=== PATIENT | female | born 1940 | race Caucasian/White ===

== ENCOUNTER 2016-09-04 14:52 | Emergency (ER) | payer OTHER ==
[2016-09-04 14:58] VITALS: TEMP 98; BMI 19.5
--- NOTE | 2016-09-04 16:03 | PDOC ---
History of Present Illness - General History Source: Patient, Old Records Exam Limitations: No Limitations - History of Present Illness Initial Comments: 09/04/16 17:10 The patient is a 76 year old female, with a significant past medical history of HTN and left lower extremity DVT, who presents to the emergency department with left lower extremity swelling and pain. She describes the pain as ranging from mild to moderate, without radiation or modifying factors. She states that she has a history of left lower extremity DVT, for which she has been taking Coumadin. She notes that her last INR check was 2 days ago, which showed an INR level around 2. The patient denies chest pain, shortness of breath, headache and dizziness. Denies fever, chills, nausea, vomit, diarrhea and constipation. Denies dysuria, frequency, urgency and hematuria. Allergies: None Past surgical history: Back surgery Social history: Cigarette use (3 daily) <Darinel Wayne - Last Filed: 09/04/16 18:45> <Parminder Martins - Last Filed: 09/04/16 18:57> - General Chief Complaint: Pain Stated Complaint: LT LEG PAIN (B.CLOTS)/SOB Time Seen by Provider: 09/04/16 16:01 Past History <Darinel Wayne - Last Filed: 09/04/16 18:45> - Past Medical History Anemia: No Asthma: No Cancer: No Cardiac Disorders: No CVA: No COPD: No CHF: No Dementia: No Diabetes: No GI Disorders: Yes (hernia) Disorders: No HTN: Yes Hypercholesterolemia: No Liver Disease: No Seizures: No Thyroid Disease: No Other medical history: LLE DVT - Surgical History Abdominal Surgery: No Appendectomy: No Cardiac Surgery: No Cholecystectomy: No Lung Surgery: No Neurologic Surgery: No Orthopedic Surgery: No - Psycho/Social/Smoking Cessation Hx Anxiety: No Suicidal Ideation: No Smoking History: Current some day smoker Have you smoked in the past 12 months: Yes Number of Cigarettes Smoked Daily: 3 If you are a former smoker, when did you quit?: 2 months ago Information on smoking cessation initiated: Yes 'Breaking Loose' booklet given: 09/04/16 Hx Alcohol Use: No Drug/Substance Use Hx: No Substance Use Type: None Hx Substance Use Treatment: No <Parminder Martins - Last Filed: 09/04/16 18:57> - Past Medical History Allergies/Adverse Reactions: Allergies Allergy/AdvReac Type Severity Reaction Status Date / Time No Known Allergies Allergy Verified 09/04/16 14:55 Home Medications: Ambulatory Orders Warfarin Sodium [Coumadin] 7.5 mg PO DAILY 09/04/16 Review of Systems - Review of Systems Able to Perform ROS?: Yes Comments:: 09/04/16 17:10 GENERAL/CONSTITUTIONAL: No fever or chills. No weakness. HEAD, EYES, EARS, NOSE AND THROAT: No change in vision. No ear pain or discharge. No sore throat. CARDIOVASCULAR: No chest pain or shortness of breath RESPIRATORY: No cough, wheezing, or hemoptysis. GASTROINTESTINAL: No nausea, vomiting, diarrhea or constipation. GENITOURINARY: No dysuria, frequency, or change in urination. MUSCULOSKELETAL: No joint or muscle swelling or pain. No neck or back pain. EXTREMITES: (+) Left lower extremity swelling and pain. SKIN: No rash NEUROLOGIC: No headache, vertigo, loss of consciousness, or change in strength/ sensation. ENDOCRINE: No increased thirst. No abnormal weight change HEMATOLOGIC/LYMPHATIC: No anemia, easy bleeding, or history of blood clots. ALLERGIC/IMMUNOLOGIC: No hives or skin allergy. <Darinel Wayne - Last Filed: 09/04/16 18:45> *Physical Exam - Vital Signs Last Vital Signs Temp Pulse Resp BP Pulse Ox 98.0 F 93 H 18 155/79 96 09/04/16 14:55 09/04/16 14:55 09/04/16 14:55 09/04/16 14:55 09/04/16 16:04 - Physical Exam Comments: 09/04/16 17:10 GENERAL: Awake, alert, and fully oriented, in no acute distress HEAD: No signs of trauma, normocephalic, atraumatic EYES: PERRLA, EOMI, sclera anicteric, conjunctiva clear ENT: Auricles normal inspection, hearing grossly normal, nares patent, oropharynx clear without exudates. Moist mucosa NECK: Normal ROM, supple, no lymphadenopathy, JVD, or masses LUNGS: No distress, speaks full sentences, clear to auscultation bilaterally HEART: Regular rate and rhythm, normal S1 and S2, no murmurs, rubs or gallops, peripheral pulses normal and equal bilaterally. ABDOMEN: Soft, nontender, normoactive bowel sounds. No guarding, no rebound. No masses EXTREMITIES: (+) Swollen and bruised left lower extremity, twice as large as the right leg. Normal range of motion. No clubbing or cyanosis. NEUROLOGICAL: Cranial nerves II through XII grossly intact. Normal speech, normal gait, no focal sensorimotor deficits SKIN: Warm, Dry, normal turgor, no rashes or lesions noted. <Darinel Wayne - Last Filed: 09/04/16 18:45> - Vital Signs Last Vital Signs Temp Pulse Resp BP Pulse Ox 98.0 F 93 H 18 155/79 97 09/04/16 14:55 09/04/16 14:55 09/04/16 14:55 09/04/16 14:55 09/04/16 14:55 <Parminder Martins - Last Filed: 09/04/16 18:57> Medical Decision Making - Medical Decision Making 09/04/16 18:45 Dr. Quinn Massey was called regarding the patient at 6:35pm. Dr. Ceja covering Dr. Ceja was consulted regarding the patient at 6:44pm <Darinel Wayne - Last Filed: 09/04/16 18:45> *DC/Admit/Observation/Transfer - Attestations Scribe Attestion: 09/04/16 17:11 Documentation prepared by Darinel Wayne, acting as medical collections representative for Parminder Martins MD <Darinel Wayne - Last Filed: 09/04/16 18:45> - Attestations Physician Attestion: 09/04/16 16:02 I, Dr. Parminder Martins, attest that this document has been prepared under my direction and personally reviewed by me in its entirety. I further attest, that it accurately reflects all work, treatment, procedures and medical decision -making performed by me. <Parminder Martins - Last Filed: 09/04/16 18:57> - Referrals Referrals: Quinn Massey MD [Primary Care Provider] - - Patient Instructions Printed Discharge Instructions: DI for Deep Vein Thrombosis, Warfarin Additional Instructions: Continue meds keep appointments, keep leg elevated
[2016-09-04 19:11] VITALS: BP 148/60; PULSE 88
== END 2016-09-04 19:09 | disposition home or self-care (01) ==
LOC: JER 14:52
DX: Z86.718 Personal history of other venous thrombosis and embolism (principal); Z79.01 Long term (current) use of anticoagulants; I10 Essential (primary) hypertension; F17.210 Nicotine dependence, cigarettes, uncomplicated
CPT/HCPCS: 93971-TC; 99284-25

== ENCOUNTER 2016-09-07 15:52 | Inpatient (IN) | payer OTHER ==
[2016-09-07] MEDS ORDERED: OXYCODONE/APAP 5/325MG COMBO TABLET PO ONE (17:10)
[2016-09-07] MEDS ORDERED: OXYCODONE/APAP 5/325MG COMBO TABLET ONE (17:13)
--- NOTE | 2016-09-07 17:23 | PDOC ---
*Physical Exam - Vital Signs Last Vital Signs Temp Pulse Resp BP Pulse Ox 98.1 F 100 H 22 154/74 95 09/07/16 16:02 09/07/16 16:02 09/07/16 16:02 09/07/16 16:02 09/07/16 16:02 ED Treatment Course - LABORATORY CBC & Chemistry Diagram: 09/15/16 06:20 09/15/16 06:20 - Medications Given in the ED: ED Medications Discontinued Medications Generic Name Dose Route Start Last Admin Trade Name Freq PRN Reason Stop Dose Admin Oxycodone/Acetaminophen 1 combo 09/07/16 17:10 09/07/16 17:15 Percocet 5/325 - PO 09/07/16 17:11 1 combo ONCE ONE Administration Medical Decision Making - Medical Decision Making 09/07/16 17:23 Pt seen by the Advanced Practice Provider under my direct supervision Ancillary studies reviewed I agree with plan as outlined by the Advanced Practice Provider JEFFREY Leon *DC/Admit/Observation/Transfer Diagnosis at time of Disposition: DVT (deep venous thrombosis), Elevated INR, Aneurysm of left popliteal artery
[2016-09-07 17:54] LABS: EOSINOPHIL 0.7 % (0-4.5); MCH 25.4 pg (25.7-33.7); MCHC 31.6 g/dl (32.0-36.0); MEAN CELL VOLUME 80.3 fl (80-96); MEAN PLT VOLUME 9.7 fl (7.5-11.1); NEUTROPHILS 86.9 % (42.8-82.8); PLATELET COUNT 354 K/MM3 (134-434); RDW 16.2 % (11.6-15.6); WHITE BLOOD COUNT 12.3 K/mm3 (4.0-10.0)
--- NOTE | 2016-09-07 17:59 | PDOC ---
History of Present Illness - General Chief Complaint: Pain Stated Complaint: LEFT LEG PAIN Time Seen by Provider: 09/07/16 16:04 History Source: Patient Exam Limitations: No Limitations - History of Present Illness Initial Comments: 09/07/16 17:08 76-year-old female presented to ED with complaints of worsening left lower extremity pain and swelling. Patient states was seen here a few days ago had an ultrasound done and was told to follow-up with her PCP and continue with her Coumadin elevating her legs when not ambulatory. Patient states bruising has increased and Tylenol was not relieving her discomfort. Patient states was diagnosed with a DVT to left lower extremity a few months ago and is currently on Coumadin. Patient denies shortness of breath, chest pain, weakness, nausea, or difficulty ambulating. Timing/Duration: getting worse Severity: moderate Associated Symptoms: reports: denies symptoms Past History - Travel Traveled outside of the country in the last 30 days: No Close contact w/someone who was outside of country & ill: No - Past Medical History Allergies/Adverse Reactions: Allergies Allergy/AdvReac Type Severity Reaction Status Date / Time No Known Allergies Allergy Verified 09/04/16 14:55 Home Medications: Ambulatory Orders Warfarin Sodium [Coumadin] 7.5 mg PO DAILY 09/04/16 Anemia: No Asthma: No Cancer: No Cardiac Disorders: No CVA: No COPD: No CHF: No Dementia: No Diabetes: No GI Disorders: Yes (hernia) Disorders: No HTN: Yes Hypercholesterolemia: No Liver Disease: No Seizures: No Thyroid Disease: No - Surgical History Abdominal Surgery: No Appendectomy: No Cardiac Surgery: No Cholecystectomy: No Lung Surgery: No Neurologic Surgery: No Orthopedic Surgery: No - Psycho/Social/Smoking Cessation Hx Anxiety: No Suicidal Ideation: No Smoking History: Current every day smoker Have you smoked in the past 12 months: Yes Number of Cigarettes Smoked Daily: 1 If you are a former smoker, when did you quit?: 2 months ago Information on smoking cessation initiated: No 'Breaking Loose' booklet given: 09/04/16 Hx Alcohol Use: No Drug/Substance Use Hx: No Substance Use Type: None Hx Substance Use Treatment: No Patient Lives Alone: Yes Review of Systems - Review of Systems Able to Perform ROS?: Yes Constitutional: No: Symptoms Reported HEENTM: No: Symptoms Reported Respiratory: No: Symptoms reported Cardiac (ROS): No: Symptoms Reported ABD/GI: No: Symptoms Reported : No: Symptoms Reported Musculoskeletal: Yes: Muscle Pain (left calf) Integumentary: Yes: Bruising, Other (swelling) Neurological: No: Symptoms reported Endocrine: No: Symptoms Reported Hematologic/Lymphatic: Yes: Blood Clots, Easy Bleeding *Physical Exam - Vital Signs Last Vital Signs Temp Pulse Resp BP Pulse Ox 98.1 F 100 H 22 154/74 95 09/07/16 16:02 09/07/16 16:02 09/07/16 16:02 09/07/16 16:02 09/07/16 16:02 - Physical Exam General Appearance: Yes: Nourished, Appropriately Dressed. No: Apparent Distress HEENT: positive: EOMI, MATT. negative: Pale Conjunctivae Neck: positive: Supple Respiratory/Chest: positive: Lungs Clear, Normal Breath Sounds. negative: Respiratory Distress, Accessory Muscle Use Cardiovascular: positive: Regular Rhythm, Regular Rate. negative: Murmur Vascular Pulses: Dorsalis-Pedis (R): 2+, Doralis-Pedis (L): 2+ Extremity: positive: Normal Capillary Refill, Normal Range of Motion, Tender ( to posterior aspect of left calf left patella and left ankle). negative: Normal Inspection (noted generalized edema of the left lower extremity from the left patella and distally.) Integumentary: positive: Ecchymosis (to the posterior aspect of distal quadricep extending to the distal aspect of left malleolus) Neurologic: positive: Motor Strength 5/5 (full mobility of left lower extremity) ED Treatment Course - LABORATORY CBC & Chemistry Diagram: 09/07/16 17:09 09/07/16 17:09 - RADIOLOGY Radiology Studies Ordered: Category Date Time Status DUPLEX VASCUL US-1 LEG [US] Stat Ultrasound 09/07/16 17:09 Ordered - Medications Given in the ED: ED Medications Discontinued Medications Generic Name Dose Route Start Last Admin Trade Name Freq PRN Reason Stop Dose Admin Oxycodone/Acetaminophen 1 combo 09/07/16 17:10 09/07/16 17:15 Percocet 5/325 - PO 09/07/16 17:11 1 combo ONCE ONE Administration Medical Decision Making - Medical Decision Making 09/07/16 17:04 Patient with complaints of worsening pain and ecchymosis to the posterior aspect of left lower extremity. Patient was seen here 3 days ago and an ultrasound that showed questionable pseudo-cyst versus operative aneurysm. Patient had no labs done at that time. Patient remains" and. Patient ordered for labs including CBC, comp, INR and repeat ultrasound. 09/07/16 19:10 Left leg DVT is identified. A 5 cm popliteal fossa spherical structures seen to distal popliteal artery aneurysm/pseudoaneurysm. Patient will be ordered for a CTA of the lower extremity along with recommendations to hold Coumadin. Patient will be admitted to Dr. Ceja 09/07/16 19:10 Laboratory Tests 03/07/16 09/07/16 09/07/16 06:00 17:09 17:09 WBC 12.3 H D Hgb 9.9 L 9.5 L Hct 30.7 L 30.1 L INR 6.54 H* D Sodium Potassium Chloride Carbon Dioxide Anion Gap BUN Creatinine Random Glucose Calcium Total Bilirubin AST ALT Alkaline Phosphatase Total Protein Albumin 09/07/16 17:09 WBC Hgb Hct INR Sodium 139 Potassium 4.4 Chloride 103 Carbon Dioxide 27 Anion Gap 9 BUN 15 Creatinine 0.8 Random Glucose 105 D Calcium 8.3 L Total Bilirubin 0.4 D AST 14 L D ALT 13 D Alkaline Phosphatase 151 H Total Protein 6.7 D Albumin 3.0 L *DC/Admit/Observation/Transfer Diagnosis at time of Disposition: Elevated international normalized ratio (INR), Aneurysm of left popliteal artery DVT (deep venous thrombosis) Qualifiers: DVT location: lower extremity Laterality: left - Discharge Dispostion Admit: Yes
[2016-09-07 18:28] LABS: PROTHROMBIN TIME (PATIENT) 74.7 SEC (9.98-11.88)
[2016-09-07 18:33] LABS: ALK PHOS 151 U/L (45-117); ANION GAP 9 (8-16); BILIRUBIN,TOTAL 0.4 mg/dL (0.2-1.0); CALCIUM 8.3 mg/dL (8.5-10.1); CO2 27 mmol/L (21-32); COCKROFT - GAULT 40.6895; CREATININE 0.8 mg/dL (0.55-1.02); GLUCOSE,RANDOM 105 mg/dL (74-106); SGOT/AST 14 U/L (15-37); SGPT/ALT 13 U/L (12-78); TOT PROT 6.7 g/dl (6.4-8.2)
[2016-09-07 19:05] LABS: INR 6.54 (0.82-1.09)
[2016-09-07 23:12] VITALS: BMI 18.0
[2016-09-08] MEDS: oxyCODONE HCL 5 MG TABLET PO PRN ×2 (04:34→20:28)
--- NOTE | 2016-09-08 09:43 | EKG ---
Test Reason : Blood Pressure : / mmHG Vent. Rate : 096 BPM Atrial Rate : 096 BPM P-R Int : 186 ms QRS Dur : 072 ms QT Int : 386 ms P-R-T Axes : 072 -24 056 degrees QTc Int : 487 ms POOR DATA QUALITY, INTERPRETATION MAY BE ADVERSELY AFFECTED SINUS RHYTHM WITH PREMATURE ATRIAL COMPLEXES NONSPECIFIC T WAVE ABNORMALITY PROLONGED QT ABNORMAL ECG WHEN COMPARED WITH ECG OF 26-FEB-2016 15:01, PREMATURE ATRIAL COMPLEXES ARE NOW PRESENT Confirmed by LIZ AYALA MD ([id number]) on 09/08/2016 9:43:34 AM Referred By: Confirmed By:LIZ AYALA MD
[2016-09-08] MEDS ORDERED: ONDANSETRON 4 MG/2 ML VIAL IVPB PRN (11:09)
--- NOTE | 2016-09-08 11:15 | HP ---
Admitting History and Physical - Primary Care Physician PCP: Quinn Massey - Admission Chief Complaint: My leg hurts History of Present Illness: Ms Mcdonald is a very pleasant 76 year old female who comes in with 7 day history of LLE swelling and pain. She says she was doing well until last week where she developed a small amount of pain in her left leg. She says it was located in her calf. At first it was very minimal but it steadily increased over time. She also noted swelling and bruising associated with it. The pain was achy and became a 10/10. It did not radiate. Because of that she comes in. She denies fevers, chills, lightheadedness, dizziness, chest pain, shortness of breath, nausea, vomiting, diarrhea, constipation, pain or difficulty urinating, or RLE swelling. Currently her pain is controlled. History Source: Patient Limitations to Obtaining History: No Limitations - Past Medical History Cardiovascular: Yes: Deep Vein Thrombosis, HTN Gastrointestinal: Yes: GERD, Hiatal Hernia (large HH) ...: No Musculoskeletal: Yes: Chronic low back pain - Past Surgical History Past Surgical History: Yes: , Laminectomy - Advance Directives Advance Directives: Yes: Health Care Proxy - Smoking History Smoking history: Current every day smoker Have you smoked in the past 12 months: Yes Aproximately how many cigarettes per day: 1 If you are a former smoker, when did you quit?: 2 months ago - Alcohol/Substance Use Hx Alcohol Use: No History of Substance Use: reports: None - Social History ADL: Family Assistance History of Recent Travel: No Home Medications - Allergies Allergies/Adverse Reactions: Allergies Allergy/AdvReac Type Severity Reaction Status Date / Time No Known Allergies Allergy Verified 09/04/16 14:55 - Home Medications Home Medications: Ambulatory Orders Warfarin Sodium [Coumadin] 7.5 mg PO DAILY 09/04/16 Family Disease History - Family Disease History Family Disease History: Heart Disease: Mother, Other: Father (cirrhosis) Review of Systems Findings/Remarks: Full review of systems obtained, as per HPI and otherwise negative Physical Examination Vital Signs: Vital Signs Temperature 97.8 F 09/08/16 05:45 Pulse Rate 62 09/08/16 05:45 Respiratory Rate 18 09/08/16 05:45 Blood Pressure 128/67 09/08/16 05:45 O2 Sat by Pulse Oximetry (%) 94 L 09/07/16 21:00 Constitutional: Yes: No Distress, Calm, Thin Eyes: Yes: Conjunctiva Clear, EOM Intact HENT: Yes: Atraumatic, Normocephalic Cardiovascular: Yes: Regular Rate and Rhythm. No: Gallop, Murmur, Rub Respiratory: Yes: Regular, CTA Bilaterally. No: Rales, Rhonchi, Wheezes Gastrointestinal: Yes: Normal Bowel Sounds, Soft. No: Distention, Tenderness Extremities: Yes: Other (ecchymosis) Edema: Yes Edema: LLE: Trace Labs: Laboratory Results - last 24 hr 09/07/16 09/07/16 09/07/16 17:09 17:09 17:09 WBC 12.3 H D RBC 3.74 Hgb 9.5 L Hct 30.1 L MCV 80.3 MCHC 31.6 L RDW 16.2 H Plt Count 354 MPV 9.7 Neutrophils % 86.9 H D Lymphocytes % 5.0 L D Monocytes % 6.4 Eosinophils % 0.7 Basophils % 1.0 INR 6.54 H* D Sodium 139 Potassium 4.4 Chloride 103 Carbon Dioxide 27 Anion Gap 9 BUN 15 Creatinine 0.8 Creat Clearance w eGFR > 60 Random Glucose 105 D Calcium 8.3 L Total Bilirubin 0.4 D AST 14 L D ALT 13 D Alkaline Phosphatase 151 H Total Protein 6.7 D Albumin 3.0 L Imaging - Results Chest X-ray: Report Reviewed, Image Reviewed Ultrasound: Report Reviewed Problem List - Problems (1) Aneurysm of left popliteal artery Assessment/Plan: -patient with history of aneurysm, now presenting with ecchymosis and pain -with supratherapeutic INR, ? rupture of aneurysm -CTA with runoff performed, awaiting read -vascular surgery consulted Code(s): I72.4 - ANEURYSM OF ARTERY OF LOWER EXTREMITY (2) DVT (deep venous thrombosis) Assessment/Plan: -DVT found in leg -patient says she thinks it has been there but is getting bigger -ultrasound in 12/23 showing extensive DVT, but ultrasound from 09/03 showing no DVT -last ultrasound may be inaccurate and seen DVT is resolving DVT -however it is concerning as patient is supratherapeutic -will consult hematology to assess if this is failure of coumadin Code(s): I82.409 - ACUTE EMBOLISM AND THOMBOS UNSP DEEP VN UNSP LOWER EXTREMITY Qualifiers: DVT location: lower extremity Laterality: left (3) Elevated INR Assessment/Plan: -hold coumadin currently -will hold on Vitamin K currently -however if ruptured aneurysm may need to give -hematology consulted Code(s): R79.1 - ABNORMAL COAGULATION PROFILE (4) GERD (gastroesophageal reflux disease) Assessment/Plan: -secondary to hiatal hernia -also history of GI bleed -will place on protonix Code(s): K21.9 - GASTRO-ESOPHAGEAL REFLUX DISEASE WITHOUT ESOPHAGITIS (5) Hiatal hernia Assessment/Plan: -outpatient follow up -currently asymptomatic Code(s): K44.9 - DIAPHRAGMATIC HERNIA WITHOUT OBSTRUCTION OR GANGRENE
--- NOTE | 2016-09-08 16:29 | CONSULT ---
Consult - Past Medical History Cardio/Vascular: Yes: Deep Vein Thrombosis, HTN Gastrointestinal: Yes: GERD, Hiatal Hernia (large HH) ...: No Musculoskeletal: Yes: Chronic low back pain - Past Surgical History Past Surgical History: Yes: , Laminectomy - Alcohol/Substance Use Hx Alcohol Use: No History of Substance Use: reports: None - Smoking History Smoking history: Current every day smoker Have you smoked in the past 12 months: Yes Aproximately how many cigarettes per day: 1 If you are a former smoker, when did you quit?: 2 months ago - Social History ADL: Family Assistance History of Recent Travel: No Home Medications - Allergies Allergies/Adverse Reactions: Allergies Allergy/AdvReac Type Severity Reaction Status Date / Time No Known Allergies Allergy Verified 09/04/16 14:55 - Home Medications Home Medications: Ambulatory Orders Warfarin Sodium [Coumadin] 7.5 mg PO DAILY 09/04/16 Family Disease History - Family Disease History Family Disease History: Heart Disease: Mother, Other: Father (cirrhosis) Physical Exam Vital Signs: Vital Signs Temperature 98.4 F 09/08/16 15:46 Pulse Rate 94 H 09/08/16 15:46 Respiratory Rate 19 09/08/16 15:46 Blood Pressure 128/77 09/08/16 15:46 O2 Sat by Pulse Oximetry (%) 96 09/08/16 11:15 Assessment/Plan Vascular Surgery Ms Mcdonald is a very pleasant 76 year old female who comes in with 7 day history of LLE swelling and pain. She says she was doing well until last week where she developed a small amount of pain in her left leg. She says it was located in her calf. At first it was very minimal but it steadily increased over time. She also noted swelling and bruising associated with it. The pain was achy and became a 10/10. It did not radiate. Because of that she comes in. She denies fevers, chills, lightheadedness, dizziness, chest pain, shortness of breath, nausea, vomiting, diarrhea, constipation, pain or difficulty urinating, or RLE swelling. Currently her pain is controlled. History Source: Patient Limitations to Obtaining History: No Limitations - Past Medical History Cardiovascular: Yes: Deep Vein Thrombosis, HTN Gastrointestinal: Yes: GERD, Hiatal Hernia (large HH) ...: No Musculoskeletal: Yes: Chronic low back pain - Past Surgical History Past Surgical History: Yes: , Laminectomy - Advance Directives Advance Directives: Yes: Health Care Proxy - Smoking History Smoking history: Current every day smoker Have you smoked in the past 12 months: Yes Aproximately how many cigarettes per day: 1 If you are a former smoker, when did you quit?: 2 months ago PE Head - NC/AT Lung - CTA Heart - RRR abd - soft,nt,nd Ext - Left posterior knee - pulsatile mass in the form of a aneurysm. [place] DP and PT pulse in leg. Right posterior knee -- pulsaltile mass. A/P Bilateral popliteal artery aneuryms. Left greater than right CTA not read officially. Hold coumadin for inr of 6.5 Once below 2 please start IV heparin. Will need popliteal artery stent graft percutanously during angiogram once INR is stable. Please medically and cardiology whitaker clear. Ronald Sheikh DO
[2016-09-08] MEDS: ACETAMINOPHEN 325 MG TABLET (FP) PO PRN (20:26)
--- NOTE | 2016-09-08 21:16 | CONSULT ---
Consult - text type - Consultation Consultation Note: Patient seen and examined Ms Mcdonald is a very pleasant 76 year old female who comes in with 2 week history of LLE swelling and pain. She says she was doing well when she developed a small amount of pain in her left leg. She says it was located in her calf. At first it was very minimal but it steadily increased over time. She also noted swelling and bruising associated with it. The pain was achy and became a 10/10. It did not radiate. Because of that she comes in. She denies fevers, chills, lightheadedness, dizziness, chest pain, shortness of breath, nausea, vomiting, diarrhea, constipation, pain or difficulty urinating, or RLE swelling. Currently her pain is controlled. she was seen in the er on 09/04 ad sent home as u/s showed no dvt. she came back 09/07 with left leg swelling, high inr, u/s sowing ruptured popliteal aneurysm, ruptured and sealed - Past Medical History Cardiovascular: Yes: Deep Vein Thrombosis, HTN Gastrointestinal: Yes: GERD, Hiatal Hernia (large HH) Musculoskeletal: Yes: Chronic low back pain - Past Surgical History Past Surgical History: Yes: , Laminectomy - Advance Directives Advance Directives: Yes: Health Care Proxy - Smoking History Smoking history: Current every day smoker Home Medications - Allergies Allergies/Adverse Reactions: Allergies Allergy/AdvReac Type Severity Reaction Status Date / Time No Known Allergies Allergy Verified 09/04/16 14:55 - Home Medications Home Medications: Ambulatory Orders Warfarin Sodium [Coumadin] 7.5 mg PO DAILY 09/04/16 Family Disease History - Family Disease History Family Disease History: Heart Disease: Mother, Other: Father (cirrhosis) HPI and otherwise negative Physical Examination Vital Signs: Vital Signs Temperature 97.8 F 09/08/16 05:45 Pulse Rate 62 09/08/16 05:45 Respiratory Rate 18 09/08/16 05:45 Blood Pressure 128/67 09/08/16 05:45 O2 Sat by Pulse Oximetry (%) 94 L 09/07/16 21:00 Constitutional: Yes: No Distress, Calm, Thin Eyes: Yes: Conjunctiva Clear, EOM Intact HENT: Yes: Atraumatic, Normocephalic Cardiovascular: Yes: Regular Rate and Rhythm. No: Gallop, Murmur, Rub Respiratory: Yes: Regular, CTA Bilaterally. No: Rales, Rhonchi, Wheezes Gastrointestinal: Yes: Normal Bowel Sounds, Soft. No: Distention, Tenderness Extremities: Yes: Other (ecchymosis) post. left thigh above the knee joint Edema: Yes Edema: LLE: Trace Labs: Laboratory Results - last 24 hr 09/07/16 09/07/16 09/07/16 17:09 17:09 17:09 WBC 12.3 H D RBC 3.74 Hgb 9.5 L Hct 30.1 L MCV 80.3 MCHC 31.6 L RDW 16.2 H Plt Count 354 MPV 9.7 Neutrophils % 86.9 H D Lymphocytes % 5.0 L D Monocytes % 6.4 Eosinophils % 0.7 Basophils % 1.0 INR 6.54 H* D Sodium 139 Potassium 4.4 Chloride 103 Carbon Dioxide 27 Anion Gap 9 BUN 15 Creatinine 0.8 Creat Clearance w eGFR > 60 Random Glucose 105 D Calcium 8.3 L Total Bilirubin 0.4 D AST 14 L D ALT 13 D Alkaline Phosphatase 151 H Total Protein 6.7 D Albumin 3.0 L Imaging - Results Chest X-ray: Report Reviewed, Image Reviewed Ultrasound: Report Reviewed Problem List -76 y/o female, thin buil, COPD, smoker, h/o unprovoked, extensive LLE DVT in comes in with subacute , 2 weeks onset of LT. thigh swelling, pain. CTA shows--- Lt. popliteal aneurysm rupture/bleed supratherapeutic INR ?? DVT since 12/23 --?? chronic Subacute /chroic Lt. popliteal aneurysm rupture/sealing. ??chronic LLE DVT vit. k may need ffp if actively bleeds monitor cbc/pt/ptt heparin when INR <2
[2016-09-08] MEDS ORDERED: PHYTONADIONE 10 MG/1 ML AMP SQ ONE ×2 (21:29→23:54)
[2016-09-08] MEDS: DOCUSATE SODIUM 100 MG CAPSULE (FP) PO SCH (22:33)
[2016-09-08 23:22] LABS: ACTIVATED PTT 52.3 SECONDS (26.9-34.4)
[2016-09-08 23:42] LABS: PROTHROMBIN TIME (PATIENT) 107.6 SEC (9.98-11.88)
[2016-09-08 23:45] LABS: INR 9.35 (0.82-1.09)
[2016-09-09] MEDS: ACETAMINOPHEN 325 MG TABLET (FP) PO PRN ×3 (03:58→22:18)
[2016-09-09] MEDS: oxyCODONE HCL 5 MG TABLET PO PRN ×3 (03:59→22:17)
[2016-09-09 07:19] LABS: BASOPHIL 1.1 % (0-2.0); EOSINOPHIL 2.3 % (0-4.5); MCH 25.9 pg (25.7-33.7); MCHC 32.4 g/dl (32.0-36.0); MEAN PLT VOLUME 9.3 fl (7.5-11.1); NEUTROPHILS 74.9 % (42.8-82.8); PLATELET COUNT 282 K/MM3 (134-434); RDW 16.7 % (11.6-15.6); WHITE BLOOD COUNT 8.3 K/mm3 (4.0-10.0)
[2016-09-09 07:30] LABS: PROTHROMBIN TIME (PATIENT) 78.6 SEC (9.98-11.88)
[2016-09-09 07:40] LABS: INR 6.87 (0.82-1.09)
[2016-09-09 08:08] LABS: CALCIUM 7.9 mg/dL (8.5-10.1); COCKROFT - GAULT 45.135; CREATININE 0.7 mg/dL (0.55-1.02); MAGNESIUM 2.2 mg/dL (1.8-2.4); PHOSPHOROUS 3.4 mg/dL (2.5-4.9)
[2016-09-09 09:35] LABS: ACTIVATED PTT 52.2 SECONDS (26.9-34.4)
[2016-09-09] MEDS: DOCUSATE SODIUM 100 MG CAPSULE (FP) PO SCH ×2 (10:05→21:12)
[2016-09-09] MEDS: POLYETHYLENE GLYCOL 3350 119 GM BTL PO SCH (10:05)
[2016-09-09] MEDS: PANTOPRAZOLE 40 MG TABLET (FP) PO SCH (10:05)
--- NOTE | 2016-09-09 11:15 | PN ---
Progress Note, Physician Chief Complaint: Ms Mcdonald says she is doing well. Her leg pain is resolving. No cp, sob, n/v. - Current Medication List Current Medications: Active Medications Acetaminophen (Tylenol -) 325 mg PO Q4H PRN PRN Reason: PAIN Stop: 09/10/16 23:55 Last Admin: 09/09/16 03:58 Dose: 325 mg Docusate Sodium (Colace -) 100 mg PO BID [facility] Last Admin: 09/09/16 10:05 Dose: 100 mg Ondansetron HCl (Zofran Injection) 4 mg IVPB Q6H PRN PRN Reason: NAUSEA Oxycodone HCl (Roxicodone -) 5 mg PO Q4H PRN PRN Reason: PAIN Last Admin: 09/09/16 03:59 Dose: 5 mg Pantoprazole Sodium (Protonix -) 40 mg PO DAILY [facility] Last Admin: 09/09/16 10:05 Dose: 40 mg Polyethylene Glycol (Miralax (For Daily Use) -) 17 gm PO DAILY [facility] Last Admin: 09/09/16 10:05 Dose: 17 gm - Objective Vital Signs: Vital Signs Temperature 98.6 F 09/09/16 09:45 Pulse Rate 95 H 09/09/16 09:45 Respiratory Rate 20 09/09/16 09:45 Blood Pressure 114/73 09/09/16 09:45 O2 Sat by Pulse Oximetry (%) 96 09/08/16 21:00 Constitutional: Yes: Well Nourished, No Distress, Calm Cardiovascular: Yes: Regular Rate and Rhythm. No: Gallop, Murmur, Rub Respiratory: Yes: Regular, CTA Bilaterally. No: Rales, Rhonchi, Wheezes Gastrointestinal: Yes: Normal Bowel Sounds, Soft. No: Distention, Tenderness Extremities: Yes: Other (ecchymosis) Edema: No Labs: CBC, BMP 09/09/16 06:00 09/09/16 06:00 INR, PTT INR 6.87 (0.82-1.09) H* 09/09/16 06:00 Fibrinogen 575.0 mg/dL (238-498) H 09/09/16 06:00 Problem List - Problems (1) Aneurysm of left popliteal artery Code(s): I72.4 - ANEURYSM OF ARTERY OF LOWER EXTREMITY (2) DVT (deep venous thrombosis) Code(s): I82.409 - ACUTE EMBOLISM AND THOMBOS UNSP DEEP VN UNSP LOWER EXTREMITY Qualifiers: DVT location: lower extremity Laterality: left (3) Elevated INR Code(s): R79.1 - ABNORMAL COAGULATION PROFILE (4) GERD (gastroesophageal reflux disease) Code(s): K21.9 - GASTRO-ESOPHAGEAL REFLUX DISEASE WITHOUT ESOPHAGITIS (5) Hiatal hernia Code(s): K44.9 - DIAPHRAGMATIC HERNIA WITHOUT OBSTRUCTION OR GANGRENE Assessment/Plan (1) Aneurysm of left popliteal artery Assessment/Plan: -with rupture -appreciate vascular surgery assistance -medically stable for intervention Code(s): I72.4 - ANEURYSM OF ARTERY OF LOWER EXTREMITY (2) DVT (deep venous thrombosis) Assessment/Plan: -appreciate hematology assistance -DVT present but decreased from December -reversing INR secondary to bleeding Code(s): I82.409 - ACUTE EMBOLISM AND THOMBOS UNSP DEEP VN UNSP LOWER EXTREMITY Qualifiers: DVT location: lower extremity Laterality: left (3) Elevated INR Assessment/Plan: -currently getting vitamin k per hematology -holding coumadin -will need heparin when subtherapeutic Code(s): R79.1 - ABNORMAL COAGULATION PROFILE (4) GERD (gastroesophageal reflux disease) Assessment/Plan: -secondary to hiatal hernia -also history of GI bleed -continue protonix Code(s): K21.9 - GASTRO-ESOPHAGEAL REFLUX DISEASE WITHOUT ESOPHAGITIS (5) Hiatal hernia Assessment/Plan: -outpatient follow up -currently asymptomatic Code(s): K44.9 - DIAPHRAGMATIC HERNIA WITHOUT OBSTRUCTION OR GANGRENE
[2016-09-09 12:01] LABS: MCH 25.9 pg (25.7-33.7); MCHC 32.1 g/dl (32.0-36.0); MEAN CELL VOLUME 80.7 fl (80-96); MEAN PLT VOLUME 9.5 fl (7.5-11.1); PLATELET COUNT 328 K/MM3 (134-434); WHITE BLOOD COUNT 10.5 K/mm3 (4.0-10.0)
--- NOTE | 2016-09-09 12:30 | CONSULT ---
Consult Consult Specialty:: Cardiology (Dr. Herron) Referred by:: Dr. Rodriguez Reason for Consultation:: Pre-operative evaluation - History of Present Illness Chief Complaint: Left leg edema History of Present Illness: 76 yo female History of hypertension (not on Rx therapy) and DVT diagnosed 6 months ago in the setting of a fall, now on AC (warfarin) No regular medical care up to this point prior to her DVT Has INR followed by Dr. Polanco No prior CV evaluation No known h/o DM, HPL, prior IL or CVA Known tobacco smoker (1PPD for 40 years) Does have exertional dyspnea after 2 blocks (stable) without chest pain Now presents with 1 week of left lower leg edema and pain in the setting of supratherapeutic INR Found to have left popliteal aneurysm with bleed being considered for percutaneous repair. - History Source History Provided By: Patient, Medical Record - Past Medical History Cardio/Vascular: Yes: Deep Vein Thrombosis, HTN Gastrointestinal: Yes: GERD, Hiatal Hernia (large HH) ...: No Musculoskeletal: Yes: Chronic low back pain - Past Surgical History Past Surgical History: Yes: , Laminectomy - Alcohol/Substance Use Hx Alcohol Use: No History of Substance Use: reports: None - Smoking History Smoking history: Current every day smoker Have you smoked in the past 12 months: Yes Aproximately how many cigarettes per day: 1 If you are a former smoker, when did you quit?: 2 months ago - Social History ADL: Family Assistance History of Recent Travel: No Home Medications - Allergies Allergies/Adverse Reactions: Allergies Allergy/AdvReac Type Severity Reaction Status Date / Time No Known Allergies Allergy Verified 09/04/16 14:55 - Home Medications Home Medications: Ambulatory Orders Warfarin Sodium [Coumadin] 7.5 mg PO DAILY 09/04/16 Family Disease History - Family Disease History Family Disease History: Heart Disease: Mother, Other: Father (cirrhosis) Review of Systems - Review of Systems Cardiovascular: reports: No Symptoms (No chest pain, mild exertional dyspnea with 2-3 blocks) Physical Exam Vital Signs: Vital Signs Temperature 98.6 F 09/09/16 09:45 Pulse Rate 95 H 09/09/16 09:45 Respiratory Rate 20 09/09/16 09:45 Blood Pressure 114/73 09/09/16 09:45 O2 Sat by Pulse Oximetry (%) 96 09/08/16 21:00 Constitutional: Yes: No Distress Eyes: Yes: WNL HENT: Yes: WNL Neck: Yes: WNL Cardiovascular: Yes: Regular Rate and Rhythm, Murmur (Soft systolic murmur at RUSB) Respiratory: Yes: CTA Bilaterally Gastrointestinal: Yes: Normal Bowel Sounds Musculoskeletal: Yes: Other (Barrell chested) Extremities: Yes: Other (Left calf ecchymosis and fullness) Edema: LLE: 1+ Integumentary: Yes: Bruising Labs: CBC, BMP 09/09/16 11:35 09/09/16 06:00 Imaging - Results EKG: Image Reviewed (NSR with non-specific ST changes.) Assessment/Plan 76 yo female (+) tobacco hx and htn Abn ECG with non-specific ST changes Soft systolic murmur Left popliteal aneurysm with bleedinin the setting of elevated INR INR management as per primary team and heme Will obtain echo to assess murmur, lipids for further CV risk assessment
[2016-09-09 12:42] LABS: INR 4.24 (0.82-1.09)
--- NOTE | 2016-09-09 13:41 | PN ---
Progress Note (short form) - Note Progress Note: Progress Note: Patient seen and examined tired L. knee pain somewhat better Vital Signs Period Temp Pulse Resp BP Sys/Wu Pulse Ox Last 24 Hr 98.4 F-98.7 F 85-95 18-20 114-134/73-77 96 AFVSS HEENT: SCOTT, EOM Intact Cor: RSR, No murmurs, No gallops Lungs: Clear to P&A.scattered rhonchi Abd: Soft, Normal bowel sounds, No organomegaly Ext:L .popliteal hematoma Skin: No rashes, Integument intact CBC, BMP 09/09/16 11:35 09/09/16 06:00 INR, PTT INR 4.24 (0.82-1.09) H* D 09/09/16 11:35 Fibrinogen 575.0 mg/dL (238-498) H 09/09/16 06:00 A/P Lt. popliteal aneurysm rupture/bleed, supratherapeutic INR for chronic VTE since 12/23 LLE DVT s/p 1 dose of vitamin K INR steadily decreasing with stable Hb Hence no further intervention at this time may need ffp if actively bleeds AM CBC / PT/PTT/INR heparin when INR <2
[2016-09-10] MEDS: oxyCODONE HCL 5 MG TABLET PO PRN ×3 (06:03→23:42)
[2016-09-10] MEDS: ACETAMINOPHEN 325 MG TABLET (FP) PO PRN ×3 (06:04→23:38)
[2016-09-10 08:52] LABS: COCKROFT - GAULT 45.135; CREATININE 0.7 mg/dL (0.55-1.02); MAGNESIUM 2.2 mg/dL (1.8-2.4); PHOSPHOROUS 3.3 mg/dL (2.5-4.9)
[2016-09-10 08:54] LABS: BASOPHIL 0.9 % (0-2.0); EOSINOPHIL 2.6 % (0-4.5); MCH 26.4 pg (25.7-33.7); MCHC 33.1 g/dl (32.0-36.0); MEAN CELL VOLUME 79.7 fl (80-96); MEAN PLT VOLUME 9.4 fl (7.5-11.1); NEUTROPHILS 79.7 % (42.8-82.8); PLATELET COUNT 290 K/MM3 (134-434); RDW 16.4 % (11.6-15.6); WHITE BLOOD COUNT 8.7 K/mm3 (4.0-10.0)
[2016-09-10 08:55] LABS: CHOLESTEROL 186 mg/dL (50-200)
[2016-09-10 08:57] LABS: LDL CHOLESTEROL (ONLY SJRH) 112 mg/dL (5-100)
--- NOTE | 2016-09-10 09:04 | PN ---
Progress Note, Physician History of Present Illness: No CV events overnight Left Leg pain continues but improved today - Current Medication List Current Medications: Active Medications Acetaminophen (Tylenol -) 325 mg PO Q4H PRN PRN Reason: PAIN Stop: 09/10/16 23:55 Last Admin: 09/10/16 06:04 Dose: 325 mg Docusate Sodium (Colace -) 100 mg PO BID [facility] Last Admin: 09/09/16 21:12 Dose: 100 mg Ondansetron HCl (Zofran Injection) 4 mg IVPB Q6H PRN PRN Reason: NAUSEA Oxycodone HCl (Roxicodone -) 5 mg PO Q4H PRN PRN Reason: PAIN Last Admin: 09/10/16 06:03 Dose: 5 mg Pantoprazole Sodium (Protonix -) 40 mg PO DAILY [facility] Last Admin: 09/09/16 10:05 Dose: 40 mg Polyethylene Glycol (Miralax (For Daily Use) -) 17 gm PO DAILY [facility] Last Admin: 09/09/16 10:05 Dose: 17 gm - Objective Vital Signs: Vital Signs Temperature 98.3 F 09/10/16 05:00 Pulse Rate 85 09/10/16 05:00 Respiratory Rate 20 09/10/16 05:00 Blood Pressure 137/88 09/10/16 05:00 O2 Sat by Pulse Oximetry (%) 98 09/09/16 20:20 Constitutional: Yes: No Distress Eyes: Yes: WNL HENT: Yes: WNL Neck: Yes: WNL Cardiovascular: Yes: Murmur Respiratory: Yes: CTA Bilaterally Gastrointestinal: Yes: WNL Edema: LLE: Trace (ecchymosis) Labs: CBC, BMP 09/10/16 07:30 09/10/16 07:30 INR, PTT INR 4.24 (0.82-1.09) H* D 09/09/16 11:35 Fibrinogen 575.0 mg/dL (238-498) H 09/09/16 06:00 Assessment/Plan 76 yo female (+) tobacco hx and htn Abn ECG with non-specific ST changes Soft systolic murmur Left popliteal aneurysm with bleeding the setting of elevated INR INR trending down, continue management as per primary team and heme Awaiting echo to assess murmur
[2016-09-10] MEDS: DOCUSATE SODIUM 100 MG CAPSULE (FP) PO SCH ×2 (09:57→21:05)
[2016-09-10] MEDS: PANTOPRAZOLE 40 MG TABLET (FP) PO SCH (09:57)
[2016-09-10] MEDS: POLYETHYLENE GLYCOL 3350 119 GM BTL PO SCH (09:58)
--- NOTE | 2016-09-10 11:45 | PN ---
Progress Note, Physician Chief Complaint: Ms Mcdonald says she is doing well. She no longer has leg pain. No cp, sob, n/v. - Current Medication List Current Medications: Active Medications Acetaminophen (Tylenol -) 325 mg PO Q4H PRN PRN Reason: PAIN Stop: 09/10/16 23:55 Last Admin: 09/10/16 06:04 Dose: 325 mg Docusate Sodium (Colace -) 100 mg PO BID [facility] Last Admin: 09/10/16 09:57 Dose: 100 mg Ondansetron HCl (Zofran Injection) 4 mg IVPB Q6H PRN PRN Reason: NAUSEA Oxycodone HCl (Roxicodone -) 5 mg PO Q4H PRN PRN Reason: PAIN Last Admin: 09/10/16 06:03 Dose: 5 mg Pantoprazole Sodium (Protonix -) 40 mg PO DAILY [facility] Last Admin: 09/10/16 09:57 Dose: 40 mg Polyethylene Glycol (Miralax (For Daily Use) -) 17 gm PO DAILY [facility] Last Admin: 09/10/16 09:58 Dose: 17 gm - Objective Vital Signs: Vital Signs Temperature 98.2 F 09/10/16 09:41 Pulse Rate 88 09/10/16 09:41 Respiratory Rate 18 09/10/16 09:41 Blood Pressure 102/59 09/10/16 09:41 O2 Sat by Pulse Oximetry (%) 98 09/09/16 20:20 Constitutional: Yes: No Distress, Calm, Thin Cardiovascular: Yes: Regular Rate and Rhythm. No: Gallop, Murmur, Rub Respiratory: Yes: Regular, CTA Bilaterally. No: Rales, Rhonchi, Wheezes Gastrointestinal: Yes: Normal Bowel Sounds, Soft. No: Distention, Tenderness Extremities: Yes: WNL Edema: No Labs: CBC, BMP 09/10/16 07:30 09/10/16 07:30 INR, PTT INR 4.24 (0.82-1.09) H* D 09/09/16 11:35 Fibrinogen 575.0 mg/dL (238-498) H 09/09/16 06:00 Problem List - Problems (1) Aneurysm of left popliteal artery Code(s): I72.4 - ANEURYSM OF ARTERY OF LOWER EXTREMITY (2) DVT (deep venous thrombosis) Code(s): I82.409 - ACUTE EMBOLISM AND THOMBOS UNSP DEEP VN UNSP LOWER EXTREMITY Qualifiers: DVT location: lower extremity Laterality: left (3) Elevated INR Code(s): R79.1 - ABNORMAL COAGULATION PROFILE (4) GERD (gastroesophageal reflux disease) Code(s): K21.9 - GASTRO-ESOPHAGEAL REFLUX DISEASE WITHOUT ESOPHAGITIS (5) Hiatal hernia Code(s): K44.9 - DIAPHRAGMATIC HERNIA WITHOUT OBSTRUCTION OR GANGRENE Assessment/Plan (1) Aneurysm of left popliteal artery Assessment/Plan: -with rupture -appreciate vascular surgery assistance -medically stable for intervention -cardiology ordered ECHO to evaluate murmur heard on his exam Code(s): I72.4 - ANEURYSM OF ARTERY OF LOWER EXTREMITY (2) DVT (deep venous thrombosis) Assessment/Plan: -hematology reversing INR -start on heparin gtt when INR below 2 Code(s): I82.409 - ACUTE EMBOLISM AND THOMBOS UNSP DEEP VN UNSP LOWER EXTREMITY Qualifiers: DVT location: lower extremity Laterality: left (3) Elevated INR Assessment/Plan: -reversing as above -holding coumadin -heparin gtt when INR below 2 Code(s): R79.1 - ABNORMAL COAGULATION PROFILE (4) GERD (gastroesophageal reflux disease) Assessment/Plan: -secondary to hiatal hernia -also history of GI bleed -continue protonix Code(s): K21.9 - GASTRO-ESOPHAGEAL REFLUX DISEASE WITHOUT ESOPHAGITIS (5) Hiatal hernia Assessment/Plan: -outpatient follow up -currently asymptomatic Code(s): K44.9 - DIAPHRAGMATIC HERNIA WITHOUT OBSTRUCTION OR GANGRENE
--- NOTE | 2016-09-10 12:09 | PN ---
Progress Note (short form) - Note Progress Note: Progress Note: Patient seen and examined tired L. knee pain improving steadily Vital Signs Period Temp Pulse Resp BP Sys/Wu Pulse Ox Last 24 Hr 98.1 F-98.7 F 85-96 17-20 95-137/59-88 98 AFVSS Abd: Soft, Normal bowel sounds, No organomegaly Ext:L .popliteal hematoma, improved ROM able to lift knee off bed Skin: No rashes, Integument intact CBC, BMP 09/10/16 07:30 09/10/16 07:30 A/P Lt. popliteal aneurysm rupture/bleed, supratherapeutic INR for chronic VTE since 12/23 LLE DVT s/p 1 dose of vitamin K INR steadily decreasing with stable Hb Hence no further intervention at this time may need ffp if actively bleeds heparin when INR <2 for previous VTE A/w PT/INR
[2016-09-10 12:33] LABS: INR 1.3 (0.82-1.09); PROTHROMBIN TIME (PATIENT) 14.4 SEC (9.98-11.88)
[2016-09-10 12:36] LABS: ACTIVATED PTT 29.2 SECONDS (26.9-34.4)
[2016-09-10] MEDS ORDERED: HEPARIN INFUSION - 500 ML IVPB SCH (13:00)
[2016-09-10] MEDS ORDERED: HEPARIN NA (PORCINE) 5,000 UNITS/ML 1ML VIAL IVPUSH PRN ×2 (21:47)
[2016-09-11] MEDS: ACETAMINOPHEN 325 MG TABLET (FP) PO PRN ×3 (06:52→23:50)
[2016-09-11] MEDS: oxyCODONE HCL 5 MG TABLET PO PRN ×3 (06:52→23:51)
[2016-09-11 07:37] LABS: BASOPHIL 1.2 % (0-2.0); MCH 26.3 pg (25.7-33.7); MCHC 32.6 g/dl (32.0-36.0); MEAN CELL VOLUME 80.8 fl (80-96); MEAN PLT VOLUME 9.5 fl (7.5-11.1); NEUTROPHILS 74.3 % (42.8-82.8); PLATELET COUNT 327 K/MM3 (134-434)
[2016-09-11 07:58] LABS: INR 1.3 (0.82-1.09); PROTHROMBIN TIME (PATIENT) 14.4 SEC (9.98-11.88)
[2016-09-11 07:59] LABS: CALCIUM 8.4 mg/dL (8.5-10.1); COCKROFT - GAULT 39.491; CREATININE 0.8 mg/dL (0.55-1.02); MAGNESIUM 2.4 mg/dL (1.8-2.4)
--- NOTE | 2016-09-11 09:25 | PN ---
Progress Note, Physician - Current Medication List Current Medications: Active Medications Acetaminophen (Tylenol -) 325 mg PO Q4H PRN PRN Reason: PAIN Last Admin: 09/11/16 06:52 Dose: 325 mg Docusate Sodium (Colace -) 100 mg PO BID [facility] Last Admin: 09/10/16 21:05 Dose: 100 mg Heparin Sodium (Porcine) (Heparin -) 5,000 unit IVPUSH PRN PRN Last Admin: 09/10/16 21:52 Dose: 5,000 unit Heparin Sodium (Porcine) (Heparin -) 1,000 unit IVPUSH PRN PRN Heparin Sodium/Dextrose (Heparin Infusion -) 500 mls @ 16 mls/hr IVPB TITR [facility] ; 800 UNITS/HR PRN Reason: Protocol Last Titration: 09/10/16 21:52 Dose: 950 units/hr Ondansetron HCl (Zofran Injection) 4 mg IVPB Q6H PRN PRN Reason: NAUSEA Oxycodone HCl (Roxicodone -) 5 mg PO Q4H PRN PRN Reason: PAIN Last Admin: 09/11/16 06:52 Dose: 5 mg Pantoprazole Sodium (Protonix -) 40 mg PO DAILY [facility] Last Admin: 09/10/16 09:57 Dose: 40 mg Polyethylene Glycol (Miralax (For Daily Use) -) 17 gm PO DAILY [facility] Last Admin: 09/10/16 09:58 Dose: 17 gm - Objective Vital Signs: Vital Signs Temperature 97.8 F 09/11/16 07:30 Pulse Rate 79 09/11/16 07:30 Respiratory Rate 18 09/11/16 07:30 Blood Pressure 136/79 09/11/16 07:30 O2 Sat by Pulse Oximetry (%) 98 09/09/16 20:20 Labs: CBC, BMP 09/11/16 05:35 09/11/16 05:35 INR, PTT INR 1.30 (0.82-1.09) H 09/11/16 05:35 Fibrinogen 575.0 mg/dL (238-498) H 09/09/16 06:00 Assessment/Plan 76 yo female (+) tobacco hx and htn Abn ECG with non-specific ST changes Soft systolic murmur Left popliteal aneurysm with bleeding the setting of elevated INR Preop CV eval: -for (urgent?) repair of (subacute) bleeding pop aneurysm -H/H fairly stable -echo ordered to assess systolic murmur (in setting of reduced heart sounds from ? underlying copd/barrel-chested habitus)--to r/o signif -if vascular surgery feels surgery can wait until echo is completed and interpreted later today, will make final comment at that time on her periop CV risk -if she develops signs of clinical instability and vascular feels she requires emergent surgery, then will have no choice but to proceed INR 1.3, started on UFH by heme--PTT >400--Heme is managing this pt's AC in the setting of ? old/chronic DVT, now with bleeding pop aneurysm
[2016-09-11] MEDS: DOCUSATE SODIUM 100 MG CAPSULE (FP) PO SCH ×2 (10:09→21:37)
[2016-09-11] MEDS: PANTOPRAZOLE 40 MG TABLET (FP) PO SCH (10:09)
[2016-09-11] MEDS: POLYETHYLENE GLYCOL 3350 119 GM BTL PO SCH (10:10)
--- NOTE | 2016-09-11 11:41 | EKG ---
Test Reason : Blood Pressure : / mmHG Vent. Rate : 096 BPM Atrial Rate : 096 BPM P-R Int : 188 ms QRS Dur : 080 ms QT Int : 382 ms P-R-T Axes : 066 -18 058 degrees QTc Int : 482 ms SINUS RHYTHM WITH PREMATURE ATRIAL COMPLEXES OTHERWISE NORMAL ECG WHEN COMPARED WITH ECG OF 07-SEP-2016 19:25, T WAVE VARIATION Confirmed by MARQUITA RODRIGUEZ MD ([id number]) on 09/11/2016 11:41:22 AM Referred By: Renu PALMER Confirmed By:MARQUITA RODRIGUEZ MD
[2016-09-11] MEDS ORDERED: HEPARIN NA (PORCINE) 5,000 UNITS/ML 1ML VIAL IVPUSH PRN ×2 (12:04→12:06)
[2016-09-11] MEDS: HEPARIN INFUSION - 500 ML IVPB SCH ×3 (12:10→23:45)
--- NOTE | 2016-09-11 12:24 | PN ---
Progress Note, Physician Chief Complaint: Ms Mcdonald says she is doing well. Denies cp, sob, n/v, leg pain. - Current Medication List Current Medications: Active Medications Acetaminophen (Tylenol -) 325 mg PO Q4H PRN PRN Reason: PAIN Last Admin: 09/11/16 06:52 Dose: 325 mg Docusate Sodium (Colace -) 100 mg PO BID [facility] Last Admin: 09/11/16 10:09 Dose: 100 mg Heparin Sodium (Porcine) (Heparin -) 5,000 unit IVPUSH PRN PRN Heparin Sodium (Porcine) (Heparin -) 1,000 unit IVPUSH PRN PRN Heparin Sodium/Dextrose (Heparin Infusion -) 500 mls @ 12 mls/hr IVPB TITR [facility] ; 600 UNITS/HR PRN Reason: Protocol Last Admin: 09/11/16 12:10 Dose: 12 mls/hr Ondansetron HCl (Zofran Injection) 4 mg IVPB Q6H PRN PRN Reason: NAUSEA Oxycodone HCl (Roxicodone -) 5 mg PO Q4H PRN PRN Reason: PAIN Last Admin: 09/11/16 06:52 Dose: 5 mg Pantoprazole Sodium (Protonix -) 40 mg PO DAILY [facility] Last Admin: 09/11/16 10:09 Dose: 40 mg Polyethylene Glycol (Miralax (For Daily Use) -) 17 gm PO DAILY [facility] Last Admin: 09/11/16 10:10 Dose: Not Given - Objective Vital Signs: Vital Signs Temperature 97.8 F 09/11/16 07:30 Pulse Rate 79 09/11/16 07:30 Respiratory Rate 18 09/11/16 07:30 Blood Pressure 136/79 09/11/16 07:30 O2 Sat by Pulse Oximetry (%) 98 09/09/16 20:20 Constitutional: Yes: No Distress, Calm, Thin Cardiovascular: Yes: Regular Rate and Rhythm. No: Gallop, Murmur, Rub Respiratory: Yes: Regular, CTA Bilaterally. No: Rales, Rhonchi, Wheezes Gastrointestinal: Yes: Normal Bowel Sounds, Soft. No: Distention, Tenderness Extremities: Yes: Other (ecchymosis) Edema: No Labs: CBC, BMP 09/11/16 05:35 09/11/16 05:35 INR, PTT INR 1.30 (0.82-1.09) H 09/11/16 05:35 Fibrinogen 575.0 mg/dL (238-498) H 09/09/16 06:00 Problem List - Problems (1) Aneurysm of left popliteal artery Code(s): I72.4 - ANEURYSM OF ARTERY OF LOWER EXTREMITY (2) DVT (deep venous thrombosis) Code(s): I82.409 - ACUTE EMBOLISM AND THOMBOS UNSP DEEP VN UNSP LOWER EXTREMITY Qualifiers: DVT location: lower extremity Laterality: left (3) Elevated INR Code(s): R79.1 - ABNORMAL COAGULATION PROFILE (4) GERD (gastroesophageal reflux disease) Code(s): K21.9 - GASTRO-ESOPHAGEAL REFLUX DISEASE WITHOUT ESOPHAGITIS (5) Hiatal hernia Code(s): K44.9 - DIAPHRAGMATIC HERNIA WITHOUT OBSTRUCTION OR GANGRENE Assessment/Plan (1) Aneurysm of left popliteal artery Assessment/Plan: -with rupture -appreciate vascular surgery assistance -medically stable for intervention -ECHO performed, cardiology to evaluate for cardiology clearance Code(s): I72.4 - ANEURYSM OF ARTERY OF LOWER EXTREMITY (2) DVT (deep venous thrombosis) Assessment/Plan: -hematology reversed INR -on heparin gtt Code(s): I82.409 - ACUTE EMBOLISM AND THOMBOS UNSP DEEP VN UNSP LOWER EXTREMITY Qualifiers: DVT location: lower extremity Laterality: left (3) Elevated INR Assessment/Plan: -as above Code(s): R79.1 - ABNORMAL COAGULATION PROFILE (4) GERD (gastroesophageal reflux disease) Assessment/Plan: -secondary to hiatal hernia -also history of GI bleed -continue protonix Code(s): K21.9 - GASTRO-ESOPHAGEAL REFLUX DISEASE WITHOUT ESOPHAGITIS (5) Hiatal hernia Assessment/Plan: -outpatient follow up -currently asymptomatic Code(s): K44.9 - DIAPHRAGMATIC HERNIA WITHOUT OBSTRUCTION OR GANGRENE
--- NOTE | 2016-09-11 17:43 | PN ---
Progress Note (short form) - Note Progress Note: Vascular Surgery Pt's INR now 1.3. Echo done today Awaiting official read. ONce cleared lou, will do angiogram and covered stent graft on sun. Ronald martinez DO
--- NOTE | 2016-09-11 20:31 | PN ---
Progress Note (short form) - Note Progress Note: S: no cp, palps, dizziness. stable chronic dyspnea. + pain at LLE. Current Medications Acetaminophen (Tylenol -) 325 mg PO Q4H PRN PRN Reason: PAIN Last Admin: 09/11/16 15:48 Dose: 325 mg Docusate Sodium (Colace -) 100 mg PO BID [facility] Last Admin: 09/11/16 10:09 Dose: 100 mg Heparin Sodium (Porcine) (Heparin -) 5,000 unit IVPUSH PRN PRN Heparin Sodium (Porcine) (Heparin -) 1,000 unit IVPUSH PRN PRN Heparin Sodium/Dextrose (Heparin Infusion -) 500 mls @ 12 mls/hr IVPB TITR HEATHER ; 600 UNITS/HR PRN Reason: Protocol Last Admin: 09/11/16 19:57 Dose: 12 mls/hr Ondansetron HCl (Zofran Injection) 4 mg IVPB Q6H PRN PRN Reason: NAUSEA Oxycodone HCl (Roxicodone -) 5 mg PO Q4H PRN PRN Reason: PAIN Last Admin: 09/11/16 15:49 Dose: 5 mg Pantoprazole Sodium (Protonix -) 40 mg PO DAILY [facility] Last Admin: 09/11/16 10:09 Dose: 40 mg Polyethylene Glycol (Miralax (For Daily Use) -) 17 gm PO DAILY [facility] Last Admin: 09/11/16 10:10 Dose: Not Given Vital Signs - 24 hr 09/11/16 09/11/16 09/11/16 06:10 07:30 15:10 Temperature 98.1 F 97.8 F 98.1 F Pulse Rate 86 79 94 H Respiratory 20 18 Rate Blood Pressure 131/86 136/79 Intake & Output 09/09/16 09/10/16 09/11/16 09/12/16 07:59 07:59 07:59 07:59 Intake Total 600 528 218 9906 Output Total 2 Balance 600 189 009 [id number] Constitutional: Yes: No Distress, Calm, Thin jvd flat, neck supple Cardiovascular: Yes: Regular Rate and Rhythm. 2/6 sys murmur at apex Respiratory: Yes: Regular, diminished air movement No: Rales, Rhonchi, Wheezes Gastrointestinal: Yes: Normal Bowel Sounds, Soft. No: Distention, Tenderness Extremities: Yes: WNL Edema: No CBC, BMP 09/11/16 05:35 09/11/16 05:35 Echo here: nl lv/rv 1+ mac/mr/tr. rvsp 30-40. EKG: sr. non-specific t wave flattening. no acute ischemic changes CXR: suspicion for right hilar mass. CTA: hiatal hernia. distal thoracic aortic aneurysm with eccentric mural thrombus. infrarenal abdominal aneurysm. B SOUND TESTER and popliteal aneurysm. 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 Preop CV eval: - plan for angiogram and subsequently, possible covered stent. - patient endorses h/o possible tia, also documented in office chart. Unable to walk up flight of stairs. RCRI of 1 with poor functional status. Low to intermediate risk for senthil-operative CV events. Echo without significant abnormality, no further cardiac testing needed prior to surgery. popliteal pseudoaneurysm - angiogram per vascular surgery - discussed with heme and per discussions with vascular surgery, ok to con't heparin drip. - plavix, statin per vascular. - tobacco cessation. DVT - patient presented with elevated INR, but levels have recently been stable on review of office INR's. - Defer to heme/pmd regarding alternative AC if concern exists regarding ability to maintain inr within therapeutic target. + tobacco - smoking cessation counseling - further work up of possible right hilar mass per pmd. - monitor pulmonary status senthil-operatively closely. htn - controlled off anti-hypertensives. anemia, chronic - hgb remains stable. further work up per pmd.
--- NOTE | 2016-09-11 22:42 | PN ---
Progress Note (short form) - Note Progress Note: Patient seen and examined Some pain in RLE AFVSS Cor: RSR, No murmurs, No gallops Lungs: Clear to P&A Abd: Soft, Normal bowel sounds, No organomegaly Ext:No significant edema Skin: No rashes, Integument intact Abnormal Lab Results 09/11/16 09/11/16 09/11/16 05:35 05:35 05:35 RBC Hgb Hct RDW INR 1.30 H PTT (Actin FS) > 400.0 H Calcium 8.4 L 09/11/16 09/11/16 09/12/16 10:40 17:45 06:05 RBC 3.14 L Hgb 8.3 L Hct 25.2 L RDW 16.3 H INR PTT (Actin FS) 86.4 H D 53.3 H D Calcium 09/12/16 06:05 RBC Hgb Hct RDW INR PTT (Actin FS) 59.2 H Calcium Home Medication List Medication Instructions Recorded Confirmed Type Warfarin Sodium [Coumadin] 7.5 mg PO DAILY 09/04/16 09/07/16 History Active Medications Generic Name Dose Route Start Last Admin Trade Name Freq PRN Reason Stop Dose Admin Acetaminophen 325 mg 09/10/16 17:06 09/12/16 06:51 Tylenol - PO 325 mg Q4H PRN Administration PAIN Docusate Sodium 100 mg 09/08/16 22:00 09/11/16 21:37 Colace - PO 100 mg BID HEATHER Administration Heparin Sodium (Porcine) 5,000 unit 09/11/16 12:04 Heparin - IVPUSH PRN PRN Heparin Sodium (Porcine) 1,000 unit 09/11/16 12:06 Heparin - IVPUSH PRN PRN Heparin Sodium/Dextrose 500 mls @ 12 mls/hr 09/11/16 12:15 09/11/16 23:45 Heparin Infusion - IVPB 12 mls/hr TITR HEATHER Administration Protocol 600 UNITS/HR Ondansetron HCl 4 mg 09/08/16 11:09 Zofran Injection IVPB Q6H PRN NAUSEA Oxycodone HCl 5 mg 09/10/16 17:06 09/12/16 06:50 Roxicodone - PO 5 mg Q4H PRN Administration PAIN Pantoprazole Sodium 40 mg 09/09/16 10:00 09/11/16 10:09 Protonix - PO 40 mg DAILY HEATHER Administration Polyethylene Glycol 17 gm 09/09/16 10:00 09/11/16 10:10 Miralax (For Daily Use) - PO Not Given DAILY HEATHER A/p -76 y/o female, thin built, COPD, smoker, h/o unprovoked, extensive LLE DVT in comes in with subacute , 2 weeks onset of LT. thigh swelling, pain. CTA shows--- Lt. popliteal aneurysm rupture/bleed supratherapeutic INR ?? DVT since 12/23 --?? chronic Subacute /chroic Lt. popliteal aneurysm rupture/sealing. ??chronic LLE DVT s/p vit. K Discussed with vasscular team --to continue heaprin drip as concern for arterial emboli. For stenting of aneurysm per vascular May be on antiplatelets post stenting h/o Unprovoked DVT 12/23 and now ?? chronic may consider switching to eliquis for DVT prevention instead of coumadin. BUt patient also anemic. Will w/u anemia before deciding on intermediate a/c. antiplatelts anemia--microcytic --partly from LLE hematoma , but stale. check screening tests GI consukt
[2016-09-12] MEDS: oxyCODONE HCL 5 MG TABLET PO PRN ×3 (06:50→21:20)
[2016-09-12] MEDS: ACETAMINOPHEN 325 MG TABLET (FP) PO PRN ×3 (06:51→21:21)
[2016-09-12 07:12] LABS: MCH 26.3 pg (25.7-33.7); MCHC 32.8 g/dl (32.0-36.0); MEAN CELL VOLUME 80.3 fl (80-96); MEAN PLT VOLUME 9.3 fl (7.5-11.1); PLATELET COUNT 339 K/MM3 (134-434); RDW 16.3 % (11.6-15.6); WHITE BLOOD COUNT 8.3 K/mm3 (4.0-10.0)
[2016-09-12] MEDS ORDERED: PEG3350/SOD SULF,BICARB,CL/KCL 4,000 ML SOLN.RECON NGT STA (09:22)
[2016-09-12] MEDS: DOCUSATE SODIUM 100 MG CAPSULE (FP) PO SCH ×2 (10:17→21:19)
[2016-09-12] MEDS: POLYETHYLENE GLYCOL 3350 119 GM BTL PO SCH (10:18)
[2016-09-12] MEDS: PANTOPRAZOLE 40 MG TABLET (FP) PO SCH ×2 (10:18→13:18)
--- NOTE | 2016-09-12 11:11 | PN ---
Progress Note (short form) - Note Progress Note: Full consult dictated 76F with chronic normocytic anemia Recent GI work-up outlined in [facility] from 12/23 and 02/22 Has a cecal polyp that was not removed previously given her need for continued A /C. depending on how she does after aneurysmal stenting offered repeat colonoscopy prior to oral anticoagulation being restarted Continued heme w/u Avoidance of NSAIDs
--- NOTE | 2016-09-12 11:17 | SPA.PREOP ---
- PRE-OP NOTE Dx: Planned Procedure: Left angiogram/plasty with covered stent placement of left popliteal aneurysm Surgeon: Dr. Sheikh Last Vital Signs Temp Pulse Resp BP Pulse Ox 98.4 F 87 20 136/88 98 09/12/16 09:22 09/12/16 09:22 09/12/16 09:22 09/12/16 09:22 09/09/16 20:20 Lab Results WBC 8.3 K/mm3 (4.0-10.0) 09/12/16 06:05 RBC 3.14 M/mm3 (3.60-5.2) L 09/12/16 06:05 Hgb 8.3 GM/dL (10.7-15.3) L 09/12/16 06:05 Hct 25.2 % (32.4-45.2) L 09/12/16 06:05 MCV 80.3 fl (80-96) 09/12/16 06:05 MCHC 32.8 g/dl (32.0-36.0) 09/12/16 06:05 RDW 16.3 % (11.6-15.6) H 09/12/16 06:05 Plt Count 339 K/MM3 (134-434) 09/12/16 06:05 Sodium 139 mmol/L (136-145) 09/11/16 05:35 Potassium 4.1 mmol/L (3.5-5.1) 09/11/16 05:35 Chloride 101 mmol/L (98-107) 09/11/16 05:35 Carbon Dioxide 30 mmol/L (21-32) 09/11/16 05:35 Anion Gap 8 (8-16) 09/11/16 05:35 BUN 10 mg/dL (7-18) D 09/11/16 05:35 Creatinine 0.8 mg/dL (0.55-1.02) 09/11/16 05:35 Random Glucose 104 mg/dL (74-106) 09/11/16 05:35 Calcium 8.4 mg/dL (8.5-10.1) L 09/11/16 05:35 INR 1.30 (0.82-1.09) H 09/11/16 05:35 09/07: CTA with runnoff, left popliteal ansurysm 09/07: US left leg DVT with ?popliteal aneurysm - ASSESSMENT/PLAN 1. Make NPO after midnight except po meds 2. Hold IV heparin at 7am 3. Medical optimization and clearance in the chart Visit type - Case Type Case Type: ED Admission - Emergency Emergency Visit: Yes ED Registration Date: 09/07/16 Care time: The patient presented to the Emergency Department on the above date and was hospitalized for further evaluation of their emergent condition. - New patient This patient is new to me today: Yes Date on this admission: 09/12/16 - Critical Care Critical Care patient: No
[2016-09-12] MEDS: MAGNESIUM HYDROX 2400MG/30ML ORAL SUSPENSION 30 ML CUP PO ONE ×2 (12:05→13:19)
[2016-09-12] MEDS: HEPARIN INFUSION - 500 ML IVPB SCH (13:16)
--- NOTE | 2016-09-12 14:43 | PN ---
Progress Note, Physician Chief Complaint: Ms Mcdonald complains of being hungry and is impatient for the procedure. She denies cp, sob, n/v. - Current Medication List Current Medications: Active Medications Acetaminophen (Tylenol -) 325 mg PO Q4H PRN PRN Reason: PAIN Last Admin: 09/12/16 06:51 Dose: 325 mg Docusate Sodium (Colace -) 100 mg PO BID HEATHER Last Admin: 09/12/16 10:17 Dose: Not Given Heparin Sodium (Porcine) (Heparin -) 5,000 unit IVPUSH PRN PRN Heparin Sodium (Porcine) (Heparin -) 1,000 unit IVPUSH PRN PRN Heparin Sodium/Dextrose (Heparin Infusion -) 500 mls @ 12 mls/hr IVPB TITR HEATHER ; 600 UNITS/HR PRN Reason: Protocol Last Admin: 09/12/16 13:16 Dose: Not Given Ondansetron HCl (Zofran Injection) 4 mg IVPB Q6H PRN PRN Reason: NAUSEA Oxycodone HCl (Roxicodone -) 5 mg PO Q4H PRN PRN Reason: PAIN Last Admin: 09/12/16 06:50 Dose: 5 mg Pantoprazole Sodium (Protonix -) 40 mg PO DAILY [facility] Last Admin: 09/12/16 13:18 Dose: 40 mg Polyethylene Glycol (Miralax (For Daily Use) -) 17 gm PO DAILY [facility] Last Admin: 09/12/16 10:18 Dose: Not Given - Objective Vital Signs: Vital Signs Temperature 98.4 F 09/12/16 13:42 Pulse Rate 92 H 09/12/16 13:42 Respiratory Rate 20 09/12/16 09:22 Blood Pressure 142/72 09/12/16 13:42 O2 Sat by Pulse Oximetry (%) 98 09/09/16 20:20 Constitutional: Yes: Well Nourished, No Distress, Calm Cardiovascular: Yes: Regular Rate and Rhythm. No: Gallop, Murmur, Rub Respiratory: Yes: Regular, CTA Bilaterally. No: Rales, Rhonchi (d), Wheezes Gastrointestinal: Yes: Normal Bowel Sounds, Soft. No: Distention, Tenderness Extremities: Yes: Other (ecchymosis) Edema: No Labs: CBC, BMP 09/12/16 06:05 09/11/16 05:35 INR, PTT INR 1.30 (0.82-1.09) H 09/11/16 05:35 Fibrinogen 575.0 mg/dL (238-498) H 09/09/16 06:00 Problem List - Problems (1) Aneurysm of left popliteal artery Code(s): I72.4 - ANEURYSM OF ARTERY OF LOWER EXTREMITY (2) DVT (deep venous thrombosis) Code(s): I82.409 - ACUTE EMBOLISM AND THOMBOS UNSP DEEP VN UNSP LOWER EXTREMITY Qualifiers: DVT location: lower extremity Laterality: left (3) Elevated INR Code(s): R79.1 - ABNORMAL COAGULATION PROFILE (4) GERD (gastroesophageal reflux disease) Code(s): K21.9 - GASTRO-ESOPHAGEAL REFLUX DISEASE WITHOUT ESOPHAGITIS (5) Hiatal hernia Code(s): K44.9 - DIAPHRAGMATIC HERNIA WITHOUT OBSTRUCTION OR GANGRENE Assessment/Plan (1) Aneurysm of left popliteal artery Assessment/Plan: -with rupture -appreciate vascular surgery assistance -medically stable for intervention -planning for intervention today Code(s): I72.4 - ANEURYSM OF ARTERY OF LOWER EXTREMITY (2) DVT (deep venous thrombosis) Assessment/Plan: -hematology reversed INR -on heparin gtt Code(s): I82.409 - ACUTE EMBOLISM AND THOMBOS UNSP DEEP VN UNSP LOWER EXTREMITY Qualifiers: DVT location: lower extremity Laterality: left (3) Elevated INR Assessment/Plan: -as above Code(s): R79.1 - ABNORMAL COAGULATION PROFILE (4) GERD (gastroesophageal reflux disease) Assessment/Plan: -secondary to hiatal hernia -also history of GI bleed -continue protonix -appreciate GI assistance Code(s): K21.9 - GASTRO-ESOPHAGEAL REFLUX DISEASE WITHOUT ESOPHAGITIS (5) Hiatal hernia Assessment/Plan: -outpatient follow up -currently asymptomatic Code(s): K44.9 - DIAPHRAGMATIC HERNIA WITHOUT OBSTRUCTION OR GANGRENE
--- NOTE | 2016-09-12 16:42 | CONS ---
GASTROINTESTINAL CONSULTATION DATE OF CONSULTATION: DATE OF DICTATION: 09/12/2016 REQUESTING PHYSICIAN: Don Rodriguez MD The patient is a 76-year-old woman admitted through [facility] on the with a 7-day history of left lower extremity swelling and pain in her calf. The pain increased. She also noted swelling and bruising associated with the pain. She had a CTA performed, revealing a large left popliteal artery pseudoaneurysm measuring at least 6.6 x 4.4 cm above the knee joint with a large eccentric thrombus and opacified lumen with a nipple-like extension of contrast posteriorly into the posterior compartment muscles. Findings were suspicious for either pending rupture of the aneurysm or the aneurysm could have ruptured at some point and released some blood at the level of the knee joint. 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 The SMA was patent, and the NELDA was patent as well. I have been asked to evaluate her because she is anemic. She has had a GI workup in the recent past for anemia, and she had guaiac-positive stool as well. She had an EGD and colonoscopy performed in December 2015, revealing a large hiatal hernia. Stomach was otherwise normal in appearance. The duodenum appeared normal, and colonoscopy revealed severe diverticulosis in the sigmoid colon, mild diverticulosis throughout the remainder of the colon, a redundant colon, and she also had a sessile polyp between 7-8 mm in size found at the periappendiceal orifice of the cecum. Biopsies were obtained and complete polypectomy of the lesion was not performed given that reaching this site was complicated by the patient's redundant colon anatomy, and she required full anticoagulation at the time. I explained that the polyps could be evaluated at a later date once anticoagulation could be held for a longer period of time if necessary. She did not follow up in the office. However, was readmitted in February 2016 for melena. She had been taking large amounts of NSAIDs in the setting of anticoagulation, and repeat upper endoscopy on February 29, 2016, revealed a gastric anatomy distorted secondary to a large hiatal hernia; mild patchy erythema in the gastric antrum. A single, nonbleeding, deep, clean-based ulcer 1 cm in size was found in the duodenal bulb. The ulcer was not apparent on previous upper endoscopy. I advised avoidance of NSAIDs. Pathology from the stomach was negative for H. 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 No pathological changes. She currently denies any GI complaints. There has been no reported melena. She states having a normal appetite. PAST MEDICAL HISTORY: Includes hypertension, GERD, hiatal hernia, chronic low back pain, DVT, left pseudoaneurysm of the popliteal artery, peripheral vascular disease, and anemia. PAST SURGICAL HISTORY: Includes , laminectomy. ALLERGIES: No known drug allergies. SOCIAL HISTORY: She is a tobacco smoker. No history of EtOH abuse or intravenous drug abuse or illicit drugs. MEDICATIONS PRIOR TO ADMISSION: Include Coumadin. FAMILY HISTORY: No family history of colorectal cancer or other GI malignancies. REVIEW OF SYSTEMS: She complains of baseline shortness of breath. She denies any nausea or vomiting, dysphagia or odynophagia, rectal bleeding, melena, or abdominal pain. She denies any chest pain. She did complain of leg pain as noted in the history of present illness. PHYSICAL EXAMINATION: General: The patient is found lying comfortable in her bed. She appeared to be in no apparent distress. Vital Signs: Afebrile. Pulse 87, blood pressure 136/88. HEENT: Sclerae are anicteric. Neck: Supple. Heart: A regular rate and rhythm. No murmurs are appreciated. Lungs: Clear to auscultation bilaterally. Abdomen: She had a pelvic surgical scar. She had a reducible hernia right paramedian of the pelvic scar. It was nontender. She had normoactive bowel sounds. No tenderness was elicited. No hepatosplenomegaly was appreciated. Rectal: Digital rectal exam revealed light-brown stool which was guaiac negative. Extremities: Ecchymosis at the posterior popliteal area of the left popliteal area. Neurological: The patient was awake, alert, and oriented. LABORATORY EVALUATION: White blood count 8.3, hemoglobin 8.3, hematocrit 25.2, platelets of 339. PTT of 59.2. Sodium 139, potassium 4.1, chloride 101, bicarbonate 30, BUN of 10, creatinine 0.8, AST of 14, ALT of 13, alkaline phosphatase of 151, total bilirubin 0.4. RADIOLOGY REPORTS: CT angiogram of the abdomen and lower extremities as noted in the history of present illness. IMPRESSION: A 76-year-old female with chronic normocytic anemia with recent gastrointestinal workup. PLAN: Would be as follows: She is going for stenting of her left popliteal artery aneurysm tomorrow. Depending on how she is clinically afterwards, we did discuss the possibility of a colonoscopy for polypectomy prior to resuming chronic oral anticoagulation if necessary by Hematology. She will need continued hematology evaluation. Her alkaline phosphatase is also elevated. I would obtain a hepatobiliary ultrasound, check a GGT. If GGT is normal and depending on results of the hepatobiliary ultrasound, consider evaluation for bone source of her elevated alkaline phosphatase. Other recommendations pending the patient's clinical course. I thank you for this consultative opportunity. JESSICA BNESON DO [id number]
[2016-09-13] MEDS: oxyCODONE HCL 5 MG TABLET PO PRN (03:21)
[2016-09-13] MEDS: ACETAMINOPHEN 325 MG TABLET (FP) PO PRN (03:22)
[2016-09-13 07:28] LABS: MCH 26.3 pg (25.7-33.7); MCHC 32.7 g/dl (32.0-36.0); MEAN CELL VOLUME 80.5 fl (80-96); MEAN PLT VOLUME 9.1 fl (7.5-11.1); RDW 16.6 % (11.6-15.6); WHITE BLOOD COUNT 9.2 K/mm3 (4.0-10.0)
[2016-09-13 07:32] LABS: COCKROFT - GAULT 39.491; CREATININE 0.8 mg/dL (0.55-1.02); PHOSPHOROUS 3.3 mg/dL (2.5-4.9)
[2016-09-13 07:33] LABS: CALCIUM 8.3 mg/dL (8.5-10.1); MAGNESIUM 2.7 mg/dL (1.8-2.4)
[2016-09-13 07:42] LABS: FERRITIN 242.811 ng/ml (6.9-282.5); FREE T4 1.12 ng/dl (0.76-1.46); THYROID STIMULATING HORMONE 2.62 uIU/ml (0.358-3.74)
[2016-09-13] MEDS ORDERED: LIDOCAINE HCL 1%, 10 MG/ML (20ML VIAL) ONE (08:22)
[2016-09-13 09:20] LABS: PLATELET COUNT 340 K/MM3 (134-434); PLATELET ESTIMATE ADEQUATE (NORMAL)
[2016-09-13] MEDS: PANTOPRAZOLE 40 MG TABLET (FP) PO SCH (10:35)
[2016-09-13] MEDS: DOCUSATE SODIUM 100 MG CAPSULE (FP) PO SCH ×2 (10:35→21:28)
[2016-09-13] MEDS ORDERED: ONDANSETRON 4 MG/2 ML VIAL IVPUSH PRN ×2 (10:35→13:13)
[2016-09-13] MEDS ORDERED: PROMETHAZINE HCL 25 MG/1 ML VIAL IVPUSH PRN ×2 (10:35→13:13)
[2016-09-13] MEDS: POLYETHYLENE GLYCOL 3350 119 GM BTL PO SCH (10:35)
[2016-09-13] MEDS ORDERED: LACTATED RINGERS SOLUTION 1,000 ML IV SCH ×2 (10:45→13:13)
[2016-09-13] MEDS ORDERED: MIDAZOLAM HCL 2 MG/2 ML SINGLE DOSE VIAL ONE (11:12)
[2016-09-13] MEDS ORDERED: SODIUM CHLORIDE 0.9% P/F 10 ML VIAL IJ ONE (11:18)
[2016-09-13] MEDS ORDERED: ceFAZolin SODIUM 1 GM VIAL ONE (11:18)
[2016-09-13] MEDS ORDERED: HEPARIN NA (PORCINE) 5,000 UNITS/ML 1ML VIAL ONE (11:29)
[2016-09-13] MEDS ORDERED: LIDOCAINE HCL 1%, 10 MG/ML (20ML VIAL) IJ ONE ×2 (11:37)
[2016-09-13] MEDS ORDERED: PROPOFOL 20 ML ONE (11:38)
--- NOTE | 2016-09-13 13:01 | OP ---
Operative Note - Note: Operative Date: 09/13/16 Pre-Operative Diagnosis: Left popliteal artery aneurysms Operation: Aortogram, LLE angiogram, popliteal artery covered stent placement, with DCB angioplasty Post-Operative Diagnosis: Same as Pre-op Surgeon: Ronald Sheikh Anesthesia: Fractional Estimated Blood Loss (mls): 50 Operative Report Dictated: Yes
[2016-09-13] MEDS ORDERED: ONDANSETRON 4 MG/2 ML VIAL IVPB PRN (13:13)
[2016-09-13] MEDS ORDERED: HEPARIN NA (PORCINE) 5,000 UNITS/ML 1ML VIAL IVPUSH PRN ×3 (13:15→19:14)
--- NOTE | 2016-09-13 14:52 | PN ---
Progress Note, Physician Chief Complaint: Seeing s/p procedure, patient says she is still woozy from procedure but otherwise is doing well. No cp, sob, n/v. - Current Medication List Current Medications: Active Medications Acetaminophen (Tylenol -) 325 mg PO Q4H PRN PRN Reason: PAIN Docusate Sodium (Colace -) 100 mg PO BID HEATHER Fentanyl (Sublimaze Injection -) 50 mcg IVPUSH [id number] PRN PRN Reason: PAIN Stop: 09/16/16 10:36 Heparin Sodium (Porcine) (Heparin -) 5,000 unit IVPUSH PRN PRN PRN Reason: Heparin Heparin Sodium (Porcine) (Heparin -) 1,000 unit IVPUSH PRN PRN PRN Reason: Heparin Heparin Sodium (Porcine) (Heparin -) 5,000 unit IVPUSH PRN PRN PRN Reason: Heparin Lactated Ringer's (Lactated Ringers Solution) 1,000 mls @ 125 mls/hr IV ASDIR EHATHER Heparin Sodium/Dextrose (Heparin Infusion -) 500 mls @ 16 mls/hr IVPB TITR HEATHER ; 800 UNITS/HR PRN Reason: Protocol Ondansetron HCl (Zofran Injection) 4 mg IVPB Q6H PRN PRN Reason: NAUSEA Ondansetron HCl (Zofran Injection) 4 mg IVPUSH Q6H PRN PRN Reason: NAUSEA AND/OR VOMITING Stop: 09/13/16 16:36 Oxycodone HCl (Roxicodone -) 5 mg PO Q4H PRN PRN Reason: PAIN Pantoprazole Sodium (Protonix -) 40 mg PO DAILY [facility] Polyethylene Glycol (Miralax (For Daily Use) -) 17 gm PO DAILY [facility] Promethazine HCl (Phenergan Injection -) 12.5 mg IVPUSH Q6H PRN PRN Reason: NAUSEA Stop: 09/13/16 16:36 - Objective Vital Signs: Vital Signs Temperature 98.8 F 09/13/16 12:44 Pulse Rate 80 09/13/16 13:00 Respiratory Rate 16 09/13/16 13:00 Blood Pressure 134/80 09/13/16 13:00 O2 Sat by Pulse Oximetry (%) 95 09/13/16 13:00 Constitutional: Yes: No Distress, Calm, Thin Cardiovascular: Yes: Regular Rate and Rhythm. No: Gallop, Murmur, Rub Respiratory: Yes: Regular, CTA Bilaterally, Tachypnea. No: Rales, Rhonchi, Wheezes Gastrointestinal: Yes: Normal Bowel Sounds. No: Distention, Tenderness Extremities: Yes: WNL Edema: No Labs: CBC, BMP 09/13/16 05:35 09/13/16 05:35 INR, PTT INR 1.30 (0.82-1.09) H 09/11/16 05:35 Fibrinogen 575.0 mg/dL (238-498) H 09/09/16 06:00 Problem List - Problems (1) Aneurysm of left popliteal artery Code(s): I72.4 - ANEURYSM OF ARTERY OF LOWER EXTREMITY (2) DVT (deep venous thrombosis) Code(s): I82.409 - ACUTE EMBOLISM AND THOMBOS UNSP DEEP VN UNSP LOWER EXTREMITY Qualifiers: DVT location: lower extremity Laterality: left (3) Elevated INR Code(s): R79.1 - ABNORMAL COAGULATION PROFILE (4) GERD (gastroesophageal reflux disease) Code(s): K21.9 - GASTRO-ESOPHAGEAL REFLUX DISEASE WITHOUT ESOPHAGITIS (5) Hiatal hernia Code(s): K44.9 - DIAPHRAGMATIC HERNIA WITHOUT OBSTRUCTION OR GANGRENE Assessment/Plan (1) Aneurysm of left popliteal artery Assessment/Plan: -case d/w Dr Sheikh -tolerated procedure well -will need RLE done as well, planning for Sunday Code(s): I72.4 - ANEURYSM OF ARTERY OF LOWER EXTREMITY (2) DVT (deep venous thrombosis) Assessment/Plan: -hematology reversed INR -on heparin gtt Code(s): I82.409 - ACUTE EMBOLISM AND THOMBOS UNSP DEEP VN UNSP LOWER EXTREMITY Qualifiers: DVT location: lower extremity Laterality: left (3) Elevated INR Assessment/Plan: -as above Code(s): R79.1 - ABNORMAL COAGULATION PROFILE (4) GERD (gastroesophageal reflux disease) Assessment/Plan: -secondary to hiatal hernia -also history of GI bleed -continue protonix -appreciate GI assistance Code(s): K21.9 - GASTRO-ESOPHAGEAL REFLUX DISEASE WITHOUT ESOPHAGITIS (5) Hiatal hernia Assessment/Plan: -outpatient follow up -currently asymptomatic Code(s): K44.9 - DIAPHRAGMATIC HERNIA WITHOUT OBSTRUCTION OR GANGRENE
--- NOTE | 2016-09-13 17:28 | PN ---
Progress Note (short form) - Note Progress Note: CC: pre-op clearance S: s/p Aortogram, LLE angiogram, popliteal artery covered stent placement, with DCB angioplasty today. no cp, palps, dizziness. stable chronic dyspnea. Current Medications Acetaminophen (Tylenol -) 325 mg PO Q4H PRN PRN Reason: PAIN Docusate Sodium (Colace -) 100 mg PO BID ON LICENSE OF [facility] Fentanyl (Sublimaze Injection -) 50 mcg IVPUSH [id number] PRN PRN Reason: PAIN Stop: 09/16/16 10:36 Heparin Sodium (Porcine) (Heparin -) 5,000 unit IVPUSH PRN PRN PRN Reason: Heparin Heparin Sodium (Porcine) (Heparin -) 1,000 unit IVPUSH PRN PRN PRN Reason: Heparin Heparin Sodium (Porcine) (Heparin -) 5,000 unit IVPUSH PRN PRN PRN Reason: Heparin Lactated Ringer's (Lactated Ringers Solution) 1,000 mls @ 125 mls/hr IV ASDIR HEATHER Last Admin: 09/13/16 14:00 Dose: 125 mls/hr Heparin Sodium/Dextrose (Heparin Infusion -) 500 mls @ 16 mls/hr IVPB TITR HEATHER ; 800 UNITS/HR PRN Reason: Protocol Ondansetron HCl (Zofran Injection) 4 mg IVPB Q6H PRN PRN Reason: NAUSEA Oxycodone HCl (Roxicodone -) 5 mg PO Q4H PRN PRN Reason: PAIN Pantoprazole Sodium (Protonix -) 40 mg PO DAILY ON LICENSE OF [facility] Polyethylene Glycol (Miralax (For Daily Use) -) 17 gm PO DAILY ON LICENSE OF [facility] Vital Signs - 24 hr 09/12/16 09/13/16 09/13/16 22:57 06:20 08:00 Temperature 98.4 F 98.2 F 98.0 F Pulse Rate 70 77 72 Respiratory 20 20 20 Rate Blood Pressure 130/80 121/81 138/72 O2 Sat by Pulse Oximetry (%) 09/13/16 09/13/16 09/13/16 12:44 13:00 13:15 Temperature 98.8 F Pulse Rate 82 80 74 Respiratory 16 16 16 Rate Blood Pressure 134/77 134/80 150/90 O2 Sat by Pulse 98 95 95 Oximetry (%) 09/13/16 09/13/16 09/13/16 13:30 13:45 14:00 Temperature 98.2 F Pulse Rate 70 64 78 Respiratory 16 16 16 Rate Blood Pressure 138/84 143/77 144/80 O2 Sat by Pulse 95 95 Oximetry (%) 09/13/16 09/13/16 14:56 14:57 Temperature 98.0 F 98.3 F Pulse Rate 80 80 Respiratory 16 Rate Blood Pressure 127/80 128/98 O2 Sat by Pulse 97 Oximetry (%) Intake & Output 09/11/16 09/12/16 09/13/16 09/14/16 07:59 07:59 07:59 07:59 Intake Total 858 1456 1438 650 Output Total 2 150 Balance 856 1456 1438 500 Constitutional: Yes: No Distress, Calm, Thin jvd flat, neck supple Cardiovascular: Yes: Regular Rate and Rhythm. 2/6 sys murmur at lsb/apex Respiratory: Yes: Regular, diminished air movement No: Rales, Rhonchi, Wheezes Gastrointestinal: Yes: Normal Bowel Sounds, Soft. No: Distention, Tenderness Extremities: Yes: WNL Edema: No CBC, BMP 09/13/16 05:35 09/13/16 05:35 Echo here: nl lv/rv 1+ mac/mr/tr. rvsp 30-40. EKG: sr. non-specific t wave flattening. no acute ischemic changes CXR: suspicion for right hilar mass. abd CTA with runoff here: hiatal hernia. distal thoracic aortic aneurysm with eccentric mural thrombus. infrarenal abdominal aneurysm (3.6 cm). 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 chest cT 12/2015: extensive copd changes. subpleural nodule no left. desc thoracic saortic aneurysm 5.1 x 3.9 with mural thombus. compression deformities of spine. 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 Preop CV eval: - s/p Aortogram, LLE angiogram, popliteal artery covered stent placement, with DCB angioplasty 09/13 - patient endorses h/o possible tia, also documented in office chart. Unable to walk up flight of stairs. RCRI of 1 with poor functional status. Low to intermediate risk for senthil-operative CV events. Echo without significant abnormality. - post-op bp/br well controlled. popliteal pseudoaneurysm - discussed with heme and per discussions with vascular surgery, ok to con't heparin drip. - s/p Aortogram, LLE angiogram, popliteal artery covered stent placement, with DCB angioplasty 09/13. Candidate for lifelong plavix, but currently getting worked up for anemia/possible endoscopy?. Will defer to vascular surgery/heme regarding timing/safety of initiation. - will add statin. Extensive atherosclerosis noted on CT. - tobacco cessation. thoracic descending aorta aneurysm (5.1 cm)/AAA - thrombus overlying aneurysms, extensive atherosclerotic diseae - plavix if possible, statin, smoking cessation - recommend ongoing outpatient follow up with bi-annual CTA/MRA of thoracic aneurysm. No surgical indication at this time. Will start low dose beta mitali in the morning DVT - patient presented with elevated INR, but levels have recently been stable on review of office INR's. - Ongoing evaluation of anemia, need for long-term AC and consideration of coumadin vs. noac. Will continue to discuss with heme/pmd. - diagnosed 12/2015. At the time, CT abd/pelvis was negative for malignancy. However, now with concern for right hilar mass on CXR and by my review on prior chest CT there appears to be a small lesion in right lung near fissure ?mass. Will repeat chest CT in am. + tobacco - smoking cessation counseling - further work up of possible right hilar mass as mentioned - monitor pulmonary status senthil-operatively closely. Ongoing dyspnea. Patient states she was on symbicort at home. Will discuss with pmd regarding need for addition of copd treatment. htn - controlled off anti-hypertensives. starting bb as above. anemia, chronic - hgb remains stable. further work up per pmd/heme/GI.
--- NOTE | 2016-09-13 18:19 | PN ---
Progress Note (short form) - Note Progress Note: Vascular Surgery Pt seen and examined. Doing well. Spoke to daughter anay Will do covered stent placement of right pop aneurysm on sunday . Cont IV heparin. Ronald Sheikh DO
[2016-09-13] MEDS ORDERED: HEPARIN NA (PORCINE) 5,000 UNITS/ML 1ML VIAL IVPUSH ONE (18:30)
[2016-09-13] MEDS: HEPARIN INFUSION - 500 ML IVPB SCH (18:54)
--- NOTE | 2016-09-13 21:56 | PN ---
Progress Note (short form) - Note Progress Note: Patient seen and examined Some pain in RLE Last Vital Signs Temp Pulse Resp BP Pulse Ox 98.3 F 80 16 128/98 97 09/13/16 14:57 09/13/16 14:57 09/13/16 14:56 09/13/16 14:57 09/13/16 15:00 Cor: RSR, No murmurs, No gallops Lungs: Clear to P&A Abd: Soft, Normal bowel sounds, No organomegaly Ext:No significant edema Skin: No rashes, Integument intact Abnormal Lab Results 09/13/16 09/13/16 09/13/16 05:35 05:35 05:35 RBC 3.14 L Hgb 8.3 L Hct 25.3 L RDW 16.6 H PTT (Actin FS) 41.2 H D Anion Gap 6 L Calcium 8.3 L Magnesium 2.7 H Active Medications Generic Name Dose Route Start Last Admin Trade Name Freq PRN Reason Stop Dose Admin Acetaminophen 325 mg 09/13/16 13:13 Tylenol - PO Q4H PRN PAIN Atorvastatin Calcium 10 mg 09/13/16 22:00 Lipitor - PO HS HEATHER Docusate Sodium 100 mg 09/13/16 22:00 09/13/16 21:28 Colace - PO 100 mg BID HEATHER Administration Heparin Sodium (Porcine) 1,000 unit 09/13/16 13:15 Heparin - IVPUSH PRN PRN Heparin Heparin Sodium (Porcine) 5,000 unit 09/13/16 13:15 Heparin - IVPUSH PRN PRN Heparin Heparin Sodium/Dextrose 500 mls @ 16 mls/hr 09/13/16 19:15 09/13/16 18:54 Heparin Infusion - IVPB 16 mls/hr TITR [facility] Administration Protocol 800 UNITS/HR Metoprolol Succinate 12.5 mg 09/14/16 10:00 Toprol Xl - PO DAILY [facility] Ondansetron HCl 4 mg 09/13/16 13:13 Zofran Injection IVPB Q6H PRN NAUSEA Oxycodone HCl 5 mg 09/13/16 13:13 Roxicodone - PO Q4H PRN PAIN Pantoprazole Sodium 40 mg 09/14/16 10:00 Protonix - PO DAILY [facility] Polyethylene Glycol 17 gm 09/14/16 10:00 Miralax (For Daily Use) - PO DAILY HEATHER A/p -76 y/o female, thin built, COPD, smoker, h/o unprovoked, extensive LLE DVT in comes in with subacute , 2 weeks onset of LT. thigh swelling, pain. CTA shows--- Lt. popliteal aneurysm rupture/bleed supratherapeutic INR---s/p vit. K ?? DVT since 12/23 --?? chronic Subacute /chroic Lt. popliteal aneurysm rupture/sealing. ??chronic LLE DVT s/p stenting of aneurysm Discussed with vasscular team --to continue heaprin drip. For stenting of Rt.popliteal aneurysm on Sunday h/o Unprovoked DVT 12/23 and now ?? chronic may consider switching to eliquis for DVT prevention instead of coumadin. BUt patient also anemic. anemia--microcytic --partly from LLE hematoma , but stable. check screening tests PER GI to consider polypectomy prior to switching to oral a/c
[2016-09-13] MEDS: ATORVASTATIN CA 10 MG TABLET (FP) PO SCH (23:00)
[2016-09-14] MEDS: ACETAMINOPHEN 325 MG TABLET (FP) PO PRN ×4 (01:16→21:29)
[2016-09-14] MEDS: oxyCODONE HCL 5 MG TABLET PO PRN ×4 (01:16→21:28)
[2016-09-14] MEDS: HEPARIN INFUSION - 500 ML IVPB SCH ×3 (01:58→21:26)
[2016-09-14 06:06] LABS: HEMATOCRIT 25.3 % (34.0-46.6); SERUM IRON 33 ug/dL (27-139); TOTAL IRON BINDING CAPACITY 258 ug/dL (250-450); UIBC 225 ug/dL (118-369)
[2016-09-14 07:00] LABS: MCH 25.5 pg (25.7-33.7); MCHC 31.6 g/dl (32.0-36.0); MEAN CELL VOLUME 80.5 fl (80-96); MEAN PLT VOLUME 9.1 fl (7.5-11.1); PLATELET COUNT 311 K/MM3 (134-434); RDW 17.1 % (11.6-15.6); WHITE BLOOD COUNT 12.4 K/mm3 (4.0-10.0)
[2016-09-14 07:10] LABS: COCKROFT - GAULT 45.135; CREATININE 0.7 mg/dL (0.55-1.02); MAGNESIUM 2.4 mg/dL (1.8-2.4); PHOSPHOROUS 3.4 mg/dL (2.5-4.9)
--- NOTE | 2016-09-14 07:56 | PN ---
Progress Note (short form) - Note Progress Note: Post op day#1.S/P L extremity angiogram,aortogram,L poleteal artery balloon angioplasty and stent placement and R extremity angiogram under TIVA uneventful.Patient stable.No any anesthesia related problem.Patient DC from the anesthesia care.
[2016-09-14] MEDS: DOCUSATE SODIUM 100 MG CAPSULE (FP) PO SCH ×2 (09:06→21:26)
[2016-09-14] MEDS: PANTOPRAZOLE 40 MG TABLET (FP) PO SCH (09:07)
[2016-09-14] MEDS: POLYETHYLENE GLYCOL 3350 119 GM BTL PO SCH (09:19)
[2016-09-14] MEDS ORDERED: METOPROLOL SUCCINATE 25 MG TAB.SR.24H (FP) PO SCH (10:00)
--- NOTE | 2016-09-14 11:56 | PN ---
Progress Note, Physician Chief Complaint: Ms Mcdonald says she is unhappy with clear liquid diet. No cp, sob, n/v. - Current Medication List Current Medications: Active Medications Acetaminophen (Tylenol -) 325 mg PO Q4H PRN PRN Reason: PAIN Last Admin: 09/14/16 08:59 Dose: 325 mg Atorvastatin Calcium (Lipitor -) 10 mg PO HS [facility] Last Admin: 09/13/16 23:00 Dose: 10 mg Docusate Sodium (Colace -) 100 mg PO BID [facility] Last Admin: 09/14/16 09:06 Dose: 100 mg Heparin Sodium (Porcine) (Heparin -) 1,000 unit IVPUSH PRN PRN PRN Reason: Heparin Heparin Sodium (Porcine) (Heparin -) 5,000 unit IVPUSH PRN PRN PRN Reason: Heparin Heparin Sodium/Dextrose (Heparin Infusion -) 500 mls @ 16 mls/hr IVPB TITR HEATHER ; 800 UNITS/HR PRN Reason: Protocol Last Admin: 09/14/16 01:58 Dose: 15 mls/hr Metoprolol Succinate (Toprol Xl -) 12.5 mg PO DAILY [facility] Last Admin: 09/14/16 09:07 Dose: 12.5 mg Ondansetron HCl (Zofran Injection) 4 mg IVPB Q6H PRN PRN Reason: NAUSEA Oxycodone HCl (Roxicodone -) 5 mg PO Q4H PRN PRN Reason: PAIN Last Admin: 09/14/16 08:57 Dose: 5 mg Pantoprazole Sodium (Protonix -) 40 mg PO DAILY [facility] Last Admin: 09/14/16 09:07 Dose: 40 mg Polyethylene Glycol (Miralax (For Daily Use) -) 17 gm PO DAILY [facility] Last Admin: 09/14/16 09:19 Dose: 17 grams - Objective Vital Signs: Vital Signs Temperature 98.5 F 09/14/16 06:15 Pulse Rate 80 09/14/16 06:15 Respiratory Rate 19 09/14/16 06:15 Blood Pressure 100/66 09/14/16 06:15 O2 Sat by Pulse Oximetry (%) 96 09/13/16 21:00 Constitutional: Yes: No Distress, Calm, Thin Cardiovascular: Yes: Regular Rate and Rhythm. No: Gallop, Murmur, Rub Respiratory: Yes: Regular, CTA Bilaterally. No: Rales, Rhonchi, Wheezes Gastrointestinal: Yes: Normal Bowel Sounds, Soft. No: Distention, Tenderness Extremities: Yes: Other (bruising) Edema: No Labs: CBC, BMP 09/14/16 05:55 09/14/16 05:55 INR, PTT INR 1.30 (0.82-1.09) H 09/11/16 05:35 Fibrinogen 575.0 mg/dL (238-498) H 09/09/16 06:00 Problem List - Problems (1) Aneurysm of left popliteal artery Code(s): I72.4 - ANEURYSM OF ARTERY OF LOWER EXTREMITY (2) DVT (deep venous thrombosis) Code(s): I82.409 - ACUTE EMBOLISM AND THOMBOS UNSP DEEP VN UNSP LOWER EXTREMITY Qualifiers: DVT location: lower extremity Laterality: left (3) Elevated INR Code(s): R79.1 - ABNORMAL COAGULATION PROFILE (4) GERD (gastroesophageal reflux disease) Code(s): K21.9 - GASTRO-ESOPHAGEAL REFLUX DISEASE WITHOUT ESOPHAGITIS (5) Hiatal hernia Code(s): K44.9 - DIAPHRAGMATIC HERNIA WITHOUT OBSTRUCTION OR GANGRENE Assessment/Plan (1) Aneurysm of left popliteal artery Assessment/Plan: -case d/w Dr Sheikh -tolerated procedure well -will need RLE done as well, planning for Sunday Code(s): I72.4 - ANEURYSM OF ARTERY OF LOWER EXTREMITY (2) DVT (deep venous thrombosis) Assessment/Plan: -hematology reversed INR -on heparin gtt -considering eliquis over coumadin per hematology Code(s): I82.409 - ACUTE EMBOLISM AND THOMBOS UNSP DEEP VN UNSP LOWER EXTREMITY Qualifiers: DVT location: lower extremity Laterality: left (3) Elevated INR Assessment/Plan: -as above Code(s): R79.1 - ABNORMAL COAGULATION PROFILE (4) GERD (gastroesophageal reflux disease) Assessment/Plan: -planning for polypectomy prior to resuming ac Code(s): K21.9 - GASTRO-ESOPHAGEAL REFLUX DISEASE WITHOUT ESOPHAGITIS (5) Hiatal hernia Assessment/Plan: -outpatient follow up -currently asymptomatic Code(s): K44.9 - DIAPHRAGMATIC HERNIA WITHOUT OBSTRUCTION OR GANGRENE
--- NOTE | 2016-09-14 14:58 | OP ---
DATE OF OPERATION: 09/13/2016 PREOPERATIVE DIAGNOSIS: Left lower extremity popliteal artery aneurysm. POSTOPERATIVE DIAGNOSIS: Left lower extremity popliteal artery aneurysm. PROCEDURES: Aortogram, left lower extremity angiogram, popliteal artery covered stent placement, drug-coated balloon angioplasty. SURGEON: Ronald Harris DO ANESTHESIA: Fractional. ESTIMATED BLOOD LOSS: Fifty milliliters. The patient is a 76-year-old female who comes in with a CAT scan that was performed showing that she has bilateral lower extremity popliteal artery aneurysms. The aneurysm in her left lower extremity is about 5 cm and it needs intervention. that we would do a covered stent graft to exclude the aneurysm. The patient was consented for the procedure, understanding all risks, benefits and alternatives, and was then taken to the operating room. Once in the operative suite on the operative table in the supine position, the area of the right and left groin was prepped and draped in a sterile surgical manner. We then injected 10 mL of lidocaine over the right common femoral artery. We then took a Micropuncture needle and punctured the right common femoral artery. Micropuncture wire was inserted and a traditional 5-Guamanian sheath was inserted. We then placed a 0.035 floppy guide wire up into the aorta followed by a RIM catheter. We then shot an aortogram showing that the aorta and the iliac arteries were without any disease, but were very tortuous. Then, using our RIM catheter, we were able to place our wire in the left common femoral artery and our RIM catheter followed. We then exchanged for a 0.035 stiff guide wire up. We then placed a 7-Guamanian 7 x 45 crossover sheath. IV heparin of 5000 units was administered to the patient. We then shot our left lower extremity angiogram showing that the common femoral artery, the profunda and the SFA were patent, but the popliteal artery had 2 tandem aneurysms. The first aneurysm was about 5 cm and the next one was about 2.5 to 3 cm. The patient had 2-vessel run-off into the foot. At this point, we placed a 0.035 stiff guide wire down through the aneurysm and into the posterior tibial artery. We then exchanged for a 0.018 wire. We then went ahead and excluded our 2 aneurysms by placing a 7 x 15 and an 8 x 5 Mona Viabahn stent graft. Once those 2 stent grafts were placed across our two aneurysms, making sure that we had 3 cm on each side of the proximal and distal portion, we went ahead and ballooned it with two 7 x 6 drug-coated Lutonix balloons. Once the balloons had been placed, we shot an angiogram showing that the aneurysms were now excluded and the patient still had 2 vessel run-off into the foot. At this point, we brought our sheath up and over and StarClose device was successfully deployed in the right common femoral artery. Pressure was held for 5 minutes; there was no bleeding. The areas were then dried and Dermabond was placed. The patient tolerated the procedure with no complications. The patient was transferred to PACU in stable condition. RONALD HARRIS DO [id number]
--- NOTE | 2016-09-14 15:49 | PN ---
Progress Note (short form) - Note Progress Note: VAscular Surgery pt doing well. Will do RLE angiogram, with covered stent lou around 3pm NPO past midnight Hold heparin drip at 12pm Ronald Sheikh DO
--- NOTE | 2016-09-14 18:28 | PN ---
Progress Note (short form) - Note Progress Note: CC: pre-op clearance S: no cp, palps, dizziness. stable chronic dyspnea (slightly improved today) . minimal po intake, currently on clears and patient does not like food options on current diet. Current Medications Acetaminophen (Tylenol -) 325 mg PO Q4H PRN PRN Reason: PAIN Last Admin: 09/14/16 16:29 Dose: 325 mg Atorvastatin Calcium (Lipitor -) 10 mg PO HS [facility] Last Admin: 09/13/16 23:00 Dose: 10 mg Docusate Sodium (Colace -) 100 mg PO BID [facility] Last Admin: 09/14/16 09:06 Dose: 100 mg Heparin Sodium (Porcine) (Heparin -) 1,000 unit IVPUSH PRN PRN PRN Reason: Heparin Heparin Sodium (Porcine) (Heparin -) 5,000 unit IVPUSH PRN PRN PRN Reason: Heparin Heparin Sodium/Dextrose (Heparin Infusion -) 500 mls @ 16 mls/hr IVPB TITR HEATHER ; 800 UNITS/HR PRN Reason: Protocol Last Admin: 09/14/16 01:58 Dose: 15 mls/hr Metoprolol Succinate (Toprol Xl -) 12.5 mg PO DAILY [facility] Last Admin: 09/14/16 09:07 Dose: 12.5 mg Ondansetron HCl (Zofran Injection) 4 mg IVPB Q6H PRN PRN Reason: NAUSEA Oxycodone HCl (Roxicodone -) 5 mg PO Q4H PRN PRN Reason: PAIN Last Admin: 09/14/16 16:27 Dose: 5 mg Pantoprazole Sodium (Protonix -) 40 mg PO DAILY [facility] Last Admin: 09/14/16 09:07 Dose: 40 mg Polyethylene Glycol (Miralax (For Daily Use) -) 17 gm PO DAILY [facility] Last Admin: 09/14/16 09:19 Dose: 17 grams Vital Signs - 24 hr 09/13/16 09/13/16 09/13/16 21:00 22:00 23:25 Temperature 98 F 98.8 F Pulse Rate 95 H 102 H Respiratory 16 20 20 Rate Blood Pressure 140/70 107/66 O2 Sat by Pulse 96 Oximetry (%) 09/14/16 09/14/16 09/14/16 01:52 06:15 09:00 Temperature 98.2 F 98.5 F 98.2 F Pulse Rate 117 H 80 98 H Respiratory 20 19 18 Rate Blood Pressure 150/93 100/66 124/76 O2 Sat by Pulse 94 L Oximetry (%) 09/14/16 14:06 Temperature 98.5 F Pulse Rate 76 Respiratory Rate Blood Pressure 94/67 O2 Sat by Pulse Oximetry (%) Intake & Output 09/12/16 09/13/16 09/14/16 09/15/16 07:59 07:59 07:59 07:59 Intake Total 1456 1438 1889 750 Output Total 400 Balance 1456 1438 1489 750 Constitutional: Yes: No Distress, Calm, Thin jvd flat, neck supple Cardiovascular: Yes: Regular Rate and Rhythm. 2/6 sys murmur at lsb/apex Respiratory: Yes: Regular, diminished air movement No: Rales, Rhonchi, Wheezes Gastrointestinal: Yes: Normal Bowel Sounds, Soft. No: Distention, Tenderness Extremities: Yes: WNL Edema: No CBC, BMP 09/14/16 05:55 09/14/16 05:55 Laboratory Tests 09/10/16 09/13/16 09/13/16 07:30 05:35 05:35 Magnesium Iron 33 TIBC 258 Iron Saturation 13 L Ferritin 242.811 Total LDL Cholesterol 112 H Vitamin B12 398 TSH 2.62 09/14/16 05:55 Magnesium 2.4 Iron TIBC Iron Saturation Ferritin Total LDL Cholesterol Vitamin B12 TSH Echo here: nl lv/rv 1+ mac/mr/tr. rvsp 30-40. EKG: sr. non-specific t wave flattening. no acute ischemic changes CXR: suspicion for right hilar mass. chest CT here: RLL irregular mass suspicious for malignancy. mod copd changes. small B effusions. large hiatal hernia. organoaxial volvulus. ectatic thoracic aorta. abd CTA with runoff here: hiatal hernia. distal thoracic aortic aneurysm with eccentric mural thrombus. infrarenal abdominal aneurysm (3.6 cm). 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 chest cT 12/2015: extensive copd changes. subpleural nodule no left. desc thoracic saortic aneurysm 5.1 x 3.9 with mural thombus. compression deformities of spine. 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 Preop CV eval: - s/p Aortogram, LLE angiogram, popliteal artery covered stent placement, with DCB angioplasty 09/13 - patient endorses h/o possible tia, also documented in office chart. Unable to walk up flight of stairs. RCRI of 1 with poor functional status. Low to intermediate risk for senthil-operative CV events. Echo without significant abnormality. - post-op bp/hr well controlled. - recent poor po intake, ok for IVF if needed. popliteal pseudoaneurysm - discussed with heme and per discussions with vascular surgery, ok to con't heparin drip. - s/p Aortogram, LLE angiogram, popliteal artery covered stent placement, with DCB angioplasty 09/13. Candidate for lifelong plavix, but currently getting worked up for anemia/possible endoscopy?. Will defer to vascular surgery/heme regarding timing/safety of initiation. - added statin. Extensive atherosclerosis noted on CT. - tobacco cessation. thoracic descending aorta aneurysm (5.1 cm)/AAA - thrombus overlying aneurysms, extensive atherosclerotic diseae - plavix if possible, statin, smoking cessation - recommend ongoing outpatient follow up with bi-annual CTA/MRA of thoracic aneurysm. No surgical indication at this time. Started low dose beta mitali . will hold for tomorrow as mentioned below. DVT - patient presented with elevated INR, but levels have recently been stable on review of office INR's. - Ongoing evaluation of anemia, need for long-term AC and consideration of coumadin vs. noac. Will continue to discuss with heme/pmd/GI. - diagnosed 12/2015 --> At the time, CT abd/pelvis was negative for malignancy. However, now RLL mass on chest CT ? malignancy. Disussed with heme and pmd. If malignancy, merits long-term AC. Work up ongoing. + tobacco - smoking cessation counseling - further work up of possible right hilar mass as mentioned - monitor pulmonary status senthil-operatively closely. improved today. htn - controlled off anti-hypertensives. started bb this morning 09/13. BP running low today, also on only clears. will hold for tomorrow. anemia, chronic - ongoing work up per pmd/heme/GI.
[2016-09-14] MEDS: ATORVASTATIN CA 10 MG TABLET (FP) PO SCH (21:26)
--- NOTE | 2016-09-14 22:16 | PN ---
Progress Note (short form) - Note Progress Note: Patient seen and examined Some pain in RLE AFVSS Cor: RSR, No murmurs, No gallops Lungs: Clear to P&A Abd: Soft, Normal bowel sounds, No organomegaly Ext:No significant edema Abnormal Lab Results 09/13/16 09/14/16 09/14/16 05:35 05:55 05:55 WBC 12.4 H D RBC 2.99 L Hgb 7.6 L Hct 24.1 L MCHC 31.6 L RDW 17.1 H PTT (Actin FS) 53.9 H D Sodium Random Glucose Calcium Serum Total Protein 5.9 L Albumin 2.6 L 09/14/16 05:55 WBC RBC Hgb Hct MCHC RDW PTT (Actin FS) Sodium 135 L Random Glucose 117 H D Calcium 8.0 L Serum Total Protein Albumin Active Medications Generic Name Dose Route Start Last Admin Trade Name Freq PRN Reason Stop Dose Admin Acetaminophen 325 mg 09/13/16 13:13 09/14/16 21:29 Tylenol - PO 325 mg Q4H PRN Administration PAIN Atorvastatin Calcium 10 mg 09/13/16 22:00 09/14/16 21:26 Lipitor - PO 10 mg HS HEATHER Administration Docusate Sodium 100 mg 09/13/16 22:00 09/14/16 21:26 Colace - PO 100 mg BID HEATHER Administration Heparin Sodium (Porcine) 1,000 unit 09/13/16 13:15 Heparin - IVPUSH PRN PRN Heparin Heparin Sodium (Porcine) 5,000 unit 09/13/16 13:15 Heparin - IVPUSH PRN PRN Heparin Heparin Sodium/Dextrose 500 mls @ 16 mls/hr 09/13/16 19:15 09/14/16 21:26 Heparin Infusion - IVPB 15 mls/hr TITR HEATHER Administration Protocol 800 UNITS/HR Ondansetron HCl 4 mg 09/13/16 13:13 Zofran Injection IVPB Q6H PRN NAUSEA Oxycodone HCl 5 mg 09/13/16 13:13 09/14/16 21:28 Roxicodone - PO 5 mg Q4H PRN Administration PAIN Pantoprazole Sodium 40 mg 09/14/16 10:00 09/14/16 09:07 Protonix - PO 40 mg DAILY HEATHER Administration Polyethylene Glycol 17 gm 09/14/16 10:00 09/14/16 09:19 Miralax (For Daily Use) - PO 17 grams DAILY HEATHER Administration A/p -76 y/o female, thin built, COPD, smoker, h/o unprovoked, extensive LLE DVT in comes in with subacute , 2 weeks onset of LT. thigh swelling, pain. CTA shows--- Lt. popliteal aneurysm rupture/bleed supratherapeutic INR---s/p vit. K ?? DVT since 12/23 --?? chronic Subacute /chroic Lt. popliteal aneurysm rupture/sealing. ??chronic LLE DVT s/p stenting of aneurysm Discussed with vasscular team --to continue heaprin drip. For stenting of Rt.popliteal aneurysm on Sunday h/o Unprovoked DVT 12/23 and now ?? chronic anemia--microcytic --partly from LLE hematoma , but stable. check screening tests PER GI to consider polypectomy prior to switching to oral a/c RLL lung mass on CT, suspicious for malignancy. To get pulminary consult/tissue diagnosis. discussed with patient To continue heparin drip for now To consider lovenox at d/c, if feasible , as lovenox would be ideal for hypercoagulable state of malignancy
[2016-09-15 00:07] LABS: A/G RATIO 0.8 (0.7-1.7); ALBUMIN 2.6 g/dL (2.9-4.4); GLOBULIN, TOTAL 3.3 g/dL (2.2-3.9); M-SPIKE Not Observed g/dL (Not Observed); TOTAL PROTEIN 5.9 g/dL (6.0-8.5)
[2016-09-15 06:46] LABS: MCH 25.9 pg (25.7-33.7); MCHC 32.2 g/dl (32.0-36.0); MEAN CELL VOLUME 80.4 fl (80-96); MEAN PLT VOLUME 9.2 fl (7.5-11.1); PLATELET COUNT 294 K/MM3 (134-434); RDW 16.9 % (11.6-15.6); WHITE BLOOD COUNT 10.6 K/mm3 (4.0-10.0)
[2016-09-15 07:18] LABS: CALCIUM 8.1 mg/dL (8.5-10.1); COCKROFT - GAULT 39.491; CREATININE 0.8 mg/dL (0.55-1.02); MAGNESIUM 2.4 mg/dL (1.8-2.4); PHOSPHOROUS 3.5 mg/dL (2.5-4.9)
[2016-09-15] MEDS: ACETAMINOPHEN 325 MG TABLET (FP) PO PRN ×2 (07:53→21:16)
[2016-09-15] MEDS: oxyCODONE HCL 5 MG TABLET PO PRN ×2 (07:54→21:15)
[2016-09-15] MEDS: POLYETHYLENE GLYCOL 3350 119 GM BTL PO SCH (09:27)
[2016-09-15] MEDS: PANTOPRAZOLE 40 MG TABLET (FP) PO SCH (09:27)
[2016-09-15] MEDS: DOCUSATE SODIUM 100 MG CAPSULE (FP) PO SCH ×2 (09:27→21:15)
[2016-09-15] MEDS: HEPARIN INFUSION - 500 ML IVPB SCH ×2 (09:59→23:20)
--- NOTE | 2016-09-15 11:21 | CON.PULM ---
Consult Consult Specialty:: PULMONARY Referred by:: MAEVE Reason for Consultation:: ABN CT CHEST - History of Present Illness Chief Complaint: WEIGHT LOSS/COUGH/LEG PAIN History of Present Illness: Ms Mcdonald is a very pleasant 76 year old female who comes in with 2 week history of LLE swelling and pain. She says she was doing well when she developed a small amount of pain in her left leg. She says it was located in her calf. At first it was very minimal but it steadily increased over time. She also noted swelling and bruising associated with it. The pain was achy and became a 10/10. It did not radiate. Because of that she comes in. She denies fevers, chills, lightheadedness, dizziness, chest pain, shortness of breath, nausea, vomiting, diarrhea, constipation, pain or difficulty urinating, or RLE swelling. Currently her pain is controlled. She was seen in the er on 09/04 ad sent home as u/s showed no dvt. She came back 09/07 with left leg swelling, high inr, u/s sowing ruptured popliteal aneurysm, ruptured and sealed. Also h/o COPD, active smoker,DVT,gerd, large H/H, chronic low back pain. 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 No: O2 Dependent Gastrointestinal: Yes: GERD, Hiatal Hernia (large HH) ...: No Heme/Onc: Yes: Anemia Musculoskeletal: Yes: Chronic low back pain - Past Surgical History Past Surgical History: Yes: , Laminectomy - Alcohol/Substance Use Hx Alcohol Use: No History of Substance Use: reports: None - Smoking History Smoking history: Current every day smoker Have you smoked in the past 12 months: Yes Aproximately how many cigarettes per day: 1 If you are a former smoker, when did you quit?: 2 months ago - Social History ADL: Family Assistance Place of : [facility] History of Recent Travel: No Home Medications - Allergies Allergies/Adverse Reactions: Allergies Allergy/AdvReac Type Severity Reaction Status Date / Time No Known Allergies Allergy Verified 09/04/16 14:55 - Home Medications Home Medications: Ambulatory Orders Warfarin Sodium [Coumadin] 7.5 mg PO DAILY 09/04/16 Family Disease History - Family Disease History Family Disease History: Heart Disease: Mother, Other: Father (cirrhosis) Review of Systems - Review of Systems Constitutional: denies: Fever Eyes: denies: Blurred Vision HENT: denies: Difficult Swallowing Neck: denies: Decreased ROM Cardiovascular: reports: Shortness of Breath. denies: Chest Pain Respiratory: reports: Cough, SOB on Exertion. denies: Hemoptysis Gastrointestinal: denies: Abdominal Pain Genitourinary: denies: Burning Breasts: reports: No Symptoms Reported Musculoskeletal: reports: Back Pain, Extremity Pain Integumentary: reports: No Symptoms Neurological: reports: No Symptoms Endocrine: reports: No Symptoms Hematology/Lymphatic: reports: No Symptoms Psychiatric: reports: No Symptoms Physical Exam Vital Sings: Vital Signs Temperature 99 F 09/15/16 05:52 Pulse Rate 80 09/15/16 05:52 Respiratory Rate 20 09/15/16 05:52 Blood Pressure 130/76 09/15/16 05:52 O2 Sat by Pulse Oximetry (%) 95 09/14/16 20:30 Constitutional: Yes: Calm Eyes: Yes: EOM Intact HENT: Yes: Normocephalic Neck: Yes: Trachea Midline Cardiovascular: Yes: S1, S2 Respiratory: Yes: Diminished Gastrointestinal: Yes: Soft Renal/: Yes: WNL Musculoskeletal: Yes: Back Pain Extremities: Yes: Calf Tenderness Edema: Yes Neurological: Yes: Alert Labs: CBC, BMP 09/15/16 06:20 09/15/16 06:20 REST REVIEWED Imaging - Results Chest X-ray: Image Reviewed Cat Scan: Image Reviewed EKG: Report Reviewed Problem List - Problems (1) Aneurysm of left popliteal artery Code(s): I72.4 - ANEURYSM OF ARTERY OF LOWER EXTREMITY (2) DVT (deep venous thrombosis) Code(s): I82.409 - ACUTE EMBOLISM AND THOMBOS UNSP DEEP VN UNSP LOWER EXTREMITY Qualifiers: DVT location: lower extremity Laterality: left (3) Elevated INR Code(s): R79.1 - ABNORMAL COAGULATION PROFILE (4) Mass of right lung Code(s): R91.8 - OTHER NONSPECIFIC ABNORMAL FINDING OF LUNG FIELD (5) Anemia Code(s): D64.9 - ANEMIA, UNSPECIFIED (6) Back pain Code(s): M54.9 - DORSALGIA, UNSPECIFIED Assessment/Plan LARGE RIGHT LUNG MASS HIGHLY SUSPICIOUS FOR MALIGNANCY THIS WOULD EXPLAIN "UNPROVOKED" DVT LAST YEAR BACK PAIN DUE TO COMPRESSION FRACTURES LARGE H/H DVT/POPLITEAL ANEURYSM BEST APPROACH WOULD LIKELY BE FOB/BX MASS APPEARS TO CENTRAL AND THERE WOULD BE AN INCREASE RISK FOR PTX WITH A TTNBX. HAVE DISCUSSED WITH PATIENT WILL DISCUSS WITH REST OF PULMONARY TEAM TO ARRANGE FOB/LIKELY NEXT WEEK WOULD NEED TO BE OFF A/C FOR AT LEAST 6 HOURS(IV HEPARIN) Cecilia ESTRADA MD
--- NOTE | 2016-09-15 12:35 | PN ---
Progress Note, Physician Chief Complaint: Ms Mcdonald complains of being hungry but otherwise is without complaint. No cp, sob, n/v - Current Medication List Current Medications: Active Medications Acetaminophen (Tylenol -) 325 mg PO Q4H PRN PRN Reason: PAIN Last Admin: 09/15/16 07:53 Dose: 325 mg Atorvastatin Calcium (Lipitor -) 10 mg PO HS [facility] Last Admin: 09/14/16 21:26 Dose: 10 mg Docusate Sodium (Colace -) 100 mg PO BID [facility] Last Admin: 09/15/16 09:27 Dose: Not Given Heparin Sodium (Porcine) (Heparin -) 1,000 unit IVPUSH PRN PRN PRN Reason: Heparin Last Admin: 09/15/16 10:00 Dose: 1,000 unit Heparin Sodium (Porcine) (Heparin -) 5,000 unit IVPUSH PRN PRN PRN Reason: Heparin Heparin Sodium/Dextrose (Heparin Infusion -) 500 mls @ 16 mls/hr IVPB TITR HEATHER ; 800 UNITS/HR PRN Reason: Protocol Last Admin: 09/15/16 09:59 Dose: 17 mls/hr Ondansetron HCl (Zofran Injection) 4 mg IVPB Q6H PRN PRN Reason: NAUSEA Oxycodone HCl (Roxicodone -) 5 mg PO Q4H PRN PRN Reason: PAIN Last Admin: 09/15/16 07:54 Dose: 5 mg Pantoprazole Sodium (Protonix -) 40 mg PO DAILY [facility] Last Admin: 09/15/16 09:27 Dose: Not Given Polyethylene Glycol (Miralax (For Daily Use) -) 17 gm PO DAILY [facility] Last Admin: 09/15/16 09:27 Dose: Not Given - Objective Vital Signs: Vital Signs Temperature 99 F 09/15/16 05:52 Pulse Rate 80 09/15/16 05:52 Respiratory Rate 20 09/15/16 05:52 Blood Pressure 130/76 09/15/16 05:52 O2 Sat by Pulse Oximetry (%) 95 09/14/16 20:30 Constitutional: Yes: No Distress, Calm, Thin Cardiovascular: Yes: Regular Rate and Rhythm. No: Gallop, Murmur, Rub Respiratory: Yes: Regular, CTA Bilaterally. No: Rales, Rhonchi, Wheezes Gastrointestinal: Yes: Normal Bowel Sounds. No: Distention, Tenderness Extremities: Yes: WNL Edema: No Labs: CBC, BMP 09/15/16 06:20 09/15/16 06:20 INR, PTT INR 1.30 (0.82-1.09) H 09/11/16 05:35 Fibrinogen 575.0 mg/dL (238-498) H 09/09/16 06:00 Problem List - Problems (1) Mass of right lung Code(s): R91.8 - OTHER NONSPECIFIC ABNORMAL FINDING OF LUNG FIELD (2) Aneurysm of left popliteal artery Code(s): I72.4 - ANEURYSM OF ARTERY OF LOWER EXTREMITY (3) DVT (deep venous thrombosis) Code(s): I82.409 - ACUTE EMBOLISM AND THOMBOS UNSP DEEP VN UNSP LOWER EXTREMITY Qualifiers: DVT location: lower extremity Laterality: left (4) Elevated INR Code(s): R79.1 - ABNORMAL COAGULATION PROFILE (5) GERD (gastroesophageal reflux disease) Code(s): K21.9 - GASTRO-ESOPHAGEAL REFLUX DISEASE WITHOUT ESOPHAGITIS (6) Hiatal hernia Code(s): K44.9 - DIAPHRAGMATIC HERNIA WITHOUT OBSTRUCTION OR GANGRENE Assessment/Plan (1) Aneurysm of left popliteal artery Assessment/Plan: -LLE corrected -planning on intervention on the RLE today Code(s): I72.4 - ANEURYSM OF ARTERY OF LOWER EXTREMITY (2) DVT (deep venous thrombosis) Assessment/Plan: -hematology reversed INR -on heparin gtt -will need anticoagulation, possible lovenox if secondary to malignancy Code(s): I82.409 - ACUTE EMBOLISM AND THOMBOS UNSP DEEP VN UNSP LOWER EXTREMITY Qualifiers: DVT location: lower extremity Laterality: left (3) Elevated INR Assessment/Plan: -as above Code(s): R79.1 - ABNORMAL COAGULATION PROFILE (4) GERD (gastroesophageal reflux disease) Assessment/Plan: -planning for polypectomy prior to resuming ac Code(s): K21.9 - GASTRO-ESOPHAGEAL REFLUX DISEASE WITHOUT ESOPHAGITIS (5) Hiatal hernia Assessment/Plan: -outpatient follow up -currently asymptomatic Code(s): K44.9 - DIAPHRAGMATIC HERNIA WITHOUT OBSTRUCTION OR GANGRENE (6) Lung mass -found on CT scan of chest -previous read back in december says no mass -concerning for malignancy secondary to smoking history and unprovoked DVT -oncology and pulmonary consulted -will need biopsy
[2016-09-15] MEDS ORDERED: PROPOFOL 20 ML ONE ×3 (15:16)
[2016-09-15] MEDS ORDERED: MIDAZOLAM HCL 2 MG/2 ML SINGLE DOSE VIAL ONE ×2 (15:21→17:28)
[2016-09-15] MEDS ORDERED: HEPARIN NA (PORCINE) 5,000 UNITS/ML 1ML VIAL ONE ×2 (16:14→17:39)
[2016-09-15] MEDS ORDERED: ceFAZolin SODIUM 1 GM VIAL IVPB ONE (16:49)
[2016-09-15] MEDS ORDERED: LIDOCAINE HCL 1%, 10 MG/ML (50 mL VIAL) IJ ONE ×2 (16:58)
--- NOTE | 2016-09-15 18:07 | OP ---
Operative Note - Note: Operative Date: 09/15/16 Pre-Operative Diagnosis: Right popliteal artery aneurysm Operation: Aortogram, RLE angiogram, Popliteal artery covered stent placement with DCB angioplasty Post-Operative Diagnosis: Same as Pre-op Surgeon: Ronald Sheikh Anesthesia: Fractional Estimated Blood Loss (mls): 50 Operative Report Dictated: Yes
[2016-09-15] MEDS ORDERED: HEPARIN NA (PORCINE) 5,000 UNITS/ML 1ML VIAL IVPUSH PRN ×2 (18:10)
[2016-09-15] MEDS ORDERED: ONDANSETRON 4 MG/2 ML VIAL IVPB PRN (18:21)
[2016-09-15] MEDS: ATORVASTATIN CA 10 MG TABLET (FP) PO SCH (21:15)
[2016-09-16] MEDS: oxyCODONE HCL 5 MG TABLET PO PRN ×2 (05:57→16:19)
[2016-09-16] MEDS: ACETAMINOPHEN 325 MG TABLET (FP) PO PRN ×2 (05:58→16:17)
[2016-09-16 07:33] LABS: MCH 25.8 pg (25.7-33.7); MCHC 31.7 g/dl (32.0-36.0); MEAN CELL VOLUME 81.3 fl (80-96); MEAN PLT VOLUME 9.7 fl (7.5-11.1); PLATELET COUNT 277 K/MM3 (134-434)
[2016-09-16 07:36] LABS: EOSINOPHIL 1.9 % (0-4.5); MCH 25.6 pg (25.7-33.7); MCHC 31.3 g/dl (32.0-36.0); MEAN CELL VOLUME 81.5 fl (80-96); MEAN PLT VOLUME 10.1 fl (7.5-11.1); NEUTROPHILS 82.8 % (42.8-82.8); PLATELET COUNT 250 K/MM3 (134-434); WHITE BLOOD COUNT 11.3 K/mm3 (4.0-10.0)
[2016-09-16 08:03] LABS: CALCIUM 7.9 mg/dL (8.5-10.1); MAGNESIUM 2.5 mg/dL (1.8-2.4)
[2016-09-16 08:05] LABS: COCKROFT - GAULT 45.135; CREATININE 0.7 mg/dL (0.55-1.02); PHOSPHOROUS 3.1 mg/dL (2.5-4.9)
[2016-09-16] MEDS: HEPARIN NA (PORCINE) 5,000 UNITS/ML 1ML VIAL IVPUSH PRN (08:32)
--- NOTE | 2016-09-16 08:40 | PN ---
Progress Note (short form) - Note Progress Note: PATIENT S/P B/L POP ARTERY ANEURYSM REPAIR. FOUND TO HAVE LUNG MASS. FEELS WELL . NO DISTRESS. Selected Entries 09/16/16 07:01 Temperature 99.1 F Pulse Rate 72 Respiratory 21 Rate Blood Pressure 132/76 Blood Pressure 94 Mean Laboratory Tests 09/15/16 09/16/16 06:20 06:00 WBC 11.3 H RBC 2.80 L Hgb 7.2 L Hct 22.9 L Plt Count 250 Sodium 139 Potassium 3.8 Chloride 100 Carbon Dioxide 29 Anion Gap 10 BUN 14 Creatinine 0.8 Random Glucose 101 Calcium 8.1 L Phosphorus 3.5 Magnesium 2.4 P/E <> AWAKE / COMFORTABLE HEENT <> NECK SUPPLE COR < S 1 S 2 > CHEST <> CLEAR P & A ABD <> SOFT / NONTENDER. EXT <> NO EDEMA IMP: B/L POP ANEURYSM S/P REPAIR AAA DVT THORACIC ANEURYSM LUNG MASS ANEMIA PLAN : CONTINUE HEPARIN DRIP VASCULAR FOLLOWUP PULMONARY FOLLOWUP LUNG MASS. HEMATOLOGY EVAL ANEMIA.
[2016-09-16] MEDS: DOCUSATE SODIUM 100 MG CAPSULE (FP) PO SCH ×2 (09:21→21:52)
[2016-09-16] MEDS: POLYETHYLENE GLYCOL 3350 119 GM BTL PO SCH (09:21)
[2016-09-16] MEDS: PANTOPRAZOLE 40 MG TABLET (FP) PO SCH (09:21)
--- NOTE | 2016-09-16 11:20 | OP ---
DATE OF OPERATION: 09/15/2016 PREOPERATIVE DIAGNOSIS: Right popliteal artery aneurysm. POSTOPERATIVE DIAGNOSIS: Right popliteal artery aneurysm. PROCEDURES: Aortogram, right lower extremity angiogram, popliteal artery covered stent placement with drug-coated balloon angioplasty. SURGEON: Ronald Harris DO ANESTHESIA: Fractional. BLOOD LOSS: Fifty milliliters. The patient is a 76-year-old female who has been a long-time smoker for 60 years and developed bilateral popliteal artery aneurysms with an abdominal aortic aneurysm which is still small. She had her left popliteal artery aneurysm covered 2 days ago and now she needs her right popliteal artery to be covered by a covered stent. The patient was consented for the procedure, understanding all risks, benefits and alternatives, and was then taken to the operating room. Once in the operating room, she was laid on the operating table in a supine manner and the area of the right and left groin was prepped and draped in a sterile surgical manner. We initially started off on the left common femoral artery and 10 mL of lidocaine 1% was then injected. We then took our Micropuncture needle and punctured the left common femoral artery. Micropuncture wire was inserted and a traditional 5-Moldovan sheath was inserted. We then placed a 0.035 floppy guide wire up into the aorta followed by an Omni Flush catheter. We then shot an aortogram showing that the aorta had a small aneurysm and was very tortuous. We then tried to negotiate our wire into the right common femoral artery, but because of the acute angle and the narrow bifurcation, it was very difficult to try to get the Omni Flush catheter up and over. We tried using a Harshil catheter. We tried using a RIM catheter, but were unsuccessful. At this point, we decided that we would go to the opposite side and stick the right common femoral artery and do the case from an ipsilateral fashion. We injected 10 mL of lidocaine 1% over the right common femoral artery. We then took our Micropuncture needle and punctured the right common femoral artery. A Micropuncture wire was placed under fluoroscopy. We then went ahead and placed a 7-Moldovan sheath into the common femoral artery and into the SFA. Five-thousand units of IV heparin were administered to the patient. We then placed a 0.035 floppy guide wire down to the above-knee popliteal and a Quick-Cross catheter was brought down there. We shot an angiogram of the knee where we visualized the popliteal artery aneurysm and we checked the run-off which was 1-vessel run-off which was PT. At this point, we placed a wire down into the posterior tibial artery. We used an 8 x 10 Viabahn stent and that was placed across our popliteal artery aneurysm and that was ballooned in place using a drug-coated Lutonix balloon of 7 x 6. Completion angiogram showed that the aneurysm was excluded, there was no leak, and there was good run-off into the foot. At this point, we took out all the wires. We placed a StarClose device wire into our sheath. The sheath was removed and the StarClose device was successfully deployed in the right common femoral artery. Pressure was held for 5 minutes; there was no bleeding. The areas were then dried and Dermabond was placed. The patient tolerated the procedure with no complications. The patient was transferred to PACU in stable condition. RONALD HARRIS DO [id number]
--- NOTE | 2016-09-16 12:00 | PN ---
Progress Note (short form) - Note Progress Note: PULMONARY Denies shortness of breath or chest pain. Family at bedside, discussed CT findings and need for bronchoscopy. Last Vital Signs Temp Pulse Resp BP Pulse Ox 98.2 F 99 H 20 102/64 97 09/16/16 10:00 09/16/16 10:00 09/16/16 10:00 09/16/16 10:00 09/16/16 09:00 Gen: NAD at rest Heart: RRR Lung: distant breath sounds, no wheezes Abd: soft, nontender Ext: no edema CBC, BMP 09/16/16 06:00 09/16/16 06:00 Active Medications Acetaminophen (Tylenol -) 325 mg PO Q4H PRN PRN Reason: PAIN Last Admin: 09/16/16 05:58 Dose: 325 mg Atorvastatin Calcium (Lipitor -) 10 mg PO HS [facility] Last Admin: 09/15/16 21:15 Dose: 10 mg Docusate Sodium (Colace -) 100 mg PO BID [facility] Last Admin: 09/16/16 09:21 Dose: Not Given Heparin Sodium (Porcine) (Heparin -) 5,000 unit IVPUSH PRN PRN PRN Reason: Heparin Last Admin: 09/16/16 08:32 Dose: 5,000 unit Heparin Sodium (Porcine) (Heparin -) 1,000 unit IVPUSH PRN PRN PRN Reason: Heparin Heparin Sodium (Porcine) (Heparin -) 5,000 unit IVPUSH PRN PRN PRN Reason: Heparin Heparin Sodium/Dextrose (Heparin Infusion -) 500 mls @ 16 mls/hr IVPB TITR HEATHER ; 800 UNITS/HR PRN Reason: Protocol Last Titration: 09/16/16 08:32 Dose: 950 units/hr Ondansetron HCl (Zofran Injection) 4 mg IVPB Q6H PRN PRN Reason: NAUSEA Oxycodone HCl (Roxicodone -) 5 mg PO Q4H PRN PRN Reason: PAIN Last Admin: 09/16/16 05:57 Dose: 5 mg Pantoprazole Sodium (Protonix -) 40 mg PO DAILY [facility] Last Admin: 09/16/16 09:21 Dose: 40 mg Polyethylene Glycol (Miralax (For Daily Use) -) 17 gm PO DAILY [facility] Last Admin: 09/16/16 09:21 Dose: Not Given A/P s/p RLE stent for aneurysm DVT Lung Mass - will try to add on to 6/12 AM OR schedule for bronchoscopy with transbronchial biopsies - discussed risks and benefits with pt and family, all questions answered - continue heparin gtt for now, will need to hold prior to bronch
--- NOTE | 2016-09-16 12:51 | PN ---
Progress Note (short form) - Note Progress Note: Colonoscopy will be postponed until pulm eval complete
--- NOTE | 2016-09-16 15:44 | PN ---
Progress Note (short form) - Note Progress Note: Patient seen and examined Complains of some SOB LLE discomfort Last Vital Signs Temp Pulse Resp BP Pulse Ox 99.6 F 96 H 20 120/72 97 09/16/16 14:22 09/16/16 14:22 09/16/16 10:00 09/16/16 14:22 09/16/16 09:00 HEENT: SCOTT, right eye laterally deviated Oropharynx: No thrush, No mucositis,dentures Cor: RSR, No murmurs, No gallops Lungs:decrease breath sounds Abd: Soft, Normal bowel sounds, No organomegaly, umbilical hernia ExtLLE swelling and tenderness Skin: No rashes, Integument intact CBC, BMP 09/16/16 06:00 09/16/16 06:00 Current Medications Generic Name Dose Route Start Last Admin Trade Name Freq PRN Reason Stop Dose Admin Acetaminophen 325 mg 09/15/16 18:21 09/16/16 05:58 Tylenol - PO 325 mg Q4H PRN Administration PAIN Atorvastatin Calcium 10 mg 09/15/16 22:00 09/15/16 21:15 Lipitor - PO 10 mg HS HEATHER Administration Docusate Sodium 100 mg 09/15/16 22:00 09/16/16 09:21 Colace - PO Not Given BID HEATHER Heparin Sodium (Porcine) 5,000 unit 09/15/16 23:09 09/16/16 08:32 Heparin - IVPUSH 5,000 unit PRN PRN Administration Heparin Heparin Sodium (Porcine) 1,000 unit 09/15/16 18:10 Heparin - IVPUSH PRN PRN Heparin Heparin Sodium (Porcine) 5,000 unit 09/15/16 18:10 Heparin - IVPUSH PRN PRN Heparin Heparin Sodium/Dextrose 500 mls @ 16 mls/hr 09/15/16 23:15 09/16/16 15:34 Heparin Infusion - IVPB 950 units/hr TITR HEATHER Titration Protocol 800 UNITS/HR Ondansetron HCl 4 mg 09/15/16 18:21 Zofran Injection IVPB Q6H PRN NAUSEA Oxycodone HCl 5 mg 09/15/16 18:21 09/16/16 05:57 Roxicodone - PO 5 mg Q4H PRN Administration PAIN Pantoprazole Sodium 40 mg 09/16/16 10:00 09/16/16 09:21 Protonix - PO 40 mg DAILY [facility]ATHER Administration Polyethylene Glycol 17 gm 09/16/16 10:00 09/16/16 09:21 Miralax (For Daily Use) - PO Not Given DAILY HEATHER Impression: Anemia - likely multifactorial- Fe++ deficiency and chronic disease ( normal B- 12, folate, TSh, and no "M" protein) H/O unprovoked DVT s/p stenting for aneurysmal rupture poplital area on left Lung mass Plan: transfuse one unit of packed cells in anticipation of bronchoscopy. GI work up when feasible. IV venofer.
[2016-09-16] MEDS: HEPARIN INFUSION - 500 ML IVPB SCH (18:01)
[2016-09-16] MEDS: ATORVASTATIN CA 10 MG TABLET (FP) PO SCH (21:52)
[2016-09-17] MEDS: ACETAMINOPHEN 325 MG TABLET (FP) PO PRN ×2 (07:40→21:09)
[2016-09-17] MEDS: oxyCODONE HCL 5 MG TABLET PO PRN ×2 (07:41→21:09)
--- NOTE | 2016-09-17 07:53 | PN ---
Progress Note (short form) - Note Progress Note: PATIENT IN NO DISTRESS / NO ABDOMINAL PAIN / NO LE PAIN / SHE IS S/P B/L POPLITEAL ARTERY ANEURYSM REPAIR. LUNG MASS TO BE EVALUATED BY BRONCHOSCOPY. SEEN BY HEME > RECEIVED 1 UNIT PRBC. Selected Entries 09/17/16 06:58 Temperature 99.4 F Respiratory 20 Rate Blood Pressure 137/77 Laboratory Tests 09/16/16 09/16/16 09/16/16 06:00 06:00 14:20 WBC 11.3 H RBC 2.80 L Hgb 7.2 L Hct 22.9 L Plt Count 250 PTT (Actin FS) 74.4 H D Sodium 137 Potassium 3.9 Chloride 100 Carbon Dioxide 28 Anion Gap 9 BUN 16 Creatinine 0.7 Random Glucose 95 Calcium 7.9 L Phosphorus 3.1 Magnesium 2.5 H Selected Entries Laboratory Tests P/E <> NO DISTRESS / ALERT / ORIENTED HEENT <> NECK SUPPLE COR < S 1 S 2 > CHEST <> CLEAR P & A ABD <> SOFT / NONTENDER. EXT <> NO EDEMA IMP: B/L POP ANEURYSM S/P REPAIR AAA DVT THORACIC ANEURYSM LUNG MASS ANEMIA S/P PRBC TRANFUSION PLAN : STOP HEPARIN DRIP PER PROTOCOL FOR BRONCHOSCOPY TOMORROW. FOLLOW CBC / HEMATOLOGY FOLLOWUP. VASCULAR FOLLOWUP.
[2016-09-17 08:15] LABS: BASOPHIL 0.8 % (0-2.0); EOSINOPHIL 1.8 % (0-4.5); MCH 26.5 pg (25.7-33.7); MCHC 33.1 g/dl (32.0-36.0); MEAN PLT VOLUME 9.2 fl (7.5-11.1); NEUTROPHILS 81.5 % (42.8-82.8); PLATELET COUNT 293 K/MM3 (134-434); RDW 15.4 % (11.6-15.6); WHITE BLOOD COUNT 10.8 K/mm3 (4.0-10.0)
[2016-09-17 09:06] LABS: ALBUMIN 2.2 g/dl (3.4-5.0); ALK PHOS 508 U/L (45-117); ANION GAP 11 (8-16); BILIRUBIN,TOTAL 0.9 mg/dL (0.2-1.0); CALCIUM 7.9 mg/dL (8.5-10.1); CO2 27 mmol/L (21-32); COCKROFT - GAULT 52.6575; CREATININE 0.6 mg/dL (0.55-1.02); GLUCOSE,RANDOM 101 mg/dL (74-106); MAGNESIUM 2.3 mg/dL (1.8-2.4); SGOT/AST 46 U/L (15-37); SGPT/ALT 36 U/L (12-78); TOT PROT 5.5 g/dl (6.4-8.2)
[2016-09-17] MEDS ORDERED: PT OWN MED DRAWER 7, Y5N ONE (09:23)
[2016-09-17] MEDS: PANTOPRAZOLE 40 MG TABLET (FP) PO SCH (09:26)
[2016-09-17] MEDS: POLYETHYLENE GLYCOL 3350 119 GM BTL PO SCH (09:26)
[2016-09-17] MEDS: DOCUSATE SODIUM 100 MG CAPSULE (FP) PO SCH ×2 (09:26→21:07)
[2016-09-17] MEDS ORDERED: IRON SUCROSE INJECTION 100 MG in SODIUM CHLORIDE 95 ML IVPB ONE (10:00)
--- NOTE | 2016-09-17 11:02 | PN ---
Progress Note (short form) - Note Progress Note: Patient seen and examined Complains of some shortness of breath and dyspnea On oxygen S/P transfusion of packed cells. Tolerated one unit . LE tenderness, s/p stenting Last Vital Signs Temp Pulse Resp BP Pulse Ox 97.8 F 100 H 20 97/65 97 09/17/16 09:00 09/17/16 09:00 09/17/16 09:00 09/17/16 09:00 09/16/16 21:00 HEENT: SCOTT,right eye deviated Oropharynx: No thrush, No mucositis, upper dentures Cor: RSR, No murmurs, No gallops Lungs:rhonchi Abd: Soft, Normal bowel sounds, No organomegaly Ext: edema, calf tenderness, s/p stenting Skin: No rashes, Integument intact CBC, BMP 09/17/16 07:20 09/17/16 07:20 Current Medications Generic Name Dose Route Start Last Admin Trade Name Freq PRN Reason Stop Dose Admin Acetaminophen 325 mg 09/15/16 18:21 09/17/16 07:40 Tylenol - PO 325 mg Q4H PRN Administration PAIN Atorvastatin Calcium 10 mg 09/15/16 22:00 09/16/16 21:52 Lipitor - PO 10 mg HS [facility]ATHER Administration Docusate Sodium 100 mg 09/15/16 22:00 09/17/16 09:26 Colace - PO 100 mg BID HEATHER Administration Heparin Sodium (Porcine) 5,000 unit 09/15/16 23:09 09/16/16 08:32 Heparin - IVPUSH 5,000 unit PRN PRN Administration Heparin Heparin Sodium (Porcine) 1,000 unit 09/15/16 18:10 Heparin - IVPUSH PRN PRN Heparin Heparin Sodium (Porcine) 5,000 unit 09/15/16 18:10 Heparin - IVPUSH PRN PRN Heparin Heparin Sodium/Dextrose 500 mls @ 16 mls/hr 09/15/16 23:15 09/16/16 18:01 Heparin Infusion - IVPB 19 mls/hr TITR HEATHER Administration Protocol 800 UNITS/HR Ondansetron HCl 4 mg 09/15/16 18:21 Zofran Injection IVPB Q6H PRN NAUSEA Oxycodone HCl 5 mg 09/15/16 18:21 09/17/16 07:41 Roxicodone - PO 5 mg Q4H PRN Administration PAIN Pantoprazole Sodium 40 mg 09/16/16 10:00 09/17/16 09:26 Protonix - PO 40 mg DAILY [facility]ER Administration Polyethylene Glycol 17 gm 09/16/16 10:00 09/17/16 09:26 Miralax (For Daily Use) - PO Not Given DAILY [facility]ER Impression: S/P unprovoked DVT in past S/P popliteal aneurysms with rupture/Stenting Lung mass Anemia Plan: For bronchoscopy GI work up in future. S/P
--- NOTE | 2016-09-17 11:53 | PN ---
Progress Note (short form) - Note Progress Note: PULMONARY Denies shortness of breath or chest pain. Last Vital Signs Temp Pulse Resp BP Pulse Ox 97.8 F 100 H 20 97/65 97 09/17/16 09:00 09/17/16 09:00 09/17/16 09:00 09/17/16 09:00 09/16/16 21:00 Gen: NAD at rest Heart: RRR Lung: distant breath sounds, no wheezes Abd: soft, nontender Ext: no edema CBC, BMP 09/17/16 07:20 09/17/16 07:20 Active Medications Acetaminophen (Tylenol -) 325 mg PO Q4H PRN PRN Reason: PAIN Last Admin: 09/17/16 07:40 Dose: 325 mg Atorvastatin Calcium (Lipitor -) 10 mg PO HS [facility] Last Admin: 09/16/16 21:52 Dose: 10 mg Docusate Sodium (Colace -) 100 mg PO BID [facility] Last Admin: 09/17/16 09:26 Dose: 100 mg Heparin Sodium (Porcine) (Heparin -) 5,000 unit IVPUSH PRN PRN PRN Reason: Heparin Last Admin: 09/16/16 08:32 Dose: 5,000 unit Heparin Sodium (Porcine) (Heparin -) 1,000 unit IVPUSH PRN PRN PRN Reason: Heparin Heparin Sodium (Porcine) (Heparin -) 5,000 unit IVPUSH PRN PRN PRN Reason: Heparin Heparin Sodium/Dextrose (Heparin Infusion -) 500 mls @ 16 mls/hr IVPB TITR [facility] ; 800 UNITS/HR PRN Reason: Protocol Last Admin: 09/16/16 18:01 Dose: 19 mls/hr Ondansetron HCl (Zofran Injection) 4 mg IVPB Q6H PRN PRN Reason: NAUSEA Oxycodone HCl (Roxicodone -) 5 mg PO Q4H PRN PRN Reason: PAIN Last Admin: 09/17/16 07:41 Dose: 5 mg Pantoprazole Sodium (Protonix -) 40 mg PO DAILY [facility] Last Admin: 09/17/16 09:26 Dose: 40 mg Polyethylene Glycol (Miralax (For Daily Use) -) 17 gm PO DAILY [facility] Last Admin: 09/17/16 09:26 Dose: Not Given A/P s/p RLE stent for aneurysm DVT Lung Mass - will try to add on to 6/12 AM OR schedule for bronchoscopy with transbronchial biopsies - discussed risks and benefits with pt and family, all questions answered - continue heparin gtt for now, hold at 6AM tomorrow - NPO after midnight
[2016-09-17] MEDS: HEPARIN INFUSION - 500 ML IVPB SCH (16:36)
[2016-09-17] MEDS: ATORVASTATIN CA 10 MG TABLET (FP) PO SCH (21:07)
[2016-09-18 07:55] LABS: BASOPHIL 0.8 % (0-2.0); EOSINOPHIL 2.9 % (0-4.5); MCH 27.3 pg (25.7-33.7); MCHC 33.5 g/dl (32.0-36.0); MEAN CELL VOLUME 81.4 fl (80-96); MEAN PLT VOLUME 9.6 fl (7.5-11.1); NEUTROPHILS 75.2 % (42.8-82.8); PLATELET COUNT 306 K/MM3 (134-434); RDW 15.8 % (11.6-15.6); WHITE BLOOD COUNT 8.5 K/mm3 (4.0-10.0)
[2016-09-18 08:27] LABS: ALBUMIN 2.3 g/dl (3.4-5.0); ALK PHOS 549 U/L (45-117); ANION GAP 11 (8-16); BILIRUBIN,TOTAL 0.7 mg/dL (0.2-1.0); CALCIUM 8.4 mg/dL (8.5-10.1); CO2 29 mmol/L (21-32); COCKROFT - GAULT 52.6575; CREATININE 0.6 mg/dL (0.55-1.02); GLUCOSE,RANDOM 85 mg/dL (74-106); SGOT/AST 29 U/L (15-37); SGPT/ALT 31 U/L (12-78); TOT PROT 5.7 g/dl (6.4-8.2)
[2016-09-18] MEDS: PANTOPRAZOLE 40 MG TABLET (FP) PO SCH (09:38)
[2016-09-18] MEDS: POLYETHYLENE GLYCOL 3350 119 GM BTL PO SCH (09:38)
[2016-09-18] MEDS: DOCUSATE SODIUM 100 MG CAPSULE (FP) PO SCH ×2 (09:38→22:12)
--- NOTE | 2016-09-18 12:35 | PN ---
Progress Note (short form) - Note Progress Note: PULMONARY APPEARS STABLE OFFERS NO COMPLAINTS VSS/AFEBRILE NO OVERALL CHANGE IN EXAM AWAITING FOB/BX Cecilia ESTRADA MD Problem List - Problems (1) Aneurysm of left popliteal artery Code(s): I72.4 - ANEURYSM OF ARTERY OF LOWER EXTREMITY (2) DVT (deep venous thrombosis) Code(s): I82.409 - ACUTE EMBOLISM AND THOMBOS UNSP DEEP VN UNSP LOWER EXTREMITY Qualifiers: DVT location: lower extremity Laterality: left (3) Elevated INR Code(s): R79.1 - ABNORMAL COAGULATION PROFILE (4) Mass of right lung Code(s): R91.8 - OTHER NONSPECIFIC ABNORMAL FINDING OF LUNG FIELD (5) Anemia Code(s): D64.9 - ANEMIA, UNSPECIFIED (6) Back pain Code(s): M54.9 - DORSALGIA, UNSPECIFIED
[2016-09-18] MEDS ORDERED: ROCURONIUM BROMIDE 50 MG/5 ML VIAL ONE (13:28)
[2016-09-18] MEDS ORDERED: PROPOFOL 20 ML ONE ×3 (13:29)
[2016-09-18] MEDS ORDERED: NEOSTIGMINE METHYLSULFATE 0.5 MG/ML - 10 ML MDV ONE (13:57)
--- NOTE | 2016-09-18 14:21 | PROC ---
Procedure Note Procedure: BRONCHSCOPY NOTE After discussing the risks and benefits of the procedure including bleeding and pneumothorax, informed consent was obtained. Pt was placed under general anesthesia and intubated with size 8.0 ETT by anesthesia. [employer] video bronchoscope was passed via the ETT and the airways were examined down to the subsegmental level. The suzy was sharp, there were no endobronchial lesions noted in either lung. Of note there was an anatomical variation with the right upper lobe with only 2 segments. There was an additional endobronchial lumen just proximal to the superior segment of the right lower lobe. This segment was brushed, transbronchial biopsies taken and then lavaged. Some heme noted but ceased with saline lavages. Bronchoscope then withdrawn and procedure terminated. No immediate complications. Pre-op Dx: lung mass Post-op Dx: same Plan: - f/u BAL cultures, cytology from brushings and washings - f/u transbronchial biopsies - CXR post bronchoscopy - can resume regular diet - resume heparin gtt in AM Claudy Rivera MD
[2016-09-18] MEDS ORDERED: LACTATED RINGERS SOLUTION 1,000 ML IV SCH (14:45)
--- NOTE | 2016-09-18 16:49 | PN ---
Progress Note, Physician Chief Complaint: Ms Mcdonald is without complaint. No cp, sob, n/v. - Current Medication List Current Medications: Active Medications Acetaminophen (Tylenol -) 325 mg PO Q4H PRN PRN Reason: PAIN Last Admin: 09/17/16 21:09 Dose: 325 mg Atorvastatin Calcium (Lipitor -) 10 mg PO HS [facility] Last Admin: 09/17/16 21:07 Dose: 10 mg Docusate Sodium (Colace -) 100 mg PO BID [facility] Last Admin: 09/18/16 09:38 Dose: Not Given Fentanyl (Sublimaze Injection -) 25 mcg IVPUSH [id number] PRN PRN Reason: PAIN Stop: 09/21/16 14:42 Heparin Sodium (Porcine) (Heparin -) 5,000 unit IVPUSH PRN PRN PRN Reason: Heparin Last Admin: 09/16/16 08:32 Dose: 5,000 unit Heparin Sodium (Porcine) (Heparin -) 1,000 unit IVPUSH PRN PRN PRN Reason: Heparin Heparin Sodium (Porcine) (Heparin -) 5,000 unit IVPUSH PRN PRN PRN Reason: Heparin Heparin Sodium/Dextrose (Heparin Infusion -) 500 mls @ 16 mls/hr IVPB TITR [facility]ATHER ; 800 UNITS/HR PRN Reason: Protocol Last Admin: 09/17/16 16:36 Dose: 19 mls/hr Ondansetron HCl (Zofran Injection) 4 mg IVPB Q6H PRN PRN Reason: NAUSEA Oxycodone HCl (Roxicodone -) 5 mg PO Q4H PRN PRN Reason: PAIN Last Admin: 09/17/16 21:09 Dose: 5 mg Pantoprazole Sodium (Protonix -) 40 mg PO DAILY [facility] Last Admin: 09/18/16 09:38 Dose: Not Given Polyethylene Glycol (Miralax (For Daily Use) -) 17 gm PO DAILY [facility] Last Admin: 09/18/16 09:38 Dose: Not Given - Objective Vital Signs: Vital Signs Temperature 98.2 F 09/18/16 16:44 Pulse Rate 96 H 09/18/16 16:44 Respiratory Rate 20 09/18/16 16:44 Blood Pressure 120/88 09/18/16 16:44 O2 Sat by Pulse Oximetry (%) 96 09/18/16 16:44 Constitutional: Yes: No Distress, Calm, Thin Cardiovascular: Yes: Regular Rate and Rhythm. No: Gallop, Murmur Respiratory: Yes: Regular, CTA Bilaterally. No: Rales, Rhonchi, Wheezes Gastrointestinal: Yes: Normal Bowel Sounds, Soft. No: Distention, Tenderness Extremities: Yes: WNL Edema: No Labs: CBC, BMP 09/18/16 05:38 09/18/16 05:38 INR, PTT INR 1.30 (0.82-1.09) H 09/11/16 05:35 Fibrinogen 575.0 mg/dL (238-498) H 09/09/16 06:00 Problem List - Problems (1) Mass of right lung Code(s): R91.8 - OTHER NONSPECIFIC ABNORMAL FINDING OF LUNG FIELD (2) Aneurysm of left popliteal artery Code(s): I72.4 - ANEURYSM OF ARTERY OF LOWER EXTREMITY (3) DVT (deep venous thrombosis) Code(s): I82.409 - ACUTE EMBOLISM AND THOMBOS UNSP DEEP VN UNSP LOWER EXTREMITY Qualifiers: DVT location: lower extremity Laterality: left (4) Elevated INR Code(s): R79.1 - ABNORMAL COAGULATION PROFILE (5) GERD (gastroesophageal reflux disease) Code(s): K21.9 - GASTRO-ESOPHAGEAL REFLUX DISEASE WITHOUT ESOPHAGITIS (6) Hiatal hernia Code(s): K44.9 - DIAPHRAGMATIC HERNIA WITHOUT OBSTRUCTION OR GANGRENE Assessment/Plan (1) Aneurysm of left popliteal artery Assessment/Plan: -s/p intervention Code(s): I72.4 - ANEURYSM OF ARTERY OF LOWER EXTREMITY (2) DVT (deep venous thrombosis) Assessment/Plan: -hematology reversed INR -on heparin gtt -will need anticoagulation, possible lovenox if secondary to malignancy Code(s): I82.409 - ACUTE EMBOLISM AND THOMBOS UNSP DEEP VN UNSP LOWER EXTREMITY Qualifiers: DVT location: lower extremity Laterality: left (3) Elevated INR Assessment/Plan: -as above Code(s): R79.1 - ABNORMAL COAGULATION PROFILE (4) GERD (gastroesophageal reflux disease) Assessment/Plan: -planning for polypectomy prior to resuming ac Code(s): K21.9 - GASTRO-ESOPHAGEAL REFLUX DISEASE WITHOUT ESOPHAGITIS (5) Hiatal hernia Assessment/Plan: -outpatient follow up -currently asymptomatic Code(s): K44.9 - DIAPHRAGMATIC HERNIA WITHOUT OBSTRUCTION OR GANGRENE (6) Lung mass -pulmonary and hematology following -planning for bronchoscopy today
[2016-09-18] MEDS: oxyCODONE HCL 5 MG TABLET PO PRN (18:05)
[2016-09-18] MEDS: ACETAMINOPHEN 325 MG TABLET (FP) PO PRN (18:06)
[2016-09-18] MEDS: ATORVASTATIN CA 10 MG TABLET (FP) PO SCH (22:12)
--- NOTE | 2016-09-18 22:41 | PN ---
Progress Note (short form) - Note Progress Note: Patient seen and examined Some pain in RLE AFVSS Cor: RSR, No murmurs, No gallops Lungs: decreased at bases Abd: Soft, Normal bowel sounds, No organomegaly Ext:No significant edema Labs/meds reviewed A/p -76 y/o female, thin built, COPD, smoker, h/o unprovoked, extensive LLE DVT in comes in with subacute , 2 weeks onset of LT. thigh swelling, pain. CTA shows--- Lt. popliteal aneurysm rupture/bleed supratherapeutic INR---s/p vit. K ?? DVT since 12/23 --?? chronic Subacute /chroic Lt. popliteal aneurysm rupture/sealing. ??chronic LLE DVT s/p stenting of aneurysm Discussed with vasscular team --to continue heaprin drip. For stenting of Rt.popliteal aneurysm on Sunday h/o Unprovoked DVT 12/23 and now ?? chronic anemia--microcytic --partly from LLE hematoma , but stable. check screening tests getting iv iron RLL lung mass on CT, suspicious for malignancy. s/p bronchoscopy await pathology
--- NOTE | 2016-09-18 23:32 | PN ---
Progress Note (short form) - Note Progress Note: CC: pre-op clearance S: no cp, palps, dizziness. stable chronic dyspnea. still poor po intake, had bronchoscopy today. no complications Current Medications Acetaminophen (Tylenol -) 325 mg PO Q4H PRN PRN Reason: PAIN Last Admin: 09/18/16 18:06 Dose: 325 mg Atorvastatin Calcium (Lipitor -) 10 mg PO HS [facility] Last Admin: 09/18/16 22:12 Dose: 10 mg Docusate Sodium (Colace -) 100 mg PO BID [facility] Last Admin: 09/18/16 22:12 Dose: 100 mg Fentanyl (Sublimaze Injection -) 25 mcg IVPUSH [id number] PRN PRN Reason: PAIN Stop: 09/21/16 14:42 Heparin Sodium (Porcine) (Heparin -) 5,000 unit IVPUSH PRN PRN PRN Reason: Heparin Last Admin: 09/16/16 08:32 Dose: 5,000 unit Heparin Sodium (Porcine) (Heparin -) 1,000 unit IVPUSH PRN PRN PRN Reason: Heparin Heparin Sodium (Porcine) (Heparin -) 5,000 unit IVPUSH PRN PRN PRN Reason: Heparin Heparin Sodium/Dextrose (Heparin Infusion -) 500 mls @ 19 mls/hr IVPB TITR [facility]ATHER ; 950 UNITS/HR PRN Reason: Protocol Last Admin: 09/17/16 16:36 Dose: 19 mls/hr Ondansetron HCl (Zofran Injection) 4 mg IVPB Q6H PRN PRN Reason: NAUSEA Pantoprazole Sodium (Protonix -) 40 mg PO DAILY [facility] Last Admin: 09/18/16 09:38 Dose: Not Given Polyethylene Glycol (Miralax (For Daily Use) -) 17 gm PO DAILY [facility] Last Admin: 09/18/16 09:38 Dose: Not Given Vital Signs - 24 hr 09/18/16 09/18/16 09/18/16 06:00 10:00 14:28 Temperature 98.0 F 98.3 F 98.4 F Pulse Rate 79 82 100 H Respiratory 20 20 24 Rate Blood Pressure 136/67 154/90 144/74 O2 Sat by Pulse 94 L Oximetry (%) 09/18/16 09/18/16 09/18/16 14:45 15:00 15:15 Temperature Pulse Rate 111 H 110 H 114 H Respiratory 24 22 22 Rate Blood Pressure 128/87 149/72 156/81 O2 Sat by Pulse 94 L 94 L 96 Oximetry (%) 09/18/16 09/18/16 09/18/16 15:30 15:45 16:00 Temperature 22 F L Pulse Rate 109 H 110 H 107 H Respiratory 24 22 Rate Blood Pressure 151/67 134/56 117/78 O2 Sat by Pulse 97 95 95 Oximetry (%) 09/18/16 09/18/16 16:15 16:44 Temperature 98 F 98.2 F Pulse Rate 101 H 96 H Respiratory 22 20 Rate Blood Pressure 145/76 120/88 O2 Sat by Pulse 95 96 Oximetry (%) Intake & Output 09/16/16 09/17/16 09/18/16 09/19/16 07:59 07:59 07:59 07:59 Intake Total 1181 2057 2055 500 Output Total 50 Balance 1131 2057 2055 500 Constitutional: Yes: No Distress, Calm, Thin jvd flat, neck supple Cardiovascular: Yes: Regular Rate and Rhythm. 2/6 sys murmur at lsb/apex Respiratory: Yes: Regular, diminished air movement No: Rales, Rhonchi, Wheezes Gastrointestinal: Yes: Normal Bowel Sounds, Soft. No: Distention, Tenderness Extremities: Yes: WNL Edema: No CBC, BMP 09/18/16 05:38 09/18/16 05:38 Echo here: nl lv/rv 1+ mac/mr/tr. rvsp 30-40. EKG: sr. non-specific t wave flattening. no acute ischemic changes CXR: suspicion for right hilar mass. chest CT here: RLL irregular mass suspicious for malignancy. mod copd changes. small B effusions. large hiatal hernia. organoaxial volvulus. ectatic thoracic aorta. abd CTA with runoff here: hiatal hernia. distal thoracic aortic aneurysm with eccentric mural thrombus. infrarenal abdominal aneurysm (3.6 cm). B [employer] and popliteal aneurysm. 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 chest cT 12/2015: extensive copd changes. subpleural nodule no left. desc thoracic saortic aneurysm 5.1 x 3.9 with mural thombus. compression deformities of spine. 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 Preop CV eval: - s/p Aortogram, LLE angiogram, popliteal artery covered stent placement, with DCB angioplasty 09/13 - patient endorses h/o possible tia, also documented in office chart. Unable to walk up flight of stairs. RCRI of 1 with poor functional status. Low to intermediate risk for senthil-operative CV events. Echo without significant abnormality. - post-op bp/hr well controlled. - recent poor po intake, ok for IVF if needed. popliteal pseudoaneurysm - discussed with heme and per discussions with vascular surgery, ok to con't heparin drip. - s/p Aortogram, LLE angiogram, popliteal artery covered stent placement, with DCB angioplasty 09/13. Candidate for lifelong plavix, but currently getting worked up for anemia/possible endoscopy?. Will defer to vascular surgery/heme regarding timing/safety of initiation and necessity if AC is continued - added statin. Extensive atherosclerosis noted on CT. - tobacco cessation. thoracic descending aorta aneurysm (5.1 cm)/AAA - thrombus overlying aneurysms, extensive atherosclerotic diseae - plavix if possible, statin, smoking cessation - recommend ongoing outpatient follow up with bi-annual CTA/MRA of thoracic aneurysm. No surgical indication at this time. Started low dose beta mitali . but held for low bp's. DVT - patient presented with elevated INR, but levels have recently been stable on review of office INR's. - Ongoing evaluation of anemia, need for long-term AC and consideration of coumadin vs. noac. Will continue to discuss with heme/pmd/GI. - diagnosed 12/2015 --> At the time, CT abd/pelvis was negative for malignancy. However, now RLL mass on chest CT ? malignancy. Discussed with heme and pmd. If malignancy, merits long-term AC. Work up ongoing. + tobacco - smoking cessation counseling - further work up of possible right hilar mass as mentioned - monitor pulmonary status senthil-operatively closely. improved today. htn - controlled off anti-hypertensives. started bb 09/13 but stopped for low bp's anemia, chronic - ongoing work up per pmd/heme/GI. Lung mass - s/p bronchoscopy today.
[2016-09-19] MEDS: HEPARIN INFUSION - 500 ML IVPB SCH ×3 (06:36→18:33)
[2016-09-19 07:54] LABS: MCH 26.6 pg (25.7-33.7); MCHC 32.7 g/dl (32.0-36.0); MEAN CELL VOLUME 81.3 fl (80-96); PLATELET COUNT 300 K/MM3 (134-434); RDW 16.2 % (11.6-15.6); WHITE BLOOD COUNT 9.7 K/mm3 (4.0-10.0)
[2016-09-19 08:11] LABS: CALCIUM 8.5 mg/dL (8.5-10.1); COCKROFT - GAULT 52.6575; CREATININE 0.6 mg/dL (0.55-1.02); MAGNESIUM 2.3 mg/dL (1.8-2.4); PHOSPHOROUS 3.3 mg/dL (2.5-4.9)
--- NOTE | 2016-09-19 08:42 | PN ---
Progress Note, Physician Chief Complaint: Pt. pain controlled, no GA complications. - Current Medication List Current Medications: Active Medications Acetaminophen (Tylenol -) 325 mg PO Q4H PRN PRN Reason: PAIN Last Admin: 09/18/16 18:06 Dose: 325 mg Atorvastatin Calcium (Lipitor -) 10 mg PO HS [facility] Last Admin: 09/18/16 22:12 Dose: 10 mg Docusate Sodium (Colace -) 100 mg PO BID [facility] Last Admin: 09/18/16 22:12 Dose: 100 mg Fentanyl (Sublimaze Injection -) 25 mcg IVPUSH [id number] PRN PRN Reason: PAIN Stop: 09/21/16 14:42 Heparin Sodium (Porcine) (Heparin -) 5,000 unit IVPUSH PRN PRN PRN Reason: Heparin Last Admin: 09/16/16 08:32 Dose: 5,000 unit Heparin Sodium (Porcine) (Heparin -) 1,000 unit IVPUSH PRN PRN PRN Reason: Heparin Heparin Sodium (Porcine) (Heparin -) 5,000 unit IVPUSH PRN PRN PRN Reason: Heparin Heparin Sodium/Dextrose (Heparin Infusion -) 500 mls @ 19 mls/hr IVPB TITR [facility] ; 950 UNITS/HR PRN Reason: Protocol Last Admin: 09/19/16 06:36 Dose: 19 mls/hr Ondansetron HCl (Zofran Injection) 4 mg IVPB Q6H PRN PRN Reason: NAUSEA Pantoprazole Sodium (Protonix -) 40 mg PO DAILY [facility] Last Admin: 09/18/16 09:38 Dose: Not Given Polyethylene Glycol (Miralax (For Daily Use) -) 17 gm PO DAILY [facility] Last Admin: 09/18/16 09:38 Dose: Not Given - Objective Vital Signs: Vital Signs Temperature 98.5 F 09/19/16 06:00 Pulse Rate 81 09/19/16 06:00 Respiratory Rate 20 09/19/16 06:00 Blood Pressure 144/76 09/19/16 06:00 O2 Sat by Pulse Oximetry (%) 96 09/18/16 21:00 Constitutional: Yes: Well Nourished, No Distress, Calm Neurological: Yes: WNL, Alert, Oriented Labs: CBC, BMP 09/19/16 06:55 09/19/16 06:55 INR, PTT INR 1.30 (0.82-1.09) H 09/11/16 05:35 Fibrinogen 575.0 mg/dL (238-498) H 09/09/16 06:00 Assessment/Plan POD#1 s/p Bronchoscopy under GA. Doing well. D/C from anesthesia care.
[2016-09-19] MEDS: DOCUSATE SODIUM 100 MG CAPSULE (FP) PO SCH ×2 (10:39→21:12)
[2016-09-19] MEDS: PANTOPRAZOLE 40 MG TABLET (FP) PO SCH (10:39)
[2016-09-19] MEDS: POLYETHYLENE GLYCOL 3350 119 GM BTL PO SCH (10:40)
[2016-09-19] MEDS: HEPARIN NA (PORCINE) 5,000 UNITS/ML 1ML VIAL IVPUSH PRN (10:50)
--- NOTE | 2016-09-19 12:09 | PN ---
Progress Note (short form) - Note Progress Note: Resting in NAD. (+) mild sore throat and deep congested cough. No hemoptysis. Denies shortness of breath or chest pain. Intake & Output 09/16/16 09/17/16 09/18/16 09/19/16 23:59 23:59 23:59 23:59 Intake Total 1730 2156 1128 Balance 1730 2156 1128 Last Vital Signs Temp Pulse Resp BP Pulse Ox 98.5 F 81 20 144/76 96 09/19/16 06:00 09/19/16 06:00 09/19/16 06:00 09/19/16 06:00 09/18/16 21:00 Active Medications Acetaminophen (Tylenol -) 325 mg PO Q4H PRN PRN Reason: PAIN Last Admin: 09/18/16 18:06 Dose: 325 mg Atorvastatin Calcium (Lipitor -) 10 mg PO HS [facility] Last Admin: 09/18/16 22:12 Dose: 10 mg Docusate Sodium (Colace -) 100 mg PO BID [facility] Last Admin: 09/19/16 10:39 Dose: 100 mg Fentanyl (Sublimaze Injection -) 25 mcg IVPUSH [id number] PRN PRN Reason: PAIN Stop: 09/21/16 14:42 Heparin Sodium (Porcine) (Heparin -) 5,000 unit IVPUSH PRN PRN PRN Reason: Heparin Last Admin: 09/19/16 10:50 Dose: 5,000 unit Heparin Sodium (Porcine) (Heparin -) 1,000 unit IVPUSH PRN PRN PRN Reason: Heparin Heparin Sodium (Porcine) (Heparin -) 5,000 unit IVPUSH PRN PRN PRN Reason: Heparin Heparin Sodium/Dextrose (Heparin Infusion -) 500 mls @ 19 mls/hr IVPB TITR [facility] ; 950 UNITS/HR PRN Reason: Protocol Last Admin: 09/19/16 10:57 Dose: 22 mls/hr Ondansetron HCl (Zofran Injection) 4 mg IVPB Q6H PRN PRN Reason: NAUSEA Pantoprazole Sodium (Protonix -) 40 mg PO DAILY [facility] Last Admin: 09/19/16 10:39 Dose: 40 mg Polyethylene Glycol (Miralax (For Daily Use) -) 17 gm PO DAILY [facility] Last Admin: 06/13/17 10:40 Dose: 17 grams Gen: NAD at rest Heart: RRR Lung: Scattered rhonchi, no wheezes Abd: soft, nontender Ext: no edema A/P S/P FOB with Transbronchial Bx for a RLL mass s/p RLE stent for aneurysm DVT Follow Bronch results O2 as needed Incentive Spirometry Collect expectorated sputum for cytology IV Heparin Dr Moody
--- NOTE | 2016-09-19 14:43 | PN ---
Progress Note, Physician Chief Complaint: Ms Mcdonald is without complaint. No cp, sob, n/v. - Current Medication List Current Medications: Active Medications Acetaminophen (Tylenol -) 325 mg PO Q4H PRN PRN Reason: PAIN Last Admin: 09/18/16 18:06 Dose: 325 mg Albuterol Sulfate (Ventolin 0.083% Nebulizer Soln -) 1 amp NEB TID [facility] Atorvastatin Calcium (Lipitor -) 10 mg PO HS [facility] Last Admin: 09/18/16 22:12 Dose: 10 mg Docusate Sodium (Colace -) 100 mg PO BID [facility] Last Admin: 09/19/16 10:39 Dose: 100 mg Fentanyl (Sublimaze Injection -) 25 mcg IVPUSH [id number] PRN PRN Reason: PAIN Stop: 09/21/16 14:42 Heparin Sodium (Porcine) (Heparin -) 5,000 unit IVPUSH PRN PRN PRN Reason: Heparin Last Admin: 09/19/16 10:50 Dose: 5,000 unit Heparin Sodium (Porcine) (Heparin -) 1,000 unit IVPUSH PRN PRN PRN Reason: Heparin Heparin Sodium (Porcine) (Heparin -) 5,000 unit IVPUSH PRN PRN PRN Reason: Heparin Heparin Sodium/Dextrose (Heparin Infusion -) 500 mls @ 19 mls/hr IVPB TITR [facility] ; 950 UNITS/HR PRN Reason: Protocol Last Admin: 09/19/16 10:57 Dose: 22 mls/hr Ondansetron HCl (Zofran Injection) 4 mg IVPB Q6H PRN PRN Reason: NAUSEA Pantoprazole Sodium (Protonix -) 40 mg PO DAILY [facility] Last Admin: 09/19/16 10:39 Dose: 40 mg Polyethylene Glycol (Miralax (For Daily Use) -) 17 gm PO DAILY [facility] Last Admin: 09/19/16 10:40 Dose: 17 grams - Objective Vital Signs: Vital Signs Temperature 98.5 F 09/19/16 06:00 Pulse Rate 81 09/19/16 06:00 Respiratory Rate 20 09/19/16 06:00 Blood Pressure 144/76 09/19/16 06:00 O2 Sat by Pulse Oximetry (%) 96 09/18/16 21:00 Constitutional: Yes: No Distress, Calm, Thin Cardiovascular: Yes: Regular Rate and Rhythm. No: Gallop, Murmur, Rub Respiratory: Yes: Regular, CTA Bilaterally. No: Rales, Rhonchi, Wheezes Gastrointestinal: Yes: Normal Bowel Sounds, Soft. No: Distention, Tenderness Extremities: Yes: WNL Edema: No Labs: CBC, BMP 09/19/16 06:55 09/19/16 06:55 INR, PTT INR 1.30 (0.82-1.09) H 09/11/16 05:35 Fibrinogen 575.0 mg/dL (238-498) H 09/09/16 06:00 Problem List - Problems (1) Mass of right lung Code(s): R91.8 - OTHER NONSPECIFIC ABNORMAL FINDING OF LUNG FIELD (2) Aneurysm of left popliteal artery Code(s): I72.4 - ANEURYSM OF ARTERY OF LOWER EXTREMITY (3) DVT (deep venous thrombosis) Code(s): I82.409 - ACUTE EMBOLISM AND THOMBOS UNSP DEEP VN UNSP LOWER EXTREMITY Qualifiers: DVT location: lower extremity Laterality: left (4) Elevated INR Code(s): R79.1 - ABNORMAL COAGULATION PROFILE (5) GERD (gastroesophageal reflux disease) Code(s): K21.9 - GASTRO-ESOPHAGEAL REFLUX DISEASE WITHOUT ESOPHAGITIS (6) Hiatal hernia Code(s): K44.9 - DIAPHRAGMATIC HERNIA WITHOUT OBSTRUCTION OR GANGRENE Assessment/Plan (1) Aneurysm of left popliteal artery Assessment/Plan: -s/p intervention -doing well Code(s): I72.4 - ANEURYSM OF ARTERY OF LOWER EXTREMITY (2) DVT (deep venous thrombosis) Assessment/Plan: -hematology reversed INR -on heparin gtt -will need anticoagulation, possible lovenox if secondary to malignancy Code(s): I82.409 - ACUTE EMBOLISM AND THOMBOS UNSP DEEP VN UNSP LOWER EXTREMITY Qualifiers: DVT location: lower extremity Laterality: left (3) Coumadin induced coagulopathy Assessment/Plan: -resolved Code(s): R79.1 - ABNORMAL COAGULATION PROFILE (4) GERD (gastroesophageal reflux disease) Assessment/Plan: -planning for polypectomy prior to resuming ac Code(s): K21.9 - GASTRO-ESOPHAGEAL REFLUX DISEASE WITHOUT ESOPHAGITIS (5) Hiatal hernia Assessment/Plan: -outpatient follow up -currently asymptomatic Code(s): K44.9 - DIAPHRAGMATIC HERNIA WITHOUT OBSTRUCTION OR GANGRENE (6) Lung mass -pulmonary and hematology following -s/p bronchoscopy -follow up biopsy results
[2016-09-19] MEDS: ALBUTEROL SO4 0.083% IH SOL 2.5 MG/3 ML VIAL.NEB. NEB SCH ×2 (14:50→21:54)
--- NOTE | 2016-09-19 18:52 | PN ---
Progress Note (short form) - Note Progress Note: Patient seen and examined S/P bronchoscopy Last Vital Signs Temp Pulse Resp BP Pulse Ox 98.0 F 98 H 21 144/79 96 09/19/16 14:00 09/19/16 14:00 09/19/16 14:00 09/19/16 14:00 09/19/16 09:00 Lungs with decrease breath sounds, rhonchi Cor _RSR Soft abd mild tenderness LE's CBC, BMP 09/19/16 06:55 09/19/16 06:55 Current Medications Generic Name Dose Route Start Last Admin Trade Name Freq PRN Reason Stop Dose Admin Acetaminophen 325 mg 09/15/16 18:21 09/18/16 18:06 Tylenol - PO 325 mg Q4H PRN Administration PAIN Albuterol Sulfate 1 amp 09/19/16 14:00 09/19/16 14:50 Ventolin 0.083% Nebulizer Soln - NEB 1 amp TID [facility] Administration Atorvastatin Calcium 10 mg 09/15/16 22:00 09/18/16 22:12 Lipitor - PO 10 mg HS [facility] Administration Docusate Sodium 100 mg 09/15/16 22:00 09/19/16 10:39 Colace - PO 100 mg BID [facility] Administration Fentanyl 25 mcg 09/18/16 14:41 Sublimaze Injection - IVPUSH 09/21/16 14:42 [id number] PRN PAIN Heparin Sodium (Porcine) 5,000 unit 09/15/16 23:09 09/19/16 10:50 Heparin - IVPUSH 5,000 unit PRN PRN Administration Heparin Heparin Sodium (Porcine) 1,000 unit 09/15/16 18:10 Heparin - IVPUSH PRN PRN Heparin Heparin Sodium (Porcine) 5,000 unit 09/15/16 18:10 Heparin - IVPUSH PRN PRN Heparin Heparin Sodium/Dextrose 500 mls @ 19 mls/hr 09/15/16 23:15 09/19/16 18:33 Heparin Infusion - IVPB 19 mls/hr TITR [facility] Administration Protocol 950 UNITS/HR Ondansetron HCl 4 mg 09/15/16 18:21 Zofran Injection IVPB Q6H PRN NAUSEA Pantoprazole Sodium 40 mg 09/16/16 10:00 09/19/16 10:39 Protonix - PO 40 mg DAILY [facility] Administration Polyethylene Glycol 17 gm 09/16/16 10:00 09/19/16 10:40 Miralax (For Daily Use) - PO 17 grams DAILY [facility] Administration Impression: S/P bronchoscopy H/O unprovoked DVT S/P stenting for aneurysmal rupture Plan: Await biopsy.
--- NOTE | 2016-09-19 20:34 | PN ---
Progress Note (short form) - Note Progress Note: Discussed colonoscopy with Ms. Mcdonald to perform polypectomy of the kowcarolyn ceal polyp. She said that she has been through so much right now that she does not feel that she would be up to having it performed at this time. Please recall when Ms. Mcdonald amenable to the procedure or refer to office when acute issues resolved.
[2016-09-19] MEDS: ATORVASTATIN CA 10 MG TABLET (FP) PO SCH (21:12)
[2016-09-20] MEDS: ALBUTEROL SO4 0.083% IH SOL 2.5 MG/3 ML VIAL.NEB. NEB SCH ×3 (06:40→22:27)
[2016-09-20 08:33] LABS: MCH 26.7 pg (25.7-33.7); MCHC 32.9 g/dl (32.0-36.0); MEAN CELL VOLUME 81.3 fl (80-96); MEAN PLT VOLUME 9.1 fl (7.5-11.1); PLATELET COUNT 330 K/MM3 (134-434); RDW 16.2 % (11.6-15.6); WHITE BLOOD COUNT 9.5 K/mm3 (4.0-10.0)
[2016-09-20] MEDS ORDERED: PT OWN MED DRAWER 7, Y5N ONE (10:55)
[2016-09-20] MEDS: PANTOPRAZOLE 40 MG TABLET (FP) PO SCH (10:56)
[2016-09-20] MEDS: DOCUSATE SODIUM 100 MG CAPSULE (FP) PO SCH ×2 (10:57→22:01)
[2016-09-20] MEDS: POLYETHYLENE GLYCOL 3350 119 GM BTL PO SCH (10:57)
[2016-09-20] MEDS: ACETAMINOPHEN 325 MG TABLET (FP) PO PRN (11:00)
[2016-09-20] MEDS: HEPARIN INFUSION - 500 ML IVPB SCH ×2 (12:44→20:00)
--- NOTE | 2016-09-20 14:24 | PN ---
Progress Note, Physician History of Present Illness: PULMONARY ALERT,NAD,-RESP DISTRESS.BX + MALIGNANCY FINAL PATH PENDING - Current Medication List Current Medications: Active Medications Acetaminophen (Tylenol -) 325 mg PO Q4H PRN PRN Reason: PAIN Last Admin: 09/20/16 11:00 Dose: 325 mg Albuterol Sulfate (Ventolin 0.083% Nebulizer Soln -) 1 amp NEB TID [facility] Last Admin: 09/20/16 13:50 Dose: 1 amp Atorvastatin Calcium (Lipitor -) 10 mg PO HS [facility] Last Admin: 09/19/16 21:12 Dose: 10 mg Docusate Sodium (Colace -) 100 mg PO BID [facility] Last Admin: 09/20/16 10:57 Dose: 100 mg Fentanyl (Sublimaze Injection -) 25 mcg IVPUSH [id number] PRN PRN Reason: PAIN Stop: 09/21/16 14:42 Heparin Sodium (Porcine) (Heparin -) 5,000 unit IVPUSH PRN PRN PRN Reason: Heparin Last Admin: 09/19/16 10:50 Dose: 5,000 unit Heparin Sodium (Porcine) (Heparin -) 1,000 unit IVPUSH PRN PRN PRN Reason: Heparin Heparin Sodium (Porcine) (Heparin -) 5,000 unit IVPUSH PRN PRN PRN Reason: Heparin Heparin Sodium/Dextrose (Heparin Infusion -) 500 mls @ 19 mls/hr IVPB TITR HEATHER ; 950 UNITS/HR PRN Reason: Protocol Last Admin: 09/20/16 12:44 Dose: 17 mls/hr Ondansetron HCl (Zofran Injection) 4 mg IVPB Q6H PRN PRN Reason: NAUSEA Pantoprazole Sodium (Protonix -) 40 mg PO DAILY [facility] Last Admin: 09/20/16 10:56 Dose: 40 mg Polyethylene Glycol (Miralax (For Daily Use) -) 17 gm PO DAILY [facility] Last Admin: 09/20/16 10:57 Dose: 17 grams - Objective Vital Signs: Vital Signs Temperature 97.8 F 09/20/16 09:00 Pulse Rate 84 09/20/16 09:00 Respiratory Rate 18 09/20/16 09:00 Blood Pressure 114/71 09/20/16 09:00 O2 Sat by Pulse Oximetry (%) 100 09/20/16 09:00 Constitutional: Yes: No Distress, Calm, Thin Eyes: Yes: WNL HENT: Yes: WNL Neck: Yes: WNL Cardiovascular: Yes: Regular Rate and Rhythm, S1, S2 Respiratory: Yes: Diminished Gastrointestinal: Yes: Normal Bowel Sounds, Soft Extremities: Yes: WNL Edema: No Labs: CBC, BMP 09/20/16 06:52 INR, PTT INR 1.30 (0.82-1.09) H 09/11/16 05:35 Fibrinogen 575.0 mg/dL (238-498) H 09/09/16 06:00 Problem List - Problems (1) DVT (deep venous thrombosis) Code(s): I82.409 - ACUTE EMBOLISM AND THOMBOS UNSP DEEP VN UNSP LOWER EXTREMITY Qualifiers: DVT location: lower extremity Laterality: left (2) Mass of right lung Code(s): R91.8 - OTHER NONSPECIFIC ABNORMAL FINDING OF LUNG FIELD (3) HTN (hypertension) Code(s): I10 - ESSENTIAL (PRIMARY) HYPERTENSION (4) Lung cancer Code(s): C34.90 - MALIGNANT NEOPLASM OF UNSP PART OF UNSP BRONCHUS OR LUNG Assessment/Plan A/P RLL mass malignant final path pending s/p RLE stent for aneurysm DVT O2 as needed Incentive Spirometry check final path IV Heparin metastatic w/u DR NOBLE
--- NOTE | 2016-09-20 15:31 | PN ---
Progress Note, Physician Chief Complaint: Ms Mcdonald is without complaint. No cp, sob, n/v. - Current Medication List Current Medications: Active Medications Acetaminophen (Tylenol -) 325 mg PO Q4H PRN PRN Reason: PAIN Last Admin: 09/20/16 11:00 Dose: 325 mg Albuterol Sulfate (Ventolin 0.083% Nebulizer Soln -) 1 amp NEB TID [facility] Last Admin: 09/20/16 13:50 Dose: 1 amp Atorvastatin Calcium (Lipitor -) 10 mg PO HS [facility] Last Admin: 09/19/16 21:12 Dose: 10 mg Docusate Sodium (Colace -) 100 mg PO BID [facility] Last Admin: 09/20/16 10:57 Dose: 100 mg Fentanyl (Sublimaze Injection -) 25 mcg IVPUSH [id number] PRN PRN Reason: PAIN Stop: 09/21/16 14:42 Heparin Sodium (Porcine) (Heparin -) 5,000 unit IVPUSH PRN PRN PRN Reason: Heparin Last Admin: 09/19/16 10:50 Dose: 5,000 unit Heparin Sodium (Porcine) (Heparin -) 1,000 unit IVPUSH PRN PRN PRN Reason: Heparin Heparin Sodium (Porcine) (Heparin -) 5,000 unit IVPUSH PRN PRN PRN Reason: Heparin Heparin Sodium/Dextrose (Heparin Infusion -) 500 mls @ 19 mls/hr IVPB TITR HEATHER ; 950 UNITS/HR PRN Reason: Protocol Last Admin: 09/20/16 12:44 Dose: 17 mls/hr Ondansetron HCl (Zofran Injection) 4 mg IVPB Q6H PRN PRN Reason: NAUSEA Pantoprazole Sodium (Protonix -) 40 mg PO DAILY [facility] Last Admin: 09/20/16 10:56 Dose: 40 mg Polyethylene Glycol (Miralax (For Daily Use) -) 17 gm PO DAILY [facility] Last Admin: 09/20/16 10:57 Dose: 17 grams - Objective Vital Signs: Vital Signs Temperature 98.2 F 09/20/16 14:00 Pulse Rate 86 09/20/16 14:00 Respiratory Rate 17 09/20/16 14:00 Blood Pressure 114/71 09/20/16 09:00 O2 Sat by Pulse Oximetry (%) 100 09/20/16 09:00 Constitutional: Yes: No Distress, Calm, Thin Cardiovascular: Yes: Regular Rate and Rhythm. No: Gallop, Murmur, Rub Respiratory: Yes: Regular, CTA Bilaterally. No: Rales, Rhonchi, Wheezes Gastrointestinal: Yes: Normal Bowel Sounds, Soft. No: Distention, Tenderness Extremities: Yes: WNL Edema: No Labs: CBC, BMP 09/20/16 06:52 09/19/16 06:55 INR, PTT INR 1.30 (0.82-1.09) H 09/11/16 05:35 Fibrinogen 575.0 mg/dL (238-498) H 09/09/16 06:00 Problem List - Problems (1) Mass of right lung Code(s): R91.8 - OTHER NONSPECIFIC ABNORMAL FINDING OF LUNG FIELD (2) Aneurysm of left popliteal artery Code(s): I72.4 - ANEURYSM OF ARTERY OF LOWER EXTREMITY (3) DVT (deep venous thrombosis) Code(s): I82.409 - ACUTE EMBOLISM AND THOMBOS UNSP DEEP VN UNSP LOWER EXTREMITY Qualifiers: DVT location: lower extremity Laterality: left (4) Elevated INR Code(s): R79.1 - ABNORMAL COAGULATION PROFILE (5) GERD (gastroesophageal reflux disease) Code(s): K21.9 - GASTRO-ESOPHAGEAL REFLUX DISEASE WITHOUT ESOPHAGITIS (6) Hiatal hernia Code(s): K44.9 - DIAPHRAGMATIC HERNIA WITHOUT OBSTRUCTION OR GANGRENE Assessment/Plan (1) Aneurysm of left popliteal artery Assessment/Plan: -s/p intervention -doing well Code(s): I72.4 - ANEURYSM OF ARTERY OF LOWER EXTREMITY (2) DVT (deep venous thrombosis) Assessment/Plan: -hematology reversed INR -on heparin gtt -hematology following, wash is positive for malignancy -? if benefit from lovenox, defer to hematology Code(s): I82.409 - ACUTE EMBOLISM AND THOMBOS UNSP DEEP VN UNSP LOWER EXTREMITY Qualifiers: DVT location: lower extremity Laterality: left (3) Coumadin induced coagulopathy Assessment/Plan: -resolved Code(s): R79.1 - ABNORMAL COAGULATION PROFILE (4) GERD (gastroesophageal reflux disease) Assessment/Plan: -GI consulted -defer colonoscopy to their recommendations Code(s): K21.9 - GASTRO-ESOPHAGEAL REFLUX DISEASE WITHOUT ESOPHAGITIS (5) Hiatal hernia Assessment/Plan: -outpatient follow up -currently asymptomatic Code(s): K44.9 - DIAPHRAGMATIC HERNIA WITHOUT OBSTRUCTION OR GANGRENE (6) Lung mass -case d/w Dr Chamorro -positive for malignancy -will obtain CT scan of A/P to evaluate for malignancy -PET scan as an outpatient -oncology following
--- NOTE | 2016-09-20 21:33 | PN ---
Progress Note (short form) - Note Progress Note: Patient seen and examined Denies any complaints On heparin drip Awaiting final path will need MRI brain/bone scan/port-a-cath placement will discuss with family once path is back
[2016-09-20] MEDS: ATORVASTATIN CA 10 MG TABLET (FP) PO SCH (22:01)
[2016-09-21] MEDS: ALBUTEROL SO4 0.083% IH SOL 2.5 MG/3 ML VIAL.NEB. NEB SCH ×3 (07:00→22:21)
[2016-09-21 07:14] LABS: MCH 26.9 pg (25.7-33.7); MEAN CELL VOLUME 81.4 fl (80-96); MEAN PLT VOLUME 8.9 fl (7.5-11.1); PLATELET COUNT 313 K/MM3 (134-434); RDW 16.8 % (11.6-15.6); WHITE BLOOD COUNT 8.4 K/mm3 (4.0-10.0)
[2016-09-21] MEDS: DOCUSATE SODIUM 100 MG CAPSULE (FP) PO SCH ×2 (10:07→22:13)
[2016-09-21] MEDS: HEPARIN INFUSION - 500 ML IVPB SCH ×3 (10:07→18:33)
[2016-09-21] MEDS: POLYETHYLENE GLYCOL 3350 119 GM BTL PO SCH (10:07)
[2016-09-21] MEDS: PANTOPRAZOLE 40 MG TABLET (FP) PO SCH (10:09)
--- NOTE | 2016-09-21 14:04 | PATH ---
Surgical Pathology Report Patient Name: ALESSANDRO BECERRA [facility]. Rec. #: [id number] /Age/Gender: 1940 (Age: 76) / F Account: [id number] Location: [address] [place] [address] Taken: 09/18/2016 Received: 09/19/2016 Reported: 09/21/2016 Physicians: Claudy Rivera M.D. Donnell Ruelas M.D. Specimen(s) Received RIGHT LUNG BIOPSY Clinical History Right lung mass Final Diagnosis LUNG, RIGHT LOWER LOBE, BRONCHOSCOPIC BIOPSY: HIGH GRADE CARCINOMA WITH EXTENSIVE NECROSIS, CONSISTENT WITH LARGE CELL NEUROENDOCRINE CARCINOMA (SEE COMMENT). Comment: Immunohistochemical stains performed and interpreted at [facility] show the following: the tumor cells are positive for Synaptophysin immunostain and negative for CK7, CK20, TTF1 and p63 immunostains; few cells are weakly reactive with chromogranin. Additional immunohistochemical stains performed at [facility] [place], [place] ([id number]) and interpreted at [facility] show the tumor cells being positive for CAM5.2 immunostain, focally positive for CK-HMWK, weakly focally reactive with CD56 and being negative for p40 immunostain. Ki67 proliferation index is high (>60%). 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 PD-L1 IHC, EGFR and ALK mutations are pending; results will be reported in an addendum. The case was discussed with Dr. Martinez on 09/21/16 and was preliminary discussed with Dr. Chamorro on 09/20/16. Electronically Signed Lex Orozco M.D. Addendum Reported: 09/25/2016 Addendum Diagnosis ALK and ROS1 STUDIES BY FISH PERFORMED AND INTERPRETED AT [facility] [place], [place] ([id number]) ARE FOLLOWS: INTERPRETATION: No evidence of a rearrangement of ALK (2p23). No evidence of a rearrangement of ROS1(6q22). Lex Orozco M.D. Addendum Reported: 09/26/2016 Addendum Diagnosis PD-L1 (Keytruda) IHC, Clone 22C3 Pharm Dx performed and interpreted at [facility] [place], [place] ([id number]) shows the following: Result: PD-L1 (22C3, Keytruda) TPS: 0% (No expression) Reference Range: TPS=Tumor Proportion Score (% of at least 100 viable tumor cells showing complete or partial membrane staining at =1+) TPS< 1% =No Expression TPS 1-49% =Low Expression. Eligible for second line treatment with Keytruda. TPS =50% =High Expression. Eligible for first or second line treatment with Keytruda. The PD-L1, 22C3 pharmDx is FDA approved for use in the detection of PD-L1 in formalin-fixed paraffin-embedded non-small cell lung carcinoma using the [employer] platform. The assay is indicated as an aid in identifying NSCLC patients for treatment with Keytruda (pembrolizumab). Lex Orozco M.D. Addendum Reported: 09/28/2016 Addendum Diagnosis EGFR MUTATION ANALYSIS PERFORMED AND INTERPRETED AT [facility] [place], [place] ([id number]) SHOWED THE FOLLOWING: Results: No mutation detected INTERPRETATION: No mutations were identified in the sample provided for analysis. Fewer than 5% of non-small cell lung carcinoma patients without identifiable mutations are reported to be responsive to EGFR tyrosine kinase inhibitor therapies. Lex Orozco M.D. Gross Description Received in formalin labeled "bronchial biopsy right lower lobe," are 8 cuellar-brown soft tissue fragments ranging from 0.1-0.3 cm in greatest dimension. The specimens are submitted in toto in one cassette. 09/19/201609/19/2016
--- NOTE | 2016-09-21 14:06 | PATH ---
Cytology Non-Gynecological Report Patient Name: ALESSANDRO BECERRA [facility]. Rec. #: [id number] /Age/Gender: 1940 (Age: 76) / F Account: [id number] Location: [address] [place] [address]/[place] Taken: 09/18/2016 Received: 09/19/2016 Reported: 09/21/2016 Physicians: Donnell Curry M.D. Smitha Mellacheruvu, M.D. Joseph Brill, M.D. Specimen(s) Received A: RLL BRONCHIAL WASHINGS B: RLL BRONCHIAL BRUSHINGS Clinical History Right lung mass Final Diagnosis A. LUNG, RIGHT, BRONCHIAL WASHINGS: SATISFACTORY FOR EVALUATION. POSITIVE FOR MALIGNANT CELLS. HIGH GRADE CARCINOMA WITH NECROSIS (SEE COMMENT). B. LUNG, RIGHT, BRONCHIAL BRUSHINGS: SATISFACTORY FOR EVALUATION. POSITIVE FOR MALIGNANT CELLS. HIGH GRADE CARCINOMA WITH NECROSIS (SEE COMMENT). Comment: Refer to [id number] for the biopsy and immunohistochemical stains results. Electronically Signed Lex Orozco M.D. Gross Description A. Received is 50 cc of yellow fluid and 50% alcohol. One cytofunnel slide and one cell block are made. B. Received is a brash in 50 cc of 50% alcohol. One cytofunnel slide and three Pap stained smears slides are made.
--- NOTE | 2016-09-21 15:35 | PN ---
Progress Note (short form) - Note Progress Note: Patient seen and examined Denies any complaints Last Vital Signs Temp Pulse Resp BP Pulse Ox 98.1 F 94 H 20 98/71 98 09/21/16 14:00 09/21/16 14:00 09/21/16 14:00 09/21/16 14:00 09/21/16 09:00 Cor: RSR, No murmurs, No gallops Lungs: Clear to P&A Abd: Soft, Normal bowel sounds, No organomegaly Ext:No significant edema Abnormal Lab Results 09/20/16 09/21/16 09/21/16 19:45 06:20 06:20 RBC 3.17 L Hgb 8.5 L Hct 25.8 L RDW 16.8 H PTT (Actin FS) 52.9 H D 87.8 H D Active Medications Generic Name Dose Route Start Last Admin Trade Name Freq PRN Reason Stop Dose Admin Acetaminophen 325 mg 09/15/16 18:21 09/20/16 11:00 Tylenol - PO 325 mg Q4H PRN Administration PAIN Albuterol Sulfate 1 amp 09/19/16 14:00 09/21/16 14:30 Ventolin 0.083% Nebulizer Soln - NEB 1 amp TID HEATHER Administration Atorvastatin Calcium 10 mg 09/15/16 22:00 09/20/16 22:01 Lipitor - PO 10 mg HS [facility] Administration Docusate Sodium 100 mg 09/15/16 22:00 09/21/16 10:07 Colace - PO Not Given BID [facility] Heparin Sodium (Porcine) 5,000 unit 09/15/16 23:09 09/19/16 10:50 Heparin - IVPUSH 5,000 unit PRN PRN Administration Heparin Heparin Sodium (Porcine) 1,000 unit 09/15/16 18:10 Heparin - IVPUSH PRN PRN Heparin Heparin Sodium (Porcine) 5,000 unit 09/15/16 18:10 Heparin - IVPUSH PRN PRN Heparin Heparin Sodium/Dextrose 500 mls @ 19 mls/hr 09/15/16 23:15 09/21/16 10:07 Heparin Infusion - IVPB 15 mls/hr TITR HEATHER Administration Protocol 950 UNITS/HR Ondansetron HCl 4 mg 09/15/16 18:21 Zofran Injection IVPB Q6H PRN NAUSEA Pantoprazole Sodium 40 mg 09/16/16 10:00 09/21/16 10:09 Protonix - PO 40 mg DAILY [facility] Administration Polyethylene Glycol 17 gm 09/16/16 10:00 09/21/16 10:07 Miralax (For Daily Use) - PO Not Given DAILY [facility] A/P 76 y/o patient with LLE unprovoked DVT, b/l popliteal artery aneurysm, s/p stenting On heparin drip Patient Unable to do lovenox at home final path c/w high grade large cell neuroendocrine cancer CT c/a/p shows o e/o metastatic disease will need MRI brain/bone scan/port-a-cath placement will discuss with family palliative care/rad-onc consults
--- NOTE | 2016-09-21 16:34 | PN ---
Progress Note (short form) - Note Progress Note: VAscular Surgery Pt seen and examined. Will be on standby for port placement. Please medically clear. Once cleared will place port Ronald Sheikh DO
--- NOTE | 2016-09-21 17:28 | PN ---
Progress Note, Physician Chief Complaint: Ms Mcdonald is without complaint. No cp, sob, n/v. - Current Medication List Current Medications: Active Medications Acetaminophen (Tylenol -) 325 mg PO Q4H PRN PRN Reason: PAIN Last Admin: 09/20/16 11:00 Dose: 325 mg Albuterol Sulfate (Ventolin 0.083% Nebulizer Soln -) 1 amp NEB TID [facility] Last Admin: 09/21/16 14:30 Dose: 1 amp Atorvastatin Calcium (Lipitor -) 10 mg PO HS [facility] Last Admin: 09/20/16 22:01 Dose: 10 mg Docusate Sodium (Colace -) 100 mg PO BID [facility] Last Admin: 09/21/16 10:07 Dose: Not Given Heparin Sodium (Porcine) (Heparin -) 5,000 unit IVPUSH PRN PRN PRN Reason: Heparin Last Admin: 09/19/16 10:50 Dose: 5,000 unit Heparin Sodium (Porcine) (Heparin -) 1,000 unit IVPUSH PRN PRN PRN Reason: Heparin Heparin Sodium (Porcine) (Heparin -) 5,000 unit IVPUSH PRN PRN PRN Reason: Heparin Heparin Sodium/Dextrose (Heparin Infusion -) 500 mls @ 19 mls/hr IVPB TITR HEATHER ; 950 UNITS/HR PRN Reason: Protocol Last Admin: 09/21/16 17:15 Dose: 15 mls/hr Ondansetron HCl (Zofran Injection) 4 mg IVPB Q6H PRN PRN Reason: NAUSEA Pantoprazole Sodium (Protonix -) 40 mg PO DAILY [facility] Last Admin: 09/21/16 10:09 Dose: 40 mg Polyethylene Glycol (Miralax (For Daily Use) -) 17 gm PO DAILY [facility] Last Admin: 09/21/16 10:07 Dose: Not Given - Objective Vital Signs: Vital Signs Temperature 98.1 F 09/21/16 14:00 Pulse Rate 94 H 09/21/16 14:00 Respiratory Rate 20 09/21/16 14:00 Blood Pressure 98/71 09/21/16 14:00 O2 Sat by Pulse Oximetry (%) 98 09/21/16 09:00 Constitutional: Yes: No Distress, Calm, Thin Cardiovascular: Yes: Regular Rate and Rhythm. No: Gallop, Murmur, Rub Respiratory: Yes: Regular, CTA Bilaterally. No: Rales, Rhonchi, Wheezes Gastrointestinal: Yes: Normal Bowel Sounds, Soft. No: Distention, Tenderness Extremities: Yes: WNL Edema: No Labs: CBC, BMP 09/21/16 06:20 09/19/16 06:55 INR, PTT INR 1.30 (0.82-1.09) H 09/11/16 05:35 Fibrinogen 575.0 mg/dL (238-498) H 09/09/16 06:00 Problem List - Problems (1) Mass of right lung Code(s): R91.8 - OTHER NONSPECIFIC ABNORMAL FINDING OF LUNG FIELD (2) Aneurysm of left popliteal artery Code(s): I72.4 - ANEURYSM OF ARTERY OF LOWER EXTREMITY (3) DVT (deep venous thrombosis) Code(s): I82.409 - ACUTE EMBOLISM AND THOMBOS UNSP DEEP VN UNSP LOWER EXTREMITY Qualifiers: DVT location: lower extremity Laterality: left (4) Elevated INR Code(s): R79.1 - ABNORMAL COAGULATION PROFILE (5) GERD (gastroesophageal reflux disease) Code(s): K21.9 - GASTRO-ESOPHAGEAL REFLUX DISEASE WITHOUT ESOPHAGITIS (6) Hiatal hernia Code(s): K44.9 - DIAPHRAGMATIC HERNIA WITHOUT OBSTRUCTION OR GANGRENE Assessment/Plan (1) Aneurysm of left popliteal artery Assessment/Plan: -s/p intervention -doing well Code(s): I72.4 - ANEURYSM OF ARTERY OF LOWER EXTREMITY (2) DVT (deep venous thrombosis) Assessment/Plan: -hematology reversed INR -on heparin gtt -hematology following, wash is positive for malignancy -patient refusing lovenox for long-term treatment, will bridge back to coumadin Code(s): I82.409 - ACUTE EMBOLISM AND THOMBOS UNSP DEEP VN UNSP LOWER EXTREMITY Qualifiers: DVT location: lower extremity Laterality: left (3) Coumadin induced coagulopathy Assessment/Plan: -resolved Code(s): R79.1 - ABNORMAL COAGULATION PROFILE (4) GERD (gastroesophageal reflux disease) Assessment/Plan: -GI consulted -defer colonoscopy to their recommendations Code(s): K21.9 - GASTRO-ESOPHAGEAL REFLUX DISEASE WITHOUT ESOPHAGITIS (5) Hiatal hernia Assessment/Plan: -outpatient follow up -currently asymptomatic Code(s): K44.9 - DIAPHRAGMATIC HERNIA WITHOUT OBSTRUCTION OR GANGRENE (6) Lung mass -case d/w Dr Maldonado -pathology showing neuroendocrine tumor -will need MRI of brain -oncology to coordinate port placement -bone scan ordered per oncology
[2016-09-21] MEDS: ATORVASTATIN CA 10 MG TABLET (FP) PO SCH (22:13)
[2016-09-22] MEDS: ALBUTEROL SO4 0.083% IH SOL 2.5 MG/3 ML VIAL.NEB. NEB SCH ×3 (06:28→22:53)
[2016-09-22 07:55] LABS: EOSINOPHIL 2.5 % (0-4.5); MCH 26.5 pg (25.7-33.7); MCHC 32.8 g/dl (32.0-36.0); NEUTROPHILS 75.5 % (42.8-82.8); PLATELET COUNT 327 K/MM3 (134-434); RDW 16.8 % (11.6-15.6); WHITE BLOOD COUNT 8.5 K/mm3 (4.0-10.0)
[2016-09-22 08:25] LABS: ANION GAP 7 (8-16); CALCIUM 7.9 mg/dL (8.5-10.1); CO2 32 mmol/L (21-32); GLUCOSE,RANDOM 94 mg/dL (74-106); MAGNESIUM 2.1 mg/dL (1.8-2.4)
[2016-09-22 08:26] LABS: CREATININE 0.6 mg/dL (0.55-1.02); PHOSPHOROUS 3.5 mg/dL (2.5-4.9)
--- NOTE | 2016-09-22 09:03 | PN ---
Progress Note, Physician Chief Complaint: Patient calm and comfortable, inthe process of stagig imaging, daughter at bed side, plan of care discussed with daughter and patient. History of Present Illness: Admitted on 09/07/2016 with Left LE mass diagnosed Left Popliteal A Aneurysm underwent stent placement w/u reveal large celll Neuro Endocrine CA of Rt Lung, evaluted by Oncology and Radiation on cology team, plan for Permacath next wk currently on Heparin for AC s/p Popliteal A stenting. - Current Medication List Current Medications: Active Medications Acetaminophen (Tylenol -) 325 mg PO Q4H PRN PRN Reason: PAIN Last Admin: 09/20/16 11:00 Dose: 325 mg Albuterol Sulfate (Ventolin 0.083% Nebulizer Soln -) 1 amp NEB TID [facility] Last Admin: 09/22/16 06:28 Dose: 1 amp Atorvastatin Calcium (Lipitor -) 10 mg PO HS [facility] Last Admin: 09/21/16 22:13 Dose: 10 mg Docusate Sodium (Colace -) 100 mg PO BID [facility] Last Admin: 09/21/16 22:13 Dose: 100 mg Heparin Sodium (Porcine) (Heparin -) 5,000 unit IVPUSH PRN PRN PRN Reason: Heparin Last Admin: 09/19/16 10:50 Dose: 5,000 unit Heparin Sodium (Porcine) (Heparin -) 1,000 unit IVPUSH PRN PRN PRN Reason: Heparin Heparin Sodium (Porcine) (Heparin -) 5,000 unit IVPUSH PRN PRN PRN Reason: Heparin Heparin Sodium/Dextrose (Heparin Infusion -) 500 mls @ 19 mls/hr IVPB TITR HEATHER ; 950 UNITS/HR PRN Reason: Protocol Last Admin: 09/21/16 18:33 Dose: 15 mls/hr Ondansetron HCl (Zofran Injection) 4 mg IVPB Q6H PRN PRN Reason: NAUSEA Pantoprazole Sodium (Protonix -) 40 mg PO DAILY [facility] Last Admin: 09/21/16 10:09 Dose: 40 mg Polyethylene Glycol (Miralax (For Daily Use) -) 17 gm PO DAILY [facility] Last Admin: 09/21/16 10:07 Dose: Not Given - Objective Vital Signs: Vital Signs Temperature 98.2 F 09/22/16 08:00 Pulse Rate 105 H 09/22/16 08:00 Respiratory Rate 20 06/16/17 08:00 Blood Pressure 117/75 09/22/16 08:00 O2 Sat by Pulse Oximetry (%) 98 09/21/16 21:00 P exam: Elderly f quiet not in distress HEENT: Mm moist, no jaundice Neck; No JVD No Bruit CHEST: CTA B/L CVS; S1S2 R no m/g/r ABD: No distention, non tender Bs + EXT: S/P Popliteal A stenting pulses + LEATHER STRETCHER; Aox3 non focal Labs: CBC, BMP 09/22/16 07:04 09/22/16 07:04 INR, PTT INR 1.30 (0.82-1.09) H 09/11/16 05:35 Fibrinogen 575.0 mg/dL (238-498) H 09/09/16 06:00 Problem List - Problems (1) Aneurysm of left popliteal artery Assessment/Plan: S/P Stenting on AC Code(s): I72.4 - ANEURYSM OF ARTERY OF LOWER EXTREMITY (2) Lung cancer Assessment/Plan: Large cell advanced neuro endocrine tumor , currently in process pf staging Imaging, possible permacath next wk, oncology and Rt input appreciated. Code(s): C34.90 - MALIGNANT NEOPLASM OF UNSP PART OF UNSP BRONCHUS OR LUNG Qualifiers: Laterality: right Lung location: lower lobe of lung Qualified Code(s): C34.31 - Malignant neoplasm of lower lobe, right bronchus or lung (3) Anemia Assessment/Plan: Chronic H/h stable Code(s): D64.9 - ANEMIA, UNSPECIFIED (4) HTN (hypertension) Assessment/Plan: Well controlled Code(s): I10 - ESSENTIAL (PRIMARY) HYPERTENSION (5) DVT (deep venous thrombosis) Assessment/Plan: On Ac with heparin infusion F/U aPTT and H/h. Code(s): I82.409 - ACUTE EMBOLISM AND THOMBOS UNSP DEEP VN UNSP LOWER EXTREMITY Qualifiers: DVT location: lower extremity Laterality: left
[2016-09-22] MEDS: PANTOPRAZOLE 40 MG TABLET (FP) PO SCH (10:48)
[2016-09-22] MEDS: DOCUSATE SODIUM 100 MG CAPSULE (FP) PO SCH ×2 (10:48→21:33)
[2016-09-22] MEDS: POLYETHYLENE GLYCOL 3350 119 GM BTL PO SCH (10:48)
--- NOTE | 2016-09-22 11:18 | PN ---
Progress Note (short form) - Note Progress Note: Radiation Oncology Pt seen, chart/films reviewed, full consult to follow. 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 No sacha or distant mets on CT scans (but the CT chest was done w/o contrast). Agree with staging workup, MRI brain, bone scan, PET scan (outpatient). Consider CT surgery eval if medically operable. Further treatment to be determined pending tumor markers and imaging workup. May follow up with me as outpatient.
--- NOTE | 2016-09-22 14:11 | PN ---
Progress Note, Physician History of Present Illness: pulmonary alert,no distress,-sob. bx high grade neuro-endocrine ca - Current Medication List Current Medications: Active Medications Acetaminophen (Tylenol -) 325 mg PO Q4H PRN PRN Reason: PAIN Last Admin: 09/20/16 11:00 Dose: 325 mg Albuterol Sulfate (Ventolin 0.083% Nebulizer Soln -) 1 amp NEB TID [facility] Last Admin: 09/22/16 06:28 Dose: 1 amp Atorvastatin Calcium (Lipitor -) 10 mg PO HS [facility] Last Admin: 09/21/16 22:13 Dose: 10 mg Docusate Sodium (Colace -) 100 mg PO BID [facility] Last Admin: 09/22/16 10:48 Dose: 100 mg Heparin Sodium (Porcine) (Heparin -) 5,000 unit IVPUSH PRN PRN PRN Reason: Heparin Last Admin: 09/19/16 10:50 Dose: 5,000 unit Heparin Sodium (Porcine) (Heparin -) 1,000 unit IVPUSH PRN PRN PRN Reason: Heparin Heparin Sodium (Porcine) (Heparin -) 5,000 unit IVPUSH PRN PRN PRN Reason: Heparin Heparin Sodium/Dextrose (Heparin Infusion -) 500 mls @ 19 mls/hr IVPB TITR [facility]ATHER ; 950 UNITS/HR PRN Reason: Protocol Last Admin: 09/21/16 18:33 Dose: 15 mls/hr Ondansetron HCl (Zofran Injection) 4 mg IVPB Q6H PRN PRN Reason: NAUSEA Pantoprazole Sodium (Protonix -) 40 mg PO DAILY [facility] Last Admin: 09/22/16 10:48 Dose: 40 mg Polyethylene Glycol (Miralax (For Daily Use) -) 17 gm PO DAILY [facility] Last Admin: 09/22/16 10:48 Dose: Not Given - Objective Vital Signs: Vital Signs Temperature 98.2 F 09/22/16 08:00 Pulse Rate 105 H 09/22/16 08:00 Respiratory Rate 20 09/22/16 08:00 Blood Pressure 117/75 09/22/16 08:00 O2 Sat by Pulse Oximetry (%) 98 09/21/16 21:00 Constitutional: Yes: Calm, Thin Eyes: Yes: WNL HENT: Yes: WNL Neck: Yes: WNL Cardiovascular: Yes: Regular Rate and Rhythm, S1, S2 Respiratory: Yes: Diminished Gastrointestinal: Yes: Normal Bowel Sounds, Soft Extremities: Yes: WNL Edema: No Labs: CBC, BMP 09/22/16 07:04 09/22/16 07:04 INR, PTT INR 1.30 (0.82-1.09) H 09/11/16 05:35 Fibrinogen 575.0 mg/dL (238-498) H 09/09/16 06:00 Problem List - Problems (1) DVT (deep venous thrombosis) Code(s): I82.409 - ACUTE EMBOLISM AND THOMBOS UNSP DEEP VN UNSP LOWER EXTREMITY Qualifiers: DVT location: lower extremity Laterality: left (2) Mass of right lung Code(s): R91.8 - OTHER NONSPECIFIC ABNORMAL FINDING OF LUNG FIELD (3) HTN (hypertension) Code(s): I10 - ESSENTIAL (PRIMARY) HYPERTENSION (4) Lung cancer Code(s): C34.90 - MALIGNANT NEOPLASM OF UNSP PART OF UNSP BRONCHUS OR LUNG Assessment/Plan A/P RLL mass + neuro-endocrine ca s/p RLE stent for aneurysm DVT O2 as needed Incentive Spirometry check final path IV Heparin metastatic w/u thoracic surgery eval pfts outpatient DR NOBLE
--- NOTE | 2016-09-22 17:15 | PN ---
Progress Note (short form) - Note Progress Note: Vascular Surgery Discussed case with heme/onc Will place port on morning next week Ronald martinez DO
[2016-09-22] MEDS: HEPARIN INFUSION - 500 ML IVPB SCH (17:16)
--- NOTE | 2016-09-22 20:35 | PN ---
Progress Note (short form) - Note Progress Note: Patient seen and examined Denies any complaints Last Vital Signs Temp Pulse Resp BP Pulse Ox 98.5 F 96 H 20 135/64 99 09/22/16 18:00 09/22/16 18:00 09/22/16 18:00 09/22/16 18:00 09/22/16 09:00 Cor: RSR, No murmurs, No gallops Lungs: decreased rt. base Abd: Soft, Normal bowel sounds, No organomegaly Ext:No significant edema Abnormal Lab Results 09/22/16 09/22/16 09/22/16 07:04 07:04 07:04 RBC 3.13 L Hgb 8.3 L Hct 25.3 L RDW 16.8 H PTT (Actin FS) 56.1 H Anion Gap 7 L Calcium 7.9 L Active Medications Generic Name Dose Route Start Last Admin Trade Name Freq PRN Reason Stop Dose Admin Acetaminophen 325 mg 09/15/16 18:21 09/20/16 11:00 Tylenol - PO 325 mg Q4H PRN Administration PAIN Albuterol Sulfate 1 amp 09/19/16 14:00 09/22/16 14:20 Ventolin 0.083% Nebulizer Soln - NEB 1 amp TID [facility]ATHER Administration Atorvastatin Calcium 10 mg 09/15/16 22:00 09/21/16 22:13 Lipitor - PO 10 mg HS HEATHER Administration Docusate Sodium 100 mg 09/15/16 22:00 09/22/16 10:48 Colace - PO 100 mg BID HEATHER Administration Heparin Sodium (Porcine) 5,000 unit 09/15/16 23:09 09/19/16 10:50 Heparin - IVPUSH 5,000 unit PRN PRN Administration Heparin Heparin Sodium/Dextrose 500 mls @ 19 mls/hr 09/15/16 23:15 09/22/16 17:16 Heparin Infusion - IVPB 15 mls/hr TITR [facility]ATHER Administration Protocol 950 UNITS/HR Ondansetron HCl 4 mg 09/15/16 18:21 Zofran Injection IVPB Q6H PRN NAUSEA Pantoprazole Sodium 40 mg 09/16/16 10:00 09/22/16 10:48 Protonix - PO 40 mg DAILY [facility] Administration Polyethylene Glycol 17 gm 09/16/16 10:00 09/22/16 10:48 Miralax (For Daily Use) - PO Not Given DAILY [facility] A/P 76 y/o patient with LLE unprovoked DVT, b/l popliteal artery aneurysm, s/p stenting On heparin drip Patient Unable to do lovenox at home 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 need for staging w /u patinet agreeable for staging w/u PET-Ct as out patient to consider Ct surgery/radonc consults port placemet early ext week discussed with pulmonary team t
[2016-09-22] MEDS: ATORVASTATIN CA 10 MG TABLET (FP) PO SCH (21:33)
[2016-09-22] MEDS: ACETAMINOPHEN 325 MG TABLET (FP) PO PRN (22:31)
[2016-09-23] MEDS: ALBUTEROL SO4 0.083% IH SOL 2.5 MG/3 ML VIAL.NEB. NEB SCH ×3 (06:58→22:31)
[2016-09-23 08:13] LABS: BASOPHIL 1.3 % (0-2.0); EOSINOPHIL 3.3 % (0-4.5); MCH 26.8 pg (25.7-33.7); MCHC 32.6 g/dl (32.0-36.0); MEAN CELL VOLUME 82.2 fl (80-96); NEUTROPHILS 73.6 % (42.8-82.8); PLATELET COUNT 347 K/MM3 (134-434); RDW 16.7 % (11.6-15.6); WHITE BLOOD COUNT 7.2 K/mm3 (4.0-10.0)
[2016-09-23 08:48] LABS: ALBUMIN 2.4 g/dl (3.4-5.0); ALK PHOS 505 U/L (45-117); ANION GAP 10 (8-16); BILIRUBIN,TOTAL 0.7 mg/dL (0.2-1.0); CALCIUM 8.1 mg/dL (8.5-10.1); CO2 30 mmol/L (21-32); CREATININE 0.6 mg/dL (0.55-1.02); GLUCOSE,RANDOM 106 mg/dL (74-106); SGOT/AST 26 U/L (15-37); SGPT/ALT 23 U/L (12-78); TOT PROT 5.8 g/dl (6.4-8.2)
[2016-09-23] MEDS: PANTOPRAZOLE 40 MG TABLET (FP) PO SCH (09:30)
[2016-09-23] MEDS: DOCUSATE SODIUM 100 MG CAPSULE (FP) PO SCH ×2 (09:32→22:11)
[2016-09-23] MEDS: POLYETHYLENE GLYCOL 3350 119 GM BTL PO SCH (09:35)
--- NOTE | 2016-09-23 13:25 | PN ---
Progress Note, Physician History of Present Illness: PULMONARY ALERT,FEELING BETTER,-CP,-SOB - Current Medication List Current Medications: Active Medications Acetaminophen (Tylenol -) 325 mg PO Q4H PRN PRN Reason: PAIN Last Admin: 09/20/16 11:00 Dose: 325 mg Acetaminophen (Tylenol -) 650 mg PO Q6H PRN PRN Reason: FEVER OR PAIN Last Admin: 09/22/16 22:31 Dose: 650 mg Albuterol Sulfate (Ventolin 0.083% Nebulizer Soln -) 1 amp NEB TID [facility] Last Admin: 09/23/16 06:58 Dose: 1 amp Atorvastatin Calcium (Lipitor -) 10 mg PO HS [facility] Last Admin: 09/22/16 21:33 Dose: 10 mg Docusate Sodium (Colace -) 100 mg PO BID [facility] Last Admin: 09/23/16 09:32 Dose: 100 mg Heparin Sodium/Dextrose (Heparin Infusion -) 500 mls @ 19 mls/hr IVPB TITR HEATHER ; 950 UNITS/HR PRN Reason: Protocol Last Admin: 09/22/16 17:16 Dose: 15 mls/hr Ondansetron HCl (Zofran Injection) 4 mg IVPB Q6H PRN PRN Reason: NAUSEA Pantoprazole Sodium (Protonix -) 40 mg PO DAILY [facility] Last Admin: 09/23/16 09:30 Dose: 40 mg Polyethylene Glycol (Miralax (For Daily Use) -) 17 gm PO DAILY [facility] Last Admin: 09/23/16 09:35 Dose: Not Given - Objective Vital Signs: Vital Signs Temperature 98.4 F 09/23/16 08:38 Pulse Rate 88 09/23/16 08:38 Respiratory Rate 16 09/23/16 08:38 Blood Pressure 136/80 09/23/16 08:38 O2 Sat by Pulse Oximetry (%) 99 09/23/16 09:00 Constitutional: Yes: Calm, Thin Eyes: Yes: WNL HENT: Yes: WNL Neck: Yes: WNL Cardiovascular: Yes: Regular Rate and Rhythm, S1, S2 Respiratory: Yes: CTA Bilaterally Gastrointestinal: Yes: Normal Bowel Sounds, Soft Extremities: Yes: WNL Edema: No Labs: CBC, BMP 09/23/16 06:40 09/23/16 06:40 INR, PTT INR 1.30 (0.82-1.09) H 09/11/16 05:35 Fibrinogen 575.0 mg/dL (238-498) H 09/09/16 06:00 Problem List - Problems (1) DVT (deep venous thrombosis) Code(s): I82.409 - ACUTE EMBOLISM AND THOMBOS UNSP DEEP VN UNSP LOWER EXTREMITY Qualifiers: DVT location: lower extremity Laterality: left (2) Mass of right lung Code(s): R91.8 - OTHER NONSPECIFIC ABNORMAL FINDING OF LUNG FIELD (3) HTN (hypertension) Code(s): I10 - ESSENTIAL (PRIMARY) HYPERTENSION (4) Lung cancer Code(s): C34.90 - MALIGNANT NEOPLASM OF UNSP PART OF UNSP BRONCHUS OR LUNG Qualifiers: Laterality: right Lung location: lower lobe of lung Qualified Code(s): C34.31 - Malignant neoplasm of lower lobe, right bronchus or lung Assessment/Plan A/P RLL mass + neuroendocrine ca s/p RLE stent for aneurysm DVT O2 as needed Incentive Spirometry IV Heparin Consider lovenox metastatic w/u thoracic surgery eval pfts outpatient DR NOBLE
--- NOTE | 2016-09-23 13:28 | PN ---
Progress Note (short form) - Note Progress Note: Chief Complaint: Patient seen and examined. Denies chest pain, shortness of breath, palpitation or dizziness. For port insertion on Sunday. W/U in progress. History of Present Illness: Admitted on 09/07/2016 with Left LE mass diagnosed Left Popliteal A Aneurysm underwent stent placement w/u reveal large celll Neuro Endocrine CA of Rt Lung, evaluated by Oncology and Radiation oncology team, plan for Permacath next wk currently on Heparin for AC s/p Popliteal A stenting. - Current Medication List Current Medications: Active Medications Acetaminophen (Tylenol -) 325 mg PO Q4H PRN PRN Reason: PAIN Last Admin: 09/20/16 11:00 Dose: 325 mg Albuterol Sulfate (Ventolin 0.083% Nebulizer Soln -) 1 amp NEB TID [facility] Last Admin: 09/22/16 06:28 Dose: 1 amp Atorvastatin Calcium (Lipitor -) 10 mg PO HS [facility] Last Admin: 09/21/16 22:13 Dose: 10 mg Docusate Sodium (Colace -) 100 mg PO BID [facility] Last Admin: 09/21/16 22:13 Dose: 100 mg Heparin Sodium (Porcine) (Heparin -) 5,000 unit IVPUSH PRN PRN PRN Reason: Heparin Last Admin: 09/19/16 10:50 Dose: 5,000 unit Heparin Sodium (Porcine) (Heparin -) 1,000 unit IVPUSH PRN PRN PRN Reason: Heparin Heparin Sodium (Porcine) (Heparin -) 5,000 unit IVPUSH PRN PRN PRN Reason: Heparin Heparin Sodium/Dextrose (Heparin Infusion -) 500 mls @ 19 mls/hr IVPB TITR HEATHER ; 950 UNITS/HR PRN Reason: Protocol Last Admin: 09/21/16 18:33 Dose: 15 mls/hr Ondansetron HCl (Zofran Injection) 4 mg IVPB Q6H PRN PRN Reason: NAUSEA Pantoprazole Sodium (Protonix -) 40 mg PO DAILY [facility] Last Admin: 09/21/16 10:09 Dose: 40 mg Polyethylene Glycol (Miralax (For Daily Use) -) 17 gm PO DAILY [facility] Last Admin: 09/21/16 10:07 Dose: Not Given - Objective Vital Signs: Vital Signs Period Temp Pulse Resp BP Sys/Wu Pulse Ox Last 24 Hr 98.1 F-99.4 F 88-96 16-20 117-149/64-83 99-99 P exam: Elderly f quiet not in distress HEENT: Mm moist, no jaundice Neck; No JVD No Bruit CHEST: CTA B/L CVS; S1S2 R no m/g/r ABD: No distention, non tender Bs + EXT: S/P Popliteal A stenting pulses + 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 S/P Stenting on AC Code(s): I72.4 - ANEURYSM OF ARTERY OF LOWER EXTREMITY (2) Lung cancer Assessment/Plan: Large cell advanced neuro endocrine tumor , currently in process pf staging Imaging, permacath on Sunday, oncology and Rt input appreciated. Code(s): C34.90 - MALIGNANT NEOPLASM OF UNSP PART OF UNSP BRONCHUS OR LUNG Qualifiers: Laterality: right Lung location: lower lobe of lung Qualified Code(s): C34.31 - Malignant neoplasm of lower lobe, right bronchus or lung (3) Anemia Assessment/Plan: Chronic H/h stable Code(s): D64.9 - ANEMIA, UNSPECIFIED (4) HTN (hypertension) Assessment/Plan: Well controlled Code(s): I10 - ESSENTIAL (PRIMARY) HYPERTENSION (5) DVT (deep venous thrombosis) Assessment/Plan: On Ac with heparin infusion F/U aPTT and H/h. Code(s): I82.409 - ACUTE EMBOLISM AND THOMBOS UNSP DEEP VN UNSP LOWER EXTREMITY Qualifiers: DVT location: lower extremity Laterality: left
--- NOTE | 2016-09-23 14:58 | CONSULT ---
Consult - text type - Consultation Consultation Note: Thoracic Surgery Consultation: Reason for consultation: Large cell neuroendocrine tumor Pt with newly diagnosed RLL mass after presenting with popliteal aneursym, DVT, on anticoagulation. 80 pack year smoker. Ex tolerance <1 flight of stairs but denies oxygen at home. However, currently requires oxygen with no clear cause other than COPD. No hemoptysis. ?15lb weight loss. Dx: Lung cancer-- --Staging: -PET scan; -?Thoracentesis of right effusion (small effusion however); --PFTs if not advanced stage to assess if can tolerate surgery--surgery requires RLLobectomy--not sure she could tolerate. --Stress test to assess if can tolerate surgery as she likely has some ischemic heart disease. Discussed potential surgery with patient and the need to assess the stage if this is cancer (she denied knowing the diagnosis), and if she could tolerate surgery. She may be best off with chemo/rads depending on stage. I have spent 40 min in reviewing her images, history, physical, with >50% in counseling the patient, coordinating care.
[2016-09-23] MEDS: ACETAMINOPHEN 325 MG TABLET (FP) PO PRN ×2 (22:12)
[2016-09-23] MEDS: ATORVASTATIN CA 10 MG TABLET (FP) PO SCH (22:12)
[2016-09-24] MEDS: ALBUTEROL SO4 0.083% IH SOL 2.5 MG/3 ML VIAL.NEB. NEB SCH ×2 (06:57→13:20)
[2016-09-24 08:19] LABS: BASOPHIL 0.9 % (0-2.0); EOSINOPHIL 3.5 % (0-4.5); MCH 26.4 pg (25.7-33.7); MCHC 32.3 g/dl (32.0-36.0); MEAN CELL VOLUME 81.6 fl (80-96); MEAN PLT VOLUME 9.2 fl (7.5-11.1); NEUTROPHILS 74.5 % (42.8-82.8); PLATELET COUNT 353 K/MM3 (134-434); RDW 16.9 % (11.6-15.6); WHITE BLOOD COUNT 7.3 K/mm3 (4.0-10.0)
[2016-09-24 08:40] LABS: ALBUMIN 2.5 g/dl (3.4-5.0); ANION GAP 8 (8-16); CALCIUM 8.1 mg/dL (8.5-10.1); CO2 31 mmol/L (21-32); GLUCOSE,RANDOM 92 mg/dL (74-106)
[2016-09-24 08:46] LABS: ALK PHOS 514 U/L (45-117); BILIRUBIN,TOTAL 0.4 mg/dL (0.2-1.0); CREATININE 0.7 mg/dL (0.55-1.02); SGOT/AST 20 U/L (15-37); SGPT/ALT 21 U/L (12-78); TOT PROT 6.1 g/dl (6.4-8.2)
[2016-09-24] MEDS ORDERED: PT OWN MED DRAWER 7, Y5N ONE (10:15)
[2016-09-24] MEDS: PANTOPRAZOLE 40 MG TABLET (FP) PO SCH (10:16)
[2016-09-24] MEDS: DOCUSATE SODIUM 100 MG CAPSULE (FP) PO SCH ×2 (10:16→21:19)
[2016-09-24] MEDS: POLYETHYLENE GLYCOL 3350 119 GM BTL PO SCH (10:18)
--- NOTE | 2016-09-24 13:23 | PN ---
Progress Note, Physician History of Present Illness: PULMONARY ALERT,NAD,-SOB,-CP. THORACIC SURGERY CONSULT NOTED - Current Medication List Current Medications: Active Medications Acetaminophen (Tylenol -) 325 mg PO Q4H PRN PRN Reason: PAIN Last Admin: 09/20/16 11:00 Dose: 325 mg Acetaminophen (Tylenol -) 650 mg PO Q6H PRN PRN Reason: FEVER OR PAIN Last Admin: 09/23/16 22:12 Dose: 650 mg Albuterol Sulfate (Ventolin 0.083% Nebulizer Soln -) 1 amp NEB TID [facility] Last Admin: 09/24/16 13:20 Dose: Not Given Atorvastatin Calcium (Lipitor -) 10 mg PO HS [facility] Last Admin: 09/23/16 22:12 Dose: 10 mg Docusate Sodium (Colace -) 100 mg PO BID [facility] Last Admin: 09/24/16 10:16 Dose: 100 mg Heparin Sodium/Dextrose (Heparin Infusion -) 500 mls @ 19 mls/hr IVPB TITR [facility]ATH[facility] ; 950 UNITS/HR PRN Reason: Protocol Last Admin: 09/22/16 17:16 Dose: 15 mls/hr Ondansetron HCl (Zofran Injection) 4 mg IVPB Q6H PRN PRN Reason: NAUSEA Pantoprazole Sodium (Protonix -) 40 mg PO DAILY [facility] Last Admin: 09/24/16 10:16 Dose: 40 mg Polyethylene Glycol (Miralax (For Daily Use) -) 17 gm PO DAILY [facility] Last Admin: 09/24/16 10:18 Dose: Not Given - Objective Vital Signs: Vital Signs Temperature 98.6 F 09/24/16 06:00 Pulse Rate 69 09/24/16 09:47 Respiratory Rate 20 09/24/16 06:00 Blood Pressure 136/87 09/24/16 06:00 O2 Sat by Pulse Oximetry (%) 99 09/24/16 09:47 Constitutional: Yes: Calm, Thin Eyes: Yes: WNL HENT: Yes: WNL Neck: Yes: WNL Cardiovascular: Yes: Regular Rate and Rhythm, S1, S2 Respiratory: Yes: CTA Bilaterally Gastrointestinal: Yes: Normal Bowel Sounds, Soft Extremities: Yes: WNL Edema: No Labs: CBC, BMP 09/24/16 06:30 09/24/16 06:30 INR, PTT INR 1.30 (0.82-1.09) H 09/11/16 05:35 Fibrinogen 575.0 mg/dL (238-498) H 09/09/16 06:00 Problem List - Problems (1) DVT (deep venous thrombosis) Code(s): I82.409 - ACUTE EMBOLISM AND THOMBOS UNSP DEEP VN UNSP LOWER EXTREMITY Qualifiers: DVT location: lower extremity Laterality: left (2) Mass of right lung Code(s): R91.8 - OTHER NONSPECIFIC ABNORMAL FINDING OF LUNG FIELD (3) HTN (hypertension) Code(s): I10 - ESSENTIAL (PRIMARY) HYPERTENSION (4) Lung cancer Code(s): C34.90 - MALIGNANT NEOPLASM OF UNSP PART OF UNSP BRONCHUS OR LUNG Qualifiers: Laterality: right Lung location: lower lobe of lung Qualified Code(s): C34.31 - Malignant neoplasm of lower lobe, right bronchus or lung Assessment/Plan A/P RLL mass + neuroendocrine ca s/p RLE stent for aneurysm DVT O2 as needed Incentive Spirometry IV Heparin Consider lovenox metastatic w/u in progress pfts outpatient DR NOBLE
--- NOTE | 2016-09-24 15:42 | PN ---
Progress Note (short form) - Note Progress Note: Chief Complaint: No acute event overnight. Denies chest pain, shortness of breath, palpitation or dizziness. For port insertion on Sunday. CT surgery consult noted. History of Present Illness: Admitted on 09/07/2016 with Left LE mass diagnosed Left Popliteal A Aneurysm underwent stent placement w/u reveal large celll Neuro Endocrine CA of Rt Lung, evaluated by Oncology and Radiation oncology team, plan for Permacath next wk currently on Heparin for AC s/p Popliteal A stenting. - Current Medication List Current Medications: Active Medications Acetaminophen (Tylenol -) 325 mg PO Q4H PRN PRN Reason: PAIN Last Admin: 09/20/16 11:00 Dose: 325 mg Albuterol Sulfate (Ventolin 0.083% Nebulizer Soln -) 1 amp NEB TID [facility] Last Admin: 09/22/16 06:28 Dose: 1 amp Atorvastatin Calcium (Lipitor -) 10 mg PO HS [facility] Last Admin: 09/21/16 22:13 Dose: 10 mg Docusate Sodium (Colace -) 100 mg PO BID [facility] Last Admin: 09/21/16 22:13 Dose: 100 mg Heparin Sodium (Porcine) (Heparin -) 5,000 unit IVPUSH PRN PRN PRN Reason: Heparin Last Admin: 09/19/16 10:50 Dose: 5,000 unit Heparin Sodium (Porcine) (Heparin -) 1,000 unit IVPUSH PRN PRN PRN Reason: Heparin Heparin Sodium (Porcine) (Heparin -) 5,000 unit IVPUSH PRN PRN PRN Reason: Heparin Heparin Sodium/Dextrose (Heparin Infusion -) 500 mls @ 19 mls/hr IVPB TITR HEATHER ; 950 UNITS/HR PRN Reason: Protocol Last Admin: 09/21/16 18:33 Dose: 15 mls/hr Ondansetron HCl (Zofran Injection) 4 mg IVPB Q6H PRN PRN Reason: NAUSEA Pantoprazole Sodium (Protonix -) 40 mg PO DAILY [facility] Last Admin: 09/21/16 10:09 Dose: 40 mg Polyethylene Glycol (Miralax (For Daily Use) -) 17 gm PO DAILY [facility] Last Admin: 09/21/16 10:07 Dose: Not Given - Objective Vital Signs: Vital Signs Period Temp Pulse Resp BP Sys/Wu Pulse Ox Last 24 Hr 98.3 F-98.6 F 69-93 18-20 103-136/60-87 99 P exam: Elderly f quiet not in distress HEENT: Mm moist, no jaundice Neck; No JVD No Bruit CHEST: CTA B/L CVS; S1S2 R no m/g/r ABD: No distention, non tender Bs + EXT: S/P Popliteal A stenting 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 S/P Stenting on AC Code(s): I72.4 - ANEURYSM OF ARTERY OF LOWER EXTREMITY (2) Lung cancer Assessment/Plan: Large cell advanced neuro endocrine tumor. Staging/imaging in process. Dr. Maldonado and Charlette follow up appreciated. CTS Dr. Taylor consult noted. Per recommendation will have cardiology consult for pre operative clearance. For port placement on Sunday. Code(s): C34.90 - MALIGNANT NEOPLASM OF UNSP PART OF UNSP BRONCHUS OR LUNG Qualifiers: Laterality: right Lung location: lower lobe of lung Qualified Code(s): C34.31 - Malignant neoplasm of lower lobe, right bronchus or lung (3) Anemia Assessment/Plan: Chronic H/h stable Code(s): D64.9 - ANEMIA, UNSPECIFIED (4) HTN (hypertension) Assessment/Plan: Well controlled Code(s): I10 - ESSENTIAL (PRIMARY) HYPERTENSION (5) DVT (deep venous thrombosis) Assessment/Plan: On Ac with heparin infusion F/U aPTT and H/h. Code(s): I82.409 - ACUTE EMBOLISM AND THOMBOS UNSP DEEP VN UNSP LOWER EXTREMITY Qualifiers: DVT location: lower extremity Laterality: left Patient for port placement on Sunday. Staging in progress Cardiology consult for pre operative clearance.
[2016-09-24] MEDS: ATORVASTATIN CA 10 MG TABLET (FP) PO SCH (21:19)
[2016-09-25 08:07] LABS: BASOPHIL 1.1 % (0-2.0); EOSINOPHIL 2.5 % (0-4.5); MCH 26.6 pg (25.7-33.7); MCHC 32.5 g/dl (32.0-36.0); MEAN CELL VOLUME 81.9 fl (80-96); MEAN PLT VOLUME 9.2 fl (7.5-11.1); NEUTROPHILS 76.4 % (42.8-82.8); PLATELET COUNT 383 K/MM3 (134-434); WHITE BLOOD COUNT 7.9 K/mm3 (4.0-10.0)
[2016-09-25 08:31] LABS: ALBUMIN 2.6 g/dl (3.4-5.0); ANION GAP 7 (8-16); BILIRUBIN,TOTAL 0.6 mg/dL (0.2-1.0); CALCIUM 8.4 mg/dL (8.5-10.1); CO2 31 mmol/L (21-32); CREATININE 0.6 mg/dL (0.55-1.02); GLUCOSE,RANDOM 93 mg/dL (74-106); SGOT/AST 19 U/L (15-37); SGPT/ALT 21 U/L (12-78); TOT PROT 6.4 g/dl (6.4-8.2)
[2016-09-25 08:32] LABS: ALK PHOS 508 U/L (45-117)
[2016-09-25] MEDS: POLYETHYLENE GLYCOL 3350 119 GM BTL PO SCH (11:23)
[2016-09-25] MEDS: PANTOPRAZOLE 40 MG TABLET (FP) PO SCH (11:23)
[2016-09-25] MEDS: DOCUSATE SODIUM 100 MG CAPSULE (FP) PO SCH ×2 (11:23→21:05)
--- NOTE | 2016-09-25 12:28 | PN ---
Physical Exam: SUBJECTIVE: Patient seen and examined for Dr. Rodriguez. OBJECTIVE: Vital Signs Period Temp Pulse Resp BP Sys/Wu Pulse Ox Last 24 Hr 98.3 F-98.8 F 80-89 18-22 130-144/81-88 97-97 GENERAL: The patient is awake, alert, and fully oriented, in no acute distress. HEAD: Normal with no signs of trauma. NECK: Trachea midline, full range of motion, supple. LUNGS: Breath sounds equal, clear to auscultation bilaterally, HEART: Regular rate and rhythm, ABDOMEN: Soft, nontender, nondistended, EXTREMITIES: 2+ pulses, warm, well-perfused, no edema. SKIN: Warm, dry, normal turgor, no rashes or lesions noted Laboratory Results - last 24 hr 09/25/16 09/25/16 07:20 07:20 WBC 7.9 RBC 3.53 L Hgb 9.4 L Hct 28.9 L MCV 81.9 MCHC 32.5 RDW 17.0 H Plt Count 383 MPV 9.2 Neutrophils % 76.4 Lymphocytes % 10.8 Monocytes % 9.2 Eosinophils % 2.5 Basophils % 1.1 Sodium 139 Potassium 3.9 Chloride 101 Carbon Dioxide 31 Anion Gap 7 L BUN 9 Creatinine 0.6 Creat Clearance w eGFR > 60 Random Glucose 93 Calcium 8.4 L Total Bilirubin 0.6 D AST 19 ALT 21 Alkaline Phosphatase 508 H Total Protein 6.4 Albumin 2.6 L Active Medications Generic Name Dose Route Start Last Admin Trade Name Freq PRN Reason Stop Dose Admin Acetaminophen 325 mg 09/15/16 18:21 09/20/16 11:00 Tylenol - PO 325 mg Q4H PRN Administration PAIN Acetaminophen 650 mg 09/22/16 22:04 09/23/16 22:12 Tylenol - PO 650 mg Q6H PRN Administration FEVER OR PAIN Atorvastatin Calcium 10 mg 09/15/16 22:00 09/24/16 21:19 Lipitor - PO 10 mg HS HEATHER Administration Docusate Sodium 100 mg 09/15/16 22:00 09/25/16 11:23 Colace - PO 100 mg BID [facility]ATHER Administration Heparin Sodium/Dextrose 500 mls @ 19 mls/hr 09/15/16 23:15 09/22/16 17:16 Heparin Infusion - IVPB 15 mls/hr TITR HEATHER Administration Protocol 950 UNITS/HR Ondansetron HCl 4 mg 09/15/16 18:21 Zofran Injection IVPB Q6H PRN NAUSEA Pantoprazole Sodium 40 mg 09/16/16 10:00 09/25/16 11:23 Protonix - PO 40 mg DAILY [facility] Administration Polyethylene Glycol 17 gm 09/16/16 10:00 09/25/16 11:23 Miralax (For Daily Use) - PO Not Given DAILY [facility]ER ASSESSMENT/PLAN: This 76 year old female initially seen for a Left LE mass diagnosed Left Popliteal A Aneurysm underwent stent placement w/u reveal large celll Neuro Endocrine CA of Rt Lung, evaluated by Oncology and Radiation oncology team, plan for Permacath next wk currently on Heparin for AC s/p Popliteal A stenting. -currently waiting for port placement -followed by radiation/onc -followed by vascular for surgical aneurysm repair/stenting -continue on heparing protocol -requires further hospitalization of staging and plan with onc. Problem List - Problems (1) Aneurysm of left popliteal artery Code(s): I72.4 - ANEURYSM OF ARTERY OF LOWER EXTREMITY (2) DVT (deep venous thrombosis) Code(s): I82.409 - ACUTE EMBOLISM AND THOMBOS UNSP DEEP VN UNSP LOWER EXTREMITY Qualifiers: DVT location: lower extremity Laterality: left (3) Mass of right lung Code(s): R91.8 - OTHER NONSPECIFIC ABNORMAL FINDING OF LUNG FIELD (4) Lung cancer Code(s): C34.90 - MALIGNANT NEOPLASM OF UNSP PART OF UNSP BRONCHUS OR LUNG Qualifiers: Laterality: right Lung location: lower lobe of lung Qualified Code(s): C34.31 - Malignant neoplasm of lower lobe, right bronchus or lung Visit type - Emergency Visit Emergency Visit: No - New Patient This patient is new to me today: Yes Date on this admission: 09/07/16 - Critical Care Critical Care patient: No - Discharge Referral Referred to [facility] Med [facility] No Quality Measures-Exclusions - VTE Prophylaxis Contraindications to VTE Prophylaxis: DVT
[2016-09-25] MEDS: HEPARIN NA (PORCINE) 5,000 UNITS/ML 1ML VIAL IVPUSH PRN ×2 (15:01→21:05)
[2016-09-25] MEDS: HEPARIN INFUSION - 500 ML IVPB SCH ×2 (15:05→21:10)
--- NOTE | 2016-09-25 15:23 | PN ---
Progress Note, Physician History of Present Illness: PULMONARY ALERT,NAD,-SOB. - Current Medication List Current Medications: Active Medications Acetaminophen (Tylenol -) 325 mg PO Q4H PRN PRN Reason: PAIN Last Admin: 09/20/16 11:00 Dose: 325 mg Acetaminophen (Tylenol -) 650 mg PO Q6H PRN PRN Reason: FEVER OR PAIN Last Admin: 09/23/16 22:12 Dose: 650 mg Atorvastatin Calcium (Lipitor -) 10 mg PO HS HEATHER Last Admin: 09/24/16 21:19 Dose: 10 mg Docusate Sodium (Colace -) 100 mg PO BID [facility] Last Admin: 09/25/16 11:23 Dose: 100 mg Heparin Sodium (Porcine) (Heparin -) 1,000 unit IVPUSH PRN PRN PRN Reason: Heparin Last Admin: 09/25/16 15:01 Dose: 1,000 unit Heparin Sodium/Dextrose (Heparin Infusion -) 500 mls @ 19 mls/hr IVPB TITR HEATHER ; 950 UNITS/HR PRN Reason: Protocol Last Admin: 09/25/16 15:05 Dose: 17 mls/hr Ondansetron HCl (Zofran Injection) 4 mg IVPB Q6H PRN PRN Reason: NAUSEA Pantoprazole Sodium (Protonix -) 40 mg PO DAILY ON LICENSE OF [facility] Last Admin: 09/25/16 11:23 Dose: 40 mg Polyethylene Glycol (Miralax (For Daily Use) -) 17 gm PO DAILY ON LICENSE OF [facility] Last Admin: 09/25/16 11:23 Dose: Not Given - Objective Vital Signs: Vital Signs Temperature 98.3 F 09/25/16 14:43 Pulse Rate 93 H 09/25/16 14:43 Respiratory Rate 22 09/25/16 05:58 Blood Pressure 119/77 09/25/16 14:43 O2 Sat by Pulse Oximetry (%) 97 09/25/16 00:28 Constitutional: Yes: Calm, Thin Eyes: Yes: WNL HENT: Yes: WNL Neck: Yes: WNL Cardiovascular: Yes: Regular Rate and Rhythm, S1, S2 Respiratory: Yes: Diminished Gastrointestinal: Yes: Normal Bowel Sounds, Soft Extremities: Yes: WNL Edema: No Labs: CBC, BMP 09/25/16 07:20 09/25/16 07:20 INR, PTT INR 1.30 (0.82-1.09) H 09/11/16 05:35 Fibrinogen 575.0 mg/dL (238-498) H 09/09/16 06:00 Problem List - Problems (1) DVT (deep venous thrombosis) Code(s): I82.409 - ACUTE EMBOLISM AND THOMBOS UNSP DEEP VN UNSP LOWER EXTREMITY Qualifiers: DVT location: lower extremity Laterality: left (2) Mass of right lung Code(s): R91.8 - OTHER NONSPECIFIC ABNORMAL FINDING OF LUNG FIELD (3) HTN (hypertension) Code(s): I10 - ESSENTIAL (PRIMARY) HYPERTENSION (4) Lung cancer Code(s): C34.90 - MALIGNANT NEOPLASM OF UNSP PART OF UNSP BRONCHUS OR LUNG Qualifiers: Laterality: right Lung location: lower lobe of lung Qualified Code(s): C34.31 - Malignant neoplasm of lower lobe, right bronchus or lung Assessment/Plan A/P RLL mass + neuroendocrine ca s/p RLE stent for aneurysm DVT O2 as needed Incentive Spirometry IV Heparin Consider lovenox metastatic w/u in progress pfts outpatient cardiology w/u DR NOBLE
--- NOTE | 2016-09-25 16:37 | PN ---
Progress Note (short form) - Note Progress Note: CC: pre-op clearance S: no cp, palps, dizziness. stable chronic dyspnea. still poor po intake Current Medications Acetaminophen (Tylenol -) 325 mg PO Q4H PRN PRN Reason: PAIN Last Admin: 09/20/16 11:00 Dose: 325 mg Acetaminophen (Tylenol -) 650 mg PO Q6H PRN PRN Reason: FEVER OR PAIN Last Admin: 09/23/16 22:12 Dose: 650 mg Atorvastatin Calcium (Lipitor -) 10 mg PO HS HEATHER Last Admin: 09/24/16 21:19 Dose: 10 mg Docusate Sodium (Colace -) 100 mg PO BID HEATHER Last Admin: 09/25/16 11:23 Dose: 100 mg Heparin Sodium (Porcine) (Heparin -) 1,000 unit IVPUSH PRN PRN PRN Reason: Heparin Last Admin: 09/25/16 15:01 Dose: 1,000 unit Heparin Sodium/Dextrose (Heparin Infusion -) 500 mls @ 19 mls/hr IVPB TITR HEATHER ; 950 UNITS/HR PRN Reason: Protocol Last Admin: 09/25/16 15:05 Dose: 17 mls/hr Ondansetron HCl (Zofran Injection) 4 mg IVPB Q6H PRN PRN Reason: NAUSEA Pantoprazole Sodium (Protonix -) 40 mg PO DAILY [facility] Last Admin: 09/25/16 11:23 Dose: 40 mg Polyethylene Glycol (Miralax (For Daily Use) -) 17 gm PO DAILY [facility] Last Admin: 09/25/16 11:23 Dose: Not Given Vital Signs - 24 hr 09/24/16 09/24/16 09/25/16 18:00 21:00 00:28 Temperature 98.3 F Pulse Rate 80 Respiratory 18 Rate Blood Pressure 144/87 O2 Sat by Pulse 97 97 Oximetry (%) 09/25/16 09/25/16 09/25/16 02:00 05:58 14:43 Temperature 98.5 F 98.8 F 98.3 F Pulse Rate 87 85 93 H Respiratory 18 22 Rate Blood Pressure 130/81 134/88 119/77 O2 Sat by Pulse Oximetry (%) Intake & Output 09/23/16 09/24/16 09/25/16 09/26/16 07:59 07:59 07:59 07:59 Intake Total 164 088 8538 875 Balance 560 839 0966 875 Constitutional: Yes: No Distress, Calm, Thin jvd flat, neck supple Cardiovascular: Yes: Regular Rate and Rhythm. 2/6 sys murmur at lsb/apex Respiratory: Yes: Regular, diminished air movement No: Rales, Rhonchi, Wheezes Gastrointestinal: Yes: Normal Bowel Sounds, Soft. No: Distention, Tenderness Extremities: Yes: WNL Edema: No CBC, BMP 09/25/16 07:20 09/25/16 07:20 Echo here: nl lv/rv 1+ mac/mr/tr. rvsp 30-40. EKG: sr. non-specific t wave flattening. no acute ischemic changes CXR: suspicion for right hilar mass. chest CT here: RLL irregular mass suspicious for malignancy. mod copd changes. small B effusions. large hiatal hernia. organoaxial volvulus. ectatic thoracic aorta. abd CTA with runoff here: hiatal hernia. distal thoracic aortic aneurysm with eccentric mural thrombus. infrarenal abdominal aneurysm (3.6 cm). 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 chest cT 12/2015: extensive copd changes. subpleural nodule no left. desc thoracic saortic aneurysm 5.1 x 3.9 with mural thombus. compression deformities of spine. 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 Preop CV eval: - s/p Aortogram, LLE angiogram, popliteal artery covered stent placement, with DCB angioplasty 09/13 - Now may potentially need high risk intrathoracic surgery for pulmonary neuroendocrine tumor. - patient endorses h/o possible tia, also documented in office chart. No ischemic heart disease but high risk for CAD based on risk factors. Per thoracic surgery request and b/c pt functional capacity < 4 METS (Unable to walk up flight of stairs) will obtain stress testing for futher risk stratification. As of now RCRI of 2-3 with poor functional status. Intermediate-high risk for senthil-operative CV events. Echo without significant abnormality. - Stress testing prior to consideration for surgery as mentioned. popliteal pseudoaneurysm - discussed with heme and per discussions with vascular surgery, ok to con't heparin drip. - s/p Aortogram, LLE angiogram, popliteal artery covered stent placement, with DCB angioplasty 09/13. Candidate for lifelong plavix, but currently getting worked up for anemia/possible endoscopy?. Will defer to vascular surgery/heme regarding timing/safety of initiation and necessity if AC is continued - added statin. Extensive atherosclerosis noted on CT. - tobacco cessation. thoracic descending aorta aneurysm (5.1 cm)/AAA - thrombus overlying aneurysms, extensive atherosclerotic diseae - plavix if possible, statin, smoking cessation - recommend ongoing outpatient follow up with bi-annual CTA/MRA of thoracic aneurysm. No surgical indication at this time. Started low dose beta mitali . but held for low bp's. DVT - patient presented with elevated INR, but levels have recently been stable on review of office INR's. - Ongoing evaluation of anemia, need for long-term AC and consideration of coumadin vs. noac. Will continue to discuss with heme/pmd/GI. - diagnosed 12/2015 --> At the time, CT abd/pelvis was negative for malignancy. However, now RLL mass on chest CT + malignancy. merits long-term AC. Work up ongoing. + tobacco - smoking cessation counseling - further work up of possible right hilar mass as mentioned - monitor pulmonary status senthil-operatively closely. improved today. htn - controlled off anti-hypertensives. started bb 09/13 but stopped for low bp's anemia, chronic - ongoing work up per pmd/heme/GI. Lung mass - Preop CV eval: - plan for angiogram and subsequently, possible covered stent. - patient endorses h/o possible tia, also documented in office chart. Unable to walk up flight of stairs. RCRI of 1 with poor functional status. Low to intermediate risk for senthil-operative CV events. Echo without significant abnormality, no further cardiac testing needed prior to surgery.
[2016-09-25 17:40] LABS: INR 1.07 (0.82-1.09); PROTHROMBIN TIME (PATIENT) 11.8 SEC (9.98-11.88)
--- NOTE | 2016-09-25 18:05 | PN ---
Progress Note (short form) - Note Progress Note: Patient seen and examined Denies any complaints Last Vital Signs Temp Pulse Resp BP Pulse Ox 98.3 F 93 H 22 119/77 97 09/25/16 14:43 09/25/16 14:43 09/25/16 05:58 09/25/16 14:43 09/25/16 00:28 Cor: RSR, No murmurs, No gallops Lungs: decreased rt. base Abd: Soft, Normal bowel sounds, No organomegaly Ext:No significant edema Abnormal Lab Results 09/25/16 09/25/16 09/25/16 07:20 07:20 11:55 RBC 3.53 L Hgb 9.4 L Hct 28.9 L RDW 17.0 H PTT (Actin FS) 49.0 H Anion Gap 7 L Calcium 8.4 L Alkaline Phosphatase 508 H Albumin 2.6 L Active Medications Generic Name Dose Route Start Last Admin Trade Name Freq PRN Reason Stop Dose Admin Acetaminophen 325 mg 09/15/16 18:21 09/20/16 11:00 Tylenol - PO 325 mg Q4H PRN Administration PAIN Acetaminophen 650 mg 09/22/16 22:04 09/23/16 22:12 Tylenol - PO 650 mg Q6H PRN Administration FEVER OR PAIN Atorvastatin Calcium 10 mg 09/15/16 22:00 09/24/16 21:19 Lipitor - PO 10 mg HS HEATHER Administration Docusate Sodium 100 mg 09/15/16 22:00 09/25/16 11:23 Colace - PO 100 mg BID HEATHER Administration Heparin Sodium (Porcine) 1,000 unit 09/25/16 14:45 09/25/16 15:01 Heparin - IVPUSH 1,000 unit PRN PRN Administration Heparin Heparin Sodium/Dextrose 500 mls @ 19 mls/hr 09/15/16 23:15 09/25/16 15:05 Heparin Infusion - IVPB 17 mls/hr TITR HEATHER Administration Protocol 950 UNITS/HR Ondansetron HCl 4 mg 09/15/16 18:21 Zofran Injection IVPB Q6H PRN NAUSEA Pantoprazole Sodium 40 mg 09/16/16 10:00 09/25/16 11:23 Protonix - PO 40 mg DAILY [facility]ATHER Administration Polyethylene Glycol 17 gm 09/16/16 10:00 09/25/16 11:23 Miralax (For Daily Use) - PO Not Given DAILY [facility]ATHER A/P 76 y/o patient with LLE unprovoked DVT, b/l popliteal artery aneurysm, s/p stenting On heparin drip 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 will check bone scan PET-Ct as out patient DVT--bridging heparin back to coumadin discussed various options--Lovenox (ideal), Eliquis, coumadin patient preferes coumadin await bone scan
--- NOTE | 2016-09-25 19:30 | PN ---
Progress Note (short form) - Note Progress Note: Vascular Surgery Pt seen and examined. Will place port after bone scan is done. Spoke to heme/onc Can do port on if needed. awaiting bone scan results. Ronald Sheikh DO
[2016-09-25] MEDS: ATORVASTATIN CA 10 MG TABLET (FP) PO SCH (21:04)
[2016-09-25] MEDS: ACETAMINOPHEN 325 MG TABLET (FP) PO PRN (21:05)
--- NOTE | 2016-09-25 22:43 | CONS ---
DATE OF CONSULTATION: 09/22/2016 REFERRING PHYSICIAN: Erica Martinez M.D. REASON FOR CONSULTATION: Newly diagnosed lung cancer. HISTORY OF PRESENT ILLNESS: The patient is a 76-year-old smoker who was admitted with left leg pain and swelling. Workup revealed bilateral popliteal aneurysm. She underwent bilateral popliteal stents. A CT of the chest revealed a 4-cm right lower lobe mass, small bilateral pleural effusion, a large hiatal hernia with intrathoracic stomach. Fiberoptic bronchoscopy and biopsy showed a high grade carcinoma with extensive necrosis consistent with large-cell neuroendocrine carcinoma. Biomarkers are pending. The brushings and washings were also positive. CT of the abdomen and pelvis failed to demonstrate definite metastatic disease. Staging workup is underway. She denies recent fever, chills, weight loss, chest pain, cough, shortness of breath, hemoptysis, hoarseness, or dysphagia. She has had no headaches, dizziness, nausea, or vomiting. There is no history of radiation therapy. PAST MEDICAL HISTORY: Lower extremity popliteal aneurysms and deep vein thrombosis on anticoagulation, hypertension, anemia, COPD, oxygen dependent, GERD, and hiatal hernia. PAST SURGICAL HISTORY: section, laminectomy for compression fracture and bronchoscopy as noted. ALLERGIES: No known drug allergies. CURRENT MEDICATIONS: Heparin IV, Colace, Miralax, Lipitor, Protonix. SOCIAL HISTORY: She is a 1 pack per day smoker. She is with 2 sons and 1 daughter. FAMILY HISTORY: Denies. REVIEW OF SYSTEMS: As noted. PHYSICAL EXAMINATION: General: Well appearing, well developed, female appearing her chronological age in no acute distress. Vital Signs: Temperature 98.2, blood pressure 117/75, pulse 105, respiratory rate 20, Sao2 of 98% 2 L nasal cannula. HEENT: Normocephalic. Moist mucous membranes. Anicteric sclerae. Clear oral cavity. Neck: No supraclavicular adenopathy. Chest: Mild decreased breath sounds in the right lower lung field. Bibasilar crackles. No rhonchi or wheezes. No axillary adenopathy. Cardiovascular: Regular. Abdomen: Soft, nontender. Nondistended. With active bowel sounds. Extremities: Normal range of motion. Musculoskeletal: No spine or CVA tenderness . Neurologic: Grossly nonfocal. RADIOLOGIC DATA: CT, chest abdomen and pelvis, as noted. PATHOLOGIC DATA: Right lung biopsy as noted. 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 CT of the chest was done without contrast, however. She has undergone bilateral popliteal artery stents. I agree with proceeding with the staging workup including MRI of the brain, bone scan, and outpatient PET CT scan. If she is deemed to be medically operable from pulmonary and cardiology standpoints , a CT surgery consult should be considered. Further treatment recommendations will be determined pending tumor marker studies and staging workup results. She may follow up with me as an outpatient. As always, I appreciate the opportunity to participate in the care of this patient. BHAVYA ROSARIO M.D. KASIE/[id number] MTDD
[2016-09-26 02:53] LABS: INR 1.12 (0.82-1.09); PROTHROMBIN TIME (PATIENT) 12.3 SEC (9.98-11.88)
[2016-09-26] MEDS: HEPARIN INFUSION - 500 ML IVPB SCH ×5 (04:35→21:04)
[2016-09-26 07:11] LABS: MCH 26.8 pg (25.7-33.7); MCHC 32.5 g/dl (32.0-36.0); MEAN CELL VOLUME 82.3 fl (80-96); MEAN PLT VOLUME 9.3 fl (7.5-11.1); PLATELET COUNT 337 K/MM3 (134-434); RDW 16.7 % (11.6-15.6); WHITE BLOOD COUNT 7.1 K/mm3 (4.0-10.0)
[2016-09-26 07:27] LABS: INR 1.14 (0.82-1.09); PROTHROMBIN TIME (PATIENT) 12.6 SEC (9.98-11.88)
[2016-09-26 08:14] LABS: ALBUMIN 2.5 g/dl (3.4-5.0); ALK PHOS 478 U/L (45-117); ANION GAP 7 (8-16); BILIRUBIN,TOTAL 0.4 mg/dL (0.2-1.0); CALCIUM 8.4 mg/dL (8.5-10.1); CO2 30 mmol/L (21-32); CREATININE 0.7 mg/dL (0.55-1.02); GLUCOSE,RANDOM 97 mg/dL (74-106); SGOT/AST 27 U/L (15-37); SGPT/ALT 22 U/L (12-78)
[2016-09-26] MEDS: POLYETHYLENE GLYCOL 3350 119 GM BTL PO SCH (09:51)
[2016-09-26] MEDS: PANTOPRAZOLE 40 MG TABLET (FP) PO SCH (09:51)
[2016-09-26] MEDS: DOCUSATE SODIUM 100 MG CAPSULE (FP) PO SCH ×2 (09:51→21:04)
--- NOTE | 2016-09-26 10:48 | PN ---
Progress Note (short form) - Note Progress Note: PULMONARY Denies shortness of breath or chest pain. Last Vital Signs Temp Pulse Resp BP Pulse Ox 98.0 F 84 20 140/89 96 09/26/16 05:47 09/26/16 05:47 09/26/16 05:47 09/26/16 05:47 09/25/16 21:00 Gen: NAD at rest Heart: RRR Lung: distant breath sounds, no wheezes Abd: soft, nontender Ext: no edema CBC, BMP 09/26/16 06:35 09/26/16 06:35 Active Medications Acetaminophen (Tylenol -) 325 mg PO Q4H PRN PRN Reason: PAIN Last Admin: 09/20/16 11:00 Dose: 325 mg Acetaminophen (Tylenol -) 650 mg PO Q6H PRN PRN Reason: FEVER OR PAIN Last Admin: 09/25/16 21:05 Dose: 650 mg Atorvastatin Calcium (Lipitor -) 10 mg PO HS [facility] Last Admin: 09/25/16 21:04 Dose: 10 mg Docusate Sodium (Colace -) 100 mg PO BID [facility] Last Admin: 09/26/16 09:51 Dose: 100 mg Heparin Sodium (Porcine) (Heparin -) 1,000 unit IVPUSH PRN PRN PRN Reason: Heparin Last Admin: 09/25/16 21:05 Dose: 1,000 unit Ondansetron HCl (Zofran Injection) 4 mg IVPB Q6H PRN PRN Reason: NAUSEA Pantoprazole Sodium (Protonix -) 40 mg PO DAILY [facility] Last Admin: 09/26/16 09:51 Dose: 40 mg Polyethylene Glycol (Miralax (For Daily Use) -) 17 gm PO DAILY [facility] Last Admin: 09/26/16 09:51 Dose: 17 grams Warfarin Sodium (Coumadin -) 6 mg PO DAILY@1800 [facility] A/P Large Cell Lung Cancer COPD/Emphysema s/p RLE stent for aneurysm DVT - staging work up in progress - inhaled bronchodilators as needed - will need to assess for home O2 when ready for discharge - continue anticoagulation, transition to coumadin - PET scan as outpt
[2016-09-26] MEDS: ACETAMINOPHEN 325 MG TABLET (FP) PO PRN (14:19)
--- NOTE | 2016-09-26 14:39 | PN ---
Physical Exam: SUBJECTIVE: Patient seen and examined Pt denies cp, sob, palpitations, abdominal pain, N/V/V, fever, chills or legs pain. OBJECTIVE: Vital Signs Period Temp Pulse Resp BP Sys/Wu Pulse Ox Last 24 Hr 97.8 F-98.3 F 84-93 20-20 114-140/70-89 96 GENERAL: The patient is awake, alert, and fully oriented, in no acute distress, OOB HEAD: Normal with no signs of trauma. EYES: PERRL, extraocular movements intact, sclera anicteric, conjunctiva clear. No ptosis. ENT: Ears normal, nares patent, oropharynx clear without exudates, moist mucous membranes. NECK: Trachea midline, full range of motion, supple. LUNGS: Breath sounds equal, clear to auscultation bilaterally, no wheezes, no crackles, no accessory muscle use. HEART: Regular rate and rhythm, S1, S2 without murmur, rub or gallop. ABDOMEN: Soft, nontender, nondistended, normoactive bowel sounds, no guarding, no rebound, no hepatosplenomegaly, no masses. EXTREMITIES: 2+ pulses, warm, well-perfused, trace edema NEUROLOGICAL: Cranial nerves II through XII grossly intact. Normal speech, gait not observed. PSYCH: Normal mood, normal affect. SKIN: Warm, dry, normal turgor, no rashes or lesions noted Laboratory Results - last 24 hr 09/25/16 09/25/16 09/26/16 16:52 19:10 02:30 WBC RBC Hgb Hct MCV MCHC RDW Plt Count MPV INR 1.07 1.12 PTT (Actin FS) 47.0 H Sodium Potassium Chloride Carbon Dioxide Anion Gap BUN Creatinine Creat Clearance w eGFR Random Glucose Calcium Total Bilirubin AST ALT Alkaline Phosphatase Total Protein Albumin 09/26/16 09/26/16 09/26/16 02:30 06:35 06:35 WBC 7.1 RBC 3.32 L Hgb 8.9 L Hct 27.4 L MCV 82.3 MCHC 32.5 RDW 16.7 H Plt Count 337 MPV 9.3 INR PTT (Actin FS) 81.8 H D 97.4 H Sodium Potassium Chloride Carbon Dioxide Anion Gap BUN Creatinine Creat Clearance w eGFR Random Glucose Calcium Total Bilirubin AST ALT Alkaline Phosphatase Total Protein Albumin 09/26/16 09/26/16 06:35 06:35 WBC RBC Hgb Hct MCV MCHC RDW Plt Count MPV INR 1.14 PTT (Actin FS) Sodium 141 Potassium 4.1 Chloride 104 Carbon Dioxide 30 Anion Gap 7 L BUN 13 D Creatinine 0.7 Creat Clearance w eGFR > 60 Random Glucose 97 Calcium 8.4 L Total Bilirubin 0.4 D AST 27 D ALT 22 Alkaline Phosphatase 478 H Total Protein 6.0 L Albumin 2.5 L Active Medications Generic Name Dose Route Start Last Admin Trade Name Freq PRN Reason Stop Dose Admin Acetaminophen 325 mg 09/15/16 18:21 09/20/16 11:00 Tylenol - PO 325 mg Q4H PRN Administration PAIN Acetaminophen 650 mg 09/22/16 22:04 09/25/16 21:05 Tylenol - PO 650 mg Q6H PRN Administration FEVER OR PAIN Atorvastatin Calcium 10 mg 09/15/16 22:00 09/25/16 21:04 Lipitor - PO 10 mg HS HEATHER Administration Docusate Sodium 100 mg 09/15/16 22:00 09/26/16 09:51 Colace - PO 100 mg BID HEATHER Administration Heparin Sodium (Porcine) 1,000 unit 09/25/16 14:45 09/25/16 21:05 Heparin - IVPUSH 1,000 unit PRN PRN Administration Heparin Ondansetron HCl 4 mg 09/15/16 18:21 Zofran Injection IVPB Q6H PRN NAUSEA Pantoprazole Sodium 40 mg 09/16/16 10:00 09/26/16 09:51 Protonix - PO 40 mg DAILY [facility]ER Administration Polyethylene Glycol 17 gm 09/16/16 10:00 09/26/16 09:51 Miralax (For Daily Use) - PO 17 grams DAILY [facility] Administration Warfarin Sodium 6 mg 09/26/16 18:00 Coumadin - PO DAILY@1800 [facility]ER * IMAGING MRI brain - No metastatic neoplastic diseases Echo here: nl lv/rv 1+ mac/mr/tr. rvsp 30-40. EKG: sr. non-specific t wave flattening. no acute ischemic changes CXR: suspicion for right hilar mass. chest CT here: RLL irregular mass suspicious for malignancy. mod copd changes. small B effusions. large hiatal hernia. organoaxial volvulus. ectatic thoracic aorta. abd CTA with runoff here: hiatal hernia. distal thoracic aortic aneurysm with eccentric mural thrombus. infrarenal abdominal aneurysm (3.6 cm). 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 chest cT 12/2015: extensive copd changes. subpleural nodule no left. desc thoracic saortic aneurysm 5.1 x 3.9 with mural thombus. compression deformities of spine. ASSESSMENT/PLAN: This is a 76 year old female with multiple medical problems admitted with Left LE mass diagnosed Left Popliteal A Aneurysm underwent stent placement w/u reveal large cell Neuro Endocrine CA of Rt Lung, evaluated by Oncology and Radiation oncology team, plan for Permacath,currently on Heparin for AC s/p Popliteal stenting. *Aneurysm of left popliteal artery, hx of DVT -S/P Stenting on AC - vascular following * Lung cancer -Large cell advanced neuro endocrine tumor. - Hem/onc/pul following -MRI brain - No metastatic neoplastic diseases - Bone scan imaging in progress - plan port placement -currently waiting for port placement - staging work up in progress *thoracic descending aorta aneurysm (5.1 cm)/AAA - thrombus overlying aneurysms, extensive atherosclerotic disease - recommend ongoing outpatient follow up with bi-annual CTA/MRA of thoracic aneurysm. No surgical indication at this time. Started low dose beta mitali /. but held for low bp's. * Hx of tobacco use - smoking cessation counseling reinforced - further work up of possible right hilar mass as mentioned - monitor pulmonary status senthil-operatively closely. improved today. * HTN - BP controlled - started bb / but stopped for low bp's *Anemia, chronic - CBC stable, no signs of bleeding noted - ongoing work up per pmd/heme/GI. * Abnormal ALK - trending down - asymptomatic * F/E/N: regular diet Visit type - Emergency Visit Emergency Visit: Yes ED Registration Date: 09/07/16 Care time: The patient presented to the Emergency Department on the above date and was hospitalized for further evaluation of their emergent condition. - New Patient This patient is new to me today: Yes Date on this admission: 09/26/16 - Critical Care Critical Care patient: No
[2016-09-26] MEDS: WARFARIN NA 3 MG TABLET PO SCH (17:13)
--- NOTE | 2016-09-26 18:03 | PN ---
Progress Note (short form) - Note Progress Note: Patient seen and examined On oxygen , remains dyspneic on minimal exertion Last Vital Signs Temp Pulse Resp BP Pulse Ox 97.9 F 92 H 22 114/76 97 09/26/16 13:59 09/26/16 13:59 09/26/16 09:00 09/26/16 13:59 09/26/16 09:00 HEENT:right eye laterally deviated Oropharynx: No thrush, No mucositis, upper dentures; lower edentulous CBC, BMP 09/26/16 06:35 09/26/16 06:35 Cor: irregular Lungs: diminished breath sounds bilaterally Abd: Soft, Normal bowel sounds, No organomegaly Ext:LE edema Skin: No rashes, Integument intact Current Medications Generic Name Dose Route Start Last Admin Trade Name Freq PRN Reason Stop Dose Admin Acetaminophen 325 mg 09/15/16 18:21 09/26/16 14:19 Tylenol - PO 325 mg Q4H PRN Administration PAIN Acetaminophen 650 mg 09/22/16 22:04 09/25/16 21:05 Tylenol - PO 650 mg Q6H PRN Administration FEVER OR PAIN Atorvastatin Calcium 10 mg 09/15/16 22:00 09/25/16 21:04 Lipitor - PO 10 mg HS [facility]ATHER Administration Docusate Sodium 100 mg 09/15/16 22:00 09/26/16 09:51 Colace - PO 100 mg BID [facility]ER Administration Heparin Sodium (Porcine) 1,000 unit 09/25/16 14:45 09/25/16 21:05 Heparin - IVPUSH 1,000 unit PRN PRN Administration Heparin Ondansetron HCl 4 mg 09/15/16 18:21 Zofran Injection IVPB Q6H PRN NAUSEA Pantoprazole Sodium 40 mg 09/16/16 10:00 09/26/16 09:51 Protonix - PO 40 mg DAILY [facility] Administration Polyethylene Glycol 17 gm 09/16/16 10:00 09/26/16 09:51 Miralax (For Daily Use) - PO 17 grams DAILY [facility] Administration Warfarin Sodium 6 mg 09/26/16 18:00 09/26/16 17:13 Coumadin - PO 6 mg DAILY@1800 [facility] Administration Impression Large cell neuroendocrine Tumor Undergoing staging Had bone scan- results pending Bridging heparin- coumadin. Outpatient PET Poor performance status.
[2016-09-26] MEDS ORDERED: HEPARIN INFUSION - 500 ML IVPB ONE (18:32)
[2016-09-26] MEDS: HEPARIN NA (PORCINE) 5,000 UNITS/ML 1ML VIAL IVPUSH PRN (21:04)
[2016-09-26] MEDS: ATORVASTATIN CA 10 MG TABLET (FP) PO SCH (21:04)
--- NOTE | 2016-09-26 21:33 | PN ---
Progress Note (short form) - Note Progress Note: CC: pre-op clearance S: no cp, palps, dizziness. dyspnea improved. Current Medications Acetaminophen (Tylenol -) 325 mg PO Q4H PRN PRN Reason: PAIN Last Admin: 09/26/16 14:19 Dose: 325 mg Acetaminophen (Tylenol -) 650 mg PO Q6H PRN PRN Reason: FEVER OR PAIN Last Admin: 09/25/16 21:05 Dose: 650 mg Atorvastatin Calcium (Lipitor -) 10 mg PO HS [facility] Last Admin: 09/26/16 21:04 Dose: 10 mg Docusate Sodium (Colace -) 100 mg PO BID [facility] Last Admin: 09/26/16 21:04 Dose: 100 mg Heparin Sodium (Porcine) (Heparin -) 1,000 unit IVPUSH PRN PRN PRN Reason: Heparin Last Admin: 09/26/16 21:04 Dose: 1,000 unit Ondansetron HCl (Zofran Injection) 4 mg IVPB Q6H PRN PRN Reason: NAUSEA Pantoprazole Sodium (Protonix -) 40 mg PO DAILY [facility] Last Admin: 09/26/16 09:51 Dose: 40 mg Polyethylene Glycol (Miralax (For Daily Use) -) 17 gm PO DAILY [facility] Last Admin: 09/26/16 09:51 Dose: 17 grams Warfarin Sodium (Coumadin -) 6 mg PO DAILY@1800 [facility] Last Admin: 09/26/16 17:13 Dose: 6 mg Vital Signs - 24 hr 09/25/16 09/26/16 09/26/16 23:23 05:47 09:00 Temperature 97.8 F 98.0 F 99.4 F Pulse Rate 86 84 96 H Respiratory 20 20 22 Rate Blood Pressure 120/70 140/89 135/78 O2 Sat by Pulse 97 Oximetry (%) 09/26/16 13:59 Temperature 97.9 F Pulse Rate 92 H Respiratory Rate Blood Pressure 114/76 O2 Sat by Pulse Oximetry (%) Intake & Output 09/24/16 09/25/16 09/26/16 09/27/16 07:59 07:59 07:59 07:59 Intake Total 660 1593 1495 1240 Balance 660 1593 1495 1240 Constitutional: Yes: No Distress, Calm, Thin jvd flat, neck supple Cardiovascular: Yes: Regular Rate and Rhythm. 2/6 sys murmur at lsb/apex Respiratory: Yes: Regular, diminished air movement, dullness on right No: Rales , Rhonchi, Wheezes Gastrointestinal: Yes: Normal Bowel Sounds, Soft. No: Distention, Tenderness Extremities: Yes: WNL Edema: No CBC, BMP 09/26/16 06:35 09/26/16 06:35 Echo here: nl lv/rv 1+ mac/mr/tr. rvsp 30-40. EKG: sr. non-specific t wave flattening. no acute ischemic changes CXR: suspicion for right hilar mass. chest CT here: RLL irregular mass suspicious for malignancy. mod copd changes. small B effusions. large hiatal hernia. organoaxial volvulus. ectatic thoracic aorta. abd CTA with runoff here: hiatal hernia. distal thoracic aortic aneurysm with eccentric mural thrombus. infrarenal abdominal aneurysm (3.6 cm). [employer] and popliteal aneurysm. 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 chest cT 12/2015: extensive copd changes. subpleural nodule no left. desc thoracic saortic aneurysm 5.1 x 3.9 with mural thombus. compression deformities of spine. 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 Possible need for thoracic surgery. - patient endorses h/o possible tia, also documented in office chart. Unable to walk up flight of stairs. RCRI of 2 (intrathoracic surgery and h/o CVA) with poor functional status. Estimated as intermediate-high risk for senthil- operative CV events. Echo without significant abnormality, but agree that in light of risk of surgery would benefit from pre-op stress testing. Currently unclear when it may be decided whether or not surgery is a viable treatment option. would wait until staging is complete to see whether surgery is even an option and if surgery being considered can do inpatient or outpatient stress testing at that time. - bp/hr well controlled. popliteal pseudoaneurysm - discussed with heme and per discussions with vascular surgery, ok to con't heparin drip. - s/p Aortogram, LLE angiogram, popliteal artery covered stent placement, with DCB angioplasty 09/13. 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 Discussed with vascular OK to defer plavix - added statin. Extensive atherosclerosis noted on CT. - tobacco cessation. thoracic descending aorta aneurysm (5.1 cm)/AAA - thrombus overlying aneurysms, extensive atherosclerotic diseae - statin, smoking cessation. No antiplatelet, on AC - recommend ongoing outpatient follow up with bi-annual CTA/MRA of thoracic aneurysm. No surgical indication at this time. Started low dose beta mitali . but held for low bp's. DVT with malignancy - patient presented with elevated INR, but levels have recently been stable on review of office INR's. - Ongoing evaluation of anemia, need for long-term AC and consideration of coumadin vs. noac. Currently on heparin bridge/coumadin. hgb stable + tobacco - smoking cessation counseling - further work up of possible right hilar mass as mentioned - monitor pulmonary status senthil-operatively closely. improved today. htn - controlled off anti-hypertensives. started bb 09/13 but stopped for low bp's anemia, chronic - ongoing work up per pmd/heme/GI. hgb stable Lung mass - neuroendocrine tumor, staging work up ongoing.
[2016-09-27] MEDS: HEPARIN INFUSION - 500 ML IVPB SCH ×3 (03:47→21:14)
[2016-09-27 08:04] LABS: BASOPHIL 1.4 % (0-2.0); EOSINOPHIL 3.4 % (0-4.5); MCH 26.6 pg (25.7-33.7); MCHC 32.3 g/dl (32.0-36.0); MEAN CELL VOLUME 82.2 fl (80-96); MEAN PLT VOLUME 9.3 fl (7.5-11.1); NEUTROPHILS 79.3 % (42.8-82.8); PLATELET COUNT 375 K/MM3 (134-434); RDW 17.1 % (11.6-15.6); WHITE BLOOD COUNT 8.2 K/mm3 (4.0-10.0)
[2016-09-27 08:16] LABS: INR 1.12 (0.82-1.09); PROTHROMBIN TIME (PATIENT) 12.3 SEC (9.98-11.88)
--- NOTE | 2016-09-27 10:38 | PN ---
Progress Note (short form) - Note Progress Note: Vascular Surgery bone scan pending. Will be on standby for port placement if needed. Ronald Sheikh DO
[2016-09-27] MEDS: DOCUSATE SODIUM 100 MG CAPSULE (FP) PO SCH ×2 (11:09→21:15)
[2016-09-27] MEDS: POLYETHYLENE GLYCOL 3350 119 GM BTL PO SCH (11:09)
[2016-09-27] MEDS: PANTOPRAZOLE 40 MG TABLET (FP) PO SCH (11:10)
--- NOTE | 2016-09-27 11:34 | PN ---
Progress Note (short form) - Note Progress Note: PULMONARY APPEARS STABLE OFFERS NO COMPLAINTS VSS/AFEBRILE NO OVERALL CHANGE IN EXAM A/P Large Cell Lung Cancer COPD/Emphysema s/p RLE stent for aneurysm DVT - mri brain/bone scan negative - inhaled bronchodilators as needed - will need to assess for home O2 - continue anticoagulation, transition to coumadin - PET scan as outpt - Onco f/u appreciated R SEAN SHORE Problem List - Problems (1) Aneurysm of left popliteal artery Code(s): I72.4 - ANEURYSM OF ARTERY OF LOWER EXTREMITY (2) DVT (deep venous thrombosis) Code(s): I82.409 - ACUTE EMBOLISM AND THOMBOS UNSP DEEP VN UNSP LOWER EXTREMITY Qualifiers: DVT location: lower extremity Laterality: left (3) Elevated INR Code(s): R79.1 - ABNORMAL COAGULATION PROFILE (4) Mass of right lung Code(s): R91.8 - OTHER NONSPECIFIC ABNORMAL FINDING OF LUNG FIELD (5) Anemia Code(s): D64.9 - ANEMIA, UNSPECIFIED (6) Back pain Code(s): M54.9 - DORSALGIA, UNSPECIFIED
--- NOTE | 2016-09-27 15:26 | PN ---
Progress Note, Physician Chief Complaint: Ms Mcdonald is without complaint. No cp, sob, n/v. - Current Medication List Current Medications: Active Medications Acetaminophen (Tylenol -) 325 mg PO Q4H PRN PRN Reason: PAIN Last Admin: 09/26/16 14:19 Dose: 325 mg Acetaminophen (Tylenol -) 650 mg PO Q6H PRN PRN Reason: FEVER OR PAIN Last Admin: 09/25/16 21:05 Dose: 650 mg Atorvastatin Calcium (Lipitor -) 10 mg PO HS [facility] Last Admin: 09/26/16 21:04 Dose: 10 mg Docusate Sodium (Colace -) 100 mg PO BID [facility] Last Admin: 09/27/16 11:09 Dose: Not Given Heparin Sodium (Porcine) (Heparin -) 1,000 unit IVPUSH PRN PRN PRN Reason: Heparin Last Admin: 09/26/16 21:04 Dose: 1,000 unit Ondansetron HCl (Zofran Injection) 4 mg IVPB Q6H PRN PRN Reason: NAUSEA Pantoprazole Sodium (Protonix -) 40 mg PO DAILY [facility] Last Admin: 09/27/16 11:10 Dose: 40 mg Polyethylene Glycol (Miralax (For Daily Use) -) 17 gm PO DAILY [facility] Last Admin: 09/27/16 11:09 Dose: Not Given Warfarin Sodium (Coumadin -) 6 mg PO DAILY@1800 [facility] Last Admin: 09/26/16 17:13 Dose: 6 mg - Objective Vital Signs: Vital Signs Temperature 97.8 F 09/27/16 14:28 Pulse Rate 91 H 09/27/16 14:28 Respiratory Rate 18 09/27/16 08:16 Blood Pressure 116/77 09/27/16 14:28 O2 Sat by Pulse Oximetry (%) 95 09/27/16 13:55 Constitutional: Yes: Well Nourished, No Distress, Calm Cardiovascular: Yes: Regular Rate and Rhythm. No: Gallop, Murmur, Rub Respiratory: Yes: Regular, CTA Bilaterally, On Nasal O2. No: Rales, Rhonchi, Wheezes Gastrointestinal: Yes: Normal Bowel Sounds, Soft. No: Distention, Tenderness Extremities: Yes: WNL Edema: No Labs: CBC, BMP 09/27/16 07:15 09/26/16 06:35 INR, PTT INR 1.12 (0.82-1.09) 09/27/16 07:15 Fibrinogen 575.0 mg/dL (238-498) H 09/09/16 06:00 Problem List - Problems (1) Mass of right lung Code(s): R91.8 - OTHER NONSPECIFIC ABNORMAL FINDING OF LUNG FIELD (2) Aneurysm of left popliteal artery Code(s): I72.4 - ANEURYSM OF ARTERY OF LOWER EXTREMITY (3) DVT (deep venous thrombosis) Code(s): I82.409 - ACUTE EMBOLISM AND THOMBOS UNSP DEEP VN UNSP LOWER EXTREMITY Qualifiers: DVT location: lower extremity Laterality: left (4) Elevated INR Code(s): R79.1 - ABNORMAL COAGULATION PROFILE (5) GERD (gastroesophageal reflux disease) Code(s): K21.9 - GASTRO-ESOPHAGEAL REFLUX DISEASE WITHOUT ESOPHAGITIS (6) Hiatal hernia Code(s): K44.9 - DIAPHRAGMATIC HERNIA WITHOUT OBSTRUCTION OR GANGRENE Assessment/Plan (1) Aneurysm of left popliteal artery Assessment/Plan: -s/p intervention -doing well Code(s): I72.4 - ANEURYSM OF ARTERY OF LOWER EXTREMITY (2) DVT (deep venous thrombosis) Assessment/Plan: -on heparin gtt -bridging to coumadin Code(s): I82.409 - ACUTE EMBOLISM AND THOMBOS UNSP DEEP VN UNSP LOWER EXTREMITY Qualifiers: DVT location: lower extremity Laterality: left (3) Coumadin induced coagulopathy Assessment/Plan: -resolved Code(s): R79.1 - ABNORMAL COAGULATION PROFILE (4) GERD (gastroesophageal reflux disease) Assessment/Plan: -GI consulted -defer colonoscopy to their recommendations Code(s): K21.9 - GASTRO-ESOPHAGEAL REFLUX DISEASE WITHOUT ESOPHAGITIS (5) Hiatal hernia Assessment/Plan: -outpatient follow up -currently asymptomatic Code(s): K44.9 - DIAPHRAGMATIC HERNIA WITHOUT OBSTRUCTION OR GANGRENE (6) Lung mass -oncology following -neuroendocrine tumor -defer to oncology for port placement -MRI and bone scan negative
[2016-09-27] MEDS: WARFARIN NA 3 MG TABLET PO SCH (18:04)
[2016-09-27] MEDS ORDERED: WARFARIN NA 2 MG TABLET (UD) PO ONE (18:14)
[2016-09-27] MEDS ORDERED: WARFARIN NA 3 MG TABLET PO SCH (18:14)
[2016-09-27] MEDS ORDERED: HEPARIN INFUSION - 500 ML IVPB ONE (21:13)
[2016-09-27] MEDS: ATORVASTATIN CA 10 MG TABLET (FP) PO SCH (21:15)
--- NOTE | 2016-09-27 23:03 | PN ---
Progress Note (short form) - Note Progress Note: Patient seen and examined Denies any complaints AFVSS Cor: RSR, No murmurs, No gallops Lungs: decreased rt. 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 and bone scan neg. PDL!, EGFR, ALK, ROS neg. PET-CT as out patient Poor performance status will hold off ashwin-cath will discuss with patient /daughter ---oral etoposide, RT DVT--bridging heparin back to coumadin discussed various options--Lovenox (ideal), Eliquis, coumadin patient preferes coumadin she undestands that lovenox is the most efficacious option in this scenario
[2016-09-28] MEDS: ACETAMINOPHEN 325 MG TABLET (FP) PO PRN (06:07)
[2016-09-28 08:18] LABS: INR 1.21 (0.82-1.09); PROTHROMBIN TIME (PATIENT) 13.4 SEC (9.98-11.88)
[2016-09-28 08:19] LABS: BASOPHIL 1.1 % (0-2.0); MCH 26.5 pg (25.7-33.7); MCHC 32.3 g/dl (32.0-36.0); MEAN CELL VOLUME 81.9 fl (80-96); MEAN PLT VOLUME 9.5 fl (7.5-11.1); NEUTROPHILS 74.6 % (42.8-82.8); PLATELET COUNT 361 K/MM3 (134-434); RDW 16.7 % (11.6-15.6); WHITE BLOOD COUNT 7.9 K/mm3 (4.0-10.0)
[2016-09-28 08:48] LABS: ANION GAP 7 (8-16); CALCIUM 8.2 mg/dL (8.5-10.1); CO2 29 mmol/L (21-32); CREATININE 0.6 mg/dL (0.55-1.02); GLUCOSE,RANDOM 91 mg/dL (74-106); MAGNESIUM 2.2 mg/dL (1.8-2.4); PHOSPHOROUS 3.7 mg/dL (2.5-4.9)
[2016-09-28] MEDS: DOCUSATE SODIUM 100 MG CAPSULE (FP) PO SCH ×2 (10:36→21:55)
[2016-09-28] MEDS: PANTOPRAZOLE 40 MG TABLET (FP) PO SCH (10:36)
[2016-09-28] MEDS: POLYETHYLENE GLYCOL 3350 119 GM BTL PO SCH (10:36)
--- NOTE | 2016-09-28 10:48 | PN ---
Progress Note (short form) - Note Progress Note: PULMONARY Feels about the same. Denies shortness of breath or chest pain. Bone scan negative. Last Vital Signs Temp Pulse Resp BP Pulse Ox 98.7 F 85 19 120/85 96 09/28/16 05:54 09/28/16 05:54 09/28/16 05:54 09/28/16 05:54 09/27/16 20:26 Gen: NAD at rest Heart: RRR Lung: distant breath sounds, no wheezes Abd: soft, nontender Ext: no edema CBC, BMP 09/28/16 07:00 09/28/16 07:00 INR, PTT INR 1.21 (0.82-1.09) H 09/28/16 07:00 Fibrinogen 575.0 mg/dL (238-498) H 09/09/16 06:00 Active Medications Acetaminophen (Tylenol -) 650 mg PO Q6H PRN PRN Reason: FEVER OR PAIN Last Admin: 09/28/16 06:07 Dose: 650 mg Atorvastatin Calcium (Lipitor -) 10 mg PO HS [facility] Last Admin: 09/27/16 21:15 Dose: 10 mg Docusate Sodium (Colace -) 100 mg PO BID [facility] Last Admin: 09/28/16 10:36 Dose: 100 mg Heparin Sodium (Porcine) (Heparin -) 1,000 unit IVPUSH PRN PRN PRN Reason: Heparin Last Admin: 09/26/16 21:04 Dose: 1,000 unit Ondansetron HCl (Zofran Injection) 4 mg IVPB Q6H PRN PRN Reason: NAUSEA Pantoprazole Sodium (Protonix -) 40 mg PO DAILY [facility] Last Admin: 09/28/16 10:36 Dose: 40 mg Polyethylene Glycol (Miralax (For Daily Use) -) 17 gm PO DAILY [facility] Last Admin: 09/28/16 10:36 Dose: 17 grams Warfarin Sodium (Coumadin -) 7.5 mg PO DAILY@1800 [facility] A/P Large Cell Lung Cancer COPD/Emphysema s/p RLE stent for aneurysm DVT - inhaled bronchodilators as needed - will need to assess for home O2 when ready for discharge - continue anticoagulation, transition to coumadin - PET scan, PFTs as outpt
[2016-09-28] MEDS: HEPARIN INFUSION - 500 ML IVPB SCH ×2 (13:32→21:30)
--- NOTE | 2016-09-28 16:13 | PN ---
Progress Note, Physician Chief Complaint: Ms Mcdonald is without complaint. No cp, sob, n/v. - Current Medication List Current Medications: Active Medications Acetaminophen (Tylenol -) 650 mg PO Q6H PRN PRN Reason: FEVER OR PAIN Last Admin: 09/28/16 06:07 Dose: 650 mg Atorvastatin Calcium (Lipitor -) 10 mg PO HS [facility] Last Admin: 09/27/16 21:15 Dose: 10 mg Docusate Sodium (Colace -) 100 mg PO BID [facility] Last Admin: 09/28/16 10:36 Dose: 100 mg Heparin Sodium (Porcine) (Heparin -) 1,000 unit IVPUSH PRN PRN PRN Reason: Heparin Last Admin: 09/26/16 21:04 Dose: 1,000 unit Ondansetron HCl (Zofran Injection) 4 mg IVPB Q6H PRN PRN Reason: NAUSEA Pantoprazole Sodium (Protonix -) 40 mg PO DAILY [facility] Last Admin: 09/28/16 10:36 Dose: 40 mg Polyethylene Glycol (Miralax (For Daily Use) -) 17 gm PO DAILY [facility] Last Admin: 09/28/16 10:36 Dose: 17 grams Warfarin Sodium (Coumadin -) 7.5 mg PO DAILY@1800 [facility] - Objective Vital Signs: Vital Signs Temperature 98.2 F 09/28/16 14:32 Pulse Rate 82 09/28/16 14:32 Respiratory Rate 19 09/28/16 05:54 Blood Pressure 125/64 09/28/16 14:35 O2 Sat by Pulse Oximetry (%) 96 09/28/16 09:00 Constitutional: Yes: No Distress, Calm, Thin Cardiovascular: Yes: Regular Rate and Rhythm. No: Gallop, Murmur, Rub Respiratory: Yes: Regular, CTA Bilaterally. No: Rales, Rhonchi, Wheezes Gastrointestinal: Yes: Normal Bowel Sounds, Soft. No: Distention, Tenderness Extremities: Yes: WNL Edema: No Labs: CBC, BMP 09/28/16 07:00 09/28/16 07:00 INR, PTT INR 1.21 (0.82-1.09) H 09/28/16 07:00 Fibrinogen 575.0 mg/dL (238-498) H 09/09/16 06:00 Problem List - Problems (1) Mass of right lung Code(s): R91.8 - OTHER NONSPECIFIC ABNORMAL FINDING OF LUNG FIELD (2) Aneurysm of left popliteal artery Code(s): I72.4 - ANEURYSM OF ARTERY OF LOWER EXTREMITY (3) DVT (deep venous thrombosis) Code(s): I82.409 - ACUTE EMBOLISM AND THOMBOS UNSP DEEP VN UNSP LOWER EXTREMITY Qualifiers: DVT location: lower extremity Affected thrombotic vein of extremity: unspecified vein of extremity Chronicity: unspecified Laterality: unspecified laterality Qualified Code(s): I82.409 - Acute embolism and thrombosis of unspecified deep veins of unspecified lower extremity (4) Elevated INR Code(s): R79.1 - ABNORMAL COAGULATION PROFILE (5) GERD (gastroesophageal reflux disease) Code(s): K21.9 - GASTRO-ESOPHAGEAL REFLUX DISEASE WITHOUT ESOPHAGITIS (6) Hiatal hernia Code(s): K44.9 - DIAPHRAGMATIC HERNIA WITHOUT OBSTRUCTION OR GANGRENE Assessment/Plan (1) Aneurysm of left popliteal artery Assessment/Plan: -s/p intervention -doing well Code(s): I72.4 - ANEURYSM OF ARTERY OF LOWER EXTREMITY (2) DVT (deep venous thrombosis) Assessment/Plan: -on heparin gtt -bridging to coumadin -contine to monitor coumadin Code(s): I82.409 - ACUTE EMBOLISM AND THOMBOS UNSP DEEP VN UNSP LOWER EXTREMITY Qualifiers: DVT location: lower extremity Laterality: left (3) Coumadin induced coagulopathy Assessment/Plan: -resolved Code(s): R79.1 - ABNORMAL COAGULATION PROFILE (4) GERD (gastroesophageal reflux disease) Assessment/Plan: -GI consulted -defer colonoscopy to their recommendations Code(s): K21.9 - GASTRO-ESOPHAGEAL REFLUX DISEASE WITHOUT ESOPHAGITIS (5) Hiatal hernia Assessment/Plan: -outpatient follow up -currently asymptomatic Code(s): K44.9 - DIAPHRAGMATIC HERNIA WITHOUT OBSTRUCTION OR GANGRENE (6) Lung mass -case d/w oncology -no need for port placement -outpatient therapy Dispo -discharge when INR therapeutic
[2016-09-28] MEDS: WARFARIN NA 7.5 MG TABLET (FP) PO SCH (17:34)
[2016-09-28] MEDS: HEPARIN NA (PORCINE) 5,000 UNITS/ML 1ML VIAL IVPUSH PRN (21:49)
[2016-09-28] MEDS: ATORVASTATIN CA 10 MG TABLET (FP) PO SCH (21:51)
[2016-09-29] MEDS ORDERED: HEPARIN INFUSION - 500 ML IVPB ONE (04:28)
[2016-09-29] MEDS: HEPARIN INFUSION - 500 ML IVPB SCH ×2 (04:30→13:10)
[2016-09-29] MEDS ORDERED: PT OWN MED DRAWER 7, Y5N ONE (09:25)
[2016-09-29] MEDS: PANTOPRAZOLE 40 MG TABLET (FP) PO SCH (09:27)
[2016-09-29] MEDS: DOCUSATE SODIUM 100 MG CAPSULE (FP) PO SCH ×2 (09:27→21:25)
[2016-09-29] MEDS: POLYETHYLENE GLYCOL 3350 119 GM BTL PO SCH (09:27)
[2016-09-29 10:36] LABS: INR 1.56 (0.82-1.09); PROTHROMBIN TIME (PATIENT) 17.3 SEC (9.98-11.88)
--- NOTE | 2016-09-29 14:39 | PN ---
Progress Note (short form) - Note Progress Note: Radiation Oncology SOB after getting out of bed. 2L NC in place, sitting in chair. Decreased BS on right. MRI and Bone Scan negative for mets. A/P Localized RUL large cell neuroendocrine carcinoma s/p popliteal artery stents. Plan for outpatient PET-CT and preop workup/surgical f/u. Pending PET-CT - surgery vs RT/chemo if not a surgical candidate. Discussed with patient. May f/u with me as outpatient.
--- NOTE | 2016-09-29 15:00 | PN ---
Progress Note, Physician Chief Complaint: Ms Mcdonald is without complaint. No cp, sob, n/v. - Current Medication List Current Medications: Active Medications Acetaminophen (Tylenol -) 650 mg PO Q6H PRN PRN Reason: FEVER OR PAIN Last Admin: 09/28/16 06:07 Dose: 650 mg Atorvastatin Calcium (Lipitor -) 10 mg PO HS [facility] Last Admin: 09/28/16 21:51 Dose: 10 mg Docusate Sodium (Colace -) 100 mg PO BID [facility] Last Admin: 09/29/16 09:27 Dose: 100 mg Heparin Sodium (Porcine) (Heparin -) 1,000 unit IVPUSH PRN PRN PRN Reason: Heparin Last Admin: 09/28/16 21:49 Dose: 1,000 unit Ondansetron HCl (Zofran Injection) 4 mg IVPB Q6H PRN PRN Reason: NAUSEA Pantoprazole Sodium (Protonix -) 40 mg PO DAILY [facility] Last Admin: 09/29/16 09:27 Dose: 40 mg Polyethylene Glycol (Miralax (For Daily Use) -) 17 gm PO DAILY [facility] Last Admin: 09/29/16 09:27 Dose: Not Given Warfarin Sodium (Coumadin -) 7.5 mg PO DAILY@1800 [facility] Last Admin: 09/28/16 17:34 Dose: 7.5 mg - Objective Vital Signs: Vital Signs Temperature 98.9 F 09/29/16 13:37 Pulse Rate 82 09/29/16 13:37 Respiratory Rate 20 09/29/16 13:37 Blood Pressure 107/64 09/29/16 13:37 O2 Sat by Pulse Oximetry (%) 96 09/29/16 09:00 Constitutional: Yes: Well Nourished, No Distress, Calm Cardiovascular: Yes: Regular Rate and Rhythm. No: Gallop, Murmur, Rub Respiratory: Yes: Regular, CTA Bilaterally, On Nasal O2. No: Rales, Rhonchi, Wheezes Gastrointestinal: Yes: Normal Bowel Sounds, Soft. No: Distention, Tenderness Extremities: Yes: WNL Edema: No Labs: CBC, BMP 09/28/16 07:00 09/28/16 07:00 INR, PTT INR 1.56 (0.82-1.09) H 09/29/16 09:45 Fibrinogen 575.0 mg/dL (238-498) H 09/09/16 06:00 Problem List - Problems (1) Mass of right lung Code(s): R91.8 - OTHER NONSPECIFIC ABNORMAL FINDING OF LUNG FIELD (2) Aneurysm of left popliteal artery Code(s): I72.4 - ANEURYSM OF ARTERY OF LOWER EXTREMITY (3) DVT (deep venous thrombosis) Code(s): I82.409 - ACUTE EMBOLISM AND THOMBOS UNSP DEEP VN UNSP LOWER EXTREMITY Qualifiers: DVT location: lower extremity Affected thrombotic vein of extremity: unspecified vein of extremity Chronicity: unspecified Laterality: unspecified laterality Qualified Code(s): I82.409 - Acute embolism and thrombosis of unspecified deep veins of unspecified lower extremity (4) Elevated INR Code(s): R79.1 - ABNORMAL COAGULATION PROFILE (5) GERD (gastroesophageal reflux disease) Code(s): K21.9 - GASTRO-ESOPHAGEAL REFLUX DISEASE WITHOUT ESOPHAGITIS (6) Hiatal hernia Code(s): K44.9 - DIAPHRAGMATIC HERNIA WITHOUT OBSTRUCTION OR GANGRENE Assessment/Plan (1) Aneurysm of left popliteal artery Assessment/Plan: -s/p intervention -doing well Code(s): I72.4 - ANEURYSM OF ARTERY OF LOWER EXTREMITY (2) DVT (deep venous thrombosis) Assessment/Plan: -on heparin gtt -bridging to coumadin -contine to monitor coumadin Code(s): I82.409 - ACUTE EMBOLISM AND THOMBOS UNSP DEEP VN UNSP LOWER EXTREMITY Qualifiers: DVT location: lower extremity Laterality: left (3) Coumadin induced coagulopathy Assessment/Plan: -resolved Code(s): R79.1 - ABNORMAL COAGULATION PROFILE (4) GERD (gastroesophageal reflux disease) Assessment/Plan: -GI consulted -defer colonoscopy to their recommendations Code(s): K21.9 - GASTRO-ESOPHAGEAL REFLUX DISEASE WITHOUT ESOPHAGITIS (5) Hiatal hernia Assessment/Plan: -outpatient follow up -currently asymptomatic Code(s): K44.9 - DIAPHRAGMATIC HERNIA WITHOUT OBSTRUCTION OR GANGRENE (6) Lung mass -case d/w oncology -no need for port placement -outpatient therapy Dispo -discharge when INR therapeutic
--- NOTE | 2016-09-29 15:34 | PN ---
Progress Note (short form) - Note Progress Note: PULMONARY APPEARS STABLE OFFERS NO COMPLAINTS VSS/AFEBRILE NO OVERALL CHANGE IN EXAM A/P Large Cell Lung Cancer COPD/Emphysema s/p RLE stent for aneurysm DVT - inhaled bronchodilators as needed - will need to assess for home O2 - continue anticoagulation, transition underway to coumadin - PET scan as outpt - Onco f/u appreciated R SEAN SHORE Problem List - Problems (1) Aneurysm of left popliteal artery Code(s): I72.4 - ANEURYSM OF ARTERY OF LOWER EXTREMITY (2) DVT (deep venous thrombosis) Code(s): I82.409 - ACUTE EMBOLISM AND THOMBOS UNSP DEEP VN UNSP LOWER EXTREMITY Qualifiers: DVT location: lower extremity Affected thrombotic vein of extremity: unspecified vein of extremity Chronicity: unspecified Laterality: unspecified laterality Qualified Code(s): I82.409 - Acute embolism and thrombosis of unspecified deep veins of unspecified lower extremity (3) Elevated INR Code(s): R79.1 - ABNORMAL COAGULATION PROFILE (4) Mass of right lung Code(s): R91.8 - OTHER NONSPECIFIC ABNORMAL FINDING OF LUNG FIELD (5) Anemia Code(s): D64.9 - ANEMIA, UNSPECIFIED (6) Back pain Code(s): M54.9 - DORSALGIA, UNSPECIFIED
[2016-09-29] MEDS: WARFARIN NA 7.5 MG TABLET (FP) PO SCH (18:14)
[2016-09-29] MEDS: ATORVASTATIN CA 10 MG TABLET (FP) PO SCH (21:25)
--- NOTE | 2016-09-29 23:24 | PN ---
Progress Note (short form) - Note Progress Note: Patient seen and examined Denies any complaints AFVSS Cor: RSR, No murmurs, No gallops Lungs: decreased rt. 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 and bone scan neg. PDL!, EGFR, ALK, ROS neg. PET-CT as out patient Poor performance status will hold off ashwin-cath will discuss with patient /daughter ---oral etoposide, RT DVT--bridging heparin back to coumadin discussed various options--Lovenox (ideal), Eliquis, coumadin patient preferes coumadin she undestands that lovenox is the most efficacious option in this scenario will need to discuss with family
[2016-09-30] MEDS: ACETAMINOPHEN 325 MG TABLET (FP) PO PRN (02:03)
[2016-09-30 08:11] LABS: INR 1.85 (0.82-1.09); PROTHROMBIN TIME (PATIENT) 20.6 SEC (9.98-11.88)
[2016-09-30 08:15] LABS: BASOPHIL 1.3 % (0-2.0); EOSINOPHIL 3.1 % (0-4.5); MCH 26.9 pg (25.7-33.7); MCHC 32.5 g/dl (32.0-36.0); MEAN CELL VOLUME 82.8 fl (80-96); MEAN PLT VOLUME 9.7 fl (7.5-11.1); NEUTROPHILS 70.8 % (42.8-82.8); PLATELET COUNT 356 K/MM3 (134-434); RDW 17.4 % (11.6-15.6); WHITE BLOOD COUNT 6.8 K/mm3 (4.0-10.0)
[2016-09-30 08:21] LABS: ANION GAP 8 (8-16); CALCIUM 8.6 mg/dL (8.5-10.1); CO2 30 mmol/L (21-32); CREATININE 0.6 mg/dL (0.55-1.02); GLUCOSE,RANDOM 98 mg/dL (74-106)
[2016-09-30] MEDS: HEPARIN INFUSION - 500 ML IVPB SCH ×2 (09:53→12:17)
[2016-09-30] MEDS: DOCUSATE SODIUM 100 MG CAPSULE (FP) PO SCH ×2 (11:31→21:03)
[2016-09-30] MEDS: POLYETHYLENE GLYCOL 3350 119 GM BTL PO SCH (11:31)
[2016-09-30] MEDS: PANTOPRAZOLE 40 MG TABLET (FP) PO SCH (11:31)
--- NOTE | 2016-09-30 12:14 | PN ---
Progress Note (short form) - Note Progress Note: Resting in bed in NAD on NC O2. Noted that she will be discharged with supplemental O2. No CP. Intake & Output 09/27/16 09/28/16 09/29/16 09/30/16 23:59 23:59 23:59 23:59 Intake Total 1819 1166 656 555 Balance 1819 1166 656 555 Last Vital Signs Temp Pulse Resp BP Pulse Ox 98.1 F 103 H 20 113/64 96 09/30/16 09:39 09/30/16 09:39 09/30/16 09:39 09/30/16 09:39 09/29/16 20:04 Active Medications Acetaminophen (Tylenol -) 650 mg PO Q6H PRN PRN Reason: FEVER OR PAIN Last Admin: 09/30/16 02:03 Dose: 650 mg Atorvastatin Calcium (Lipitor -) 10 mg PO HS [facility] Last Admin: 09/29/16 21:25 Dose: 10 mg Docusate Sodium (Colace -) 100 mg PO BID [facility] Last Admin: 09/30/16 11:31 Dose: 100 mg Heparin Sodium (Porcine) (Heparin -) 1,000 unit IVPUSH PRN PRN PRN Reason: Heparin Last Admin: 09/28/16 21:49 Dose: 1,000 unit Heparin Sodium/Dextrose (Heparin Infusion -) 500 mls @ 19 mls/hr IVPB TITR HEATHER ; 950 UNITS/HR PRN Reason: Protocol Last Admin: 09/30/16 09:53 Dose: 14 mls/hr Ondansetron HCl (Zofran Injection) 4 mg IVPB Q6H PRN PRN Reason: NAUSEA Pantoprazole Sodium (Protonix -) 40 mg PO DAILY [facility] Last Admin: 09/30/16 11:31 Dose: 40 mg Polyethylene Glycol (Miralax (For Daily Use) -) 17 gm PO DAILY [facility] Last Admin: 09/30/16 11:31 Dose: 17 grams Warfarin Sodium (Coumadin -) 7.5 mg PO DAILY@1800 [facility] Last Admin: 09/29/16 18:14 Dose: 7.5 mg Gen: NAD at rest Heart: RRR Lung: distant breath sounds, no wheezes Abd: soft, nontender Ext: no edema Laboratory Results - last 24 hr 09/29/16 09/30/16 09/30/16 09:30 07:00 07:00 WBC 6.8 RBC 3.49 L Hgb 9.4 L Hct 28.8 L MCV 82.8 MCHC 32.5 RDW 17.4 H Plt Count 356 MPV 9.7 Neutrophils % 70.8 Lymphocytes % 13.1 D Monocytes % 11.7 H Eosinophils % 3.1 Basophils % 1.3 INR 1.85 H PTT (Actin FS) 71.4 H Sodium Potassium Chloride Carbon Dioxide Anion Gap BUN Creatinine Random Glucose Calcium 09/30/16 09/30/16 07:00 07:00 WBC RBC Hgb Hct MCV MCHC RDW Plt Count MPV Neutrophils % Lymphocytes % Monocytes % Eosinophils % Basophils % INR PTT (Actin FS) 78.2 H Sodium 139 Potassium 3.9 Chloride 101 Carbon Dioxide 30 Anion Gap 8 BUN 12 Creatinine 0.6 Random Glucose 98 Calcium 8.6 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
--- NOTE | 2016-09-30 12:59 | PN ---
Physical Exam: SUBJECTIVE: Patient seen and examined for Dr. Rodriguez today. Pt without complaints and resting comfortable. OBJECTIVE: stable Vital Signs Period Temp Pulse Resp BP Sys/Wu Pulse Ox Last 24 Hr 98.1 F-98.9 F 81-103 18-20 107-128/64-74 95-96 GENERAL: The patient is awake, alert, and fully oriented, in no acute distress. HEAD: Normal with no signs of trauma. NECK: Trachea midline, full range of motion, supple. LUNGS: Breath sounds equal, clear to auscultation bilaterally, no wheezes, no crackles, no accessory muscle use. HEART: Regular rate and rhythm, S1, S2 without murmur, rub or gallop. ABDOMEN: Soft, nontender, nondistended, normoactive bowel sounds, no guarding, no rebound, no hepatosplenomegaly, no masses. EXTREMITIES: 2+ pulses, warm, well-perfused, no edema. NEUROLOGICAL: Cranial nerves II through XII grossly intact. Normal speech, gait not observed. PSYCH: Normal mood, normal affect. SKIN: Warm, dry, normal turgor, no rashes or lesions noted Laboratory Results - last 24 hr 09/29/16 09/30/16 09/30/16 09:30 07:00 07:00 WBC 6.8 RBC 3.49 L Hgb 9.4 L Hct 28.8 L MCV 82.8 MCHC 32.5 RDW 17.4 H Plt Count 356 MPV 9.7 Neutrophils % 70.8 Lymphocytes % 13.1 D Monocytes % 11.7 H Eosinophils % 3.1 Basophils % 1.3 INR 1.85 H PTT (Actin FS) 71.4 H Sodium Potassium Chloride Carbon Dioxide Anion Gap BUN Creatinine Random Glucose Calcium 09/30/16 09/30/16 07:00 07:00 WBC RBC Hgb Hct MCV MCHC RDW Plt Count MPV Neutrophils % Lymphocytes % Monocytes % Eosinophils % Basophils % INR PTT (Actin FS) 78.2 H Sodium 139 Potassium 3.9 Chloride 101 Carbon Dioxide 30 Anion Gap 8 BUN 12 Creatinine 0.6 Random Glucose 98 Calcium 8.6 Active Medications Generic Name Dose Route Start Last Admin Trade Name Freq PRN Reason Stop Dose Admin Acetaminophen 650 mg 09/22/16 22:04 09/30/16 02:03 Tylenol - PO 650 mg Q6H PRN Administration FEVER OR PAIN Atorvastatin Calcium 10 mg 09/15/16 22:00 09/29/16 21:25 Lipitor - PO 10 mg HS [facility] Administration Docusate Sodium 100 mg 09/15/16 22:00 09/30/16 11:31 Colace - PO 100 mg BID [facility] Administration Heparin Sodium (Porcine) 1,000 unit 09/25/16 14:45 09/28/16 21:49 Heparin - IVPUSH 1,000 unit PRN PRN Administration Heparin Heparin Sodium/Dextrose 500 mls @ 19 mls/hr 09/30/16 07:45 09/30/16 12:17 Heparin Infusion - IVPB 14 mls/hr TITR [facility]ATHER Administration Protocol 950 UNITS/HR Ondansetron HCl 4 mg 09/15/16 18:21 Zofran Injection IVPB Q6H PRN NAUSEA Pantoprazole Sodium 40 mg 09/16/16 10:00 09/30/16 11:31 Protonix - PO 40 mg DAILY [facility] Administration Polyethylene Glycol 17 gm 09/16/16 10:00 09/30/16 11:31 Miralax (For Daily Use) - PO 17 grams DAILY [facility] Administration Warfarin Sodium 7.5 mg 09/28/16 18:00 09/29/16 18:14 Coumadin - PO 7.5 mg DAILY@1800 [facility] Administration ASSESSMENT/PLAN: This 76 yr old female with c/o +DVT bridging from heparin to coumadin for discharge currently. INR subtheraputic at 1.85. Will need home oxygen and follow up for outpatient work up. Problem List - Problems (1) Aneurysm of left popliteal artery Assessment/Plan: -stable at current Code(s): I72.4 - ANEURYSM OF ARTERY OF LOWER EXTREMITY (2) DVT (deep venous thrombosis) Assessment/Plan: -currenty on heparin gtt and bridging to coumadin. Code(s): I82.409 - ACUTE EMBOLISM AND THOMBOS UNSP DEEP VN UNSP LOWER EXTREMITY Qualifiers: DVT location: lower extremity Affected thrombotic vein of extremity: unspecified vein of extremity Chronicity: unspecified Laterality: unspecified laterality Qualified Code(s): I82.409 - Acute embolism and thrombosis of unspecified deep veins of unspecified lower extremity (3) Mass of right lung Assessment/Plan: -appreciate pulmonary and onc follow up with consult -will need further work up as an outpt. Code(s): R91.8 - OTHER NONSPECIFIC ABNORMAL FINDING OF LUNG FIELD (4) Lung cancer Assessment/Plan: -will need home oxygen. -OP work up per onc and pulmonary. Code(s): C34.90 - MALIGNANT NEOPLASM OF UNSP PART OF UNSP BRONCHUS OR LUNG Qualifiers: Laterality: right Lung location: lower lobe of lung Qualified Code(s): C34.31 - Malignant neoplasm of lower lobe, right bronchus or lung Visit type - Emergency Visit Emergency Visit: No - New Patient This patient is new to me today: No - Critical Care Critical Care patient: No - Discharge Referral Referred to [facility] Med P.C.: No
[2016-09-30] MEDS: WARFARIN NA 7.5 MG TABLET (FP) PO SCH (17:44)
--- NOTE | 2016-09-30 20:55 | PN ---
Progress Note (short form) - Note Progress Note: CC: pre-op clearance S: no cp, palps, dizziness. dyspnea unchanged Current Medications Acetaminophen (Tylenol -) 650 mg PO Q6H PRN PRN Reason: FEVER OR PAIN Last Admin: 09/30/16 02:03 Dose: 650 mg Atorvastatin Calcium (Lipitor -) 10 mg PO HS [facility] Last Admin: 09/29/16 21:25 Dose: 10 mg Docusate Sodium (Colace -) 100 mg PO BID [facility] Last Admin: 09/30/16 11:31 Dose: 100 mg Heparin Sodium (Porcine) (Heparin -) 1,000 unit IVPUSH PRN PRN PRN Reason: Heparin Last Admin: 09/28/16 21:49 Dose: 1,000 unit Heparin Sodium/Dextrose (Heparin Infusion -) 500 mls @ 19 mls/hr IVPB TITR HEATHER ; 950 UNITS/HR PRN Reason: Protocol Last Admin: 09/30/16 12:17 Dose: 14 mls/hr Ondansetron HCl (Zofran Injection) 4 mg IVPB Q6H PRN PRN Reason: NAUSEA Pantoprazole Sodium (Protonix -) 40 mg PO DAILY [facility] Last Admin: 09/30/16 11:31 Dose: 40 mg Polyethylene Glycol (Miralax (For Daily Use) -) 17 gm PO DAILY [facility] Last Admin: 09/30/16 11:31 Dose: 17 grams Warfarin Sodium (Coumadin -) 7.5 mg PO DAILY@1800 [facility] Last Admin: 09/30/16 17:44 Dose: 7.5 mg Vital Signs - 24 hr 09/30/16 09/30/16 09/30/16 06:25 09:00 09:39 Temperature 98.9 F 98.1 F Pulse Rate 81 103 H Respiratory 20 20 Rate Blood Pressure 128/74 113/64 O2 Sat by Pulse 95 Oximetry (%) 09/30/16 09/30/16 13:44 18:43 Temperature 98.2 F 98.4 F Pulse Rate 93 H 80 Respiratory 20 Rate Blood Pressure 114/64 129/68 O2 Sat by Pulse Oximetry (%) Intake & Output 09/28/16 09/29/16 09/30/16 10/01/16 07:59 07:59 07:59 07:59 Intake Total 1607 8965 855 5964 Balance 1607 2514 232 7039 Constitutional: Yes: No Distress, Calm, Thin jvd flat, neck supple Cardiovascular: Yes: Regular Rate and Rhythm. 2/6 sys murmur at lsb/apex Respiratory: Yes: Regular, diminished air movement, dullness on right No: Rales , Rhonchi, Wheezes Gastrointestinal: Yes: Normal Bowel Sounds, Soft. No: Distention, Tenderness Extremities: Yes: WNL Edema: No CBC, BMP 09/30/16 07:00 09/30/16 07:00 09/30/16 07:00 INR 1.85 H PTT (Actin FS) Total Bilirubin AST ALT Alkaline Phosphatase Echo here: nl lv/rv 1+ mac/mr/tr. rvsp 30-40. EKG: sr. non-specific t wave flattening. no acute ischemic changes CXR: suspicion for right hilar mass. chest CT here: RLL irregular mass suspicious for malignancy. mod copd changes. small B effusions. large hiatal hernia. organoaxial volvulus. ectatic thoracic aorta. abd CTA with runoff here: hiatal hernia. distal thoracic aortic aneurysm with eccentric mural thrombus. infrarenal abdominal aneurysm (3.6 cm). B [employer] and popliteal aneurysm. 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 chest cT 12/2015: extensive copd changes. subpleural nodule no left. desc thoracic saortic aneurysm 5.1 x 3.9 with mural thombus. compression deformities of spine. 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 Possible need for thoracic surgery. - patient endorses h/o possible tia, also documented in office chart. Unable to walk up flight of stairs. RCRI of 2 (intrathoracic surgery and h/o CVA) with poor functional status. Estimated as intermediate-high risk for senthil- operative CV events. Echo without significant abnormality, but agree that in light of risk of surgery would benefit from pre-op stress testing. Discussed with desi/onc, possible candidate for surgery. Will plan on stress test sunday morning. - bp/hr well controlled. popliteal pseudoaneurysm - discussed with heme and per discussions with vascular surgery, ok to con't heparin drip. - s/p Aortogram, LLE angiogram, popliteal artery covered stent placement, with DCB angioplasty 09/13. 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 Discussed with vascular OK to defer plavix - added statin. Extensive atherosclerosis noted on CT. - tobacco cessation. thoracic descending aorta aneurysm (5.1 cm)/AAA - thrombus overlying aneurysms, extensive atherosclerotic diseae - statin, smoking cessation. No antiplatelet, on AC - recommend ongoing outpatient follow up with bi-annual CTA/MRA of thoracic aneurysm. No surgical indication at this time. Started low dose beta mitali . but held for low bp's. - 09/30 will try to resume low dose BB DVT with malignancy - patient presented with elevated INR, but levels have recently been stable on review of office INR's. - Ongoing evaluation of anemia, need for long-term AC and consideration of coumadin vs. noac. Currently on heparin bridge/coumadin. hgb stable + tobacco - smoking cessation counseling - further work up of possible right hilar mass as mentioned - monitor pulmonary status senthil-operatively closely. improved today. htn - controlled off anti-hypertensives. started bb 09/13 but stopped for low bp' s. 09/30 will try to resume low dose BB anemia, chronic - ongoing work up per pmd/heme/GI. hgb stable Lung mass - neuroendocrine tumor, staging work up ongoing.
[2016-09-30] MEDS: ATORVASTATIN CA 10 MG TABLET (FP) PO SCH (21:03)
[2016-10-01] MEDS: ACETAMINOPHEN 325 MG TABLET (FP) PO PRN (03:33)
[2016-10-01] MEDS: PANTOPRAZOLE 40 MG TABLET (FP) PO SCH (09:31)
[2016-10-01] MEDS: DOCUSATE SODIUM 100 MG CAPSULE (FP) PO SCH ×2 (09:31→21:21)
[2016-10-01] MEDS: POLYETHYLENE GLYCOL 3350 119 GM BTL PO SCH ×2 (09:31→10:21)
[2016-10-01 09:33] LABS: MCH 26.6 pg (25.7-33.7); MCHC 32.2 g/dl (32.0-36.0); MEAN CELL VOLUME 82.5 fl (80-96); MEAN PLT VOLUME 10.3 fl (7.5-11.1); PLATELET COUNT 352 K/MM3 (134-434); RDW 17.7 % (11.6-15.6); WHITE BLOOD COUNT 6.7 K/mm3 (4.0-10.0)
[2016-10-01 09:39] LABS: ALBUMIN 2.8 g/dl (3.4-5.0); ANION GAP 9 (8-16); BILIRUBIN,TOTAL 0.3 mg/dL (0.2-1.0); CALCIUM 8.9 mg/dL (8.5-10.1); CO2 30 mmol/L (21-32); CREATININE 0.7 mg/dL (0.55-1.02); GLUCOSE,RANDOM 92 mg/dL (74-106); SGOT/AST 22 U/L (15-37); SGPT/ALT 21 U/L (12-78); TOT PROT 6.6 g/dl (6.4-8.2)
[2016-10-01 09:40] LABS: ALK PHOS 444 U/L (45-117)
[2016-10-01] MEDS: METOPROLOL TARTRATE 25 MG TABLET (FP) PO SCH ×2 (10:19→21:21)
[2016-10-01 10:30] LABS: INR 2.48 (0.82-1.09); PROTHROMBIN TIME (PATIENT) 27.8 SEC (9.98-11.88)
--- NOTE | 2016-10-01 13:02 | PN ---
Progress Note (short form) - Note Progress Note: Resting in bed in NAD on NC O2. INR 2.48. Breathing feels the same. Some OLGUIN. No CP. Intake & Output 09/28/16 09/29/16 09/30/16 10/01/16 23:59 23:59 23:59 23:59 Intake Total 5976 849 7992 468 Balance 5737 870 8842 468 Last Vital Signs Temp Pulse Resp BP Pulse Ox 98.2 F 94 H 20 118/77 96 10/01/16 08:00 10/01/16 08:00 10/01/16 08:00 10/01/16 08:00 09/30/16 21:00 Active Medications Acetaminophen (Tylenol -) 650 mg PO Q6H PRN PRN Reason: FEVER OR PAIN Last Admin: 10/01/16 03:33 Dose: 650 mg Atorvastatin Calcium (Lipitor -) 10 mg PO HS [facility] Last Admin: 09/30/16 21:03 Dose: 10 mg Docusate Sodium (Colace -) 100 mg PO BID [facility] Last Admin: 10/01/16 09:31 Dose: 100 mg Heparin Sodium (Porcine) (Heparin -) 1,000 unit IVPUSH PRN PRN PRN Reason: Heparin Last Admin: 09/28/16 21:49 Dose: 1,000 unit Heparin Sodium/Dextrose (Heparin Infusion -) 500 mls @ 19 mls/hr IVPB TITR HEATHER ; 950 UNITS/HR PRN Reason: Protocol Last Admin: 09/30/16 12:17 Dose: 14 mls/hr Metoprolol Tartrate (Lopressor -) 12.5 mg PO BID [facility] Last Admin: 10/01/16 10:19 Dose: 12.5 mg Ondansetron HCl (Zofran Injection) 4 mg IVPB Q6H PRN PRN Reason: NAUSEA Pantoprazole Sodium (Protonix -) 40 mg PO DAILY [facility] Last Admin: 10/01/16 09:31 Dose: 40 mg Polyethylene Glycol (Miralax (For Daily Use) -) 17 gm PO DAILY [facility] Last Admin: 10/01/16 10:21 Dose: Not Given Warfarin Sodium (Coumadin -) 7.5 mg PO DAILY@1800 [facility] Last Admin: 09/30/16 17:44 Dose: 7.5 mg Gen: NAD at rest Heart: RRR Lung: distant breath sounds, no wheezes Abd: soft, nontender Ext: no edema Laboratory Results - last 24 hr 10/01/16 10/01/16 10/01/16 07:35 07:35 08:10 WBC 6.7 RBC 3.59 L Hgb 9.5 L Hct 29.6 L MCV 82.5 MCHC 32.2 RDW 17.7 H Plt Count 352 MPV 10.3 INR 2.48 H D PTT (Actin FS) Sodium 139 Potassium 4.2 Chloride 100 Carbon Dioxide 30 Anion Gap 9 BUN 11 Creatinine 0.7 Creat Clearance w eGFR > 60 Random Glucose 92 Calcium 8.9 Total Bilirubin 0.3 D AST 22 ALT 21 Alkaline Phosphatase 444 H Total Protein 6.6 Albumin 2.8 L 10/01/16 08:10 WBC RBC Hgb Hct MCV MCHC RDW Plt Count MPV INR PTT (Actin FS) 79.3 H Sodium Potassium Chloride Carbon Dioxide Anion Gap BUN Creatinine Creat Clearance w eGFR Random Glucose Calcium Total Bilirubin AST ALT Alkaline Phosphatase Total Protein Albumin 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
[2016-10-01] MEDS: ARFORMOTEROL TARTRATE 15 MCG/2 ML VIAL NEB SCH ×2 (13:25→21:59)
--- NOTE | 2016-10-01 14:23 | PN ---
Physical Exam: Hospitalist covering for Dr. Rodriguez SUBJECTIVE: Patient seen and examined. Less dyspneic at rest, still has dyspnea with minimal exertion. OBJECTIVE: Vital Signs Period Temp Pulse Resp BP Sys/Wu Pulse Ox Last 24 Hr 98.2 F-99.3 F 80-94 20-21 118-130/68-86 95-96 GENERAL: The patient is awake, alert, and fully oriented, in no acute distress. HEAD: Normal with no signs of trauma. EYES: PERRL, extraocular movements intact, sclera anicteric, conjunctiva clear. No ptosis. ENT: Ears normal, nares patent, oropharynx clear without exudates, moist mucous membranes. NECK: Trachea midline, full range of motion, supple. LUNGS: Breath sounds equal, diminished at bases. Able to speak in full sentences. HEART: Regular rate and rhythm, S1, S2 without murmur, rub or gallop. ABDOMEN: Soft, nontender, nondistended, normoactive bowel sounds, no guarding, no rebound, no hepatosplenomegaly, no masses. EXTREMITIES: 2+ pulses, warm, well-perfused, no edema, mild calf tenderness bilaterally.. NEUROLOGICAL: Cranial nerves II through XII grossly intact. Normal speech, gait not observed. PSYCH: Normal mood, normal affect. SKIN: Warm, dry, normal turgor, no rashes or lesions noted Laboratory Results - last 24 hr 10/01/16 10/01/16 10/01/16 07:35 07:35 08:10 WBC 6.7 RBC 3.59 L Hgb 9.5 L Hct 29.6 L MCV 82.5 MCHC 32.2 RDW 17.7 H Plt Count 352 MPV 10.3 INR 2.48 H D PTT (Actin FS) Sodium 139 Potassium 4.2 Chloride 100 Carbon Dioxide 30 Anion Gap 9 BUN 11 Creatinine 0.7 Creat Clearance w eGFR > 60 Random Glucose 92 Calcium 8.9 Total Bilirubin 0.3 D AST 22 ALT 21 Alkaline Phosphatase 444 H Total Protein 6.6 Albumin 2.8 L 10/01/16 08:10 WBC RBC Hgb Hct MCV MCHC RDW Plt Count MPV INR PTT (Actin FS) 79.3 H Sodium Potassium Chloride Carbon Dioxide Anion Gap BUN Creatinine Creat Clearance w eGFR Random Glucose Calcium Total Bilirubin AST ALT Alkaline Phosphatase Total Protein Albumin Active Medications Generic Name Dose Route Start Last Admin Trade Name Freq PRN Reason Stop Dose Admin Acetaminophen 650 mg 09/22/16 22:04 10/01/16 03:33 Tylenol - PO 650 mg Q6H PRN Administration FEVER OR PAIN Arformoterol Tartrate 1 amp 10/01/16 13:15 10/01/16 13:25 Sonu (Restricted To Pulmonology/Resp) - NEB 1 amp BID [facility] Administration Atorvastatin Calcium 10 mg 09/15/16 22:00 09/30/16 21:03 Lipitor - PO 10 mg HS [facility] Administration Docusate Sodium 100 mg 09/15/16 22:00 10/01/16 09:31 Colace - PO 100 mg BID [facility] Administration Metoprolol Tartrate 12.5 mg 10/01/16 10:00 10/01/16 10:19 Lopressor - PO 12.5 mg BID [facility] Administration Ondansetron HCl 4 mg 09/15/16 18:21 Zofran Injection IVPB Q6H PRN NAUSEA Pantoprazole Sodium 40 mg 09/16/16 10:00 10/01/16 09:31 Protonix - PO 40 mg DAILY [facility] Administration Polyethylene Glycol 17 gm 09/16/16 10:00 10/01/16 10:21 Miralax (For Daily Use) - PO Not Given DAILY [facility] Warfarin Sodium 7.5 mg 09/28/16 18:00 09/30/16 17:44 Coumadin - PO 7.5 mg DAILY@1800 [facility] Administration ASSESSMENT/PLAN: 76 year old female with right popliteal aneurysm s/p stenting , + LLE DVT requiring bridging from heparin to Coumadin. 1. Aneurysm of right popliteal artery -S/p stenting 2. DVT -Now therapeutic on Coumadin -Heparin gtt stopped 3. Lung ca -Further workup as outpatient -Needs home O2- per case management, need respiratory pre/post evaluation within 24hrs of dc for rx, repeat ordered DISPO: Anticipate dc home tomorrow after respiratory pre/post O2 evaluation repeated and home O2 availability confirmed. Visit type - Emergency Visit Emergency Visit: Yes ED Registration Date: 09/07/16 Care time: The patient presented to the Emergency Department on the above date and was hospitalized for further evaluation of their emergent condition. - New Patient This patient is new to me today: Yes Date on this admission: 10/01/16 - Critical Care Critical Care patient: No - Discharge Referral Referred to [facility] Med [facility]C.: No
[2016-10-01] MEDS: WARFARIN NA 7.5 MG TABLET (FP) PO SCH (18:24)
[2016-10-01] MEDS: ATORVASTATIN CA 10 MG TABLET (FP) PO SCH (21:21)
[2016-10-02 07:46] LABS: BASOPHIL 1.3 % (0-2.0); EOSINOPHIL 2.8 % (0-4.5); MCHC 32.5 g/dl (32.0-36.0); MEAN CELL VOLUME 82.9 fl (80-96); MEAN PLT VOLUME 9.6 fl (7.5-11.1); NEUTROPHILS 72.4 % (42.8-82.8); PLATELET COUNT 354 K/MM3 (134-434); RDW 17.5 % (11.6-15.6); WHITE BLOOD COUNT 7.2 K/mm3 (4.0-10.0)
[2016-10-02 08:10] LABS: INR 2.77 (0.82-1.09); PROTHROMBIN TIME (PATIENT) 31.1 SEC (9.98-11.88)
[2016-10-02 08:21] LABS: ALBUMIN 2.8 g/dl (3.4-5.0); ANION GAP 7 (8-16); BILIRUBIN,TOTAL 0.5 mg/dL (0.2-1.0); CALCIUM 8.9 mg/dL (8.5-10.1); CO2 31 mmol/L (21-32); CREATININE 0.8 mg/dL (0.55-1.02); GLUCOSE,RANDOM 86 mg/dL (74-106); SGOT/AST 21 U/L (15-37); SGPT/ALT 21 U/L (12-78); TOT PROT 6.5 g/dl (6.4-8.2)
[2016-10-02 08:22] LABS: ALK PHOS 439 U/L (45-117)
[2016-10-02] MEDS: ARFORMOTEROL TARTRATE 15 MCG/2 ML VIAL NEB SCH ×2 (09:30→22:30)
[2016-10-02] MEDS ORDERED: DIPYRIDAMOLE STRESS TEST IVPB ONE ×2 (10:00→12:00)
[2016-10-02] MEDS ORDERED: DEXTROSE 5% IVPB ONE ×2 (10:00→12:00)
[2016-10-02] MEDS ORDERED: WATER IVPB ONE ×2 (10:00→12:00)
--- NOTE | 2016-10-02 12:36 | PN ---
Progress Note (short form) - Note Progress Note: Having second part of stress test. No acute events documented overnight. Intake & Output 09/29/16 09/30/16 10/01/16 10/02/16 23:59 23:59 23:59 23:59 Intake Total 656 1325 1049 0 Balance 656 1325 1049 0 Last Vital Signs Temp Pulse Resp BP Pulse Ox 98.4 F 79 20 130/77 96 10/02/16 07:58 10/02/16 07:58 10/02/16 07:58 10/02/16 07:58 10/02/16 09:00 Active Medications Acetaminophen (Tylenol -) 650 mg PO Q6H PRN PRN Reason: FEVER OR PAIN Last Admin: 10/01/16 03:33 Dose: 650 mg Arformoterol Tartrate (Brovana (Restricted To Pulmonology/Resp) -) 1 amp NEB BID [facility] Last Admin: 10/02/16 09:30 Dose: Not Given Atorvastatin Calcium (Lipitor -) 10 mg PO HS [facility] Last Admin: 10/01/16 21:21 Dose: 10 mg Docusate Sodium (Colace -) 100 mg PO BID [facility] Last Admin: 10/01/16 21:21 Dose: 100 mg Metoprolol Tartrate (Lopressor -) 12.5 mg PO BID [facility] Last Admin: 10/01/16 21:21 Dose: 12.5 mg Ondansetron HCl (Zofran Injection) 4 mg IVPB Q6H PRN PRN Reason: NAUSEA Pantoprazole Sodium (Protonix -) 40 mg PO DAILY [facility] Last Admin: 10/01/16 09:31 Dose: 40 mg Polyethylene Glycol (Miralax (For Daily Use) -) 17 gm PO DAILY [facility] Last Admin: 10/01/16 10:21 Dose: Not Given Warfarin Sodium (Coumadin -) 7.5 mg PO DAILY@1800 [facility] Last Admin: 10/01/16 18:24 Dose: 7.5 mg Gen: NAD at rest Heart: RRR Lung: distant breath sounds, no wheezes Abd: soft, nontender Ext: no edema Laboratory Results - last 24 hr 10/02/16 10/02/16 10/02/16 05:40 05:40 05:40 WBC 7.2 RBC 3.63 Hgb 9.8 L Hct 30.1 L MCV 82.9 MCHC 32.5 RDW 17.5 H Plt Count 354 MPV 9.6 Neutrophils % 72.4 Lymphocytes % 12.5 Monocytes % 11.0 H Eosinophils % 2.8 Basophils % 1.3 INR 2.77 H Sodium 138 Potassium 4.7 Chloride 100 Carbon Dioxide 31 Anion Gap 7 L BUN 16 D Creatinine 0.8 Creat Clearance w eGFR > 60 Random Glucose 86 Calcium 8.9 Total Bilirubin 0.5 D AST 21 ALT 21 Alkaline Phosphatase 439 H Total Protein 6.5 Albumin 2.8 L 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
--- NOTE | 2016-10-02 14:51 | PN ---
Progress Note, Physician Chief Complaint: Ms Mcdonald is without complaint. No cp, sob, n/v. - Current Medication List Current Medications: Active Medications Acetaminophen (Tylenol -) 650 mg PO Q6H PRN PRN Reason: FEVER OR PAIN Last Admin: 10/01/16 03:33 Dose: 650 mg Arformoterol Tartrate (Brovana (Restricted To Pulmonology/Resp) -) 1 amp NEB BID [facility] Last Admin: 10/02/16 09:30 Dose: Not Given Atorvastatin Calcium (Lipitor -) 10 mg PO HS [facility] Last Admin: 10/01/16 21:21 Dose: 10 mg Docusate Sodium (Colace -) 100 mg PO BID [facility] Last Admin: 10/01/16 21:21 Dose: 100 mg Metoprolol Tartrate (Lopressor -) 12.5 mg PO BID [facility] Last Admin: 10/01/16 21:21 Dose: 12.5 mg Ondansetron HCl (Zofran Injection) 4 mg IVPB Q6H PRN PRN Reason: NAUSEA Pantoprazole Sodium (Protonix -) 40 mg PO DAILY [facility] Last Admin: 10/01/16 09:31 Dose: 40 mg Polyethylene Glycol (Miralax (For Daily Use) -) 17 gm PO DAILY [facility] Last Admin: 10/01/16 10:21 Dose: Not Given Warfarin Sodium (Coumadin -) 7.5 mg PO DAILY@1800 [facility] Last Admin: 10/01/16 18:24 Dose: 7.5 mg - Objective Vital Signs: Vital Signs Temperature 98.2 F 10/02/16 13:50 Pulse Rate 95 H 10/02/16 13:50 Respiratory Rate 20 10/02/16 13:50 Blood Pressure 114/76 10/02/16 13:50 O2 Sat by Pulse Oximetry (%) 96 10/02/16 09:00 Constitutional: Yes: No Distress, Calm, Thin Cardiovascular: Yes: Regular Rate and Rhythm. No: Gallop, Murmur, Rub Respiratory: Yes: Regular, CTA Bilaterally. No: Rales, Rhonchi, Wheezes Gastrointestinal: Yes: Normal Bowel Sounds, Soft. No: Distention, Tenderness Extremities: Yes: WNL Edema: No Labs: CBC, BMP 10/02/16 05:40 10/02/16 05:40 INR, PTT INR 2.77 (0.82-1.09) H 10/02/16 05:40 Fibrinogen 575.0 mg/dL (238-498) H 09/09/16 06:00 Problem List - Problems (1) Mass of right lung Code(s): R91.8 - OTHER NONSPECIFIC ABNORMAL FINDING OF LUNG FIELD (2) Aneurysm of left popliteal artery Code(s): I72.4 - ANEURYSM OF ARTERY OF LOWER EXTREMITY (3) DVT (deep venous thrombosis) Code(s): I82.409 - ACUTE EMBOLISM AND THOMBOS UNSP DEEP VN UNSP LOWER EXTREMITY Qualifiers: DVT location: lower extremity Affected thrombotic vein of extremity: unspecified vein of extremity Chronicity: unspecified Laterality: unspecified laterality Qualified Code(s): I82.409 - Acute embolism and thrombosis of unspecified deep veins of unspecified lower extremity (4) Elevated INR Code(s): R79.1 - ABNORMAL COAGULATION PROFILE (5) GERD (gastroesophageal reflux disease) Code(s): K21.9 - GASTRO-ESOPHAGEAL REFLUX DISEASE WITHOUT ESOPHAGITIS (6) Hiatal hernia Code(s): K44.9 - DIAPHRAGMATIC HERNIA WITHOUT OBSTRUCTION OR GANGRENE Assessment/Plan (1) Aneurysm of left popliteal artery Assessment/Plan: -s/p intervention -doing well Code(s): I72.4 - ANEURYSM OF ARTERY OF LOWER EXTREMITY (2) DVT (deep venous thrombosis) Assessment/Plan: -therapeutic on coumadin Code(s): I82.409 - ACUTE EMBOLISM AND THOMBOS UNSP DEEP VN UNSP LOWER EXTREMITY Qualifiers: DVT location: lower extremity Laterality: left (3) Coumadin induced coagulopathy Assessment/Plan: -resolved Code(s): R79.1 - ABNORMAL COAGULATION PROFILE (4) GERD (gastroesophageal reflux disease) Assessment/Plan: -GI consulted -defer colonoscopy to their recommendations Code(s): K21.9 - GASTRO-ESOPHAGEAL REFLUX DISEASE WITHOUT ESOPHAGITIS (5) Hiatal hernia Assessment/Plan: -outpatient follow up -currently asymptomatic Code(s): K44.9 - DIAPHRAGMATIC HERNIA WITHOUT OBSTRUCTION OR GANGRENE (6) Lung mass -undergoing stress test for possible surgical intervention -will d/w Dr Noel Dispo -possible discharge tomorrow
[2016-10-02] MEDS: POLYETHYLENE GLYCOL 3350 119 GM BTL PO SCH (15:32)
[2016-10-02] MEDS: DOCUSATE SODIUM 100 MG CAPSULE (FP) PO SCH ×2 (15:32→21:57)
[2016-10-02] MEDS: WARFARIN NA 7.5 MG TABLET (FP) PO SCH (18:13)
[2016-10-02] MEDS: PANTOPRAZOLE 40 MG TABLET (FP) PO SCH (18:13)
--- NOTE | 2016-10-02 20:05 | PN ---
Progress Note (short form) - Note Progress Note: Patient seen and examined Denies any complaints Last Vital Signs Temp Pulse Resp BP Pulse Ox 98.2 F 78 20 158/72 96 10/02/16 19:52 10/02/16 19:52 10/02/16 19:52 10/02/16 19:52 10/02/16 09:00 Cor: RSR, No murmurs, No gallops Lungs: decreased rt. base Abd: Soft, Normal bowel sounds, No organomegaly Ext:No significant edema Abnormal Lab Results 10/02/16 10/02/16 10/02/16 05:40 05:40 05:40 Hgb 9.8 L Hct 30.1 L RDW 17.5 H Monocytes % 11.0 H INR 2.77 H Anion Gap 7 L Alkaline Phosphatase 439 H Albumin 2.8 L Home Medication List Medication Instructions Recorded Confirmed Type Warfarin Sodium [Coumadin] 7.5 mg PO DAILY 09/04/16 09/07/16 History Active Medications Generic Name Dose Route Start Last Admin Trade Name Freq PRN Reason Stop Dose Admin Acetaminophen 650 mg 09/22/16 22:04 10/01/16 03:33 Tylenol - PO 650 mg Q6H PRN Administration FEVER OR PAIN Arformoterol Tartrate 1 amp 10/01/16 13:15 10/02/16 09:30 Brovana (Restricted To Pulmonology/Resp) - NEB Not Given BID [facility] Atorvastatin Calcium 10 mg 09/15/16 22:00 10/01/16 21:21 Lipitor - PO 10 mg HS HEATHER Administration Docusate Sodium 100 mg 09/15/16 22:00 10/02/16 15:32 Colace - PO Not Given BID [facility]ER Metoprolol Tartrate 12.5 mg 10/01/16 10:00 10/01/16 21:21 Lopressor - PO 12.5 mg BID [facility]ATH[facility] Administration Ondansetron HCl 4 mg 09/15/16 18:21 Zofran Injection IVPB Q6H PRN NAUSEA Pantoprazole Sodium 40 mg 09/16/16 10:00 10/02/16 18:13 Protonix - PO 40 mg DAILY [facility] Administration Polyethylene Glycol 17 gm 09/16/16 10:00 10/02/16 15:32 Miralax (For Daily Use) - PO Not Given DAILY [facility] Warfarin Sodium 7.5 mg 09/28/16 18:00 10/02/16 18:13 Coumadin - PO 7.5 mg DAILY@1800 [facility] Administration A/P 76 y/o patient with LLE unprovoked DVT, b/l popliteal artery aneurysm, s/p stenting On heparin drip 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 and bone scan neg. PDL!, EGFR, ALK, ROS neg. PET-CT as out patient Poor performance status will hold off ashwin-cath will discuss with patient /daughter ---oral etoposide, RT DVT--bridging heparin back to coumadin discussed various options--Lovenox (ideal), Eliquis, coumadin patient preferes coumadin she undestands that lovenox is the most efficacious option in this scenario Wopuld decrease coumadin dose to 6mg daily Left messages with daughter
[2016-10-02] MEDS: ATORVASTATIN CA 10 MG TABLET (FP) PO SCH (21:57)
[2016-10-02] MEDS: METOPROLOL TARTRATE 25 MG TABLET (FP) PO SCH (21:57)
[2016-10-03 10:03] VITALS: BP 96/61
[2016-10-03] MEDS: DOCUSATE SODIUM 100 MG CAPSULE (FP) PO SCH (10:37)
[2016-10-03] MEDS: PANTOPRAZOLE 40 MG TABLET (FP) PO SCH (10:37)
[2016-10-03] MEDS: POLYETHYLENE GLYCOL 3350 119 GM BTL PO SCH (10:37)
[2016-10-03] MEDS: METOPROLOL TARTRATE 25 MG TABLET (FP) PO SCH (10:37)
[2016-10-03] MEDS: ARFORMOTEROL TARTRATE 15 MCG/2 ML VIAL NEB SCH (10:53)
--- NOTE | 2016-10-03 11:24 | PN ---
Progress Note (short form) - Note Progress Note: OOB to chair in NAD on NC O2. No acute events documented overnight. Pending repeat Pre/Post. Intake & Output 09/30/16 10/01/16 10/02/16 10/03/16 23:59 23:59 23:59 23:59 Intake Total 1325 1049 0 Balance 1325 1049 0 Weight 90 lb 7 oz Last Vital Signs Temp Pulse Resp BP Pulse Ox 97.9 F 82 22 96/61 93 L 10/03/16 10:01 10/03/16 10:20 10/03/16 10:05 10/03/16 10:01 10/03/16 10:20 Active Medications Acetaminophen (Tylenol -) 650 mg PO Q6H PRN PRN Reason: FEVER OR PAIN Last Admin: 10/01/16 03:33 Dose: 650 mg Arformoterol Tartrate (Brovana (Restricted To Pulmonology/Resp) -) 1 amp NEB BID [facility] Last Admin: 10/03/16 10:53 Dose: 1 amp Atorvastatin Calcium (Lipitor -) 10 mg PO HS [facility] Last Admin: 10/02/16 21:57 Dose: 10 mg Docusate Sodium (Colace -) 100 mg PO BID [facility] Last Admin: 10/03/16 10:37 Dose: Not Given Metoprolol Tartrate (Lopressor -) 12.5 mg PO BID [facility] Last Admin: 10/03/16 10:37 Dose: Not Given Ondansetron HCl (Zofran Injection) 4 mg IVPB Q6H PRN PRN Reason: NAUSEA Pantoprazole Sodium (Protonix -) 40 mg PO DAILY [facility] Last Admin: 10/03/16 10:37 Dose: 40 mg Polyethylene Glycol (Miralax (For Daily Use) -) 17 gm PO DAILY [facility] Last Admin: 10/03/16 10:37 Dose: Not Given Warfarin Sodium (Coumadin -) 7.5 mg PO DAILY@1800 [facility] Last Admin: 10/02/16 18:13 Dose: 7.5 mg Gen: NAD at rest Heart: RRR Lung: distant breath sounds, no wheezes Abd: soft, nontender Ext: no edema A/P 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
[2016-10-03 12:24] LABS: INR 3.53 (0.82-1.09); PROTHROMBIN TIME (PATIENT) 39.9 SEC (9.98-11.88)
--- NOTE | 2016-10-03 13:10 | DS ---
Physical Examination Vital Signs: Vital Signs Temperature 97.9 F 10/03/16 10:01 Pulse Rate 82 10/03/16 10:20 Respiratory Rate 22 10/03/16 10:05 Blood Pressure 96/61 10/03/16 10:01 O2 Sat by Pulse Oximetry (%) 93 L 10/03/16 10:20 Constitutional: Yes: No Distress, Calm, Thin Cardiovascular: Yes: Regular Rate and Rhythm. No: Gallop, Murmur, Rub Respiratory: Yes: Regular, CTA Bilaterally, On Nasal O2. No: Rales, Rhonchi, Wheezes Gastrointestinal: Yes: Normal Bowel Sounds, Soft. No: Distention, Tenderness Extremities: Yes: WNL Edema: No Labs: CBC, BMP 10/02/16 05:40 10/02/16 05:40 Discharge Summary Reason For Visit: INR: ANEURYSM OF LEFT POPLITEAL ARTERY Current Active Problems Aneurysm of left popliteal artery (Acute) Elevated INR (Acute) Lung cancer (Acute) Mass of right lung (Acute) Hospital Course: (1) Mass of right lung Code(s): R91.8 - OTHER NONSPECIFIC ABNORMAL FINDING OF LUNG FIELD (2) Aneurysm of left popliteal artery Code(s): I72.4 - ANEURYSM OF ARTERY OF LOWER EXTREMITY (3) DVT (deep venous thrombosis) Code(s): I82.409 - ACUTE EMBOLISM AND THOMBOS UNSP DEEP VN UNSP LOWER EXTREMITY Qualifiers: DVT location: lower extremity Affected thrombotic vein of extremity: unspecified vein of extremity Chronicity: unspecified Laterality: unspecified laterality Qualified Code(s): I82.409 - Acute embolism and thrombosis of unspecified deep veins of unspecified lower extremity (4) Elevated INR Code(s): R79.1 - ABNORMAL COAGULATION PROFILE (5) GERD (gastroesophageal reflux disease) Code(s): K21.9 - GASTRO-ESOPHAGEAL REFLUX DISEASE WITHOUT ESOPHAGITIS (6) Hiatal hernia Code(s): K44.9 - DIAPHRAGMATIC HERNIA WITHOUT OBSTRUCTION OR GANGRENE Ms Mcdonald is a pleasant 76 year old female who came in with pain in her leg and was found to have BLE aneurysms. She was seen by vascular surgery and they were repaired. She underwent CT scan and was found to have a lung mass. Biopsy shows it is neuroendocrine tumor. She was seen by oncology and treatment was discussed. Currently she says she does not want aggressive therapy, instructed to follow up with PCP and oncology. She is therapeutic on her coumadin and safe for discharge. Follow up plans discussed with patient and daughter. 37 minutes spent in preparation of this discharge Condition: Good - Instructions Diet, Activity, Other Instructions: resume previous diet and activity. Skip tonight and tomorrow's coumadin dose, restart on Referrals: Quinn Massey MD [Primary Care Provider] - Erica Martinez MD [Staff Physician] - Disposition: VNS/HOME HEALTH CARE - Home Medications Comprehensive Discharge Medication List: Ambulatory Orders Warfarin Sodium [Coumadin] 7.5 mg PO DAILY 09/04/16 Arformoterol Tartrate [Brovana -] 1 amp NEB BID #60 amp 10/03/16 Atorvastatin Ca [Lipitor] 10 mg PO HS #30 tablet 10/03/16 Metoprolol Tartrate [Lopressor -] 12.5 mg PO BID #60 tablet 10/03/16 Pantoprazole Sodium [Protonix -] 40 mg PO DAILY #30 tab.ec 10/03/16
[2016-10-03 14:42] VITALS: PULSE 80; TEMP 98.5
== END 2016-10-03 16:58 | disposition home health service (06) | DRG 982 ==
LOC: JER 15:52 → JERBED 19:12 → J6S 21:14
PROVIDERS: ADMIT Internal Medicine; ATTEND Registered Nurse Emergency
PROC: 047S34Z Dilation of Left Posterior Tibial Artery with Drug-eluting Intraluminal Device, Percutaneous Approach (ICD-10-PCS; 2016-09-13)
PROC: B40DYZZ Plain Radiography of Aorta and Bilateral Lower Extremity Arteries using Other Contrast (ICD-10-PCS; 2016-09-13)
PROC: B40GYZZ Plain Radiography of Left Lower Extremity Arteries using Other Contrast (ICD-10-PCS; 2016-09-13)
PROC: 3E05317 Introduction of Other Thrombolytic into Peripheral Artery, Percutaneous Approach (ICD-10-PCS; 2016-09-13)
PROC: 047N341 Dilation of Left Popliteal Artery with Drug-eluting Intraluminal Device, using Drug-Coated Balloon, Percutaneous Approach (ICD-10-PCS; principal; 2016-09-13 10:30)
PROC: 047M341 Dilation of Right Popliteal Artery with Drug-eluting Intraluminal Device, using Drug-Coated Balloon, Percutaneous Approach (ICD-10-PCS; 2016-09-15)
PROC: 3E05317 Introduction of Other Thrombolytic into Peripheral Artery, Percutaneous Approach (ICD-10-PCS; 2016-09-15)
PROC: B41DZZZ Fluoroscopy of Aorta and Bilateral Lower Extremity Arteries (ICD-10-PCS; 2016-09-15)
PROC: B41FZZZ Fluoroscopy of Right Lower Extremity Arteries (ICD-10-PCS; 2016-09-15)
PROC: 30233N1 Transfusion of Nonautologous Red Blood Cells into Peripheral Vein, Percutaneous Approach (ICD-10-PCS; 2016-09-16)
PROC: 0BBF8ZX Excision of Right Lower Lung Lobe, Via Natural or Artificial Opening Endoscopic, Diagnostic (ICD-10-PCS; 2016-09-18)
PROC: 0BB68ZX Excision of Right Lower Lobe Bronchus, Via Natural or Artificial Opening Endoscopic, Diagnostic (ICD-10-PCS; 2016-09-18)
PROC: 0B968ZX Drainage of Right Lower Lobe Bronchus, Via Natural or Artificial Opening Endoscopic, Diagnostic (ICD-10-PCS; 2016-09-18)
DX: D68.32 Hemorrhagic disorder due to extrinsic circulating anticoagulants (principal); I82.409 Acute embolism and thrombosis of unspecified deep veins of unspecified lower extremity; I82.5Z2 Chronic embolism and thrombosis of unspecified deep veins of left distal lower extremity; C7A.8 Other malignant neuroendocrine tumors; Z68.1 Body mass index [BMI] 19.9 or less, adult; I72.4 Aneurysm of artery of lower extremity; K21.9 Gastro-esophageal reflux disease without esophagitis; I10 Essential (primary) hypertension; K44.9 Diaphragmatic hernia without obstruction or gangrene; M54.5 Low back pain; F17.210 Nicotine dependence, cigarettes, uncomplicated; R01.1 Cardiac murmur, unspecified; T45.515A Adverse effect of anticoagulants, initial encounter; D64.9 Anemia, unspecified; I71.2 Thoracic aortic aneurysm, without rupture; J44.9 Chronic obstructive pulmonary disease, unspecified; R91.8 Other nonspecific abnormal finding of lung field; R63.4 Abnormal weight loss
CPT/HCPCS: 36415; 36430; 70553-TC; 71010-TC; 71250-TC; 74178-TC; 75635-TC; 76000-TC; 78306-TC; 78452-TC; 80048; 80053; 80061; 82607; 82728; 82747; 83036; 83540; 83550; 83721; 83735; 84075; 84100; 84155; 84165; 84439; 84443; 85014; 85025; 85027; 85384; 85610; 85730; 86850; 86900; 86901; 86922; 87086; 88108; 88305-TC; 88341-TC; 93005; 93010; 93017; 93306-TC; 93971-TC; 94010; 94640; 94760; 94761; 97116-GP; 97161-GP; 99285-25; A9502; A9503; J1245; J1644; J1756; P9038; P9058; Q9967

== ENCOUNTER 2016-11-02 04:41 | Inpatient (IN) | payer OTHER ==
--- NOTE | 2016-11-02 05:52 | PDOC ---
History of Present Illness <Orlando Dunn - Last Filed: 11/02/16 09:22> - General History Source: Patient Exam Limitations: Other (memory difficulties) - History of Present Illness Initial Comments: This is a 76 yo female with h/o multiple falls, prior DVT (on Coumadin), current lung cancer, lumbar vertebral fracture earlier this year, and anemia who presents after a ground-level fall at home. She is able to provide some portions of her recent history, but does have memory loss of many details of events. She notes having recently started a water pill for her blood pressure, and she stood up from bed tonight to use the restroom when she slipped and fell to the floor. She denies any preceding dizziness, chest pain, shortness of breath, or other symptoms. She notes 10/10 pain to the left hip when moving the joint, but denies pain while at rest. She recalls recently having her INR checked to be too high and was instructed not to take her Coumadin for three days (she is on day 2 of no Coumadin). <Mary Lou Hyman - Last Filed: 11/02/16 16:49> - General Chief Complaint: Injury Stated Complaint: FALL Time Seen by Provider: 11/02/16 05:48 Past History <Orlando Dunn - Last Filed: 11/02/16 09:22> - Past Medical History Anemia: Yes Asthma: No Cancer: Yes (lung) Cardiac Disorders: No CVA: No COPD: No CHF: No DVT: Yes (on Coumadin) Dementia: No Diabetes: No GI Disorders: Yes (hernia) Disorders: No HTN: Yes Hypercholesterolemia: No Liver Disease: No Seizures: No Thyroid Disease: No Lung CA: Yes - Surgical History Abdominal Surgery: No Appendectomy: No Cardiac Surgery: No Cholecystectomy: No Lung Surgery: No Neurologic Surgery: No Orthopedic Surgery: No - Psycho/Social/Smoking Cessation Hx Anxiety: No Suicidal Ideation: No Smoking History: Never smoked Have you smoked in the past 12 months: No Number of Cigarettes Smoked Daily: 1 If you are a former smoker, when did you quit?: 2 months ago Information on smoking cessation initiated: No 'Breaking Loose' booklet given: 09/04/16 Hx Alcohol Use: No Drug/Substance Use Hx: No Substance Use Type: None Hx Substance Use Treatment: No <Mary Lou Hyman - Last Filed: 11/02/16 16:49> - Past Medical History Allergies/Adverse Reactions: Allergies Allergy/AdvReac Type Severity Reaction Status Date / Time No Known Allergies Allergy Verified 11/02/16 05:53 Home Medications: Ambulatory Orders Atorvastatin Ca [Lipitor] 10 mg PO HS 11/02/16 Dronabinol 2.5 mg PO BID 11/02/16 Furosemide [Lasix] 20 mg PO PRN PRN 11/02/16 Metoprolol Tartrate 12.5 mg PO BID 11/02/16 Mirtazapine 15 mg PO HS 11/02/16 Oxycodone HCl/Acetaminophen [Percocet 5-325 mg Tablet] 1 tab PO Q6H 11/02/16 Pantoprazole Sodium 40 mg PO DAILY 11/02/16 Potassium Chloride 10 meq PO DAILY 11/02/16 Tramadol HCl 50 mg PO TID 11/02/16 Warfarin Na [Coumadin] 2 mg PO DAILY 11/02/16 Review of Systems - Review of Systems Able to Perform ROS?: Yes Constitutional: No: Chills, Fever, Unexplained wgt Loss HEENTM: No: Nose Congestion, Throat Pain Respiratory: No: Cough, Shortness of Breath Cardiac (ROS): No: Chest Pain, Palpitations ABD/GI: No: Constipated, Diarrhea, Nausea, Vomiting : No: Burning, Dysuria Musculoskeletal: Yes: Other (right hip pain). No: Back Pain, Neck Pain Integumentary: No: Bruising, Rash Neurological: No: Headache, Numbness, Tingling Endocrine: No: Unexplained Weight Gain, Unexplained Weight Loss <HymanMary Lou - Last Filed: 11/02/16 16:49> *Physical Exam - Vital Signs Last Vital Signs Temp Pulse Resp BP Pulse Ox 98.0 F 56 L 14 156/104 98 11/02/16 04:58 11/02/16 04:58 11/02/16 04:58 11/02/16 04:58 11/02/16 08:03 <Orlando Dunn - Last Filed: 11/02/16 09:22> - Vital Signs Last Vital Signs Temp Pulse Resp BP Pulse Ox 98.0 F 56 L 14 156/104 95 11/02/16 04:58 11/02/16 04:58 11/02/16 04:58 11/02/16 04:58 11/02/16 04:58 - Physical Exam General Appearance: Yes: Nourished, Appropriately Dressed, Other (nontoxic appearing, pleasantly forgetful, converside, alert and oriented). No: Apparent Distress HEENT: positive: EOMI, Normal Voice, Hearing Grossly Normal. negative: Scleral Icterus (R), Scleral Icterus (L), Nasal Congestion Neck: positive: Trachea midline, Supple. negative: Tender, Rigid, Tender lateral, Tender midline Respiratory/Chest: positive: Lungs Clear, Normal Breath Sounds. negative: Respiratory Distress, Crackles, Rhonchi, Stridor, Wheezing Cardiovascular: positive: Regular Rhythm, Regular Rate. negative: Murmur Vascular Pulses: Femoral (R): 2+, Femoral (L): 2+, Dorsalis-Pedis (R): 1+, Doralis-Pedis (L): 1+ Comments:: Bilateral great toes with capillary refill <2 seconds Gastrointestinal/Abdominal: positive: Normal Bowel Sounds, Soft. negative: Tender, Organomegaly, Pulsatile Mass, Guarding Musculoskeletal: positive: Normal Inspection, Other (BLE with external rotation , left lateral hip tenderness to palpation) Extremity: positive: Normal Capillary Refill, Normal Inspection, Normal Range of Motion. negative: Tender, Cyanosis Integumentary: positive: Normal Color, Dry, Warm. 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 negative: Disoriented <Mary Lou Hyman - Last Filed: 11/02/16 16:49> ED Treatment Course - LABORATORY CBC & Chemistry Diagram: 11/02/16 06:43 11/02/16 06:43 - ADDITIONAL ORDERS Additional order review: Laboratory Results 11/02/16 11/02/16 11/02/16 08:50 06:43 06:43 INR 3.08 H PTT (Actin FS) 38.6 H D Sodium 137 Potassium 3.7 D Chloride 96 L Carbon Dioxide 31 Anion Gap 10 BUN 12 D Creatinine 0.6 D Creat Clearance w eGFR > 60 Random Glucose 104 D Calcium 8.9 Total Bilirubin 0.5 AST 15 D ALT 13 D Alkaline Phosphatase 200 H D Total Protein 7.2 Albumin 3.2 L Urine Color Ltyellow Urine Appearance Clear Urine pH 6.0 Urine Protein Negative Urine Glucose (UA) Negative Urine Ketones Trace H Urine Blood Negative Urine Nitrite Negative Urine Bilirubin Negative Urine Urobilinogen Negative Ur Leukocyte Esterase 2+ H D 11/02/16 06:43 RBC 4.12 MCV 79.7 L MCHC 32.4 RDW 17.2 H MPV 9.3 Neutrophils % 82.2 Lymphocytes % 7.2 L D Monocytes % 8.8 Eosinophils % 1.0 Basophils % 0.8 <Orlando Dunn - Last Filed: 11/02/16 09:22> - LABORATORY CBC & Chemistry Diagram: 11/02/16 06:43 11/02/16 06:43 <Mary Lou Hyman - Last Filed: 11/02/16 16:49> Medical Decision Making - Medical Decision Making 11/02/16 09:[address] Rodriguez Daughter states mother fell following starting Oxy <Orlando Dunn - Last Filed: 11/02/16 09:22> - Medical Decision Making 76 yo female with h/o DVT on Coumadin, lung CA presents s/p fall. Pt cannot remember details of the fall but at one point does endorse "passing out". Exam with BLE external rotation, left lateral hip ttp. Ordered are left and right hip & pelvis x-rays, head and c-spine CT without contrast. Reason for fall is unclear, as Pt states at one minute that she slipped and the next that she became dizzy and passed out. DDX includes mechanical fall, syncope/presyncope, weakness (e.g. anemia, electrolyte imbalance, etc), infection (e.g. REINALDO, PNA). Ordered are CBC, CMP, coags, UA with cx, EKG, CXR. Pt is signed out to excellent Dr. Orlando uDnn for further management. <Mary Lou Hyman - Last Filed: 11/02/16 16:49> *DC/Admit/Observation/Transfer <Orlando Dunn - Last Filed: 11/02/16 09:22> - Attestations Physician Attestion: 11/02/16 06:37 I, Dr. Mary Lou Hyman, attest that this document has been prepared under my direction and personally reviewed by me in its entirety. I further attest, that it accurately reflects all work, treatment, procedures and medical decision -making performed by me. <Mary Lou Hyman - Last Filed: 11/02/16 16:49> Diagnosis at time of Disposition: Hip pain, left Fall Qualifiers: Encounter type: initial encounter Qualified Code(s): W19.XXXA - Unspecified fall, initial encounter Syncope Qualifiers: Syncope type: unspecified Qualified Code(s): R55 - Syncope and collapse - Referrals
--- NOTE | 2016-11-02 06:01 | PDOC ---
Attending Attestation - HPI HPI: 11/02/16 06:08 The patient is a 76 year old female with a PMHx of HTN (on Coumadin), lung CA, recent DVT who presents to the ED s/p fall at home. Patient states she woke up to use the bathroom and fell while walking. There is questionable early dementia , but she reports that she felt dizzy just prior to falling. She also reports associated left hip pain. She believes she did not hit her head, but complained pain in the back of her head. She rates the hip pain a 10/10, but states the pain is only present when she is moving. She denies pain at rest. She also reports recent urinary retention for the past few days. She denies chest pain, SOB. She denies LOC. She denies numbness, tingling, or weakness. Denies allergies. <Juana Pena - Last Filed: 11/02/16 06:54> - Resident Resident Name: Mary Lou Hyman - ED Attending Attestation I have performed the following: I have examined & evaluated the patient, The case was reviewed & discussed with the resident, I agree w/resident's findings & plan, Exceptions are as noted - Physicial Exam PE: 11/02/16 06:20 *Physical Exam General Appearance: Yes: Appropriately Dressed. No: Apparent Distress, Intoxicated HEENT: positive: EOMI, MATT, Normal ENT Inspection, Normal Voice, TMs Normal, Pharynx Normal. negative: Pale Conjunctivae, Photophobia, Scleral Icterus (R), Scleral Icterus (L) Neck: positive: Trachea midline, Normal Thyroid, Supple. negative: Tender, Rigid, Carotid bruit, Stridor, Lymphadenopathy (R), Lymphadenopathy (L), Thyromegaly Respiratory/Chest: positive: Lungs Clear, Normal Breath Sounds. negative: Chest Tender, Respiratory Distress, Accessory Muscle Use, Labored Respiration, RES, Crackles, Rales, Rhonchi, Stridor, Wheezing, Dullness Cardiovascular: positive: Regular Rhythm, Regular Rate, S1, S2. negative: Edema , JVD, Murmur, Bradycardia, Tachycardia Vascular Pulses: Dorsalis-Pedis (R): 2+, Doralis-Pedis (L): 2+ Gastrointestinal/Abdominal: positive: Normal Bowel Sounds, Flat, Soft. negative : Tender, Organomegaly, Pulsatile Mass, Increased Bowel Sounds, Decreased BS, Distended, Guarding, Rebound, Hernia, Hepatomegaly, Spleenomegaly Lymphatic: negative: Adenopathy, Tenderness Musculoskeletal: positive: Tenderness to left hip region, no external rotation to either legs, decrease ROM secondary to pain negative: CVA Tenderness, Extremity: positive: Normal Capillary Refill, Normal Inspection, Normal Range of Motion, Pelvis Stable. negative: Tender, Pedal Edema, Swelling, Erythema Integumentary: positive: Normal Color, Dry, Warm. negative: Cyanotic, Erythema , Jaundice, Rash Neurologic: positive: sportspersons II-XII NML intact, Fully Oriented, Alert, Normal Mood/ Affect, Motor Strength 5/5. negative: EOM Palsy, Facial Droop, Sensory Deficit - Medical Decision Making 11/02/16 19:47 Pt admitted for continuation of care. <Darinel Soto - Last Filed: 11/02/16 19:48> Heart Score/ECG Review #1 11/02/16 06:54 Sinus tachycardia with frequent premature ventricular complexes at 128 bpm. <Juana Pena - Last Filed: 11/02/16 06:54>
[2016-11-02 06:55] LABS: BASOPHIL 0.8 % (0-2.0); MCH 25.8 pg (25.7-33.7); MCHC 32.4 g/dl (32.0-36.0); MEAN CELL VOLUME 79.7 fl (80-96); MEAN PLT VOLUME 9.3 fl (7.5-11.1); NEUTROPHILS 82.2 % (42.8-82.8); PLATELET COUNT 393 K/MM3 (134-434); RDW 17.2 % (11.6-15.6); WHITE BLOOD COUNT 10.1 K/mm3 (4.0-10.0)
--- NOTE | 2016-11-02 07:29 | PDOC ---
*Physical Exam - Vital Signs Last Vital Signs Temp Pulse Resp BP Pulse Ox 98.0 F 56 L 14 156/104 99 11/02/16 04:58 11/02/16 04:58 11/02/16 04:58 11/02/16 04:58 11/02/16 05:04 - Physical Exam General Appearance: Yes: Cachetic, Thin HEENT: positive: EOMI, MATT Respiratory/Chest: positive: Lungs Clear, Normal Breath Sounds. negative: Chest Tender Cardiovascular: positive: Tachycardia. negative: Regular Rhythm (occasional dropped beats), Regular Rate, JVD Gastrointestinal/Abdominal: negative: Tender, Distended, Guarding, Rebound Musculoskeletal: positive: Other (back tenderness, left hip tenderness, patient unable to turn or sit up without pain) Neurologic: positive: contracting executive II-XII NML intact, Fully Oriented, Alert, Normal Mood/ Affect ED Treatment Course - LABORATORY CBC & Chemistry Diagram: 11/03/16 06:00 11/03/16 06:00 - ADDITIONAL ORDERS Additional order review: 11/02/16 06:43 RBC 4.12 MCV 79.7 L MCHC 32.4 RDW 17.2 H MPV 9.3 Neutrophils % 82.2 Lymphocytes % 7.2 L D Monocytes % 8.8 Eosinophils % 1.0 Basophils % 0.8 - RADIOLOGY Radiograph Interpretation: [id number] RAD/HIP PELVIS-LEFT [id number] RAD/HIP PELVIS-RIGHT Pelvis and hips: HISTORY: Status post fall. Rule out fracture. Frontal view of the pelvis and neutral and frog-leg views of the hips bilaterally is provided. Pelvis: There is osteopenia which hinders evaluation for fracture. Overlying bowel gas and bowel contents obscures portions of the pelvis and sacrum. The hip joints appear symmetric bilaterally. There is some spurring of the superior aspect of the greater trochanters. Vascular calcifications are seen bilaterally consistent with atherosclerotic disease. There is a compression deformity of the superior endplate of L4 with associated endplate spurring, which appears stable compared to prior CT scan dated September 21, 2016. Left hip: There is osteopenia which hinders evaluation for fracture. The hip joints appear symmetric bilaterally. There is some spurring of the superior aspect of the greater trochanter. No acute fracture is seen. Right hip: There is osteopenia which hinders evaluation for fracture. The hip joints appear symmetric bilaterally. There is some spurring of the superior aspect of the greater trochanter. No acute fracture is seen. IMPRESSION: No acute fracture identified. See above. [id number] CT/CERVICAL SPINE CT W/O CONTR Reason for the study. Status post fall CT scan of the cervical spine C-. Direct axial images were obtained from the base of the skull through T2. The study was supplemented with computer-generated sagittal, coronal reconstruction images. No cervical collar is seen.. Findings. Accentuated cervical lordosis Chorionic curvature of the cervical spine is observed on the coronal reconstruction images. Demineralized osseous structures. No acute fracture, compression deformity, of subluxation is seen. Normal relationship of odontoid to anterior arch of C1. Predental space is not widened. Intact odontoid. Normal symmetrical articulation of atlantoaxial and occipito atlantal joints. Normal height of vertebral bodies. Disc space narrowing posteriorly at several levels. Anterior annular calcifications at C4-C5. Multilevel facet joint arthropathy. The intraspinal contents cannot be adequately evaluated due to the beam hardening artifacts. The airways are patent. No evidence of prevertebral soft tissue swelling. Vascular calcifications are noted. Emphysematous changes noted in the lung apices. No airspace opacities, or pneumothorax is seen.. Impression. No evidence of acute fracture, compression deformities, subluxation, prevertebral soft tissue swelling. [id number] CT/CERVICAL SPINE CT W/O CONTR Reason for the study. Status post fall CT scan of the cervical spine C-. Direct axial images were obtained from the base of the skull through T2. The study was supplemented with computer-generated sagittal, coronal reconstruction images. No cervical collar is seen.. Findings. Accentuated cervical lordosis Chorionic curvature of the cervical spine is observed on the coronal reconstruction images. Demineralized osseous structures. No acute fracture, compression deformity, of subluxation is seen. Normal relationship of odontoid to anterior arch of C1. Predental space is not widened. Intact odontoid. Normal symmetrical articulation of atlantoaxial and occipito atlantal joints. Normal height of vertebral bodies. Disc space narrowing posteriorly at several levels. Anterior annular calcifications at C4-C5. Multilevel facet joint arthropathy. The intraspinal contents cannot be adequately evaluated due to the beam hardening artifacts. The airways are patent. No evidence of prevertebral soft tissue swelling. Vascular calcifications are noted. Emphysematous changes noted in the lung apices. No airspace opacities, or pneumothorax is seen.. Impression. No evidence of acute fracture, compression deformities, subluxation, prevertebral soft tissue swelling. [id number] RAD/CHEST X-RAY PORTABLE* Status post fall. Single portable chest x-ray. Comparison study September 18, 2016. Right lower lobe mass is noted. The cardiac silhouette is not enlarged. Uncoiled thoracic aorta. No evidence of pneumonia, atelectasis, pleural effusion or pneumothorax. Demineralized osseous structures. Intact visualized also structures. Impression. Right lower lobe lung mass. No evidence of pneumonia, CHF, pleural effusion or pneumothorax. Progress Note - Progress Note Progress Note: 11/02/16 07:23 Patient is a stable 76 year old female signed over to me by Dr. Mary Lou Hyman c/o left hip pain with possible fracture and unclear reason for fall Arrived by ambulance from home s/p a ground level fall while ambulating, hitting head, mildly confused and unclear story Started workup for fractures and syncope Labs, XRays and CT head/cspine pending Monitor and reevaluate Evaluate results and consider obs for complete syncope workup Daughter stated that her mother had just started taking Oxy for her back pain which made patient light headed. Patient was ambulating to bathroom when she fell Fall was heard but not witnessed Patient was confused post fall, no apparent loss of consciousness Daughter: Allie ([phone]) Son: Tavon ([phone] Medical Decision Making - Medical Decision Making 11/02/16 07:29 76 year old female with lung cancer and history of a recent DVT on an anticoagulant s/p fall of unclear cause with reported trauma to the head and left hip pain. Ddx includes but is not limited to ICH, spinal fracture, hip fracture, syncope ( cardiac, infection, ), drug reaction, dehydration, metabolic abnormalities, dementia Workup started and pending 11/02/16 07:38 CT Head: No evidence of acute intracranial pathology. Chronic ischemic changes. 11/02/16 08:38 CT Cervical spine: No acute pathology 11/02/16 08:39 Hip/Pelvis xray: no acute fractures 11/02/16 08:41 CBC WBC 10.1 K/mm3 (4.0-10.0) H D 11/02/16 06:43 RBC 4.12 M/mm3 (3.60-5.2) 11/02/16 06:43 Hgb 10.6 GM/dL (10.7-15.3) L 11/02/16 06:43 Hct 32.8 % (32.4-45.2) 11/02/16 06:43 MCV 79.7 fl (80-96) L 11/02/16 06:43 MCH 25.8 pg (25.7-33.7) 11/02/16 06:43 MCHC 32.4 g/dl (32.0-36.0) 11/02/16 06:43 RDW 17.2 % (11.6-15.6) H 11/02/16 06:43 Plt Count 393 K/MM3 (134-434) 11/02/16 06:43 MPV 9.3 fl (7.5-11.1) 11/02/16 06:43 Neutrophils % 82.2 % (42.8-82.8) 11/02/16 06:43 Lymphocytes % 7.2 % (8-40) L D 11/02/16 06:43 Monocytes % 8.8 % (3.8-10.2) 11/02/16 06:43 Eosinophils % 1.0 % (0-4.5) 11/02/16 06:43 Basophils % 0.8 % (0-2.0) 11/02/16 06:43 Mild leukocytosis Mild anemia (up from baseline) CMP Sodium 137 mmol/L (136-145) 11/02/16 06:43 Potassium 3.7 mmol/L (3.5-5.1) D 11/02/16 06:43 Chloride 96 mmol/L (98-107) L 11/02/16 06:43 Carbon Dioxide 31 mmol/L (21-32) 11/02/16 06:43 Anion Gap 10 (8-16) 11/02/16 06:43 BUN 12 mg/dL (7-18) D 11/02/16 06:43 Creatinine 0.6 mg/dL (0.55-1.02) D 11/02/16 06:43 Creat Clearance w eGFR > 60 (>60) 11/02/16 06:43 Random Glucose 104 mg/dL (74-106) D 11/02/16 06:43 Calcium 8.9 mg/dL (8.5-10.1) 11/02/16 06:43 Total Bilirubin 0.5 mg/dL (0.2-1.0) 11/02/16 06:43 AST 15 U/L (15-37) D 11/02/16 06:43 ALT 13 U/L (12-78) D 11/02/16 06:43 Alkaline Phosphatase 200 U/L (45-117) H D 11/02/16 06:43 Total Protein 7.2 g/dl (6.4-8.2) 11/02/16 06:43 Albumin 3.2 g/dl (3.4-5.0) L 11/02/16 06:43 Mildly elevated alkaline phosphatase, grossly within normal limits Elevated INR (3.8), Supratherapeutic (>3) for patient on Coumadin for DVT treatment. 11/02/16 08:46 Urine Test Results Urine Color Ltyellow 11/02/16 08:50 Urine Appearance Clear 11/02/16 08:50 Urine pH 6.0 (5.0-8.0) 11/02/16 08:50 Urine Protein Negative (NEGATIVE) 11/02/16 08:50 Urine Glucose (UA) Negative (NEGATIVE) 11/02/16 08:50 Urine Ketones Trace (NEGATIVE) H 11/02/16 08:50 Urine Blood Negative (NEGATIVE) 11/02/16 08:50 Urine Nitrite Negative (NEGATIVE) 11/02/16 08:50 Urine Bilirubin Negative (NEGATIVE) 11/02/16 08:50 Ur Leukocyte Esterase 2+ (NEGATIVE) H D 11/02/16 08:50 Urine RBC 1 /hpf (0-3) 11/02/16 08:50 Urine WBC 14 /hpf (3-5) 11/02/16 08:50 Ur Epithelial Cells Rare /hpf (FEW) 11/02/16 08:50 Urine Bacteria Rare /hpf (NONE SEEN) 11/02/16 08:50 Urine Mucus Rare 11/02/16 08:50 2+ LE with 14 WBC is positive for UTI + leukocytosis, Rocephin 1g IV On reevaluation, patient is having significant back pain and appears dehydrated , Ordered 1 liter NS and Percocet 5/325 CXR: Right lower lobe lung mass. No evidence of pneumonia, CHF, pleural effusion or pneumothorax. 11/02/16 09:53 Assessment: 76 year old with cancer, dehydration, UTI and supratherapeutic INR Head ct with no acute changes, no acute pathology on CT spine, no fracture on hip imaging. Chest xray with baseline changes from lung cancer but no evidence of pneumonia, CHF, pleural effusion or pneumothorax Unclear cause of fall, possible medication but cannot r/o syncope Spoke with Dr. Massey who agree with having patient admitted overnight for hydration, abx for UTI, pain mgt and syncope w/o He suggested consideration of a lumbar xray if excessive pain persists Spoke with Dr. Rodriguez who agreed to admission *DC/Admit/Observation/Transfer Diagnosis at time of Disposition: Hip pain, left Fall Qualifiers: Encounter type: initial encounter Qualified Code(s): W19.XXXA - Unspecified fall, initial encounter Syncope Qualifiers: Syncope type: unspecified Qualified Code(s): R55 - Syncope and collapse - Discharge Dispostion Admit: Yes - Referrals - Patient Instructions - Post Discharge Activity - Attestations Physician Attestion: 11/02/16 10:33 I, Dr. Orlando Dunn, attest that this document has been prepared under my direction and personally reviewed by me in its entirety. I further attest, that it accurately reflects all work, treatment, procedures and medical decision -making performed by me.
[2016-11-02 07:41] LABS: INR 3.08 (0.82-1.09); PROTHROMBIN TIME (PATIENT) 34.7 SEC (9.98-11.88)
[2016-11-02 07:42] LABS: ALBUMIN 3.2 g/dl (3.4-5.0); ANION GAP 10 (8-16); CALCIUM 8.9 mg/dL (8.5-10.1); CO2 31 mmol/L (21-32); CREATININE 0.6 mg/dL (0.55-1.02); GLUCOSE,RANDOM 104 mg/dL (74-106); SGOT/AST 15 U/L (15-37); SGPT/ALT 13 U/L (12-78)
[2016-11-02 07:44] LABS: ACTIVATED PTT 38.6 SECONDS (26.9-34.4); ALK PHOS 200 U/L (45-117); BILIRUBIN,TOTAL 0.5 mg/dL (0.2-1.0); TOT PROT 7.2 g/dl (6.4-8.2)
[2016-11-02 09:02] LABS: URINE APPEARANCE CLEAR; URINE BILIRUBIN NEGATIVE (NEGATIVE); URINE BLOOD NEGATIVE (NEGATIVE); URINE COLOR LTYELLOW; URINE GLUCOSE (UA) NEGATIVE (NEGATIVE); URINE KETONE TRACE (NEGATIVE); URINE NITRITE NEGATIVE (NEGATIVE); URINE PROTEIN NEGATIVE (NEGATIVE); URINE UROBILINOGEN NEGATIVE mg/dL (0.2-1.0)
[2016-11-02 09:03] LABS: URINE LEUK ESTERASE 2+ (NEGATIVE)
[2016-11-02] MEDS ORDERED: CEFTRIAXONE 1 GM in DEXTROSE 5%-WATER - 50 ML IVPB ONE (09:45)
[2016-11-02] MEDS ORDERED: SODIUM CHLORIDE 1,000 ML IV STA (09:45)
[2016-11-02 09:58] LABS: URINE BACTERIA RARE /hpf (NONE SEEN); URINE MUCUS RARE; URINE RBC 1 /hpf (0-3); URINE WBC 14 /hpf (3-5)
[2016-11-02] MEDS ORDERED: CEFTRIAXONE 50 ML ONE (10:03)
--- NOTE | 2016-11-02 10:52 | HP ---
Admitting History and Physical - Primary Care Physician PCP: Quinn Massey - Admission Chief Complaint: I fell History of Present Illness: Ms Mcdonald is a 76 year old female who comes in with a fall. She says she has chronic back pain and was seen by Dr Massey who prescribed oxycodone. She says the pain is located mid back. Last night the pain was severe and she took one oxycodone. She stood up to go to the bathroom and fell. She thinks she passed out, she is unsure as she does not quite remember the episode. She thinks she hit her head but again is unsure. She does not know how long she was out but does not think it was for long. After that she was helped to bed. She continued to have back pain, but now says it is different from her chronic back pain. She says the chronic back pain is mid-right, now it is mid-left. It is a 10/10 and non-radiating. It is sharp in nature. She says she cannot move/stand/walk secondary to the pain. She presented today because the pain has not improved from last night. She denies fevers, chills, lightheadedness, dizziness, abdominal pain, nausea, vomiting, diarrhea, constipation, difficulty or pain on urination, or swelling. She says she is having chest pain that just started and some shortness of breath as well. History Source: Patient Limitations to Obtaining History: No Limitations - Past Medical History Cardiovascular: Yes: Deep Vein Thrombosis, HTN Pulmonary: Yes: COPD. No: O2 Dependent Gastrointestinal: Yes: GERD, Hiatal Hernia (large HH) Heme/Onc: Yes: Anemia Musculoskeletal: Yes: Chronic low back pain - Past Surgical History Past Surgical History: Yes: , Laminectomy - Smoking History Smoking history: Never smoked Have you smoked in the past 12 months: No Aproximately how many cigarettes per day: 1 If you are a former smoker, when did you quit?: 2 months ago - Alcohol/Substance Use Hx Alcohol Use: No History of Substance Use: reports: None - Social History Usual Living Arrangement: Yes: With Child ADL: Family Assistance History of Recent Travel: No Home Medications - Allergies Allergies/Adverse Reactions: Allergies Allergy/AdvReac Type Severity Reaction Status Date / Time No Known Allergies Allergy Verified 11/02/16 05:53 - Home Medications Home Medications: Ambulatory Orders Atorvastatin Ca [Lipitor] 10 mg PO HS 11/02/16 Dronabinol 2.5 mg PO BID 11/02/16 Furosemide [Lasix] 20 mg PO PRN PRN 11/02/16 Metoprolol Tartrate 12.5 mg PO BID 11/02/16 Mirtazapine 15 mg PO HS 11/02/16 Oxycodone HCl/Acetaminophen [Percocet 5-325 mg Tablet] 1 tab PO Q6H 11/02/16 Pantoprazole Sodium 40 mg PO DAILY 11/02/16 Potassium Chloride 10 meq PO DAILY 11/02/16 Tramadol HCl 50 mg PO TID 11/02/16 Warfarin Na [Coumadin] 2 mg PO DAILY 11/02/16 Family Disease History - Family Disease History Family Disease History: Heart Disease: Mother, Other: Father (cirrhosis) Review of Systems Findings/Remarks: Full review of systems obtained, as per HPI and otherwise negative Physical Examination Vital Signs: Vital Signs Temperature 98.2 F 11/02/16 10:26 Pulse Rate 113 H 11/02/16 10:26 Respiratory Rate 16 11/02/16 10:26 Blood Pressure 164/115 11/02/16 10:26 O2 Sat by Pulse Oximetry (%) 98 11/02/16 10:26 Constitutional: Yes: Mild Distress, Thin Eyes: Yes: Conjunctiva Clear, EOM Intact, PERRL HENT: Yes: Atraumatic, Normocephalic Cardiovascular: Yes: Tachycardia. No: Gallop, Murmur, Rub Respiratory: Yes: Regular, CTA Bilaterally. No: Rales, Rhonchi, Wheezes Gastrointestinal: Yes: Normal Bowel Sounds, Soft. No: Distention, Tenderness Extremities: Yes: WNL Edema: No Labs: CBC, BMP 11/02/16 06:43 11/02/16 06:43 Imaging - Results Chest X-ray: Report Reviewed, Image Reviewed Cat Scan: Report Reviewed EKG: Image Reviewed Problem List - Problems (1) Syncope Assessment/Plan: -questionable syncope, patient does not quite recall incident -admit to telemetry -consult cardiology -recent ECHO last admission, will not repeat -carotid ultrasound -fall risk precautions Code(s): R55 - SYNCOPE AND COLLAPSE Qualifiers: Syncope type: unspecified Qualified Code(s): R55 - Syncope and collapse (2) Back pain Assessment/Plan: -both acute and chronic back pain -pain control -consult pain management -obtain x-rays of lumbar and thoracic spine -? benefit from CT/MRI/bone scan considering history of lung cancer and possibility of mets -will d/w pain management and oncology -may benefit from long acting pain medications like ms contin or methadone Code(s): M54.9 - DORSALGIA, UNSPECIFIED Qualifiers: Back pain location: thoracic back pain (3) UTI (urinary tract infection) Assessment/Plan: -urinalysis equivocal, not convinced it is a UTI -received rocephin in the ED, will continue at the moment as if positive do not want to breed resistance -if cultures are NGTD, will stop Code(s): N39.0 - URINARY TRACT INFECTION, SITE NOT SPECIFIED (4) DVT (deep venous thrombosis) Assessment/Plan: -holding coumadin secondary to being supratherapeutic -recheck INR, restart tomorrow if therapeutic Code(s): I82.409 - ACUTE EMBOLISM AND THOMBOS UNSP DEEP VN UNSP LOWER EXTREMITY Qualifiers: DVT location: lower extremity Affected thrombotic vein of extremity: unspecified vein of extremity Chronicity: unspecified Laterality: unspecified laterality Qualified Code(s): I82.409 - Acute embolism and thrombosis of unspecified deep veins of unspecified lower extremity (5) Dehydration Assessment/Plan: -hydrate with IVF Code(s): E86.0 - DEHYDRATION (6) Elevated INR Assessment/Plan: -as above Code(s): R79.1 - ABNORMAL COAGULATION PROFILE (7) HTN (hypertension) Assessment/Plan: -continue metoprolol, but will increase secondary to tachycardia Code(s): I10 - ESSENTIAL (PRIMARY) HYPERTENSION (8) Lung cancer Assessment/Plan: -outpatient follow up Code(s): C34.90 - MALIGNANT NEOPLASM OF UNSP PART OF UNSP BRONCHUS OR LUNG Qualifiers: Laterality: right Lung location: lower lobe of lung Qualified Code(s): C34.31 - Malignant neoplasm of lower lobe, right bronchus or lung (9) Aneurysm of left popliteal artery Assessment/Plan: -s/p intervention Code(s): I72.4 - ANEURYSM OF ARTERY OF LOWER EXTREMITY (10) Chest pain Assessment/Plan: -very low suspicion for ACS -had stress test done last month -cardiology following Code(s): R07.9 - CHEST PAIN, UNSPECIFIED
[2016-11-02] MEDS ORDERED: ONDANSETRON 4 MG/2 ML VIAL IVPB PRN (11:07)
[2016-11-02] MEDS ORDERED: SODIUM CHLORIDE 1,000 ML IV SCH (11:15)
--- NOTE | 2016-11-02 11:52 | EKG ---
Test Reason : Blood Pressure : / mmHG Vent. Rate : 128 BPM Atrial Rate : 128 BPM P-R Int : 164 ms QRS Dur : 070 ms QT Int : 332 ms P-R-T Axes : 101 -27 074 degrees QTc Int : 484 ms POOR DATA QUALITY, INTERPRETATION MAY BE ADVERSELY AFFECTED SINUS TACHYCARDIA WITH FREQUENT PREMATURE VENTRICULAR COMPLEXES NONSPECIFIC T WAVE ABNORMALITY ABNORMAL ECG WHEN COMPARED WITH ECG OF 11-SEP-2016 09:12, PREMATURE VENTRICULAR COMPLEXES ARE NOW PRESENT PREMATURE ATRIAL COMPLEXES ARE NO LONGER PRESENT NONSPECIFIC T WAVE ABNORMALITY NOW EVIDENT IN ANTERIOR LEADS Confirmed by HAM HAYWOOD MD ([id number]) on 11/02/2016 11:52:03 AM Referred By: Confirmed By:HAM HAYWOOD MD
[2016-11-02] MEDS ORDERED: METOPROLOL TARTRATE 25 MG TABLET (FP) PO ONE ×2 (14:30→17:30)
[2016-11-02] MEDS: morphine CARPU-JECT 2 MG/1 ML DISP.SYRIN IVPUSH PRN ×2 (15:39→20:06)
[2016-11-02 16:53] VITALS: BMI 18.8
[2016-11-02] MEDS ORDERED: METOPROLOL TARTRATE 25 MG TABLET (FP) ONE (17:30)
[2016-11-02] MEDS: LACTOBACILLUS ACIDOPHILUS 1 EACH TAB (FP) PO SCH (17:39)
[2016-11-02] MEDS ORDERED: amLODIPine BESYLATE 5 MG TABLET (FP) PO ONE (20:15)
--- NOTE | 2016-11-02 21:24 | HOSP ---
Physical Examination Vital Signs: Vital Signs Temperature 99.1 F 11/02/16 16:19 Pulse Rate 108 H 11/02/16 16:19 Respiratory Rate 20 11/02/16 16:19 Blood Pressure 151/113 11/02/16 16:19 O2 Sat by Pulse Oximetry (%) 95 11/02/16 16:19 Hospitalist Encounter Assessment: Last Vital Signs Temp Pulse Resp BP Pulse Ox 99.1 F 108 H 20 151/113 95 11/02/16 16:19 11/02/16 16:19 11/02/16 16:19 11/02/16 16:19 11/02/16 16:19 CBC, BMP 11/02/16 06:43 11/02/16 06:43 I was paged by nurse for chest pain. The pain is left mid sternal line , localized and non radiating, 5/10, reproducible pain when I press on the rib. she claimed that she fell down on that side yesterday. Trop was ordered came back neg EKG did not show any ST,T wave changes. She has hypertensive urgency 181/120 and was given Norvasc [address] Haq recommendations.The BP went down to 151/113 Pain is improved with morphine and went down to 3/10 . Visit type - Emergency Visit Emergency Visit: No - New Patient This patient is new to me today: Yes Date on this admission: 11/16/16 - Critical Care Critical Care patient: No
[2016-11-02] MEDS: ATORVASTATIN CA 10 MG TABLET (FP) PO SCH (21:47)
[2016-11-02] MEDS: METOPROLOL TARTRATE 25 MG TABLET (FP) PO SCH (21:47)
[2016-11-02] MEDS: MIRTAZAPINE 15 MG TABLET (FP) PO SCH (21:47)
[2016-11-02] MEDS: DRONABINOL 2.5 MG CAPSULE PO SCH (21:47)
[2016-11-02] MEDS ORDERED: METOPROLOL TARTRATE 25 MG TABLET (FP) PO SCH (22:00)
[2016-11-02] MEDS: ACETAMINOPHEN 325 MG TABLET (FP) PO PRN (23:10)
[2016-11-02] MEDS ORDERED: hydrALAZINE HCL 20 MG/ML VIAL IVPUSH PRN (23:28)
[2016-11-02] MEDS ORDERED: hydrALAZINE HCL 20 MG/ML VIAL ONE (23:30)
[2016-11-03] MEDS: morphine CARPU-JECT 2 MG/1 ML DISP.SYRIN IVPUSH PRN ×2 (01:10→15:38)
[2016-11-03 07:05] LABS: BASOPHIL 0.4 % (0-2.0); EOSINOPHIL 0.1 % (0-4.5); MCHC 32.5 g/dl (32.0-36.0); MEAN PLT VOLUME 9.3 fl (7.5-11.1); NEUTROPHILS 88.7 % (42.8-82.8); PLATELET COUNT 396 K/MM3 (134-434); RDW 17.4 % (11.6-15.6); WHITE BLOOD COUNT 12.7 K/mm3 (4.0-10.0)
[2016-11-03 07:44] LABS: INR 2.42 (0.82-1.09); PROTHROMBIN TIME (PATIENT) 27.1 SEC (9.98-11.88)
[2016-11-03 08:51] LABS: ANION GAP 14 (8-16); CALCIUM 8.6 mg/dL (8.5-10.1); CO2 24 mmol/L (21-32); CREATININE 0.6 mg/dL (0.55-1.02); GLUCOSE,RANDOM 95 mg/dL (74-106); MAGNESIUM 1.9 mg/dL (1.8-2.4); PHOSPHOROUS 3.7 mg/dL (2.5-4.9)
[2016-11-03 08:56] LABS: TROPONIN I < 0.02 ng/ml (0.00-0.05)
--- NOTE | 2016-11-03 09:19 | EKG ---
Test Reason : Blood Pressure : / mmHG Vent. Rate : 084 BPM Atrial Rate : 084 BPM P-R Int : 186 ms QRS Dur : 070 ms QT Int : 418 ms P-R-T Axes : 024 -29 031 degrees QTc Int : 493 ms SINUS RHYTHM WITH PREMATURE ATRIAL COMPLEXES PROLONGED QT ABNORMAL ECG Confirmed by LIZ AYALA MD ([id number]) on 11/03/2016 9:19:28 AM Referred By: Confirmed By:LIZ AYALA MD
[2016-11-03] MEDS ORDERED: SODIUM CHLORIDE 250 ML IV STA (09:56)
[2016-11-03] MEDS ORDERED: CEFTRIAXONE 50 ML IVPB SCH (10:00)
[2016-11-03] MEDS: METOPROLOL TARTRATE 25 MG TABLET (FP) PO SCH ×2 (10:00→21:02)
[2016-11-03] MEDS: PANTOPRAZOLE 40 MG TABLET (FP) PO SCH (10:14)
[2016-11-03] MEDS: LACTOBACILLUS ACIDOPHILUS 1 EACH TAB (FP) PO SCH (10:15)
[2016-11-03] MEDS: DRONABINOL 2.5 MG CAPSULE PO SCH ×2 (10:23→21:19)
--- NOTE | 2016-11-03 12:07 | CON.CARD ---
Cardiology Consult (text) - Consultation Consultation Note: Chief Complaint: s/p fall History of Present Illness: 76 yo female presents s/p fall History of hypertension and DVT on AC Has chronic pain and recently started using narcotic and thinks this made her weak/lethargic which led her to fall at home when standing up to go to bathroom. No prodrome sxs. No complaints of sob, cp, palps, pnd, orthopnea, le edema. No hx of frequent falls. - History Source History Provided By: Patient, Medical Record - Past Medical History Cardio/Vascular: Yes: Deep Vein Thrombosis, HTN Gastrointestinal: Yes: GERD, Hiatal Hernia (large HH) ...: No Musculoskeletal: Yes: Chronic low back pain - Past Surgical History Past Surgical History: Yes: , Laminectomy - Alcohol/Substance Use Hx Alcohol Use: No History of Substance Use: reports: None - Smoking History Known tobacco smoker (1PPD for 40 years) - Social History ADL: Family Assistance History of Recent Travel: No Home Medications - Allergies Allergies/Adverse Reactions: Allergies Allergy/AdvReac Type Severity Reaction Status Date / Time No Known Allergies Allergy Verified 11/02/16 05:53 - Home Medications Home Medications: Ambulatory Orders Ambulatory Orders Atorvastatin Ca [Lipitor] 10 mg PO HS 11/02/16 Dronabinol 2.5 mg PO BID 11/02/16 Furosemide [Lasix] 20 mg PO PRN PRN 11/02/16 Metoprolol Tartrate 12.5 mg PO BID 11/02/16 Mirtazapine 15 mg PO HS 11/02/16 Oxycodone HCl/Acetaminophen [Percocet 5-325 mg Tablet] 1 tab PO Q6H 11/02/16 Pantoprazole Sodium 40 mg PO DAILY 11/02/16 Potassium Chloride 10 meq PO DAILY 11/02/16 Tramadol HCl 50 mg PO TID 11/02/16 Warfarin Na [Coumadin] 3.75 mg PO DAILY 11/02/16 Family Disease History - Family Disease History Family Disease History: Heart Disease: Mother, Other: Father (cirrhosis) Review of Systems - Review of Systems per hpi; no nvd, fever, [place], vision changes, cough, nasal congestion, hematuria, gib, dysuria Physical Exam Vital Signs: Vital Signs Period Temp Pulse Resp BP Sys/Wu Pulse Ox Last 24 Hr 97.7 F-99.4 F 72-108 16-20 83-181/63-114 95-98 nad no jvd rrr s1s2 no mrg cta bl nl eff aaox3 no le e/c/c abd nd nt pos bs no jaundice diaphoresis +dp pt, no carotid bruits Laboratory Last Values WBC 12.7 K/mm3 (4.0-10.0) H 11/03/16 06:00 RBC 3.98 M/mm3 (3.60-5.2) 11/03/16 06:00 Hgb 10.3 GM/dL (10.7-15.3) L 11/03/16 06:00 Hct 31.8 % (32.4-45.2) L 11/03/16 06:00 MCV 80.0 fl (80-96) 11/03/16 06:00 MCH 26.0 pg (25.7-33.7) 11/03/16 06:00 MCHC 32.5 g/dl (32.0-36.0) 11/03/16 06:00 RDW 17.4 % (11.6-15.6) H 11/03/16 06:00 Plt Count 396 K/MM3 (134-434) 11/03/16 06:00 MPV 9.3 fl (7.5-11.1) 11/03/16 06:00 Neutrophils % 88.7 % (42.8-82.8) H 11/03/16 06:00 Lymphocytes % 5.6 % (8-40) L D 11/03/16 06:00 Monocytes % 5.2 % (3.8-10.2) 11/03/16 06:00 Eosinophils % 0.1 % (0-4.5) D 11/03/16 06:00 Basophils % 0.4 % (0-2.0) 11/03/16 06:00 INR 2.42 (0.82-1.09) H 11/03/16 06:00 PTT (Actin FS) 38.6 SECONDS (26.9-34.4) H D 11/02/16 06:43 Sodium 132 mmol/L (136-145) L 11/03/16 06:00 Potassium 3.7 mmol/L (3.5-5.1) 11/03/16 06:00 Chloride 94 mmol/L (98-107) L 11/03/16 06:00 Carbon Dioxide 24 mmol/L (21-32) D 11/03/16 06:00 Anion Gap 14 (8-16) 11/03/16 06:00 BUN 17 mg/dL (7-18) D 11/03/16 06:00 Creatinine 0.6 mg/dL (0.55-1.02) 11/03/16 06:00 Creat Clearance w eGFR > 60 (>60) 11/02/16 06:43 Random Glucose 95 mg/dL (74-106) 11/03/16 06:00 Lactic Acid 1.5 mmol/L (0.4-2.0) 11/02/16 11:27 Calcium 8.6 mg/dL (8.5-10.1) 11/03/16 06:00 Phosphorus 3.7 mg/dL (2.5-4.9) 11/03/16 06:00 Magnesium 1.9 mg/dL (1.8-2.4) 11/03/16 06:00 Total Bilirubin 0.5 mg/dL (0.2-1.0) 11/02/16 06:43 AST 15 U/L (15-37) D 11/02/16 06:43 ALT 13 U/L (12-78) D 11/02/16 06:43 Alkaline Phosphatase 200 U/L (45-117) H D 11/02/16 06:43 Creatine Kinase 45 IU/L (26-192) 11/03/16 06:00 Troponin I < 0.02 ng/ml (0.00-0.05) 11/03/16 06:00 Total Protein 7.2 g/dl (6.4-8.2) 11/02/16 06:43 Albumin 3.2 g/dl (3.4-5.0) L 11/02/16 06:43 Urine Color Ltyellow 11/02/16 08:50 Urine Appearance Clear 11/02/16 08:50 Urine pH 6.0 (5.0-8.0) 11/02/16 08:50 Ur Specific [place] 1.015 (1.005-1.025) 11/02/16 08:50 Urine Protein Negative (NEGATIVE) 11/02/16 08:50 Urine Glucose (UA) Negative (NEGATIVE) 11/02/16 08:50 Urine Ketones Trace (NEGATIVE) H 11/02/16 08:50 Urine Blood Negative (NEGATIVE) 11/02/16 08:50 Urine Nitrite Negative (NEGATIVE) 11/02/16 08:50 Urine Bilirubin Negative (NEGATIVE) 11/02/16 08:50 Urine Urobilinogen Negative mg/dL (0.2-1.0) 11/02/16 08:50 Ur Leukocyte Esterase 2+ (NEGATIVE) H D 11/02/16 08:50 Urine RBC 1 /hpf (0-3) 11/02/16 08:50 Urine WBC 14 /hpf (3-5) 11/02/16 08:50 Ur Epithelial Cells Rare /hpf (FEW) 11/02/16 08:50 Urine Bacteria Rare /hpf (NONE SEEN) 11/02/16 08:50 Urine Mucus Rare 11/02/16 08:50 Echo 09/2016: nl lv/rv mild mr/tr, rvsp 30-40. mibi 09/2016: no ischemia/scar, nl lvef CXR: no chf, chronic RLL mass ecg 11/02/16: sinus tachy, sinus arrhythmia, pvcs, nl intervals, no ischemic changes carotids 10/2016: mod diz, no sig stenosis tele: sinus tachy, pvcs, pacs Assessment/Plan fall, possible syncope: -based on description possibly related to narcotic use -check orthostatics -echo, mibi, carotid, ecg, tele unremarkable -no signs acs, ce's neg x2 -consider outpt event monitor if recurs popliteal pseudoaneurysm - s/p Aortogram, LLE angiogram, popliteal artery covered stent placement, with DCB angioplasty 09/13. 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 Discussed with vascular then and was OK to defer plavix -cont statin -tobacco cessation. thoracic descending aorta aneurysm (5.1 cm)/AAA - thrombus overlying aneurysms, extensive atherosclerotic diseae - cont statin, bb, smoking cessation. No antiplatelet as she is on AC - recommend ongoing outpatient follow up. DVT with malignancy -cont coumadin + tobacco - smoking cessation counseling htn - labile here, likely due to pain - today bp on low side which is her usual - can try to resume her home lopressor 12.5 bid Lung mass - neuroendocrine tumor, per onc
--- NOTE | 2016-11-03 13:04 | PN ---
Progress Note, Physician Chief Complaint: Ms Mcdonald says she is still having back pain. No cp, sob, n/v - Current Medication List Current Medications: Active Medications Acetaminophen (Tylenol -) 650 mg PO Q4H PRN PRN Reason: FEVER OR PAIN Last Admin: 11/02/16 23:10 Dose: 325 mg Atorvastatin Calcium (Lipitor -) 10 mg PO HS [facility] Last Admin: 11/02/16 21:47 Dose: 10 mg Dronabinol (Marinol -) 2.5 mg PO BID [facility] Last Admin: 11/03/16 10:23 Dose: 2.5 mg Lactobacillus Acidophilus (Bacid -) 1 tab PO DAILY [facility] Last Admin: 11/03/16 10:15 Dose: 1 tab Metoprolol Tartrate (Lopressor -) 12.5 mg PO BID [facility] Mirtazapine (Remeron -) 15 mg PO HS [facility] Last Admin: 11/02/16 21:47 Dose: 15 mg Morphine Sulfate (Morphine Injection -) 1 mg IVPUSH Q4H PRN PRN Reason: PAIN Last Admin: 11/03/16 01:10 Dose: 1 mg Ondansetron HCl (Zofran Injection) 4 mg IVPB Q6H PRN PRN Reason: NAUSEA Oxycodone HCl (Roxicodone -) 5 mg PO Q4H PRN PRN Reason: PAIN Pantoprazole Sodium (Protonix -) 40 mg PO DAILY [facility] Last Admin: 11/03/16 10:14 Dose: 40 mg - Objective Vital Signs: Vital Signs Temperature 99.4 F 11/03/16 09:00 Pulse Rate 83 11/03/16 09:55 Respiratory Rate 20 11/03/16 10:30 Blood Pressure 102/65 11/03/16 10:30 O2 Sat by Pulse Oximetry (%) 96 11/03/16 09:00 Constitutional: Yes: No Distress, Calm, Thin Cardiovascular: Yes: Regular Rate and Rhythm. No: Gallop, Murmur, Rub Respiratory: Yes: Regular, CTA Bilaterally. No: Rales, Rhonchi, Wheezes Gastrointestinal: Yes: Normal Bowel Sounds, Soft. No: Distention, Tenderness Extremities: Yes: WNL Edema: No Labs: CBC, BMP 11/03/16 06:00 11/03/16 06:00 INR, PTT INR 2.42 (0.82-1.09) H 11/03/16 06:00 Problem List - Problems (1) Syncope Code(s): R55 - SYNCOPE AND COLLAPSE Qualifiers: Syncope type: unspecified Qualified Code(s): R55 - Syncope and collapse (2) Back pain Code(s): M54.9 - DORSALGIA, UNSPECIFIED Qualifiers: Back pain location: thoracic back pain (3) UTI (urinary tract infection) Code(s): N39.0 - URINARY TRACT INFECTION, SITE NOT SPECIFIED (4) DVT (deep venous thrombosis) Code(s): I82.409 - ACUTE EMBOLISM AND THOMBOS UNSP DEEP VN UNSP LOWER EXTREMITY Qualifiers: DVT location: lower extremity Affected thrombotic vein of extremity: unspecified vein of extremity Chronicity: unspecified Laterality: unspecified laterality Qualified Code(s): I82.409 - Acute embolism and thrombosis of unspecified deep veins of unspecified lower extremity (5) Dehydration Code(s): E86.0 - DEHYDRATION (6) Elevated INR Code(s): R79.1 - ABNORMAL COAGULATION PROFILE (7) HTN (hypertension) Code(s): I10 - ESSENTIAL (PRIMARY) HYPERTENSION (8) Lung cancer Code(s): C34.90 - MALIGNANT NEOPLASM OF UNSP PART OF UNSP BRONCHUS OR LUNG Qualifiers: Laterality: right Lung location: lower lobe of lung Qualified Code(s): C34.31 - Malignant neoplasm of lower lobe, right bronchus or lung (9) Aneurysm of left popliteal artery Code(s): I72.4 - ANEURYSM OF ARTERY OF LOWER EXTREMITY (10) Chest pain Code(s): R07.9 - CHEST PAIN, UNSPECIFIED Assessment/Plan (1) Syncope Assessment/Plan: -appreciate cardiology assistance -suspect vaso-vagal -work up negative -PT following Code(s): R55 - SYNCOPE AND COLLAPSE Qualifiers: Syncope type: unspecified Qualified Code(s): R55 - Syncope and collapse (2) Back pain Assessment/Plan: -continue pain control -PT Code(s): M54.9 - DORSALGIA, UNSPECIFIED Qualifiers: Back pain location: thoracic back pain (3) UTI (urinary tract infection) Assessment/Plan: -urine cultures NGTD -stop rocephin Code(s): N39.0 - URINARY TRACT INFECTION, SITE NOT SPECIFIED (4) DVT (deep venous thrombosis) Assessment/Plan: -restart coumadin Code(s): I82.409 - ACUTE EMBOLISM AND THOMBOS UNSP DEEP VN UNSP LOWER EXTREMITY Qualifiers: DVT location: lower extremity Affected thrombotic vein of extremity: unspecified vein of extremity Chronicity: unspecified Laterality: unspecified laterality Qualified Code(s): I82.409 - Acute embolism and thrombosis of unspecified deep veins of unspecified lower extremity (5) Dehydration Assessment/Plan: -resolved Code(s): E86.0 - DEHYDRATION (6) Elevated INR Assessment/Plan: -resolved Code(s): R79.1 - ABNORMAL COAGULATION PROFILE (7) HTN (hypertension) Assessment/Plan: -continue metoprolol Code(s): I10 - ESSENTIAL (PRIMARY) HYPERTENSION (8) Lung cancer Assessment/Plan: -? hospice Code(s): C34.90 - MALIGNANT NEOPLASM OF UNSP PART OF UNSP BRONCHUS OR LUNG Qualifiers: Laterality: right Lung location: lower lobe of lung Qualified Code(s): C34.31 - Malignant neoplasm of lower lobe, right bronchus or lung (9) Aneurysm of left popliteal artery Assessment/Plan: -s/p intervention Code(s): I72.4 - ANEURYSM OF ARTERY OF LOWER EXTREMITY (10) Chest pain Assessment/Plan: -very low suspicion for ACS -had stress test done last month -cardiology following Code(s): R07.9 - CHEST PAIN, UNSPECIFIED
[2016-11-03] MEDS: ACETAMINOPHEN 325 MG TABLET (FP) PO PRN (17:07)
[2016-11-03] MEDS ORDERED: WARFARIN NA 2 MG TABLET (UD) PO ONE (18:00)
[2016-11-03] MEDS: ATORVASTATIN CA 10 MG TABLET (FP) PO SCH (21:19)
[2016-11-03] MEDS: MIRTAZAPINE 15 MG TABLET (FP) PO SCH (21:19)
[2016-11-04 07:58] LABS: BASOPHIL 0.7 % (0-2.0); EOSINOPHIL 2.1 % (0-4.5); MCH 26.1 pg (25.7-33.7); MCHC 32.7 g/dl (32.0-36.0); MEAN CELL VOLUME 79.8 fl (80-96); MEAN PLT VOLUME 9.4 fl (7.5-11.1); NEUTROPHILS 78.5 % (42.8-82.8); PLATELET COUNT 328 K/MM3 (134-434); WHITE BLOOD COUNT 9.8 K/mm3 (4.0-10.0)
[2016-11-04 08:18] LABS: ANION GAP 10 (8-16); CALCIUM 8.2 mg/dL (8.5-10.1); CO2 27 mmol/L (21-32); GLUCOSE,RANDOM 93 mg/dL (74-106); MAGNESIUM 2.2 mg/dL (1.8-2.4); PHOSPHOROUS 3.6 mg/dL (2.5-4.9)
--- NOTE | 2016-11-04 08:22 | PN ---
Progress Note, Physician Chief Complaint: syncope History of Present Illness: c/o signif pain in back where hit herself when fell; hurts when moves, cannot get out of bed no cp, sob, palpitations, presyncope - Current Medication List Current Medications: Active Medications Acetaminophen (Tylenol -) 650 mg PO Q4H PRN PRN Reason: FEVER OR PAIN Last Admin: 11/03/16 17:07 Dose: 650 mg Atorvastatin Calcium (Lipitor -) 10 mg PO HS [facility] Last Admin: 11/03/16 21:19 Dose: 10 mg Dronabinol (Marinol -) 2.5 mg PO BID [facility] Last Admin: 11/03/16 21:19 Dose: 2.5 mg Lactobacillus Acidophilus (Bacid -) 1 tab PO DAILY [facility] Last Admin: 11/03/16 10:15 Dose: 1 tab Metoprolol Tartrate (Lopressor -) 12.5 mg PO BID [facility] Last Admin: 11/03/16 21:02 Dose: Not Given Mirtazapine (Remeron -) 15 mg PO HS [facility] Last Admin: 11/03/16 21:19 Dose: 15 mg Morphine Sulfate (Morphine Injection -) 1 mg IVPUSH Q4H PRN PRN Reason: PAIN Last Admin: 11/03/16 15:38 Dose: 1 mg Ondansetron HCl (Zofran Injection) 4 mg IVPB Q6H PRN PRN Reason: NAUSEA Oxycodone HCl (Roxicodone -) 5 mg PO Q4H PRN PRN Reason: PAIN Pantoprazole Sodium (Protonix -) 40 mg PO DAILY [facility] Last Admin: 11/03/16 10:14 Dose: 40 mg - Objective Vital Signs: Vital Signs Temperature 97.5 F L 11/04/16 02:00 Pulse Rate 104 H 11/04/16 02:00 Respiratory Rate 20 11/04/16 02:00 Blood Pressure 111/73 11/04/16 02:00 O2 Sat by Pulse Oximetry (%) 96 11/03/16 19:31 Constitutional: Yes: Well Nourished, No Distress, Calm Cardiovascular: Yes: Regular Rate and Rhythm, S1, S2. No: JVD, Gallop, Murmur Respiratory: Yes: Regular, CTA Bilaterally. No: Accessory Muscle Use, Rales, Wheezes Extremities: No: Cold Edema: No Neurological: Yes: Alert, Oriented Psychiatric: No: Agitated Labs: CBC, BMP 11/04/16 06:00 INR, PTT INR 2.42 (0.82-1.09) H 11/03/16 06:00 - ....Imaging EKG: Other (tele: NSR-->this am sinus tach with freq APCs and PVCs) Assessment/Plan Echo 09/2016: nl lv/rv mild mr/tr, rvsp 30-40. mibi 09/2016: no ischemia/scar, nl lvef ecg 11/02/16: sinus tachy, sinus arrhythmia, pvcs, nl intervals, no ischemic changes carotids 10/2016: mod diz, no sig stenosis Assessment/Plan fall, possible syncope: -based on description possibly related to narcotic use -labile BPs here: from 80s/60s to 180/110s--? related to hormonal influences from neuroendocrine lung tumor? -cannot stand for orthostatics (back and leg pain s/p trauma) -echo, mibi, carotid, ecg -no signs acs, ce's neg x2 -cont tele--consider outpt event monitor if recurs popliteal pseudoaneurysm -09/23 s/p Aortogram, LLE angiogram, popliteal artery covered stent placement, with DCB angioplasty. 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 Discussed with vascular then and was OK to defer plavix -cont statin -tobacco cessation. thoracic descending aorta aneurysm (5.1 cm)/AAA - thrombus overlying aneurysms, extensive atherosclerotic disease - cont statin, bb, smoking cessation. No antiplatelet as she is on AC - recommend ongoing outpatient follow up. DVT with malignancy -cont coumadin + tobacco - smoking cessation counseling htn - labile here, likely due to pain (accompanied by sinus tach as well) - check TSH - continuing home lopressor 12.5 bid for now (with hold parameters given) - observe BP trend Lung mass - neuroendocrine tumor, per onc
[2016-11-04 08:31] LABS: INR 2.4 (0.82-1.09); PROTHROMBIN TIME (PATIENT) 26.9 SEC (9.98-11.88)
[2016-11-04] MEDS: METOPROLOL TARTRATE 25 MG TABLET (FP) PO SCH ×3 (09:19→21:09)
[2016-11-04] MEDS: morphine CARPU-JECT 2 MG/1 ML DISP.SYRIN IVPUSH PRN (09:19)
[2016-11-04] MEDS: LACTOBACILLUS ACIDOPHILUS 1 EACH TAB (FP) PO SCH (09:19)
[2016-11-04] MEDS: DRONABINOL 2.5 MG CAPSULE PO SCH ×2 (09:19→21:09)
[2016-11-04] MEDS: PANTOPRAZOLE 40 MG TABLET (FP) PO SCH (09:19)
[2016-11-04 10:37] LABS: THYROID STIMULATING HORMONE 0.73 uIU/ml (0.358-3.74)
--- NOTE | 2016-11-04 13:55 | CONSULT ---
Consult Consult Specialty:: back pain Referred by:: dr kapadia Reason for Consultation:: back pain - History of Present Illness Chief Complaint: back pain History of Present Illness: 76 year old woman with a history of severe back pain. She was seen by dr melissa who did a kyphoplasty on her 6 months ago for acute fxs. she continues to have pain and fell which exacerbated her pain. no recent MRIs were performed since the last kyphoplasty. pain score 9/10 when standing and walking - Past Medical History Cardio/Vascular: Yes: Deep Vein Thrombosis, HTN Pulmonary: Yes: COPD. No: O2 Dependent Gastrointestinal: Yes: GERD, Hiatal Hernia (large HH) Musculoskeletal: Yes: Chronic low back pain - Past Surgical History Past Surgical History: Yes: , Laminectomy - Alcohol/Substance Use Hx Alcohol Use: No History of Substance Use: reports: None - Smoking History Smoking history: Never smoked Have you smoked in the past 12 months: No Aproximately how many cigarettes per day: 1 If you are a former smoker, when did you quit?: 2 months ago - Social History ADL: Family Assistance History of Recent Travel: No Home Medications - Allergies Allergies/Adverse Reactions: Allergies Allergy/AdvReac Type Severity Reaction Status Date / Time No Known Allergies Allergy Verified 11/02/16 05:53 - Home Medications Home Medications: Ambulatory Orders Atorvastatin Ca [Lipitor] 10 mg PO HS 11/02/16 Dronabinol 2.5 mg PO BID 11/02/16 Furosemide [Lasix] 20 mg PO PRN PRN 11/02/16 Metoprolol Tartrate 12.5 mg PO BID 11/02/16 Mirtazapine 15 mg PO HS 11/02/16 Oxycodone HCl/Acetaminophen [Percocet 5-325 mg Tablet] 1 tab PO Q6H 11/02/16 Pantoprazole Sodium 40 mg PO DAILY 11/02/16 Potassium Chloride 10 meq PO DAILY 11/02/16 Tramadol HCl 50 mg PO TID 11/02/16 Warfarin Na [Coumadin] 3.75 mg PO DAILY 11/02/16 Family Disease History - Family Disease History Family Disease History: Heart Disease: Mother, Other: Father (cirrhosis) Physical Exam Vital Signs: Vital Signs Temperature 97.8 F 11/04/16 10:00 Pulse Rate 104 H 11/04/16 10:00 Respiratory Rate 20 11/04/16 10:00 Blood Pressure 118/77 07/29/17 10:00 O2 Sat by Pulse Oximetry (%) 98 11/04/16 09:00 Musculoskeletal: Yes: Back Pain Labs: CBC, BMP 11/04/16 06:00 11/04/16 06:00 Assessment/Plan Severe mid to lower back pain of unclear etiology 1. Recommend MRI thoracic and lumbar spine non contrast to help in determining etiology of her pain 2. COntinue tylenol and oxycodone prn pain 3. Will follow up after MRI
--- NOTE | 2016-11-04 15:26 | PN ---
Progress Note (short form) - Note Progress Note: No complaints except having pain in the hip and is unable to stand or walk due to it No dizziness or palpitations O/E Vital Signs Period Temp Pulse Resp BP Sys/Wu Pulse Ox Last 24 Hr 97.5 F-98.1 F 75-104 18-20 94-118/59-77 96-98 Heart irregular Lungs clear Abd soft Ext no edema Current Medications Acetaminophen (Tylenol -) 650 mg PO Q4H PRN PRN Reason: FEVER OR PAIN Last Admin: 11/03/16 17:07 Dose: 650 mg Atorvastatin Calcium (Lipitor -) 10 mg PO HS [facility] Last Admin: 11/03/16 21:19 Dose: 10 mg Dronabinol (Marinol -) 2.5 mg PO BID [facility] Last Admin: 11/04/16 09:19 Dose: 2.5 mg Lactobacillus Acidophilus (Bacid -) 1 tab PO DAILY [facility] Last Admin: 11/04/16 09:19 Dose: 1 tab Metoprolol Tartrate (Lopressor -) 12.5 mg PO BID [facility] Last Admin: 11/04/16 10:19 Dose: Not Given Mirtazapine (Remeron -) 15 mg PO HS [facility] Last Admin: 11/03/16 21:19 Dose: 15 mg Morphine Sulfate (Morphine Injection -) 1 mg IVPUSH Q4H PRN PRN Reason: PAIN Last Admin: 11/04/16 09:19 Dose: 1 mg Ondansetron HCl (Zofran Injection) 4 mg IVPB Q6H PRN PRN Reason: NAUSEA Oxycodone HCl (Roxicodone -) 5 mg PO Q4H PRN PRN Reason: PAIN Pantoprazole Sodium (Protonix -) 40 mg PO DAILY [facility] Last Admin: 11/04/16 09:19 Dose: 40 mg Warfarin Sodium (Coumadin -) 2 mg PO DAILY@1800 [facility] Laboratory Results - last 24 hr 11/04/16 11/04/16 11/04/16 06:00 06:00 06:00 WBC 9.8 RBC 3.76 Hgb 9.8 L Hct 30.0 L MCV 79.8 L MCH 26.1 MCHC 32.7 RDW 17.0 H Plt Count 328 MPV 9.4 Neutrophils % 78.5 Lymphocytes % 8.1 D Monocytes % 10.6 H D Eosinophils % 2.1 D Basophils % 0.7 INR 2.40 H Sodium 136 Potassium 3.9 Chloride 99 Carbon Dioxide 27 Anion Gap 10 BUN 27 H D Creatinine 1.0 D Random Glucose 93 Calcium 8.2 L Phosphorus 3.6 Magnesium 2.2 TSH 0.73 D 11/04/16 08:30 WBC RBC Hgb Hct MCV MCH MCHC RDW Plt Count MPV Neutrophils % Lymphocytes % Monocytes % Eosinophils % Basophils % INR Sodium Potassium Chloride Carbon Dioxide Anion Gap BUN Creatinine Random Glucose Calcium Phosphorus Magnesium TSH Cancelled Assessment/Plan (1) Syncope Assessment/Plan: Likely vaso vegal D/C planning Code(s): R55 - SYNCOPE AND COLLAPSE Qualifiers: Syncope type: unspecified Qualified Code(s): R55 - Syncope and collapse (2) Back pain Assessment/Plan: -continue pain control -PT Code(s): M54.9 - DORSALGIA, UNSPECIFIED Qualifiers: Back pain location: thoracic back pain (4) DVT (deep venous thrombosis) Assessment/Plan: -restart coumadin Code(s): I82.409 - ACUTE EMBOLISM AND THOMBOS UNSP DEEP VN UNSP LOWER EXTREMITY Qualifiers: DVT location: lower extremity Affected thrombotic vein of extremity: unspecified vein of extremity Chronicity: unspecified Laterality: unspecified laterality Qualified Code(s): I82.409 - Acute embolism and thrombosis of unspecified deep veins of unspecified lower extremity (7) HTN (hypertension) Assessment/Plan: -continue metoprolol Code(s): I10 - ESSENTIAL (PRIMARY) HYPERTENSION (8) Lung cancer Assessment/Plan: -? hospice Code(s): C34.90 - MALIGNANT NEOPLASM OF UNSP PART OF UNSP BRONCHUS OR LUNG Qualifiers: Laterality: right Lung location: lower lobe of lung Qualified Code(s): C34.31 - Malignant neoplasm of lower lobe, right bronchus or lung
[2016-11-04] MEDS: WARFARIN NA 2 MG TABLET (UD) PO SCH (17:04)
[2016-11-04] MEDS: ATORVASTATIN CA 10 MG TABLET (FP) PO SCH (21:09)
[2016-11-04] MEDS: MIRTAZAPINE 15 MG TABLET (FP) PO SCH (21:09)
[2016-11-04] MEDS: oxyCODONE HCL 5 MG TABLET PO PRN (21:09)
[2016-11-05] MEDS: oxyCODONE HCL 5 MG TABLET PO PRN (08:56)
[2016-11-05] MEDS: ACETAMINOPHEN 325 MG TABLET (FP) PO PRN (08:57)
[2016-11-05] MEDS: DRONABINOL 2.5 MG CAPSULE PO SCH ×2 (09:00→21:04)
[2016-11-05] MEDS: METOPROLOL TARTRATE 25 MG TABLET (FP) PO SCH ×2 (09:00→21:03)
[2016-11-05] MEDS: LACTOBACILLUS ACIDOPHILUS 1 EACH TAB (FP) PO SCH (09:00)
[2016-11-05] MEDS: PANTOPRAZOLE 40 MG TABLET (FP) PO SCH (09:00)
--- NOTE | 2016-11-05 10:52 | PN ---
Progress Note (short form) - Note Progress Note: Chief Complaint: syncope History of Present Illness: c/o signif pain in back where hit herself when fell; hurts when moves, cannot get out of bed no cp, sob, palpitations, presyncope - Current Medication List Current Medications: Active Medications Current Medications Generic Name Dose Route Start Last Admin Trade Name Freq PRN Reason Stop Dose Admin Acetaminophen 650 mg 11/02/16 11:07 11/05/16 08:57 Tylenol - PO 650 mg Q4H PRN Administration FEVER OR PAIN Atorvastatin Calcium 10 mg 11/02/16 22:00 11/04/16 21:09 Lipitor - PO 10 mg HS [facility] Administration Dronabinol 2.5 mg 11/02/16 22:00 11/05/16 09:00 Marinol - PO 2.5 mg BID [facility] Administration Lactobacillus Acidophilus 1 tab 11/02/16 11:30 11/05/16 09:00 Bacid - PO 1 tab DAILY [facility] Administration Metoprolol Tartrate 12.5 mg 11/04/16 09:44 11/05/16 09:00 Lopressor - PO 12.5 mg BID [facility] Administration Mirtazapine 15 mg 11/02/16 22:00 11/04/16 21:09 Remeron - PO 15 mg HS [facility] Administration Morphine Sulfate 1 mg 11/02/16 11:25 11/04/16 09:19 Morphine Injection - IVPUSH 1 mg Q4H PRN Administration PAIN Ondansetron HCl 4 mg 11/02/16 11:07 Zofran Injection IVPB Q6H PRN NAUSEA Oxycodone HCl 5 mg 11/02/16 11:07 11/05/16 08:56 Roxicodone - PO 5 mg Q4H PRN Administration PAIN Pantoprazole Sodium 40 mg 11/03/16 10:00 11/05/16 09:00 Protonix - PO 40 mg DAILY [facility] Administration Warfarin Sodium 2 mg 11/04/16 18:00 11/04/16 17:04 Coumadin - PO 2 mg DAILY@1800 [facility] Administration - Objective Vital Signs: Vital Signs Period Temp Pulse Resp BP Sys/Wu Pulse Ox Last 24 Hr 98.6 F-100.1 F 71-87 16-20 112-141/69-75 95 Constitutional: Yes: Well Nourished, No Distress, Calm Cardiovascular: Yes: Regular Rate and Rhythm, S1, S2. No: JVD, Gallop, Murmur Respiratory: Yes: Regular, CTA Bilaterally. No: Accessory Muscle Use, Rales, Wheezes Extremities: No: Cold Edema: No Neurological: Yes: Alert, Oriented Psychiatric: No: Agitated no jaundice diaphoresis Labs: CBC, BMP 11/04/16 06:00 11/04/16 06:00 - ....Imaging EKG: Other (tele: sr, sinus tach with freq APCs and PVCs) Echo 09/2016: nl lv/rv mild mr/tr, rvsp 30-40. mibi 09/2016: no ischemia/scar, nl lvef ecg 11/02/16: sinus tachy, sinus arrhythmia, pvcs, nl intervals, no ischemic changes carotids 10/2016: mod diz, no sig stenosis Assessment/Plan fall, possible syncope: -based on description possibly related to narcotic use -labile BPs here: from 80s/60s to 180/110s--? related to hormonal influences from neuroendocrine lung tumor? -cannot stand for orthostatics (back and leg pain s/p trauma) -echo, mibi, carotid, ecg -no signs acs, ce's neg x2 -cont tele while here--consider outpt event monitor if recurs popliteal pseudoaneurysm -09/23 s/p Aortogram, LLE angiogram, popliteal artery covered stent placement, with DCB angioplasty. 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 Discussed with vascular then and was OK to defer plavix -cont statin -tobacco cessation. thoracic descending aorta aneurysm (5.1 cm)/AAA - thrombus overlying aneurysms, extensive atherosclerotic disease - cont statin, bb, smoking cessation. No antiplatelet as she is on AC - recommend ongoing outpatient follow up. DVT with malignancy -cont coumadin + tobacco - smoking cessation counseling htn - labile here, likely due to pain (accompanied by sinus tach as well) - check TSH - continuing home lopressor 12.5 bid for now (with hold parameters given) - observe BP trend Lung mass - neuroendocrine tumor, per onc
[2016-11-05] MEDS: WARFARIN NA 2 MG TABLET (UD) PO SCH (17:05)
--- NOTE | 2016-11-05 18:25 | PN ---
Progress Note (short form) - Note Progress Note: No new complaints O/E Vital Signs Period Temp Pulse Resp BP Sys/Wu Pulse Ox Last 24 Hr 98.0 F-99.4 F 71-98 16-18 104-141/66-75 95-97 Current Medications Acetaminophen (Tylenol -) 650 mg PO Q4H PRN PRN Reason: FEVER OR PAIN Last Admin: 11/05/16 08:57 Dose: 650 mg Atorvastatin Calcium (Lipitor -) 10 mg PO [facility] Last Admin: 11/04/16 21:09 Dose: 10 mg Dronabinol (Marinol -) 2.5 mg PO BID [facility] Last Admin: 11/05/16 09:00 Dose: 2.5 mg Lactobacillus Acidophilus (Bacid -) 1 tab PO DAILY [facility] Last Admin: 11/05/16 09:00 Dose: 1 tab Metoprolol Tartrate (Lopressor -) 12.5 mg PO BID [facility] Last Admin: 11/05/16 09:00 Dose: 12.5 mg Mirtazapine (Remeron -) 15 mg PO HS [facility] Last Admin: 11/04/16 21:09 Dose: 15 mg Morphine Sulfate (Morphine Injection -) 1 mg IVPUSH Q4H PRN PRN Reason: PAIN Last Admin: 11/04/16 09:19 Dose: 1 mg Ondansetron HCl (Zofran Injection) 4 mg IVPB Q6H PRN PRN Reason: NAUSEA Oxycodone HCl (Roxicodone -) 5 mg PO Q4H PRN PRN Reason: PAIN Last Admin: 11/05/16 08:56 Dose: 5 mg Pantoprazole Sodium (Protonix -) 40 mg PO DAILY [facility] Last Admin: 11/05/16 09:00 Dose: 40 mg Warfarin Sodium (Coumadin -) 2 mg PO DAILY@1800 [facility] Last Admin: 11/05/16 17:05 Dose: 2 mg Heart regular Lungs;clear Abd soft ext no edema Assessment/Plan (1) Syncope Assessment/Plan: Likely vaso vegal D/C planning Code(s): R55 - SYNCOPE AND COLLAPSE Qualifiers: Syncope type: unspecified Qualified Code(s): R55 - Syncope and collapse (2) Back pain Assessment/Plan: -continue pain control -PT Code(s): M54.9 - DORSALGIA, UNSPECIFIED Qualifiers: Back pain location: thoracic back pain (4) DVT (deep venous thrombosis) Assessment/Plan: -restart coumadin Code(s): I82.409 - ACUTE EMBOLISM AND THOMBOS UNSP DEEP VN UNSP LOWER EXTREMITY Qualifiers: DVT location: lower extremity Affected thrombotic vein of extremity: unspecified vein of extremity Chronicity: unspecified Laterality: unspecified laterality Qualified Code(s): I82.409 - Acute embolism and thrombosis of unspecified deep veins of unspecified lower extremity (7) HTN (hypertension) Assessment/Plan: -continue metoprolol Code(s): I10 - ESSENTIAL (PRIMARY) HYPERTENSION (8) Lung cancer Assessment/Plan: -? hospice Code(s): C34.90 - MALIGNANT NEOPLASM OF UNSP PART OF UNSP BRONCHUS OR LUNG Qualifiers: Laterality: right Lung location: lower lobe of lung Qualified Code(s): C34.31 - Malignant neoplasm of lower lobe, right bronchus or lung
[2016-11-05] MEDS: morphine CARPU-JECT 2 MG/1 ML DISP.SYRIN IVPUSH PRN (21:02)
[2016-11-05] MEDS: ATORVASTATIN CA 10 MG TABLET (FP) PO SCH (21:03)
[2016-11-05] MEDS: MIRTAZAPINE 15 MG TABLET (FP) PO SCH (21:04)
[2016-11-06] MEDS: morphine CARPU-JECT 2 MG/1 ML DISP.SYRIN IVPUSH PRN (07:08)
--- NOTE | 2016-11-06 08:27 | PN ---
Progress Note, Physician Chief Complaint: syncope History of Present Illness: no cp, sob, palpitations, syncope pain much better controlled - Current Medication List Current Medications: Active Medications Acetaminophen (Tylenol -) 650 mg PO Q4H PRN PRN Reason: FEVER OR PAIN Last Admin: 11/05/16 08:57 Dose: 650 mg Atorvastatin Calcium (Lipitor -) 10 mg PO HS [facility] Last Admin: 11/05/16 21:03 Dose: 10 mg Dronabinol (Marinol -) 2.5 mg PO BID [facility] Last Admin: 11/05/16 21:04 Dose: 2.5 mg Lactobacillus Acidophilus (Bacid -) 1 tab PO DAILY [facility] Last Admin: 11/05/16 09:00 Dose: 1 tab Metoprolol Tartrate (Lopressor -) 12.5 mg PO BID [facility] Last Admin: 11/05/16 21:03 Dose: 12.5 mg Mirtazapine (Remeron -) 15 mg PO HS [facility] Last Admin: 11/05/16 21:04 Dose: 15 mg Morphine Sulfate (Morphine Injection -) 1 mg IVPUSH Q4H PRN PRN Reason: PAIN Last Admin: 11/06/16 07:08 Dose: 1 mg Ondansetron HCl (Zofran Injection) 4 mg IVPB Q6H PRN PRN Reason: NAUSEA Oxycodone HCl (Roxicodone -) 5 mg PO Q4H PRN PRN Reason: PAIN Last Admin: 11/05/16 08:56 Dose: 5 mg Pantoprazole Sodium (Protonix -) 40 mg PO DAILY [facility] Last Admin: 11/05/16 09:00 Dose: 40 mg Warfarin Sodium (Coumadin -) 2 mg PO DAILY@1800 [facility] Last Admin: 11/05/16 17:05 Dose: 2 mg - Objective Vital Signs: Vital Signs Temperature 98.8 F 11/06/16 06:00 Pulse Rate 70 11/06/16 06:00 Respiratory Rate 18 11/06/16 06:00 Blood Pressure 114/60 11/06/16 06:00 O2 Sat by Pulse Oximetry (%) 97 11/05/16 21:00 Constitutional: Yes: Well Nourished, No Distress, Calm Cardiovascular: Yes: Regular Rate and Rhythm, S1, S2. No: Gallop, Murmur Respiratory: Yes: Regular, CTA Bilaterally. No: Accessory Muscle Use, Rales, Wheezes Extremities: No: Cold Edema: No Neurological: Yes: Alert, Oriented Psychiatric: No: Agitated Labs: CBC, BMP 11/04/16 06:00 11/04/16 06:00 INR, PTT INR 2.40 (0.82-1.09) H 11/04/16 06:00 Assessment/Plan Echo 09/2016: nl lv/rv mild mr/tr, rvsp 30-40. 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 Discussed with vascular then and was OK to defer plavix -cont statin -tobacco cessation. thoracic descending aorta aneurysm (5.1 cm)/AAA - thrombus overlying aneurysms, extensive atherosclerotic disease - cont statin, bb, smoking cessation. No antiplatelet as she is on AC - recommend ongoing outpatient follow up. DVT with malignancy -cont coumadin + tobacco - smoking cessation counseling htn - labile here, likely due to pain (accompanied by sinus tach as well) - continuing home lopressor 12.5 bid (with hold parameters given) - BP has stabilized - observe BP trend Lung mass - neuroendocrine tumor, per onc
[2016-11-06] MEDS: DRONABINOL 2.5 MG CAPSULE PO SCH ×2 (09:33→22:21)
[2016-11-06] MEDS: PANTOPRAZOLE 40 MG TABLET (FP) PO SCH (09:33)
[2016-11-06] MEDS: LACTOBACILLUS ACIDOPHILUS 1 EACH TAB (FP) PO SCH (09:33)
[2016-11-06] MEDS: METOPROLOL TARTRATE 25 MG TABLET (FP) PO SCH ×2 (09:34→22:20)
--- NOTE | 2016-11-06 12:10 | PN ---
Progress Note, Physician Chief Complaint: Ms Mcdonald says her pain is better controlled. No cp, sob, n/v. - Current Medication List Current Medications: Active Medications Acetaminophen (Tylenol -) 650 mg PO Q4H PRN PRN Reason: FEVER OR PAIN Last Admin: 11/05/16 08:57 Dose: 650 mg Atorvastatin Calcium (Lipitor -) 10 mg PO HS [facility] Last Admin: 11/05/16 21:03 Dose: 10 mg Dronabinol (Marinol -) 2.5 mg PO BID [facility] Last Admin: 11/06/16 09:33 Dose: 2.5 mg Lactobacillus Acidophilus (Bacid -) 1 tab PO DAILY [facility] Last Admin: 11/06/16 09:33 Dose: 1 tab Metoprolol Tartrate (Lopressor -) 12.5 mg PO BID [facility] Last Admin: 11/06/16 09:34 Dose: Not Given Mirtazapine (Remeron -) 15 mg PO HS [facility] Last Admin: 11/05/16 21:04 Dose: 15 mg Morphine Sulfate (Morphine Injection -) 1 mg IVPUSH Q4H PRN PRN Reason: PAIN Last Admin: 11/06/16 07:08 Dose: 1 mg Ondansetron HCl (Zofran Injection) 4 mg IVPB Q6H PRN PRN Reason: NAUSEA Oxycodone HCl (Roxicodone -) 5 mg PO Q4H PRN PRN Reason: PAIN Last Admin: 11/05/16 08:56 Dose: 5 mg Pantoprazole Sodium (Protonix -) 40 mg PO DAILY [facility] Last Admin: 11/06/16 09:33 Dose: 40 mg Warfarin Sodium (Coumadin -) 2 mg PO DAILY@1800 [facility] Last Admin: 11/05/16 17:05 Dose: 2 mg - Objective Vital Signs: Vital Signs Temperature 98.6 F 11/06/16 10:00 Pulse Rate 81 11/06/16 10:00 Respiratory Rate 20 11/06/16 10:00 Blood Pressure 98/53 11/06/16 10:00 O2 Sat by Pulse Oximetry (%) 96 11/06/16 09:00 Constitutional: Yes: No Distress, Calm, Thin Cardiovascular: Yes: Pulse Irregular. No: Tachycardia, Gallop, Murmur, Rub Respiratory: Yes: Regular, CTA Bilaterally. No: Rales, Rhonchi, Wheezes Gastrointestinal: Yes: Normal Bowel Sounds, Soft. No: Distention, Tenderness Extremities: Yes: WNL Edema: No Labs: CBC, BMP 11/04/16 06:00 11/04/16 06:00 INR, PTT INR 2.40 (0.82-1.09) H 11/04/16 06:00 Problem List - Problems (1) Syncope Code(s): R55 - SYNCOPE AND COLLAPSE Qualifiers: Syncope type: unspecified Qualified Code(s): R55 - Syncope and collapse (2) Back pain Code(s): M54.9 - DORSALGIA, UNSPECIFIED Qualifiers: Back pain location: thoracic back pain (3) UTI (urinary tract infection) Code(s): N39.0 - URINARY TRACT INFECTION, SITE NOT SPECIFIED (4) DVT (deep venous thrombosis) Code(s): I82.409 - ACUTE EMBOLISM AND THOMBOS UNSP DEEP VN UNSP LOWER EXTREMITY Qualifiers: DVT location: lower extremity Affected thrombotic vein of extremity: unspecified vein of extremity Chronicity: unspecified Laterality: unspecified laterality Qualified Code(s): I82.409 - Acute embolism and thrombosis of unspecified deep veins of unspecified lower extremity (5) Dehydration Code(s): E86.0 - DEHYDRATION (6) Elevated INR Code(s): R79.1 - ABNORMAL COAGULATION PROFILE (7) HTN (hypertension) Code(s): I10 - ESSENTIAL (PRIMARY) HYPERTENSION (8) Lung cancer Code(s): C34.90 - MALIGNANT NEOPLASM OF UNSP PART OF UNSP BRONCHUS OR LUNG Qualifiers: Laterality: right Lung location: lower lobe of lung Qualified Code(s): C34.31 - Malignant neoplasm of lower lobe, right bronchus or lung (9) Aneurysm of left popliteal artery Code(s): I72.4 - ANEURYSM OF ARTERY OF LOWER EXTREMITY (10) Chest pain Code(s): R07.9 - CHEST PAIN, UNSPECIFIED Assessment/Plan (1) Syncope Assessment/Plan: -appreciate cardiology assistance -suspect vaso-vagal -continue PT -planning for SNF placement Code(s): R55 - SYNCOPE AND COLLAPSE Qualifiers: Syncope type: unspecified Qualified Code(s): R55 - Syncope and collapse (2) Back pain Assessment/Plan: -appreciate pain management assistance -obtain MRI of thoracic and lumbar spine -further recommendations pending MRI results Code(s): M54.9 - DORSALGIA, UNSPECIFIED Qualifiers: Back pain location: thoracic back pain (3) UTI (urinary tract infection) Assessment/Plan: -urine cultures NGTD Code(s): N39.0 - URINARY TRACT INFECTION, SITE NOT SPECIFIED (4) DVT (deep venous thrombosis) Assessment/Plan: -INR decreased today -increase coumadin to 4mg -recheck in am -adjust as necessary -unsure how long has not been therapeutic, will give dose of lovenox today Code(s): I82.409 - ACUTE EMBOLISM AND THOMBOS UNSP DEEP VN UNSP LOWER EXTREMITY Qualifiers: DVT location: lower extremity Affected thrombotic vein of extremity: unspecified vein of extremity Chronicity: unspecified Laterality: unspecified laterality Qualified Code(s): I82.409 - Acute embolism and thrombosis of unspecified deep veins of unspecified lower extremity (5) Dehydration Assessment/Plan: -resolved Code(s): E86.0 - DEHYDRATION (6) Elevated INR Assessment/Plan: -now subtherapeutic Code(s): R79.1 - ABNORMAL COAGULATION PROFILE (7) HTN (hypertension) Assessment/Plan: -continue metoprolol Code(s): I10 - ESSENTIAL (PRIMARY) HYPERTENSION (8) Lung cancer Assessment/Plan: -patient does not desire treatment Code(s): C34.90 - MALIGNANT NEOPLASM OF UNSP PART OF UNSP BRONCHUS OR LUNG Qualifiers: Laterality: right Lung location: lower lobe of lung Qualified Code(s): C34.31 - Malignant neoplasm of lower lobe, right bronchus or lung (9) Aneurysm of left popliteal artery Assessment/Plan: -s/p intervention Code(s): I72.4 - ANEURYSM OF ARTERY OF LOWER EXTREMITY (10) Chest pain Assessment/Plan: -cardiology note reviewed Code(s): R07.9 - CHEST PAIN, UNSPECIFIED
[2016-11-06 12:45] LABS: INR 1.86 (0.82-1.09); PROTHROMBIN TIME (PATIENT) 20.7 SEC (9.98-11.88)
[2016-11-06] MEDS ORDERED: ENOXAPARIN NA (PORCINE) 40 MG/0.4 ML DISP.SYRIN SQ ONE (15:15)
[2016-11-06] MEDS ORDERED: WARFARIN NA 2 MG TABLET (UD) PO SCH (18:00)
[2016-11-06] MEDS: oxyCODONE HCL 5 MG TABLET PO PRN (22:18)
[2016-11-06] MEDS: MIRTAZAPINE 15 MG TABLET (FP) PO SCH (22:20)
[2016-11-06] MEDS: ATORVASTATIN CA 10 MG TABLET (FP) PO SCH (22:20)
[2016-11-07 07:41] LABS: BASOPHIL 1.1 % (0-2.0); MCH 25.7 pg (25.7-33.7); MCHC 31.9 g/dl (32.0-36.0); MEAN CELL VOLUME 80.5 fl (80-96); MEAN PLT VOLUME 9.2 fl (7.5-11.1); PLATELET COUNT 304 K/MM3 (134-434); RDW 17.4 % (11.6-15.6); WHITE BLOOD COUNT 8.6 K/mm3 (4.0-10.0)
[2016-11-07 08:04] LABS: ANION GAP 4 (8-16); CALCIUM 8.4 mg/dL (8.5-10.1); CO2 31 mmol/L (21-32); CREATININE 0.6 mg/dL (0.55-1.02); GLUCOSE,RANDOM 89 mg/dL (74-106)
[2016-11-07 08:06] LABS: INR 1.76 (0.82-1.09); PROTHROMBIN TIME (PATIENT) 19.6 SEC (9.98-11.88)
[2016-11-07] MEDS: LACTOBACILLUS ACIDOPHILUS 1 EACH TAB (FP) PO SCH (09:23)
[2016-11-07] MEDS: PANTOPRAZOLE 40 MG TABLET (FP) PO SCH (09:24)
[2016-11-07] MEDS: oxyCODONE HCL 5 MG TABLET PO PRN ×2 (09:24→21:29)
[2016-11-07] MEDS: METOPROLOL TARTRATE 25 MG TABLET (FP) PO SCH ×2 (09:24→21:27)
[2016-11-07] MEDS: DRONABINOL 2.5 MG CAPSULE PO SCH ×2 (09:24→21:27)
[2016-11-07] MEDS: ACETAMINOPHEN 325 MG TABLET (FP) PO PRN ×2 (09:25→21:28)
--- NOTE | 2016-11-07 09:46 | PN ---
Progress Note (short form) - Note Progress Note: Chief Complaint: syncope History of Present Illness: no cp, sob, palpitations, syncope Current Medications Acetaminophen (Tylenol -) 650 mg PO Q4H PRN PRN Reason: FEVER OR PAIN Last Admin: 11/07/16 09:25 Dose: 650 mg Atorvastatin Calcium (Lipitor -) 10 mg PO HS [facility] Last Admin: 11/06/16 22:20 Dose: 10 mg Dronabinol (Marinol -) 2.5 mg PO BID [facility] Last Admin: 11/07/16 09:24 Dose: 2.5 mg Lactobacillus Acidophilus (Bacid -) 1 tab PO DAILY [facility] Last Admin: 11/07/16 09:23 Dose: 1 tab Metoprolol Tartrate (Lopressor -) 12.5 mg PO BID [facility] Last Admin: 11/07/16 09:24 Dose: 12.5 mg Mirtazapine (Remeron -) 15 mg PO HS [facility] Last Admin: 11/06/16 22:20 Dose: 15 mg Morphine Sulfate (Morphine Injection -) 1 mg IVPUSH Q4H PRN PRN Reason: PAIN Last Admin: 11/06/16 07:08 Dose: 1 mg Ondansetron HCl (Zofran Injection) 4 mg IVPB Q6H PRN PRN Reason: NAUSEA Oxycodone HCl (Roxicodone -) 5 mg PO Q4H PRN PRN Reason: PAIN Last Admin: 11/07/16 09:24 Dose: 5 mg Pantoprazole Sodium (Protonix -) 40 mg PO DAILY [facility] Last Admin: 11/07/16 09:24 Dose: 40 mg Warfarin Sodium (Coumadin -) 4 mg PO DAILY@1800 [facility] Last Admin: 11/06/16 17:02 Dose: 4 mg Vital Signs - 24 hr 11/06/16 11/06/16 11/06/16 10:00 14:00 18:00 Temperature 98.6 F 99.1 F 99.7 F H Pulse Rate 81 89 98 H Respiratory 20 20 18 Rate Blood Pressure 98/53 113/76 101/71 O2 Sat by Pulse Oximetry (%) 11/06/16 11/06/16 11/07/16 21:00 22:00 02:00 Temperature 98.2 F 96.6 F L Pulse Rate 93 H 72 Respiratory 18 18 18 Rate Blood Pressure 129/72 124/74 O2 Sat by Pulse 97 Oximetry (%) 11/07/16 06:00 Temperature 99.0 F Pulse Rate 65 Respiratory 18 Rate Blood Pressure 145/82 O2 Sat by Pulse Oximetry (%) Intake & Output 11/05/16 11/06/16 11/07/16 11/08/16 07:59 07:59 07:59 07:59 Intake Total 250 740 500 Balance 250 740 500 Constitutional: Yes:cachectic No Distress, Calm Cardiovascular: Yes: Regular Rate and Rhythm, S1, S2. 2/6 murmur at lsb and apex. No: Gallop, Respiratory: Yes: Regular, bibasilar crackles, nl effort. No: Accessory Muscle Use, Rales, Wheezes Extremities: No: Cold Edema: No Neurological: Yes: Alert, Oriented Psychiatric: No: Agitated Labs: CBC, BMP 11/07/16 05:35 11/07/16 05:35 Laboratory Tests 11/07/16 05:35 INR 1.76 H Assessment/Plan Echo 09/2016: nl lv/rv mild mr/tr, rvsp 30-40. mibi 09/2016: no ischemia/scar, nl lvef ecg 11/02/16: sinus tachy, sinus arrhythmia, pvcs, nl intervals, no ischemic changes carotids 10/2016: mod diz, no sig stenosis tele: sr/sinus tach. PAC, pvc, 1 episode of 5-beat nsvt Assessment/Plan fall, possible syncope: -based on description possibly related to narcotic use. Patient also with poor po intake, severe malnutrition per client support coordinator now s/p IVF. -labile BPs here initially (ranging 80s/60s to 180/110s)--likely spikes related to pain (with assctd sinus tach as well)--bp's now stabilized -cannot stand for orthostatics (back and leg pain s/p trauma) -echo, mibi from September, overall unremarkalbe. carotid, ecg also without etiology for syncope. -no signs acs, ce's neg x2 -cont tele while here--consider outpt event monitor if recurs - 11/07: will d/c metoprolol in case contributing to hypotension/orthostasis. 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 Discussed with vascular then and was OK to defer plavix -cont statin -tobacco cessation. - monitor hgb on AC thoracic descending aorta aneurysm (5.1 cm)/AAA - thrombus overlying aneurysms, extensive atherosclerotic disease - cont statin, smoking cessation. No antiplatelet as she is on AC - 11/07: Will hold beta mitali as above DVT with malignancy -cont coumadin, pmd dosing per INR. monitor hgb + tobacco - recent smoking cessation htn - labile here, likely due to pain (accompanied by sinus tach as well) - 11/07 will hold lopressor 12.5 bid and reassess bp/hr. Was on low dose BB for thoracic aneurysm, but given co-morbidities, syncope and labile bp --> reasonable to hold. Lung mass - neuroendocrine tumor, ongoing outpatient management
--- NOTE | 2016-11-07 12:35 | DS ---
Physical Examination Vital Signs: Vital Signs Temperature 98.1 F 11/07/16 10:00 Pulse Rate 80 11/07/16 10:00 Respiratory Rate 18 11/07/16 10:00 Blood Pressure 106/61 11/07/16 10:00 O2 Sat by Pulse Oximetry (%) 97 11/07/16 10:00 Labs: CBC, BMP 11/07/16 05:35 11/07/16 05:35 Discharge Summary Reason For Visit: FALL,L HIP PAIN, SYNCOPE Current Active Problems Chest pain (Acute) Fall (Acute) Hip pain, left (Acute) Syncope (Acute) UTI (urinary tract infection) (Acute) Condition: Stable - Instructions Diet, Activity, Other Instructions: regular diet. Up with assistance, further activity per PT at SNF. Referrals: Quinn Massey MD [Primary Care Provider] - Disposition: CARE HOME FACILITY - Home Medications Comprehensive Discharge Medication List: Ambulatory Orders Atorvastatin Ca [Lipitor] 10 mg PO HS 11/02/16 Dronabinol 2.5 mg PO BID 11/02/16 Furosemide [Lasix] 20 mg PO PRN PRN 11/02/16 Metoprolol Tartrate 12.5 mg PO BID 11/02/16 Mirtazapine 15 mg PO HS 11/02/16 Oxycodone HCl/Acetaminophen [Percocet 5-325 mg Tablet] 1 tab PO Q6H 11/02/16 Pantoprazole Sodium 40 mg PO DAILY 11/02/16 Tramadol HCl 50 mg PO TID 11/02/16 Acetaminophen [Tylenol .Regular Strength -] 650 mg PO Q4H PRN #0 tablet Enoxaparin [Lovenox -] 60 mg SQ DAILY #1 disp.syrin 11/07/16 Warfarin Na [Coumadin -] 4 mg PO DAILY@1800 #0 tablet 11/07/16
[2016-11-07] MEDS: ENOXAPARIN NA (PORCINE) 60 MG/0.6 ML DISP.SYRIN SQ SCH (15:11)
--- NOTE | 2016-11-07 16:00 | PN ---
Progress Note, Physician Chief Complaint: Ms Mcdonald says her pain is better controlled. No cp, sob, n/v. - Current Medication List Current Medications: Active Medications Acetaminophen (Tylenol -) 650 mg PO Q4H PRN PRN Reason: FEVER OR PAIN Last Admin: 11/07/16 09:25 Dose: 650 mg Atorvastatin Calcium (Lipitor -) 10 mg PO HS [facility] Last Admin: 11/06/16 22:20 Dose: 10 mg Dronabinol (Marinol -) 2.5 mg PO BID [facility] Last Admin: 11/07/16 09:24 Dose: 2.5 mg Enoxaparin Sodium (Lovenox -) 60 mg SQ ONCE [facility] Last Admin: 11/07/16 15:11 Dose: 60 mg Lactobacillus Acidophilus (Bacid -) 1 tab PO DAILY [facility] Last Admin: 11/07/16 09:23 Dose: 1 tab Metoprolol Tartrate (Lopressor -) 12.5 mg PO BID [facility] Last Admin: 11/07/16 09:24 Dose: 12.5 mg Mirtazapine (Remeron -) 15 mg PO HS [facility] Last Admin: 11/06/16 22:20 Dose: 15 mg Morphine Sulfate (Morphine Injection -) 1 mg IVPUSH Q4H PRN PRN Reason: PAIN Last Admin: 11/06/16 07:08 Dose: 1 mg Ondansetron HCl (Zofran Injection) 4 mg IVPB Q6H PRN PRN Reason: NAUSEA Oxycodone HCl (Roxicodone -) 5 mg PO Q4H PRN PRN Reason: PAIN Last Admin: 11/07/16 09:24 Dose: 5 mg Pantoprazole Sodium (Protonix -) 40 mg PO DAILY [facility] Last Admin: 11/07/16 09:24 Dose: 40 mg Warfarin Sodium (Coumadin -) 4 mg PO DAILY@1800 [facility] Last Admin: 11/06/16 17:02 Dose: 4 mg - Objective Vital Signs: Vital Signs Temperature 99.5 F 11/07/16 13:40 Pulse Rate 74 11/07/16 13:40 Respiratory Rate 18 11/07/16 13:40 Blood Pressure 100/63 11/07/16 13:40 O2 Sat by Pulse Oximetry (%) 97 11/07/16 10:00 Constitutional: Yes: No Distress, Calm, Thin Cardiovascular: Yes: Regular Rate and Rhythm. No: Gallop, Murmur, Rub Respiratory: Yes: Regular, CTA Bilaterally. No: Rales, Rhonchi, Wheezes Gastrointestinal: Yes: Normal Bowel Sounds, Soft. No: Distention, Tenderness Extremities: Yes: WNL Edema: No Labs: CBC, BMP 11/07/16 05:35 11/07/16 05:35 INR, PTT INR 1.76 (0.82-1.09) H 11/07/16 05:35 Problem List - Problems (1) Syncope Code(s): R55 - SYNCOPE AND COLLAPSE Qualifiers: Syncope type: unspecified Qualified Code(s): R55 - Syncope and collapse (2) Back pain Code(s): M54.9 - DORSALGIA, UNSPECIFIED Qualifiers: Back pain location: thoracic back pain (3) UTI (urinary tract infection) Code(s): N39.0 - URINARY TRACT INFECTION, SITE NOT SPECIFIED (4) DVT (deep venous thrombosis) Code(s): I82.409 - ACUTE EMBOLISM AND THOMBOS UNSP DEEP VN UNSP LOWER EXTREMITY Qualifiers: DVT location: lower extremity Affected thrombotic vein of extremity: unspecified vein of extremity Chronicity: unspecified Laterality: unspecified laterality Qualified Code(s): I82.409 - Acute embolism and thrombosis of unspecified deep veins of unspecified lower extremity (5) Dehydration Code(s): E86.0 - DEHYDRATION (6) Elevated INR Code(s): R79.1 - ABNORMAL COAGULATION PROFILE (7) HTN (hypertension) Code(s): I10 - ESSENTIAL (PRIMARY) HYPERTENSION (8) Lung cancer Code(s): C34.90 - MALIGNANT NEOPLASM OF UNSP PART OF UNSP BRONCHUS OR LUNG Qualifiers: Laterality: right Lung location: lower lobe of lung Qualified Code(s): C34.31 - Malignant neoplasm of lower lobe, right bronchus or lung (9) Aneurysm of left popliteal artery Code(s): I72.4 - ANEURYSM OF ARTERY OF LOWER EXTREMITY (10) Chest pain Code(s): R07.9 - CHEST PAIN, UNSPECIFIED Assessment/Plan (1) Syncope Assessment/Plan: -appreciate cardiology assistance -suspect vaso-vagal -continue PT Code(s): R55 - SYNCOPE AND COLLAPSE Qualifiers: Syncope type: unspecified Qualified Code(s): R55 - Syncope and collapse (2) Back pain Assessment/Plan: -patient declined MRI -pain better controlled -continue PT and pain management Code(s): M54.9 - DORSALGIA, UNSPECIFIED Qualifiers: Back pain location: thoracic back pain (3) UTI (urinary tract infection) Assessment/Plan: -urine cultures NGTD Code(s): N39.0 - URINARY TRACT INFECTION, SITE NOT SPECIFIED (4) DVT (deep venous thrombosis) Assessment/Plan: -INR subtherapeutic -will continue lovenox 60mg daily -increase coumadin to 5mg daily -recheck INR in am Code(s): I82.409 - ACUTE EMBOLISM AND THOMBOS UNSP DEEP VN UNSP LOWER EXTREMITY Qualifiers: DVT location: lower extremity Affected thrombotic vein of extremity: unspecified vein of extremity Chronicity: unspecified Laterality: unspecified laterality Qualified Code(s): I82.409 - Acute embolism and thrombosis of unspecified deep veins of unspecified lower extremity (5) Dehydration Assessment/Plan: -resolved Code(s): E86.0 - DEHYDRATION (6) Elevated INR Assessment/Plan: -now subtherapeutic Code(s): R79.1 - ABNORMAL COAGULATION PROFILE (7) HTN (hypertension) Assessment/Plan: -continue metoprolol Code(s): I10 - ESSENTIAL (PRIMARY) HYPERTENSION (8) Lung cancer Assessment/Plan: -patient does not desire treatment Code(s): C34.90 - MALIGNANT NEOPLASM OF UNSP PART OF UNSP BRONCHUS OR LUNG Qualifiers: Laterality: right Lung location: lower lobe of lung Qualified Code(s): C34.31 - Malignant neoplasm of lower lobe, right bronchus or lung (9) Aneurysm of left popliteal artery Assessment/Plan: -s/p intervention Code(s): I72.4 - ANEURYSM OF ARTERY OF LOWER EXTREMITY (10) Chest pain Assessment/Plan: -cardiology note reviewed Code(s): R07.9 - CHEST PAIN, UNSPECIFIED
[2016-11-07] MEDS ORDERED: WARFARIN NA 5 MG TABLET (UD) PO SCH (18:00)
[2016-11-07] MEDS: MIRTAZAPINE 15 MG TABLET (FP) PO SCH (21:27)
[2016-11-07] MEDS: ATORVASTATIN CA 10 MG TABLET (FP) PO SCH (21:30)
[2016-11-08 06:58] LABS: EOSINOPHIL 2.7 % (0-4.5); MCH 25.6 pg (25.7-33.7); NEUTROPHILS 81.4 % (42.8-82.8); PLATELET COUNT 340 K/MM3 (134-434); WHITE BLOOD COUNT 10.3 K/mm3 (4.0-10.0)
[2016-11-08 07:25] LABS: ANION GAP 6 (8-16); CALCIUM 8.7 mg/dL (8.5-10.1); CO2 33 mmol/L (21-32); CREATININE 0.5 mg/dL (0.55-1.02); GLUCOSE,RANDOM 95 mg/dL (74-106); MAGNESIUM 2.1 mg/dL (1.8-2.4); PHOSPHOROUS 2.9 mg/dL (2.5-4.9)
[2016-11-08 07:36] LABS: INR 2.2 (0.82-1.09); PROTHROMBIN TIME (PATIENT) 24.6 SEC (9.98-11.88)
[2016-11-08] MEDS: DRONABINOL 2.5 MG CAPSULE PO SCH ×2 (09:04→22:27)
[2016-11-08] MEDS: LACTOBACILLUS ACIDOPHILUS 1 EACH TAB (FP) PO SCH (09:04)
[2016-11-08] MEDS: PANTOPRAZOLE 40 MG TABLET (FP) PO SCH (09:04)
--- NOTE | 2016-11-08 11:37 | PN ---
Progress Note (short form) - Note Progress Note: Chief Complaint: syncope History of Present Illness: still with back pain no cp, sob, palpitations, presyncope - Current Medication List Current Medications: Active Medications Current Medications Generic Name Dose Route Start Last Admin Trade Name Freq PRN Reason Stop Dose Admin Acetaminophen 650 mg 11/02/16 11:07 11/07/16 21:28 Tylenol - PO 650 mg Q4H PRN Administration FEVER OR PAIN Atorvastatin Calcium 10 mg 11/02/16 22:00 11/07/16 21:30 Lipitor - PO 10 mg HS HEATHER Administration Dronabinol 2.5 mg 11/02/16 22:00 11/08/16 09:04 Marinol - PO 2.5 mg BID HEATHER Administration Enoxaparin Sodium 60 mg 11/07/16 13:15 11/07/16 15:11 Lovenox - SQ 60 mg ONCE HEATHER Administration Lactobacillus Acidophilus 1 tab 11/02/16 11:30 11/08/16 09:04 Bacid - PO 1 tab DAILY HEATHER Administration Mirtazapine 15 mg 11/02/16 22:00 11/07/16 21:27 Remeron - PO 15 mg HS HEATHER Administration Morphine Sulfate 1 mg 11/02/16 11:25 11/06/16 07:08 Morphine Injection - IVPUSH 1 mg Q4H PRN Administration PAIN Ondansetron HCl 4 mg 11/02/16 11:07 Zofran Injection IVPB Q6H PRN NAUSEA Oxycodone HCl 5 mg 11/02/16 11:07 11/07/16 21:29 Roxicodone - PO 5 mg Q4H PRN Administration PAIN Pantoprazole Sodium 40 mg 11/03/16 10:00 11/08/16 09:04 Protonix - PO 40 mg DAILY HEATHER Administration Warfarin Sodium 5 mg 11/07/16 18:00 11/07/16 17:00 Coumadin - PO 5 mg DAILY@1800 HEATHER Administration - Objective Vital Signs: Vital Signs Period Temp Pulse Resp BP Sys/Wu Pulse Ox Last 24 Hr 98 F-99.5 F 74-97 18-18 100-150/63-94 96-97 Constitutional: Yes: Well Nourished, No Distress, Calm Cardiovascular: Yes: Regular Rate and Rhythm, S1, S2. No: JVD, Gallop, Murmur Respiratory: Yes: Regular, CTA Bilaterally. No: Accessory Muscle Use, Rales, Wheezes Extremities: No: Cold Edema: No Neurological: Yes: Alert, Oriented Psychiatric: No: Agitated no jaundice diaphoresis Labs: CBC, BMP 11/08/16 05:43 11/08/16 05:43 EKG: Other (tele: sr, sinus tach with occ APCs and PVCs) Echo 09/2016: nl lv/rv mild mr/tr, rvsp 30-40. mibi 09/2016: no ischemia/scar, nl lvef ecg 11/02/16: sinus tachy, sinus arrhythmia, pvcs, nl intervals, no ischemic changes carotids 10/2016: mod diz, no sig stenosis Assessment/Plan fall, possible syncope: -based on description possibly related to narcotic use. 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 -labile BPs here initially (ranging 80s/60s to 180/110s)--likely spikes related to pain (with assctd sinus tach as well)--bp's now stabilized -cannot stand for orthostatics (back and leg pain s/p trauma) -echo, mibi from September, overall unremarkalbe. carotid, ecg also without etiology for syncope. -no signs acs, ce's neg x2 -cont tele while here--consider outpt event monitor if recurs - stopped metoprolol here in case was contributing to hypotension/orthostasis. 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 Discussed with vascular then and was OK to defer plavix -cont statin -tobacco cessation. - monitor hgb on AC thoracic descending aorta aneurysm (5.1 cm)/AAA - thrombus overlying aneurysms, extensive atherosclerotic disease - cont statin, smoking cessation. No antiplatelet as she is on AC - holding bb due to low bp at times DVT with malignancy -cont coumadin, pmd dosing per INR. monitor hgb + tobacco - recent smoking cessation htn - labile here, likely due to pain (accompanied by sinus tach as well) - 11/07 will hold lopressor 12.5 bid and reassess bp/hr. Was on low dose BB for thoracic aneurysm, but given co-morbidities, syncope and labile bp --> reasonable to hold. Lung mass - neuroendocrine tumor, ongoing outpatient management cardiac whitaker remains stable
[2016-11-08] MEDS: ENOXAPARIN NA (PORCINE) 60 MG/0.6 ML DISP.SYRIN SQ SCH (12:59)
--- NOTE | 2016-11-08 13:48 | PN ---
Progress Note, Physician Chief Complaint: Ms Mcdonald says she is feeling well. No cp, sob, n/v. Pain is controlled. - Current Medication List Current Medications: Active Medications Acetaminophen (Tylenol -) 650 mg PO Q4H PRN PRN Reason: FEVER OR PAIN Last Admin: 11/07/16 21:28 Dose: 650 mg Atorvastatin Calcium (Lipitor -) 10 mg PO HS [facility] Last Admin: 11/07/16 21:30 Dose: 10 mg Dronabinol (Marinol -) 2.5 mg PO BID [facility] Last Admin: 11/08/16 09:04 Dose: 2.5 mg Enoxaparin Sodium (Lovenox -) 60 mg SQ ONCE [facility] Last Admin: 11/08/16 12:59 Dose: Not Given Lactobacillus Acidophilus (Bacid -) 1 tab PO DAILY [facility] Last Admin: 11/08/16 09:04 Dose: 1 tab Mirtazapine (Remeron -) 15 mg PO HS [facility] Last Admin: 11/07/16 21:27 Dose: 15 mg Ondansetron HCl (Zofran Injection) 4 mg IVPB Q6H PRN PRN Reason: NAUSEA Oxycodone HCl (Roxicodone -) 5 mg PO Q4H PRN PRN Reason: PAIN Last Admin: 11/07/16 21:29 Dose: 5 mg Pantoprazole Sodium (Protonix -) 40 mg PO DAILY [facility] Last Admin: 11/08/16 09:04 Dose: 40 mg Warfarin Sodium (Coumadin -) 4 mg PO DAILY@1800 [facility] - Objective Vital Signs: Vital Signs Temperature 98.9 F 11/08/16 10:00 Pulse Rate 97 H 11/08/16 10:00 Respiratory Rate 18 11/08/16 10:00 Blood Pressure 101/71 11/08/16 10:00 O2 Sat by Pulse Oximetry (%) 97 11/08/16 09:00 Constitutional: Yes: No Distress, Calm, Thin Cardiovascular: Yes: Regular Rate and Rhythm. No: Gallop, Murmur, Rub Respiratory: Yes: Regular, CTA Bilaterally. No: Rales, Rhonchi, Wheezes Gastrointestinal: Yes: Normal Bowel Sounds, Soft. No: Distention, Tenderness Extremities: Yes: WNL Edema: No Labs: CBC, BMP 11/08/16 05:43 11/08/16 05:43 INR, PTT INR 2.20 (0.82-1.09) H 11/08/16 05:43 Problem List - Problems (1) Syncope Code(s): R55 - SYNCOPE AND COLLAPSE Qualifiers: Syncope type: unspecified Qualified Code(s): R55 - Syncope and collapse (2) Back pain Code(s): M54.9 - DORSALGIA, UNSPECIFIED Qualifiers: Back pain location: thoracic back pain (3) UTI (urinary tract infection) Code(s): N39.0 - URINARY TRACT INFECTION, SITE NOT SPECIFIED (4) DVT (deep venous thrombosis) Code(s): I82.409 - ACUTE EMBOLISM AND THOMBOS UNSP DEEP VN UNSP LOWER EXTREMITY Qualifiers: DVT location: lower extremity Affected thrombotic vein of extremity: unspecified vein of extremity Chronicity: unspecified Laterality: unspecified laterality Qualified Code(s): I82.409 - Acute embolism and thrombosis of unspecified deep veins of unspecified lower extremity (5) Dehydration Code(s): E86.0 - DEHYDRATION (6) Elevated INR Code(s): R79.1 - ABNORMAL COAGULATION PROFILE (7) HTN (hypertension) Code(s): I10 - ESSENTIAL (PRIMARY) HYPERTENSION (8) Lung cancer Code(s): C34.90 - MALIGNANT NEOPLASM OF UNSP PART OF UNSP BRONCHUS OR LUNG Qualifiers: Laterality: right Lung location: lower lobe of lung Qualified Code(s): C34.31 - Malignant neoplasm of lower lobe, right bronchus or lung (9) Aneurysm of left popliteal artery Code(s): I72.4 - ANEURYSM OF ARTERY OF LOWER EXTREMITY (10) Chest pain Code(s): R07.9 - CHEST PAIN, UNSPECIFIED Assessment/Plan (1) Syncope Code(s): R55 - SYNCOPE AND COLLAPSE Qualifiers: Syncope type: unspecified Qualified Code(s): R55 - Syncope and collapse (2) Back pain Code(s): M54.9 - DORSALGIA, UNSPECIFIED Qualifiers: Back pain location: thoracic back pain (3) UTI (urinary tract infection) Code(s): N39.0 - URINARY TRACT INFECTION, SITE NOT SPECIFIED (4) DVT (deep venous thrombosis) Code(s): I82.409 - ACUTE EMBOLISM AND THOMBOS UNSP DEEP VN UNSP LOWER EXTREMITY Qualifiers: DVT location: lower extremity Affected thrombotic vein of extremity: unspecified vein of extremity Chronicity: unspecified Laterality: unspecified laterality Qualified Code(s): I82.409 - Acute embolism and thrombosis of unspecified deep veins of unspecified lower extremity (5) Dehydration Code(s): E86.0 - DEHYDRATION (6) Elevated INR Code(s): R79.1 - ABNORMAL COAGULATION PROFILE (7) HTN (hypertension) Code(s): I10 - ESSENTIAL (PRIMARY) HYPERTENSION (8) Lung cancer Code(s): C34.90 - MALIGNANT NEOPLASM OF UNSP PART OF UNSP BRONCHUS OR LUNG Qualifiers: Laterality: right Lung location: lower lobe of lung Qualified Code(s): C34.31 - Malignant neoplasm of lower lobe, right bronchus or lung (9) Aneurysm of left popliteal artery Code(s): I72.4 - ANEURYSM OF ARTERY OF LOWER EXTREMITY (10) Chest pain Code(s): R07.9 - CHEST PAIN, UNSPECIFIED Plan -INR therapeutic, stop lovenox -will change back to coumadin 4mg as do not want to patient to become supratherapeutic -continue current management, well controlled -discharge to SNF when bed available
[2016-11-08] MEDS: WARFARIN NA 2 MG TABLET (UD) PO SCH (17:18)
[2016-11-08] MEDS: MIRTAZAPINE 15 MG TABLET (FP) PO SCH (22:26)
[2016-11-08] MEDS: ATORVASTATIN CA 10 MG TABLET (FP) PO SCH (22:26)
[2016-11-08] MEDS: ACETAMINOPHEN 325 MG TABLET (FP) PO PRN (22:27)
[2016-11-09 07:33] LABS: EOSINOPHIL 1.8 % (0-4.5); MCH 25.9 pg (25.7-33.7); MCHC 32.4 g/dl (32.0-36.0); MEAN CELL VOLUME 80.1 fl (80-96); NEUTROPHILS 82.1 % (42.8-82.8); PLATELET COUNT 338 K/MM3 (134-434); RDW 17.4 % (11.6-15.6); WHITE BLOOD COUNT 9.1 K/mm3 (4.0-10.0)
[2016-11-09 07:38] LABS: INR 2.53 (0.82-1.09); PROTHROMBIN TIME (PATIENT) 28.4 SEC (9.98-11.88)
[2016-11-09 08:26] LABS: ANION GAP 6 (8-16); CALCIUM 8.5 mg/dL (8.5-10.1); CO2 35 mmol/L (21-32); CREATININE 0.5 mg/dL (0.55-1.02); GLUCOSE,RANDOM 97 mg/dL (74-106); MAGNESIUM 2.2 mg/dL (1.8-2.4); PHOSPHOROUS 3.1 mg/dL (2.5-4.9)
[2016-11-09] MEDS: PANTOPRAZOLE 40 MG TABLET (FP) PO SCH (09:56)
[2016-11-09] MEDS: LACTOBACILLUS ACIDOPHILUS 1 EACH TAB (FP) PO SCH (09:56)
[2016-11-09] MEDS: DRONABINOL 2.5 MG CAPSULE PO SCH ×2 (09:56→21:40)
--- NOTE | 2016-11-09 10:02 | PN ---
Progress Note (short form) - Note Progress Note: Chief Complaint: syncope History of Present Illness: still with back/leg pain no cp, sob, palpitations, presyncope - Current Medication List Current Medications Generic Name Dose Route Start Last Admin Trade Name Freq PRN Reason Stop Dose Admin Acetaminophen 650 mg 11/02/16 11:07 11/08/16 22:27 Tylenol - PO 650 mg Q4H PRN Administration FEVER OR PAIN Atorvastatin Calcium 10 mg 11/02/16 22:00 11/08/16 22:26 Lipitor - PO 10 mg HS HEATHER Administration Dronabinol 2.5 mg 11/02/16 22:00 11/09/16 09:56 Marinol - PO 2.5 mg BID HEATHER Administration Enoxaparin Sodium 60 mg 11/07/16 13:15 11/08/16 12:59 Lovenox - SQ Not Given ONCE HEATHER Lactobacillus Acidophilus 1 tab 11/02/16 11:30 11/09/16 09:56 Bacid - PO 1 tab DAILY HEATHER Administration Mirtazapine 15 mg 11/02/16 22:00 11/08/16 22:26 Remeron - PO 15 mg HS HEATHER Administration Ondansetron HCl 4 mg 11/02/16 11:07 Zofran Injection IVPB Q6H PRN NAUSEA Oxycodone HCl 5 mg 11/02/16 11:07 11/07/16 21:29 Roxicodone - PO 5 mg Q4H PRN Administration PAIN Pantoprazole Sodium 40 mg 11/03/16 10:00 11/09/16 09:56 Protonix - PO 40 mg DAILY HEATHER Administration Warfarin Sodium 4 mg 11/08/16 18:00 11/08/16 17:18 Coumadin - PO 4 mg DAILY@1800 HEATHER Administration - Objective Vital Signs: Vital Signs Period Temp Pulse Resp BP Sys/Wu Pulse Ox Last 24 Hr 98.1 F-99.5 F 87-101 18-18 125-159/67-105 97 Constitutional: Yes: Well Nourished, No Distress, Calm Cardiovascular: Yes: Regular Rate and Rhythm, S1, S2. No: JVD, Gallop, Murmur Respiratory: Yes: Regular, CTA Bilaterally. No: Accessory Muscle Use, Rales, Wheezes Extremities: No: Cold Edema: No Neurological: Yes: Alert, Oriented Psychiatric: No: Agitated no jaundice diaphoresis Labs: CBC, BMP 11/09/16 05:35 11/09/16 05:35 EKG: Other (tele: sr, sinus tach with occ APCs and PVCs) Echo 09/2016: nl lv/rv mild mr/tr, rvsp 30-40. mibi 09/2016: no ischemia/scar, nl lvef ecg 11/02/16: sinus tachy, sinus arrhythmia, pvcs, nl intervals, no ischemic changes carotids 10/2016: mod diz, no sig stenosis Assessment/Plan fall, possible syncope: -based on description possibly related to narcotic use. 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 -labile BPs here initially (ranging 80s/60s to 180/110s)--likely spikes related to pain (with assctd sinus tach as well)--bp's now stabilized -cannot stand for orthostatics (back and leg pain s/p trauma) -echo, mibi from September, overall unremarkalbe. carotid, ecg also without etiology for syncope. -no signs acs, ce's neg x2 -cont tele while here--consider outpt event monitor if recurs - stopped metoprolol here in case was contributing to hypotension/orthostasis. 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 Discussed with vascular then and was OK to defer plavix -cont statin -tobacco cessation. - monitor hgb on AC thoracic descending aorta aneurysm (5.1 cm)/AAA - thrombus overlying aneurysms, extensive atherosclerotic disease - cont statin, smoking cessation. No antiplatelet as she is on AC - holding bb due to low bp at times DVT with malignancy -cont coumadin, pmd dosing per INR. monitor hgb + tobacco - recent smoking cessation htn - labile here, likely due to pain (accompanied by sinus tach as well) - 11/07 will hold lopressor 12.5 bid and reassess bp/hr. Was on low dose BB for thoracic aneurysm, but given co-morbidities, syncope and labile bp --> reasonable to hold. Lung mass - neuroendocrine tumor, ongoing outpatient management cardiac whitaker remains stable for SNF
--- NOTE | 2016-11-09 11:24 | PN ---
Progress Note, Physician Chief Complaint: Ms Mcdonald says she has pain in her back when walking. No cp, sob, n/v. - Current Medication List Current Medications: Active Medications Acetaminophen (Tylenol -) 650 mg PO Q4H PRN PRN Reason: FEVER OR PAIN Last Admin: 11/08/16 22:27 Dose: 650 mg Atorvastatin Calcium (Lipitor -) 10 mg PO HS [facility] Last Admin: 11/08/16 22:26 Dose: 10 mg Dronabinol (Marinol -) 2.5 mg PO BID [facility] Last Admin: 11/09/16 09:56 Dose: 2.5 mg Enoxaparin Sodium (Lovenox -) 60 mg SQ ONCE [facility] Last Admin: 11/08/16 12:59 Dose: Not Given Lactobacillus Acidophilus (Bacid -) 1 tab PO DAILY [facility] Last Admin: 11/09/16 09:56 Dose: 1 tab Mirtazapine (Remeron -) 15 mg PO HS [facility] Last Admin: 11/08/16 22:26 Dose: 15 mg Ondansetron HCl (Zofran Injection) 4 mg IVPB Q6H PRN PRN Reason: NAUSEA Oxycodone HCl (Roxicodone -) 5 mg PO Q4H PRN PRN Reason: PAIN Last Admin: 11/07/16 21:29 Dose: 5 mg Pantoprazole Sodium (Protonix -) 40 mg PO DAILY [facility] Last Admin: 11/09/16 09:56 Dose: 40 mg Warfarin Sodium (Coumadin -) 4 mg PO DAILY@1800 [facility] Last Admin: 11/08/16 17:18 Dose: 4 mg - Objective Vital Signs: Vital Signs Temperature 98.3 F 11/09/16 10:00 Pulse Rate 102 H 11/09/16 10:00 Respiratory Rate 18 11/09/16 10:00 Blood Pressure 127/82 11/09/16 10:00 O2 Sat by Pulse Oximetry (%) 91 L 11/09/16 09:00 Constitutional: Yes: No Distress, Calm, Thin Cardiovascular: Yes: Regular Rate and Rhythm. No: Gallop, Murmur, Rub Respiratory: Yes: Regular, CTA Bilaterally. No: Rales, Rhonchi, Wheezes Gastrointestinal: Yes: Normal Bowel Sounds, Soft. No: Distention, Tenderness Extremities: Yes: WNL Edema: No Labs: CBC, BMP 11/09/16 05:35 11/09/16 05:35 INR, PTT INR 2.53 (0.82-1.09) H 11/09/16 05:35 Problem List - Problems (1) Syncope Code(s): R55 - SYNCOPE AND COLLAPSE Qualifiers: Syncope type: unspecified Qualified Code(s): R55 - Syncope and collapse (2) Back pain Code(s): M54.9 - DORSALGIA, UNSPECIFIED Qualifiers: Back pain location: thoracic back pain (3) UTI (urinary tract infection) Code(s): N39.0 - URINARY TRACT INFECTION, SITE NOT SPECIFIED (4) DVT (deep venous thrombosis) Code(s): I82.409 - ACUTE EMBOLISM AND THOMBOS UNSP DEEP VN UNSP LOWER EXTREMITY Qualifiers: DVT location: lower extremity Affected thrombotic vein of extremity: unspecified vein of extremity Chronicity: unspecified Laterality: unspecified laterality Qualified Code(s): I82.409 - Acute embolism and thrombosis of unspecified deep veins of unspecified lower extremity (5) Dehydration Code(s): E86.0 - DEHYDRATION (6) Elevated INR Code(s): R79.1 - ABNORMAL COAGULATION PROFILE (7) HTN (hypertension) Code(s): I10 - ESSENTIAL (PRIMARY) HYPERTENSION (8) Lung cancer Code(s): C34.90 - MALIGNANT NEOPLASM OF UNSP PART OF UNSP BRONCHUS OR LUNG Qualifiers: Laterality: right Lung location: lower lobe of lung Qualified Code(s): C34.31 - Malignant neoplasm of lower lobe, right bronchus or lung (9) Aneurysm of left popliteal artery Code(s): I72.4 - ANEURYSM OF ARTERY OF LOWER EXTREMITY (10) Chest pain Code(s): R07.9 - CHEST PAIN, UNSPECIFIED Assessment/Plan (1) Syncope Code(s): R55 - SYNCOPE AND COLLAPSE Qualifiers: Syncope type: unspecified Qualified Code(s): R55 - Syncope and collapse (2) Back pain Code(s): M54.9 - DORSALGIA, UNSPECIFIED Qualifiers: Back pain location: thoracic back pain (3) UTI (urinary tract infection) Code(s): N39.0 - URINARY TRACT INFECTION, SITE NOT SPECIFIED (4) DVT (deep venous thrombosis) Code(s): I82.409 - ACUTE EMBOLISM AND THOMBOS UNSP DEEP VN UNSP LOWER EXTREMITY Qualifiers: DVT location: lower extremity Affected thrombotic vein of extremity: unspecified vein of extremity Chronicity: unspecified Laterality: unspecified laterality Qualified Code(s): I82.409 - Acute embolism and thrombosis of unspecified deep veins of unspecified lower extremity (5) Dehydration Code(s): E86.0 - DEHYDRATION (6) Elevated INR Code(s): R79.1 - ABNORMAL COAGULATION PROFILE (7) HTN (hypertension) Code(s): I10 - ESSENTIAL (PRIMARY) HYPERTENSION (8) Lung cancer Code(s): C34.90 - MALIGNANT NEOPLASM OF UNSP PART OF UNSP BRONCHUS OR LUNG Qualifiers: Laterality: right Lung location: lower lobe of lung Qualified Code(s): C34.31 - Malignant neoplasm of lower lobe, right bronchus or lung (9) Aneurysm of left popliteal artery Code(s): I72.4 - ANEURYSM OF ARTERY OF LOWER EXTREMITY (10) Chest pain Code(s): R07.9 - CHEST PAIN, UNSPECIFIED Plan -INR remains therapeutic, continue current dose -daily INR while here -benefit from having oxycodone prior to ambulation -continue current regimen -awaiting bed at SNF
[2016-11-09] MEDS: oxyCODONE HCL 5 MG TABLET PO PRN (11:36)
[2016-11-09] MEDS: ACETAMINOPHEN 325 MG TABLET (FP) PO PRN (11:38)
[2016-11-09] MEDS ORDERED: oxyCODONE HCL 5 MG TABLET PO PRN (12:00)
[2016-11-09] MEDS: ENOXAPARIN NA (PORCINE) 60 MG/0.6 ML DISP.SYRIN SQ SCH (12:28)
[2016-11-09] MEDS: WARFARIN NA 2 MG TABLET (UD) PO SCH (17:06)
[2016-11-09] MEDS: ATORVASTATIN CA 10 MG TABLET (FP) PO SCH (21:40)
[2016-11-09] MEDS: MIRTAZAPINE 15 MG TABLET (FP) PO SCH (21:40)
[2016-11-10 06:45] LABS: PROTHROMBIN TIME (PATIENT) 33.8 SEC (9.98-11.88)
[2016-11-10] MEDS: DRONABINOL 2.5 MG CAPSULE PO SCH (09:38)
[2016-11-10] MEDS: PANTOPRAZOLE 40 MG TABLET (FP) PO SCH (09:38)
[2016-11-10] MEDS: oxyCODONE HCL 5 MG TABLET PO PRN (09:38)
[2016-11-10] MEDS: LACTOBACILLUS ACIDOPHILUS 1 EACH TAB (FP) PO SCH (09:38)
[2016-11-10] MEDS: ACETAMINOPHEN 325 MG TABLET (FP) PO PRN (09:39)
--- NOTE | 2016-11-10 10:05 | PN ---
Progress Note (short form) - Note Progress Note: Chief Complaint: syncope History of Present Illness: still with back/leg pain no cp, sob, palpitations, presyncope - Current Medication List Current Medications Generic Name Dose Route Start Last Admin Trade Name Freq PRN Reason Stop Dose Admin Acetaminophen 650 mg 11/02/16 11:07 11/10/16 09:39 Tylenol - PO 650 mg Q4H PRN Administration FEVER OR PAIN Atorvastatin Calcium 10 mg 11/02/16 22:00 11/09/16 21:40 Lipitor - PO 10 mg HS HEATHER Administration Dronabinol 2.5 mg 11/02/16 22:00 11/10/16 09:38 Marinol - PO 2.5 mg BID HEATHER Administration Lactobacillus Acidophilus 1 tab 11/02/16 11:30 11/10/16 09:38 Bacid - PO 1 tab DAILY HEATHER Administration Mirtazapine 15 mg 11/02/16 22:00 11/09/16 21:40 Remeron - PO 15 mg HS HEATHER Administration Ondansetron HCl 4 mg 11/02/16 11:07 Zofran Injection IVPB Q6H PRN NAUSEA Oxycodone HCl 5 mg 11/02/16 11:07 11/10/16 09:38 Roxicodone - PO 5 mg Q4H PRN Administration PAIN Oxycodone HCl 5 mg 11/09/16 12:00 Roxicodone - PO MoTuWeThFr@1200 PRN 30 MINS BEFORE PT Pantoprazole Sodium 40 mg 11/03/16 10:00 11/10/16 09:38 Protonix - PO 40 mg DAILY HEATHER Administration Warfarin Sodium 4 mg 11/08/16 18:00 11/09/16 17:06 Coumadin - PO 4 mg DAILY@1800 HEATHER Administration - Objective Vital Signs: Vital Signs Period Temp Pulse Resp BP Sys/Wu Pulse Ox Last 24 Hr 98.1 F-99.1 F 97-108 18-22 96-147/66-88 96 Constitutional: Yes: Well Nourished, No Distress, Calm Cardiovascular: Yes: Regular Rate and Rhythm, S1, S2. No: JVD, Gallop, Murmur Respiratory: Yes: Regular, CTA Bilaterally. No: Accessory Muscle Use, Rales, Wheezes Extremities: No: Cold Edema: No Neurological: Yes: Alert, Oriented Psychiatric: No: Agitated no jaundice diaphoresis Labs: CBC, BMP 11/09/16 05:35 11/09/16 05:35 EKG: Other (tele: sr, sinus tach with occ APCs and PVCs) Echo 09/2016: nl lv/rv mild mr/tr, rvsp 30-40. mibi 09/2016: no ischemia/scar, nl lvef ecg 11/02/16: sinus tachy, sinus arrhythmia, pvcs, nl intervals, no ischemic changes carotids 10/2016: mod diz, no sig stenosis Assessment/Plan fall, possible syncope: -based on description possibly related to narcotic use. 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 -labile BPs here initially (ranging 80s/60s to 180/110s)--likely spikes related to pain (with assctd sinus tach as well)--bp's now stabilized -cannot stand for orthostatics (back and leg pain s/p trauma) -echo, mibi from September, overall unremarkalbe. carotid, ecg also without etiology for syncope. -no signs acs, ce's neg x2 -tele here benign for a week--consider outpt event monitor if syncope/fall recurs - stopped metoprolol here in case was contributing to hypotension/orthostasis. 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 Discussed with vascular then and was OK to defer plavix -cont statin -tobacco cessation. - monitor hgb on AC thoracic descending aorta aneurysm (5.1 cm)/AAA - thrombus overlying aneurysms, extensive atherosclerotic disease - cont statin, smoking cessation. No antiplatelet as she is on AC - holding bb due to low bp at times DVT with malignancy -cont coumadin, pmd dosing per INR. monitor hgb + tobacco - recent smoking cessation htn - labile here, likely due to pain (accompanied by sinus tach as well) - 11/07 will hold lopressor 12.5 bid and reassess bp/hr. Was on low dose BB for thoracic aneurysm, but given co-morbidities, syncope and labile bp --> reasonable to hold. Lung mass - neuroendocrine tumor, ongoing outpatient management cardiac whitaker remains stable for SNF, can dc tele
[2016-11-10 14:23] VITALS: BP 99/71; PULSE 100; TEMP 99.2
--- NOTE | 2016-11-10 14:36 | DS ---
Physical Examination Vital Signs: Vital Signs Temperature 99.2 F 11/10/16 14:21 Pulse Rate 100 H 11/10/16 14:21 Respiratory Rate 18 11/10/16 14:21 Blood Pressure 99/71 11/10/16 14:21 O2 Sat by Pulse Oximetry (%) 91 L 11/10/16 09:00 Constitutional: Yes: No Distress, Calm, Thin Cardiovascular: Yes: Regular Rate and Rhythm. No: Gallop, Murmur, Rub Respiratory: Yes: Regular, CTA Bilaterally. No: Rales, Rhonchi, Wheezes Gastrointestinal: Yes: Normal Bowel Sounds, Soft. No: Distention, Tenderness Extremities: Yes: WNL Edema: No Labs: CBC, BMP 11/09/16 05:35 11/09/16 05:35 Discharge Summary Reason For Visit: FALL,L HIP PAIN, SYNCOPE Current Active Problems Chest pain (Acute) Fall (Acute) Hip pain, left (Acute) Syncope (Acute) UTI (urinary tract infection) (Acute) Hospital Course: (1) Syncope Code(s): R55 - SYNCOPE AND COLLAPSE Qualifiers: Syncope type: unspecified Qualified Code(s): R55 - Syncope and collapse (2) Back pain Code(s): M54.9 - DORSALGIA, UNSPECIFIED Qualifiers: Back pain location: thoracic back pain (3) UTI (urinary tract infection) Code(s): N39.0 - URINARY TRACT INFECTION, SITE NOT SPECIFIED (4) DVT (deep venous thrombosis) Code(s): I82.409 - ACUTE EMBOLISM AND THOMBOS UNSP DEEP VN UNSP LOWER EXTREMITY Qualifiers: DVT location: lower extremity Affected thrombotic vein of extremity: unspecified vein of extremity Chronicity: unspecified Laterality: unspecified laterality Qualified Code(s): I82.409 - Acute embolism and thrombosis of unspecified deep veins of unspecified lower extremity (5) Dehydration Code(s): E86.0 - DEHYDRATION (6) Elevated INR Code(s): R79.1 - ABNORMAL COAGULATION PROFILE (7) HTN (hypertension) Code(s): I10 - ESSENTIAL (PRIMARY) HYPERTENSION (8) Lung cancer Code(s): C34.90 - MALIGNANT NEOPLASM OF UNSP PART OF UNSP BRONCHUS OR LUNG Qualifiers: Laterality: right Lung location: lower lobe of lung Qualified Code(s): C34.31 - Malignant neoplasm of lower lobe, right bronchus or lung (9) Aneurysm of left popliteal artery Code(s): I72.4 - ANEURYSM OF ARTERY OF LOWER EXTREMITY (10) Chest pain Code(s): R07.9 - CHEST PAIN, UNSPECIFIED Ms Mcdonald is a 76 year old female who comes in with syncope. She was admitted to the hospital on telemetry. She also had intractable back pain secondary to metastic cancer. She was seen by cardiology for syncope, no new tests were required as she had full work up on previous hospital admission with the exception of carotid ultrasound which were obtained. Her pain was controlled and she was seen by PT. She was continued on her coumadin for her DVT. She was found to have a UTI and this was treated. She is currently stable for discharge to SNF for rehab. 32 minutes spent in preparation of this discharge Condition: Stable - Instructions Diet, Activity, Other Instructions: regular diet. Up with assistance, further activity per PT at SNF. Referrals: Quinn Massey MD [Primary Care Provider] - Disposition: HALFWAY FACILITY - Home Medications Comprehensive Discharge Medication List: Ambulatory Orders Atorvastatin Ca [Lipitor] 10 mg PO HS 11/02/16 Dronabinol 2.5 mg PO BID 11/02/16 Furosemide [Lasix] 20 mg PO PRN PRN 11/02/16 Metoprolol Tartrate 12.5 mg PO BID 11/02/16 Mirtazapine 15 mg PO HS 11/02/16 Pantoprazole Sodium 40 mg PO DAILY 11/02/16 Tramadol HCl 50 mg PO TID 11/02/16 Acetaminophen [Tylenol .Regular Strength -] 650 mg PO Q4H PRN #0 tablet Warfarin Na [Coumadin -] 4 mg PO DAILY@1800 #0 tablet 11/07/16 Oxycodone HCl [Roxicodone -] 5 mg PO Q4H PRN #0 tablet MDD 30mg 11/10/16 Warfarin Na [Coumadin -] 4 mg PO DAILY@1800 tablet 11/10/16
== END 2016-11-10 15:55 | DRG 551 ==
LOC: JER 04:41 → JERBED 10:33 → OBSVTOIN 11:07 → J4S 15:13
PROVIDERS: ADMIT Internal Medicine; ATTEND Internal Medicine
DX: M54.89 Other dorsalgia (principal); E43 Unspecified severe protein-calorie malnutrition; N39.0 Urinary tract infection, site not specified; I82.409 Acute embolism and thrombosis of unspecified deep veins of unspecified lower extremity; C34.31 Malignant neoplasm of lower lobe, right bronchus or lung; R64 Cachexia; Z68.1 Body mass index [BMI] 19.9 or less, adult; J44.9 Chronic obstructive pulmonary disease, unspecified; I10 Essential (primary) hypertension; D64.9 Anemia, unspecified; M54.5 Low back pain; K21.9 Gastro-esophageal reflux disease without esophagitis; K44.9 Diaphragmatic hernia without obstruction or gangrene; I72.4 Aneurysm of artery of lower extremity; R55 Syncope and collapse; R29.6 Repeated falls; R79.1 Abnormal coagulation profile; E86.0 Dehydration; R07.9 Chest pain, unspecified; R00.0 Tachycardia, unspecified; I71.2 Thoracic aortic aneurysm, without rupture; T40.605A Adverse effect of unspecified narcotics, initial encounter; Z79.01 Long term (current) use of anticoagulants
CPT/HCPCS: 36415; 70450-TC; 71010-TC; 72070-TC; 72100-TC; 72125-TC; 73523-TC; 80048; 80053; 81003; 81015; 82550; 83605; 83735; 84100; 84443; 84484; 85025; 85610; 85730; 87040; 87086; 93005; 93010; 93880-TC; 97116-GP; 97161-GP; 99285-25; G0378

== ENCOUNTER 2016-11-26 18:17 | Inpatient (IN) | payer OTHER ==
--- NOTE | 2016-11-26 18:36 | PDOC ---
History of Present Illness - General Chief Complaint: Bone Injury Stated Complaint: POSSIBLE LEFT HIP FRACTURE Time Seen by Provider: 11/26/16 18:34 Past History - Past Medical History Allergies/Adverse Reactions: Allergies Allergy/AdvReac Type Severity Reaction Status Date / Time No Known Allergies Allergy Verified 11/26/16 18:19 Home Medications: Ambulatory Orders Atorvastatin Ca [Lipitor] 10 mg PO HS 11/02/16 Dronabinol 2.5 mg PO BID 11/02/16 Furosemide [Lasix] 20 mg PO PRN PRN 11/02/16 Metoprolol Tartrate 12.5 mg PO BID 11/02/16 Mirtazapine 15 mg PO HS 11/02/16 Pantoprazole Sodium 40 mg PO DAILY 11/02/16 Tramadol HCl 50 mg PO TID 11/02/16 Acetaminophen [Tylenol .Regular Strength -] 650 mg PO Q4H PRN #0 tablet Warfarin Na [Coumadin -] 4 mg PO DAILY@1800 #0 tablet 11/07/16 Oxycodone HCl [Roxicodone -] 5 mg PO Q4H PRN #0 tablet MDD 30mg 11/10/16 Warfarin Na [Coumadin -] 4 mg PO DAILY@1800 tablet 11/10/16 Anemia: Yes Asthma: No Cancer: Yes (lung) Cardiac Disorders: No CVA: No COPD: No CHF: No DVT: Yes (on Coumadin) Dementia: No Diabetes: No GI Disorders: Yes (hernia) Disorders: No HTN: Yes Hypercholesterolemia: No Liver Disease: No Seizures: No Thyroid Disease: No Lung CA: Yes - Surgical History Abdominal Surgery: No Appendectomy: No Cardiac Surgery: No Cholecystectomy: No Lung Surgery: No Neurologic Surgery: No Orthopedic Surgery: No - Psycho/Social/Smoking Cessation Hx Anxiety: No Suicidal Ideation: No Smoking History: Never smoked Have you smoked in the past 12 months: No Number of Cigarettes Smoked Daily: 1 If you are a former smoker, when did you quit?: 2 months ago 'Breaking Loose' booklet given: 09/04/16 Hx Alcohol Use: No Drug/Substance Use Hx: No Substance Use Type: None Hx Substance Use Treatment: No
--- NOTE | 2016-11-26 21:07 | PDOC ---
History of Present Illness - General Chief Complaint: Bone Injury Stated Complaint: POSSIBLE LEFT HIP FRACTURE Time Seen by Provider: 11/26/16 18:34 History Source: Custodial Records Exam Limitations: Dementia - History of Present Illness Initial Comments: 11/26/16 21:07 76yo Female patient w/ PmHx: Syncope, UTI (VRE), DVT, HLD, HTN, Depression, Dementia and Anemia presents to ED from [facility] via EMS for evaluation of left hip s/p fall from wheelchair and c/o left hip pain. Occurred: reports: this evening Severity: reports: mild Pain Location: reports: lower extremity, pelvis Method of Injury: Yes: fall Modifying Factors: improves with: immobilization Loss of Consciousness: no loss of consciousness Associated Symptoms (Fall): denies symptoms Past History - Travel Traveled outside of the country in the last 30 days: No Close contact w/someone who was outside of country & ill: No - Past Medical History Allergies/Adverse Reactions: Allergies Allergy/AdvReac Type Severity Reaction Status Date / Time No Known Allergies Allergy Verified 11/26/16 18:19 Home Medications: Ambulatory Orders Atorvastatin Ca [Lipitor] 10 mg PO HS 11/02/16 Dronabinol 2.5 mg PO BID 11/02/16 Furosemide [Lasix] 20 mg PO PRN PRN 11/02/16 Metoprolol Tartrate 12.5 mg PO BID 11/02/16 Mirtazapine 15 mg PO HS 11/02/16 Pantoprazole Sodium 40 mg PO DAILY 11/02/16 Tramadol HCl 50 mg PO TID 11/02/16 Acetaminophen [Tylenol .Regular Strength -] 650 mg PO Q4H PRN #0 tablet Warfarin Na [Coumadin -] 4 mg PO DAILY@1800 #0 tablet 11/07/16 Oxycodone HCl [Roxicodone -] 5 mg PO Q4H PRN #0 tablet MDD 30mg 11/10/16 Warfarin Na [Coumadin -] 4 mg PO DAILY@1800 tablet 11/10/16 Anemia: Yes Asthma: No Cancer: Yes (lung) Cardiac Disorders: No CVA: No COPD: No CHF: No DVT: Yes (on Coumadin) Dementia: No Diabetes: No GI Disorders: Yes (hernia) Disorders: No HTN: Yes Hypercholesterolemia: No Liver Disease: No Seizures: No Thyroid Disease: No Lung CA: Yes - Surgical History Abdominal Surgery: No Appendectomy: No Cardiac Surgery: No Cholecystectomy: No Lung Surgery: No Neurologic Surgery: No Orthopedic Surgery: No - Psycho/Social/Smoking Cessation Hx Anxiety: No Suicidal Ideation: No Smoking History: Unknown if ever smoked Have you smoked in the past 12 months: No Number of Cigarettes Smoked Daily: 1 If you are a former smoker, when did you quit?: 2 months ago 'Breaking Loose' booklet given: 09/04/16 Hx Alcohol Use: No Drug/Substance Use Hx: No Substance Use Type: None Hx Substance Use Treatment: No Trauma Specific PMHX - Complaint Specific PMHX Arthritis: No Back Injury: No Neck Injury: No Hx Sacro Iliac Joint Dysfunction: No Review of Systems - Review of Systems Able to Perform ROS?: Yes Is the patient limited Kyrgyz proficient: No Constitutional: No: Chills, Fever Cardiac (ROS): No: Chest Pain : No: Dysuria, Hematuria Musculoskeletal: Yes: Other (Left Hip Pain) Integumentary: No: Bruising, Erythema, Rash Neurological: No: Headache All Other Systems: Reviewed and Negative *Physical Exam - Vital Signs Last Vital Signs Temp Pulse Resp BP Pulse Ox 99.9 F H 74 16 95/70 97 11/26/16 18:40 11/26/16 18:40 11/26/16 18:40 11/26/16 18:40 11/26/16 18:40 - Physical Exam General Appearance: Yes: Nourished, Appropriately Dressed. No: Apparent Distress, Mild Distress, Moderate Distress, Severe Distress Respiratory/Chest: positive: Lungs Clear, Normal Breath Sounds. negative: Chest Tender, Respiratory Distress, Accessory Muscle Use, Labored Respiration, Rapid RR Cardiovascular: positive: Regular Rhythm, Regular Rate Gastrointestinal/Abdominal: positive: Normal Bowel Sounds, Flat, Soft. negative : Distended, Guarding, Rebound, Tenderness Musculoskeletal: positive: Normal Inspection, Decreased Range of Motion (LLE), Other (Tenderness to Palpation of Left Hip). negative: CVA Tenderness Extremity: positive: Normal Capillary Refill, Tender (Left Hip), Pelvis Stable. negative: Normal Inspection, Normal Range of Motion, Calf Tenderness, Erythema , Inflammation Integumentary: positive: Normal Color, Dry, Warm Neurologic: positive: Fully Oriented, Alert, Normal Mood/Affect, Normal Response. negative: Motor Strength 5/5 ED Treatment Course - LABORATORY CBC & Chemistry Diagram: 11/26/16 20:50 11/26/16 23:18 - RADIOLOGY Radiology Studies Ordered: Category Date Time Status PELVIS CT WITH CONTRAST [CT] Stat CT Scan 11/26/16 20:45 Ordered Medical Decision Making - Medical Decision Making 11/27/16 03:25 Spoke with Ortho PA who will consult patient in am. *DC/Admit/Observation/Transfer Diagnosis at time of Disposition: Hip fracture, left Qualifiers: Encounter type: initial encounter Fracture type: closed Qualified Code(s): S72.002A - Fracture of unspecified part of neck of left femur, initial encounter for closed fracture Fall Qualifiers: Encounter type: initial encounter Qualified Code(s): W19.XXXA - Unspecified fall, initial encounter - Discharge Dispostion Condition at time of disposition: Fair Admit: Yes
[2016-11-26 21:23] LABS: BASOPHIL 1.3 % (0-2.0); EOSINOPHIL 3.5 % (0-4.5); MCHC 32.6 g/dl (32.0-36.0); MEAN CELL VOLUME 79.8 fl (80-96); MEAN PLT VOLUME 9.6 fl (7.5-11.1); NEUTROPHILS 74.6 % (42.8-82.8); PLATELET COUNT 354 K/MM3 (134-434); RDW 17.8 % (11.6-15.6); WHITE BLOOD COUNT 10.2 K/mm3 (4.0-10.0)
[2016-11-26 21:39] LABS: INR 2.7 (0.82-1.09); PROTHROMBIN TIME (PATIENT) 30.3 SEC (9.98-11.88)
[2016-11-26 21:41] LABS: ACTIVATED PTT 31.8 SECONDS (26.9-34.4)
[2016-11-26] MEDS ORDERED: ASPIRIN 81 MG CHEWABLE TABLETS ONE (21:46)
[2016-11-26 21:47] LABS: URINE APPEARANCE SLCLOUDY; URINE BILIRUBIN NEGATIVE (NEGATIVE); URINE BLOOD NEGATIVE (NEGATIVE); URINE COLOR YELLOW; URINE GLUCOSE (UA) NEGATIVE (NEGATIVE); URINE KETONE NEGATIVE (NEGATIVE); URINE LEUK ESTERASE NEGATIVE (NEGATIVE); URINE NITRITE NEGATIVE (NEGATIVE); URINE PROTEIN NEGATIVE (NEGATIVE); URINE UROBILINOGEN NEGATIVE mg/dL (0.2-1.0)
[2016-11-26 23:54] LABS: ALBUMIN 2.6 g/dl (3.4-5.0); ALK PHOS 173 U/L (45-117); ANION GAP 7 (8-16); BILIRUBIN,TOTAL 0.3 mg/dL (0.2-1.0); CALCIUM 8.4 mg/dL (8.5-10.1); CO2 34 mmol/L (21-32); CREATININE 0.7 mg/dL (0.55-1.02); GLUCOSE,RANDOM 106 mg/dL (74-106); SGOT/AST 23 U/L (15-37); SGPT/ALT 14 U/L (12-78); TOT PROT 6.3 g/dl (6.4-8.2)
--- NOTE | 2016-11-27 03:17 | PN ---
Teaching Attending Note Name of Resident: Cuong Alatorre ATTENDING PHYSICIAN STATEMENT I saw and evaluated the patient. I reviewed the resident's note and discussed the case with the resident. I agree with the resident's findings and plan as documented. SUBJECTIVE: 76 F with pmhx syncope, VR UTI, DVT, HLD, HTN, Dementia and anemia [facility], witnessed by [facility] staff and pt. did NOT hit her head, but she fell on her buttock region. Pt, states she is not sure what happened. Denies any visual changes, no chest pain or pressure. No headaches. OBJECTIVE: Physical: VS: Vital Signs Period Temp Pulse Resp BP Sys/Wu Pulse Ox Last 24 Hr 99.9 F 74-80 16-18 95-137/68-70 97-98 GEN: NAD, Resting in bed HEENT: NCAT, PERRL, Slcera- Anicteric CARD: RRR S1, S2 RESP: CTAB ABD: BSx4, NTD to palpation EXT: - C/C/E Pulses intact EKG: CXR: PENDING Hip XRAY CT LE: Pending CBCD WBC 10.2 K/mm3 (4.0-10.0) H 11/26/16 20:50 RBC 3.50 M/mm3 (3.60-5.2) L 11/26/16 20:50 Hgb 9.1 GM/dL (10.7-15.3) L 11/26/16 20:50 Hct 27.9 % (32.4-45.2) L 11/26/16 20:50 MCV 79.8 fl (80-96) L 11/26/16 20:50 MCHC 32.6 g/dl (32.0-36.0) 11/26/16 20:50 RDW 17.8 % (11.6-15.6) H 11/26/16 20:50 Plt Count 354 K/MM3 (134-434) 11/26/16 20:50 MPV 9.6 fl (7.5-11.1) 11/26/16 20:50 CMP Sodium 144 mmol/L (136-145) 11/26/16 23:18 Potassium 3.6 mmol/L (3.5-5.1) 11/26/16 23:18 Chloride 103 mmol/L (98-107) 11/26/16 23:18 Carbon Dioxide 34 mmol/L (21-32) H 11/26/16 23:18 Anion Gap 7 (8-16) L 11/26/16 23:18 BUN 15 mg/dL (7-18) 11/26/16 23:18 Creatinine 0.7 mg/dL (0.55-1.02) D 11/26/16 23:18 Creat Clearance w eGFR > 60 (>60) 11/26/16 23:18 Random Glucose 106 mg/dL (74-106) 11/26/16 23:18 Calcium 8.4 mg/dL (8.5-10.1) L 11/26/16 23:18 Total Bilirubin 0.3 mg/dL (0.2-1.0) D 11/26/16 23:18 AST 23 U/L (15-37) D 11/26/16 23:18 ALT 14 U/L (12-78) 11/26/16 23:18 Alkaline Phosphatase 173 U/L (45-117) H 11/26/16 23:18 Total Protein 6.3 g/dl (6.4-8.2) L 11/26/16 23:18 Albumin 2.6 g/dl (3.4-5.0) L 11/26/16 23:18 Ambulatory Orders Atorvastatin Ca [Lipitor] 10 mg PO HS 11/02/16 Dronabinol 2.5 mg PO BID 11/02/16 Furosemide [Lasix] 20 mg PO PRN PRN 11/02/16 Metoprolol Tartrate 12.5 mg PO BID 11/02/16 Mirtazapine 15 mg PO HS 11/02/16 Pantoprazole Sodium 40 mg PO DAILY 11/02/16 Tramadol HCl 50 mg PO TID 11/02/16 Acetaminophen [Tylenol .Regular Strength -] 650 mg PO Q4H PRN #0 tablet Warfarin Na [Coumadin -] 4 mg PO DAILY@1800 #0 tablet 11/07/16 Oxycodone HCl [Roxicodone -] 5 mg PO Q4H PRN #0 tablet MDD 30mg 11/10/16 Warfarin Na [Coumadin -] 4 mg PO DAILY@1800 tablet 11/10/16 ASSESSMENT AND PLAN: 76 F with pmhx of DVT, HLD, HTN who presents post mechanical fall 1.) L. Hip Fx - Type and Screen - NPO - Coags - Ortho consult - Pain control 2.) DVT on Coumadin - Would hold Coumadin for possible Sx - INR 2.75, Repeat in AM 3.) HTN - C/W Home Meds 4.) HLD - C/W Home meds Place in Med- Sx
[2016-11-27] MEDS ORDERED: ACETAMINOPHEN 325 MG TABLET (FP) PO PRN (03:56)
[2016-11-27] MEDS ORDERED: FUROSEMIDE 20 MG TABLET (FP) PO PRN (03:56)
--- NOTE | 2016-11-27 03:59 | HP ---
Admitting History and Physical - Admission History of Present Illness: 76yo F from [facility] with significant history of dementia, DVT (on Coumadin), syncope, hyperlipidemia, depression, and HTN presenting to the ED with a possible hip fracture. Unable to obtain complete history from patient due to dementia. Pt states she has had a previous fall some time back, however currently she cannot recall what happened. Per chart and ED physician, pt was in her wheelchair when she fell out and sustained trauma to her hip. Pt neither loss consciousness nor hit her head. Pt is on anticoagulation for a previous DVT in September 2016, however there was no bleeding during her fall. Currently pt complains of hip pain. She does not have any other complaints and denies CP/discomfort, SOB, dizziness, cold extremities. ER course notable for: 1) Tovar placement 2) Hip/Pelvis Xray - By my read possible left femoral neck fracture line seen 3) Hip CT - Official read pending 4) INR revealing 2.75 (on coumadin for previous DVT) History Source: Patient, Medical Record Limitations to Obtaining History: Dementia - Past Medical History Cardiovascular: Yes: Deep Vein Thrombosis, HTN Pulmonary: Yes: COPD. No: O2 Dependent Gastrointestinal: Yes: GERD, Hiatal Hernia (large HH) Heme/Onc: Yes: Anemia Musculoskeletal: Yes: Chronic low back pain - Past Surgical History Past Surgical History: Yes: , Laminectomy - Smoking History Smoking history: Unknown if ever smoked Have you smoked in the past 12 months: No Aproximately how many cigarettes per day: 1 If you are a former smoker, when did you quit?: 2 months ago - Alcohol/Substance Use Hx Alcohol Use: No History of Substance Use: reports: None - Social History ADL: Family Assistance History of Recent Travel: No Home Medications - Allergies Allergies/Adverse Reactions: Allergies Allergy/AdvReac Type Severity Reaction Status Date / Time No Known Allergies Allergy Verified 11/26/16 18:19 - Home Medications Home Medications: Ambulatory Orders Atorvastatin Ca [Lipitor] 10 mg PO HS 11/02/16 Dronabinol 2.5 mg PO BID 11/02/16 Furosemide [Lasix] 20 mg PO PRN PRN 11/02/16 Metoprolol Tartrate 12.5 mg PO BID 11/02/16 Mirtazapine 15 mg PO HS 11/02/16 Pantoprazole Sodium 40 mg PO DAILY 11/02/16 Tramadol HCl 50 mg PO TID 11/02/16 Acetaminophen [Tylenol .Regular Strength -] 650 mg PO Q4H PRN #0 tablet Warfarin Na [Coumadin -] 4 mg PO DAILY@1800 #0 tablet 11/07/16 Oxycodone HCl [Roxicodone -] 5 mg PO Q4H PRN #0 tablet MDD 30mg 11/10/16 Warfarin Na [Coumadin -] 4 mg PO DAILY@1800 tablet 11/10/16 Family Disease History - Family Disease History Family Disease History: Heart Disease: Mother, Other: Father (cirrhosis) Physical Examination Vital Signs: Vital Signs Temperature 99.9 F H 11/26/16 18:40 Pulse Rate 80 11/27/16 00:27 Respiratory Rate 18 11/27/16 00:27 Blood Pressure 137/68 11/27/16 00:27 O2 Sat by Pulse Oximetry (%) 98 11/27/16 00:27 Constitutional: Yes: No Distress, Calm, Thin Eyes: Yes: Conjunctiva Clear, EOM Intact, PERRL HENT: Yes: Atraumatic, Normocephalic Cardiovascular: Yes: Regular Rate and Rhythm. No: Murmur Respiratory: Yes: Regular, CTA Bilaterally. No: Rales, SOB, Wheezes Extremities: Yes: Other (Movement in distal extremities intact per baseline; pedal pulses strong and symmetrical; cap refill <2sec) Edema: No Peripheral Pulses WNL: Yes Neurological: Yes: Alert, Oriented (x2) Psychiatric: Yes: Alert, Oriented (x2) Labs: CBC, BMP 11/26/16 20:50 11/26/16 23:18 Imaging - Results X-ray: Image Reviewed Cat Scan: Image Reviewed Assessment/Plan 76yo F from [facility] with dementia and on Coumadin with supratherapeutic INR due to previous DVT presenting from fall out of wheelchair sustaining possible left femoral neck fx. No bleeding, no LOC, no trauma to head. 1) Possible L femoral neck fx --Ortho consulted; will f/u on plan --Pt made NPO for now --Coumadin held --Type and Screen --CBC trending for morning --Pain control on board 2) Previous DVT on Coumadin --Holding coumadin as above --Trending INR (2.7 currently) and coags 3) HTN --Continue home medications FEN: Fluids: None indicated currently Electrolyte abnormalities: None Nutrition: NPO for now PPX: DVT - INR therapeutic at 2.7 for now; will trend INR down and initiated ppx later in hospital course if needed GI - Protonix per home medication already on regiment; not truly indicated currently Dispo: Place in OBS for ortho consult; if intervention per ortho necessary will change to admission status Visit type - Emergency Visit Emergency Visit: Yes ED Registration Date: 11/27/16 Care time: The patient presented to the Emergency Department on the above date and was hospitalized for further evaluation of their emergent condition. - New Patient This patient is new to me today: Yes Date on this admission: 11/27/16 - Critical Care Critical Care patient: No
[2016-11-27 05:19] VITALS: BMI 17.6
[2016-11-27 09:09] LABS: MCH 25.7 pg (25.7-33.7); MCHC 32.2 g/dl (32.0-36.0); MEAN CELL VOLUME 79.6 fl (80-96); MEAN PLT VOLUME 9.5 fl (7.5-11.1); PLATELET COUNT 379 K/MM3 (134-434); RDW 17.7 % (11.6-15.6); WHITE BLOOD COUNT 9.3 K/mm3 (4.0-10.0)
[2016-11-27] MEDS: PANTOPRAZOLE 40 MG TABLET (FP) PO SCH (10:24)
[2016-11-27] MEDS: METOPROLOL TARTRATE 25 MG TABLET (FP) PO SCH ×2 (10:25→22:15)
[2016-11-27] MEDS: DRONABINOL 2.5 MG CAPSULE PO SCH ×2 (10:25→22:15)
--- NOTE | 2016-11-27 10:26 | CONSULT ---
Consult - text type - Consultation Consultation Note: Asked to eval this 76F from [facility] with significant history of dementia, DVT (on Coumadin), syncope, hyperlipidemia, depression, and HTN for acute left hip fracture. Patient states she slid off her wheelchair while attempting to get two books. C/o left hip pain. PMH: as above Meds: reviewed in chart, on Coumadin All: NKDA FH: n/c ROS: denies recent fevers/chills/weight loss PE: despite dementia patient very lucid and cooperative. c/o left hip pain. B/L UE ROM all joints without pain NTTP throught spine No skin lesions, tender over left lateral hip to palpation B/L LE pulses 2+ No peripheral edema. Calves soft R hip PROM without pain. Imaging: CT scan reviewed. Left hip comminuted Greater Trochanteric Fracture, no extension into intertrochanteric region or the femoral neck. Impression: Acute left hip greater trochanteric fracture -No surgery indicated at this time. -PT consult, WBAT LLE with assistive device -dispo when bed available. -f/u in office as outpatient in 4 weeks for new xrays.
[2016-11-27] MEDS: traMADol HCL 50 MG TABLET PO PRN (10:30)
--- NOTE | 2016-11-27 10:54 | PN ---
Progress Note, Physician Chief Complaint: Ms Mcdonald says her pain is controlled. No cp, sob, n/v. Asking for lunch. - Current Medication List Current Medications: Active Medications Acetaminophen (Tylenol -) 650 mg PO Q4H PRN PRN Reason: FEVER OR PAIN Atorvastatin Calcium (Lipitor -) 10 mg PO HS [facility] Dronabinol (Marinol -) 2.5 mg PO BID [facility] Last Admin: 11/27/16 10:25 Dose: Not Given Metoprolol Tartrate (Lopressor -) 12.5 mg PO BID [facility] Last Admin: 11/27/16 10:25 Dose: 12.5 mg Mirtazapine (Remeron -) 15 mg PO HS [facility] Oxycodone HCl (Roxicodone -) 5 mg PO Q4H PRN PRN Reason: PAIN Pantoprazole Sodium (Protonix -) 40 mg PO DAILY [facility] Last Admin: 11/27/16 10:24 Dose: 40 mg Tramadol HCl (Ultram -) 50 mg PO Q8H PRN Last Admin: 11/27/16 10:30 Dose: 50 mg - Objective Vital Signs: Vital Signs Temperature 36.7 C 11/27/16 04:25 Pulse Rate 83 11/27/16 04:25 Respiratory Rate 14 11/27/16 04:25 Blood Pressure 151/88 11/27/16 04:25 O2 Sat by Pulse Oximetry (%) 96 11/27/16 04:25 Constitutional: Yes: No Distress, Calm, Thin Cardiovascular: Yes: Regular Rate and Rhythm. No: Gallop, Murmur, Rub Respiratory: Yes: Regular, CTA Bilaterally, On Nasal O2. No: Rales, Rhonchi, Wheezes Gastrointestinal: Yes: Normal Bowel Sounds, Soft. No: Distention, Tenderness Extremities: Yes: WNL Edema: No Labs: CBC, BMP 11/27/16 08:00 INR, PTT INR 2.70 (0.82-1.09) H 11/26/16 20:50 Problem List - Problems (1) Hip fracture, left Assessment/Plan: -appreciate ortho assistance -continue tramadol and PT -plan for discharge tomorrow Code(s): S72.002A - FRACTURE OF UNSP PART OF NECK OF LEFT FEMUR, INIT Qualifiers: Encounter type: initial encounter Fracture type: closed Qualified Code(s): S72.002A - Fracture of unspecified part of neck of left femur, initial encounter for closed fracture (2) DVT (deep venous thrombosis) Assessment/Plan: -continue coumadin -INR therapeutic Code(s): I82.409 - ACUTE EMBOLISM AND THOMBOS UNSP DEEP VN UNSP LOWER EXTREMITY Qualifiers: DVT location: lower extremity Affected thrombotic vein of extremity: unspecified vein of extremity Chronicity: unspecified Laterality: unspecified laterality Qualified Code(s): I82.409 - Acute embolism and thrombosis of unspecified deep veins of unspecified lower extremity (3) Failure to thrive syndrome, adult Assessment/Plan: -continue marinol -restart diet Code(s): R62.7 - ADULT FAILURE TO THRIVE (4) Lung cancer Assessment/Plan: -patient does not want treatment Code(s): C34.90 - MALIGNANT NEOPLASM OF UNSP PART OF UNSP BRONCHUS OR LUNG Qualifiers: Laterality: right Lung location: lower lobe of lung Qualified Code(s): C34.31 - Malignant neoplasm of lower lobe, right bronchus or lung (5) HTN (hypertension) Assessment/Plan: -continue metoprolol Code(s): I10 - ESSENTIAL (PRIMARY) HYPERTENSION
--- NOTE | 2016-11-27 11:22 | EKG ---
Test Reason : Blood Pressure : / mmHG Vent. Rate : 078 BPM Atrial Rate : 079 BPM P-R Int : 000 ms QRS Dur : 080 ms QT Int : 418 ms P-R-T Axes : 061 -25 055 degrees QTc Int : 476 ms SINUS RHYTHM WITH SINUS ARRHYTHMIA WITH OCCASIONAL PREMATURE VENTRICULAR COMPLEXES ABNORMAL ECG WHEN COMPARED WITH ECG OF 02-NOV-2016 19:54, PREMATURE VENTRICULAR COMPLEXES ARE NOW PRESENT Confirmed by MICHAEL SHORE, MARQUITA ([id number]) on 11/27/2016 11:22:22 AM Referred By: Confirmed By:MARQUITA RODRIGUEZ MD
[2016-11-27 12:34] LABS: INR 2.54 (0.82-1.09); PROTHROMBIN TIME (PATIENT) 28.5 SEC (9.98-11.88)
[2016-11-27] MEDS ORDERED: PT OWN MED DRAWER 7, Y5N ONE (21:14)
[2016-11-27] MEDS ORDERED: ATORVASTATIN CA 10 MG TABLET (FP) PO SCH (22:00)
[2016-11-27] MEDS: MIRTAZAPINE 15 MG TABLET (FP) PO SCH (22:15)
[2016-11-27] MEDS: oxyCODONE HCL 5 MG TABLET PO PRN (22:15)
[2016-11-28 08:32] LABS: EOSINOPHIL 4.4 % (0-4.5); MCH 25.3 pg (25.7-33.7); MCHC 31.9 g/dl (32.0-36.0); MEAN CELL VOLUME 79.1 fl (80-96); MEAN PLT VOLUME 9.4 fl (7.5-11.1); NEUTROPHILS 73.7 % (42.8-82.8); PLATELET COUNT 308 K/MM3 (134-434); RDW 17.8 % (11.6-15.6); WHITE BLOOD COUNT 7.8 K/mm3 (4.0-10.0)
--- NOTE | 2016-11-28 08:47 | PN ---
Progress Note, Physician History of Present Illness: Feels well. Resting in bed. Did not do PT today yet. - Current Medication List Current Medications: Active Medications Acetaminophen (Tylenol -) 650 mg PO Q4H PRN PRN Reason: FEVER OR PAIN Dronabinol (Marinol -) 2.5 mg PO BID [facility] Last Admin: 11/27/16 22:15 Dose: 2.5 mg Metoprolol Tartrate (Lopressor -) 12.5 mg PO BID [facility] Last Admin: 11/27/16 22:15 Dose: 12.5 mg Mirtazapine (Remeron -) 15 mg PO HS [facility] Last Admin: 11/27/16 22:15 Dose: 15 mg Oxycodone HCl (Roxicodone -) 5 mg PO Q4H PRN PRN Reason: PAIN Last Admin: 11/27/16 22:15 Dose: 5 mg Pantoprazole Sodium (Protonix -) 40 mg PO DAILY [facility] Last Admin: 11/27/16 10:24 Dose: 40 mg Tramadol HCl (Ultram -) 50 mg PO Q8H PRN Last Admin: 11/27/16 10:30 Dose: 50 mg - Objective Vital Signs: Vital Signs Temperature 98.4 F 11/28/16 06:35 Pulse Rate 70 11/28/16 06:35 Respiratory Rate 18 11/28/16 06:35 Blood Pressure 107/66 11/28/16 06:35 O2 Sat by Pulse Oximetry (%) 96 11/27/16 21:00 Constitutional: Yes: Well Nourished, No Distress, Calm Musculoskeletal: Yes: Other Labs: CBC, BMP 11/28/16 07:00 INR, PTT INR 2.54 (0.82-1.09) H 11/27/16 11:30 Assessment/Plan #1 left greater trochanter fx. -PT WBAT -Pain control -DVT prophylaxis -dispo planning
[2016-11-28 09:00] LABS: ANION GAP 6 (8-16); CALCIUM 8.6 mg/dL (8.5-10.1); CO2 33 mmol/L (21-32); CREATININE 0.5 mg/dL (0.55-1.02); GLUCOSE,RANDOM 86 mg/dL (74-106); MAGNESIUM 2.4 mg/dL (1.8-2.4); PHOSPHOROUS 3.1 mg/dL (2.5-4.9)
[2016-11-28 09:12] LABS: INR 2.12 (0.82-1.09); PROTHROMBIN TIME (PATIENT) 23.7 SEC (9.98-11.88)
[2016-11-28] MEDS: METOPROLOL TARTRATE 25 MG TABLET (FP) PO SCH ×2 (09:26→21:52)
[2016-11-28] MEDS: DRONABINOL 2.5 MG CAPSULE PO SCH ×2 (09:26→21:52)
[2016-11-28] MEDS: PANTOPRAZOLE 40 MG TABLET (FP) PO SCH (09:27)
--- NOTE | 2016-11-28 11:35 | PN ---
Progress Note, Physician Chief Complaint: Ms Mcdonald says her pain is controlled. No cp, sob, n/v. Says was able to walk with assistance today. - Current Medication List Current Medications: Active Medications Acetaminophen (Tylenol -) 650 mg PO Q4H PRN PRN Reason: FEVER OR PAIN Last Admin: 11/28/16 09:30 Dose: 650 mg Dronabinol (Marinol -) 2.5 mg PO BID [facility] Last Admin: 11/28/16 09:26 Dose: 2.5 mg Metoprolol Tartrate (Lopressor -) 12.5 mg PO BID [facility] Last Admin: 11/28/16 09:26 Dose: 12.5 mg Mirtazapine (Remeron -) 15 mg PO HS [facility] Last Admin: 11/27/16 22:15 Dose: 15 mg Oxycodone HCl (Roxicodone -) 5 mg PO Q4H PRN PRN Reason: PAIN Last Admin: 11/27/16 22:15 Dose: 5 mg Pantoprazole Sodium (Protonix -) 40 mg PO DAILY [facility] Last Admin: 11/28/16 09:27 Dose: 40 mg Tramadol HCl (Ultram -) 50 mg PO Q8H PRN Last Admin: 11/27/16 10:30 Dose: 50 mg - Objective Vital Signs: Vital Signs Temperature 36.9 C 11/28/16 09:00 Pulse Rate 66 11/28/16 09:00 Respiratory Rate 20 11/28/16 10:00 Blood Pressure 106/69 11/28/16 09:00 O2 Sat by Pulse Oximetry (%) 96 11/28/16 10:00 Constitutional: Yes: No Distress, Calm, Thin Cardiovascular: Yes: Regular Rate and Rhythm. No: Gallop, Murmur, Rub Respiratory: Yes: Regular, CTA Bilaterally. No: Rales, Rhonchi, Wheezes Gastrointestinal: Yes: Normal Bowel Sounds, Soft. No: Distention, Tenderness Extremities: Yes: WNL Edema: No Labs: CBC, BMP 11/28/16 07:00 11/28/16 06:00 INR, PTT INR 2.12 (0.82-1.09) H 11/28/16 07:00 Problem List - Problems (1) Hip fracture, left Code(s): S72.002A - FRACTURE OF UNSP PART OF NECK OF LEFT FEMUR, INIT Qualifiers: Encounter type: initial encounter Fracture type: closed Qualified Code(s): S72.002A - Fracture of unspecified part of neck of left femur, initial encounter for closed fracture (2) DVT (deep venous thrombosis) Code(s): I82.409 - ACUTE EMBOLISM AND THOMBOS UNSP DEEP VN UNSP LOWER EXTREMITY Qualifiers: DVT location: lower extremity Affected thrombotic vein of extremity: unspecified vein of extremity Chronicity: unspecified Laterality: unspecified laterality Qualified Code(s): I82.409 - Acute embolism and thrombosis of unspecified deep veins of unspecified lower extremity (3) Failure to thrive syndrome, adult Code(s): R62.7 - ADULT FAILURE TO THRIVE (4) Lung cancer Code(s): C34.90 - MALIGNANT NEOPLASM OF UNSP PART OF UNSP BRONCHUS OR LUNG Qualifiers: Laterality: right Lung location: lower lobe of lung Qualified Code(s): C34.31 - Malignant neoplasm of lower lobe, right bronchus or lung (5) HTN (hypertension) Code(s): I10 - ESSENTIAL (PRIMARY) HYPERTENSION Assessment/Plan (1) Hip fracture, left Assessment/Plan: -appreciate ortho assistance -continue tramadol and PT -stable for discharge Code(s): S72.002A - FRACTURE OF UNSP PART OF NECK OF LEFT FEMUR, INIT Qualifiers: Encounter type: initial encounter Fracture type: closed Qualified Code(s): S72.002A - Fracture of unspecified part of neck of left femur, initial encounter for closed fracture (2) DVT (deep venous thrombosis) Assessment/Plan: -continue coumadin -INR therapeutic Code(s): I82.409 - ACUTE EMBOLISM AND THOMBOS UNSP DEEP VN UNSP LOWER EXTREMITY Qualifiers: DVT location: lower extremity Affected thrombotic vein of extremity: unspecified vein of extremity Chronicity: unspecified Laterality: unspecified laterality Qualified Code(s): I82.409 - Acute embolism and thrombosis of unspecified deep veins of unspecified lower extremity (3) Failure to thrive syndrome, adult Assessment/Plan: -continue marinol -restart diet Code(s): R62.7 - ADULT FAILURE TO THRIVE (4) Lung cancer Assessment/Plan: -patient does not want treatment Code(s): C34.90 - MALIGNANT NEOPLASM OF UNSP PART OF UNSP BRONCHUS OR LUNG Qualifiers: Laterality: right Lung location: lower lobe of lung Qualified Code(s): C34.31 - Malignant neoplasm of lower lobe, right bronchus or lung (5) HTN (hypertension) Assessment/Plan: -continue metoprolol Code(s): I10 - ESSENTIAL (PRIMARY) HYPERTENSION (6) Anemia -patient on coumadin with fracture -consider blood loss -asymptomatic -recheck -if stable, can discharge to SNF -if continues to drop, will hold coumadin
[2016-11-28] MEDS ORDERED: SODIUM CHLORIDE 500 ML IV ONE (19:00)
[2016-11-28] MEDS: MIRTAZAPINE 15 MG TABLET (FP) PO SCH (21:52)
[2016-11-28] MEDS ORDERED: SODIUM CHLORIDE 0.45% 1,000 ML IV SCH (22:15)
[2016-11-29 08:19] LABS: BASOPHIL 0.7 % (0-2.0); EOSINOPHIL 3.9 % (0-4.5); MCH 24.9 pg (25.7-33.7); MCHC 31.5 g/dl (32.0-36.0); MEAN CELL VOLUME 79.2 fl (80-96); MEAN PLT VOLUME 9.5 fl (7.5-11.1); NEUTROPHILS 79.5 % (42.8-82.8); PLATELET COUNT 320 K/MM3 (134-434); RDW 17.7 % (11.6-15.6); WHITE BLOOD COUNT 9.4 K/mm3 (4.0-10.0)
[2016-11-29 08:26] LABS: INR 1.83 (0.82-1.09); PROTHROMBIN TIME (PATIENT) 20.4 SEC (9.98-11.88)
[2016-11-29 09:14] LABS: ANION GAP 9 (8-16); CALCIUM 8.5 mg/dL (8.5-10.1); CO2 30 mmol/L (21-32); CREATININE 0.5 mg/dL (0.55-1.02); GLUCOSE,RANDOM 81 mg/dL (74-106); MAGNESIUM 2.2 mg/dL (1.8-2.4); PHOSPHOROUS 2.6 mg/dL (2.5-4.9)
[2016-11-29] MEDS: DRONABINOL 2.5 MG CAPSULE PO SCH ×2 (09:56→21:48)
[2016-11-29] MEDS: traMADol HCL 50 MG TABLET PO PRN (09:56)
[2016-11-29] MEDS: METOPROLOL TARTRATE 25 MG TABLET (FP) PO SCH ×2 (09:57→21:48)
[2016-11-29] MEDS: PANTOPRAZOLE 40 MG TABLET (FP) PO SCH (09:57)
--- NOTE | 2016-11-29 11:30 | PN ---
Progress Note (short form) - Note Progress Note: sitting comfortably in chair, no complaints Afeb B/L LE NVID Left greater troch fx -continue oob/PT -f/u with me as outpatient in 4 weeks.
--- NOTE | 2016-11-29 14:49 | PN ---
Progress Note, Physician Chief Complaint: Ms Mcdonald is without complaint. No cp, sob, n/v. Sitting in chair without difficulty. - Current Medication List Current Medications: Active Medications Acetaminophen (Tylenol -) 650 mg PO Q4H PRN PRN Reason: FEVER OR PAIN Last Admin: 11/28/16 09:30 Dose: 650 mg Dronabinol (Marinol -) 2.5 mg PO BID [facility] Last Admin: 11/29/16 09:56 Dose: 2.5 mg Metoprolol Tartrate (Lopressor -) 12.5 mg PO BID [facility] Last Admin: 11/29/16 09:57 Dose: 12.5 mg Mirtazapine (Remeron -) 15 mg PO HS [facility] Last Admin: 11/28/16 21:52 Dose: 15 mg Oxycodone HCl (Roxicodone -) 5 mg PO Q4H PRN PRN Reason: PAIN Last Admin: 11/27/16 22:15 Dose: 5 mg Pantoprazole Sodium (Protonix -) 40 mg PO DAILY [facility] Last Admin: 11/29/16 09:57 Dose: 40 mg Tramadol HCl (Ultram -) 50 mg PO Q8H PRN Last Admin: 11/29/16 09:56 Dose: 50 mg Warfarin Sodium (Coumadin -) 2 mg PO NOW ONE Stop: 11/29/16 12:07 - Objective Vital Signs: Vital Signs Temperature 36.9 C 11/29/16 09:48 Pulse Rate 86 11/29/16 09:48 Respiratory Rate 20 11/29/16 09:48 Blood Pressure 127/74 11/29/16 09:48 O2 Sat by Pulse Oximetry (%) 96 11/28/16 21:00 Constitutional: Yes: No Distress, Calm, Thin Cardiovascular: Yes: Regular Rate and Rhythm. No: Gallop, Murmur, Rub Respiratory: Yes: Regular, CTA Bilaterally. No: Rales, Rhonchi, Wheezes Gastrointestinal: Yes: Normal Bowel Sounds, Soft. No: Distention, Tenderness Extremities: Yes: WNL Edema: No Labs: CBC, BMP 11/29/16 06:30 11/29/16 06:30 INR, PTT INR 1.83 (0.82-1.09) H 11/29/16 06:30 Problem List - Problems (1) Hip fracture, left Code(s): S72.002A - FRACTURE OF UNSP PART OF NECK OF LEFT FEMUR, INIT Qualifiers: Encounter type: initial encounter Fracture type: closed Qualified Code(s): S72.002A - Fracture of unspecified part of neck of left femur, initial encounter for closed fracture (2) DVT (deep venous thrombosis) Code(s): I82.409 - ACUTE EMBOLISM AND THOMBOS UNSP DEEP VN UNSP LOWER EXTREMITY Qualifiers: DVT location: lower extremity Affected thrombotic vein of extremity: unspecified vein of extremity Chronicity: unspecified Laterality: unspecified laterality Qualified Code(s): I82.409 - Acute embolism and thrombosis of unspecified deep veins of unspecified lower extremity (3) Failure to thrive syndrome, adult Code(s): R62.7 - ADULT FAILURE TO THRIVE (4) Lung cancer Code(s): C34.90 - MALIGNANT NEOPLASM OF UNSP PART OF UNSP BRONCHUS OR LUNG Qualifiers: Laterality: right Lung location: lower lobe of lung Qualified Code(s): C34.31 - Malignant neoplasm of lower lobe, right bronchus or lung (5) HTN (hypertension) Code(s): I10 - ESSENTIAL (PRIMARY) HYPERTENSION Assessment/Plan (1) Hip fracture, left Assessment/Plan: -appreciate ortho assistance -continue tramadol and PT -stable for discharge Code(s): S72.002A - FRACTURE OF UNSP PART OF NECK OF LEFT FEMUR, INIT Qualifiers: Encounter type: initial encounter Fracture type: closed Qualified Code(s): S72.002A - Fracture of unspecified part of neck of left femur, initial encounter for closed fracture (2) DVT (deep venous thrombosis) Assessment/Plan: -coumadin restarted Code(s): I82.409 - ACUTE EMBOLISM AND THOMBOS UNSP DEEP VN UNSP LOWER EXTREMITY Qualifiers: DVT location: lower extremity Affected thrombotic vein of extremity: unspecified vein of extremity Chronicity: unspecified Laterality: unspecified laterality Qualified Code(s): I82.409 - Acute embolism and thrombosis of unspecified deep veins of unspecified lower extremity (3) Failure to thrive syndrome, adult Assessment/Plan: -continue marinol Code(s): R62.7 - ADULT FAILURE TO THRIVE (4) Lung cancer Assessment/Plan: -patient does not want treatment Code(s): C34.90 - MALIGNANT NEOPLASM OF UNSP PART OF UNSP BRONCHUS OR LUNG Qualifiers: Laterality: right Lung location: lower lobe of lung Qualified Code(s): C34.31 - Malignant neoplasm of lower lobe, right bronchus or lung (5) HTN (hypertension) Assessment/Plan: -continue metoprolol Code(s): I10 - ESSENTIAL (PRIMARY) HYPERTENSION (6) Anemia -lab error yesterday, suspect dilutional -at baseline Dispo -stable for d/c, awaiting approval
[2016-11-29] MEDS ORDERED: WARFARIN NA 2 MG TABLET (UD) PO ONE ×2 (15:45→18:00)
[2016-11-29] MEDS: MIRTAZAPINE 15 MG TABLET (FP) PO SCH (21:48)
[2016-11-30] MEDS: oxyCODONE HCL 5 MG TABLET PO PRN (07:01)
[2016-11-30 08:51] LABS: INR 1.34 (0.82-1.09); PROTHROMBIN TIME (PATIENT) 14.8 SEC (9.98-11.88)
[2016-11-30] MEDS: PANTOPRAZOLE 40 MG TABLET (FP) PO SCH (09:46)
[2016-11-30] MEDS: DRONABINOL 2.5 MG CAPSULE PO SCH (09:47)
[2016-11-30] MEDS: METOPROLOL TARTRATE 25 MG TABLET (FP) PO SCH (09:47)
[2016-11-30 13:01] VITALS: BP 97/66
[2016-11-30 14:18] VITALS: PULSE 84; TEMP 98.5
--- NOTE | 2016-11-30 14:41 | DS ---
Physical Examination Vital Signs: Vital Signs Temperature 36.9 C 11/30/16 14:00 Pulse Rate 84 11/30/16 14:00 Respiratory Rate 17 11/30/16 14:00 Blood Pressure 97/66 11/30/16 10:00 O2 Sat by Pulse Oximetry (%) 96 11/29/16 20:57 Constitutional: Yes: No Distress, Calm, Thin Cardiovascular: Yes: Regular Rate and Rhythm. No: Gallop, Murmur, Rub Respiratory: Yes: Regular, CTA Bilaterally. No: Rales, Rhonchi, Wheezes Gastrointestinal: Yes: Normal Bowel Sounds, Soft. No: Distention, Tenderness Extremities: Yes: WNL Edema: No Labs: CBC, BMP 11/29/16 06:30 11/29/16 06:30 Discharge Summary Reason For Visit: FRACTURE OF LEFT HIP,FALL Current Active Problems Chest pain (Acute) Fall (Acute) Hip fracture, left (Acute) Hip pain, left (Acute) Syncope (Acute) UTI (urinary tract infection) (Acute) Hospital Course: (1) Hip fracture, left Code(s): S72.002A - FRACTURE OF UNSP PART OF NECK OF LEFT FEMUR, INIT Qualifiers: Encounter type: initial encounter Fracture type: closed Qualified Code(s): S72.002A - Fracture of unspecified part of neck of left femur, initial encounter for closed fracture (2) DVT (deep venous thrombosis) Code(s): I82.409 - ACUTE EMBOLISM AND THOMBOS UNSP DEEP VN UNSP LOWER EXTREMITY Qualifiers: DVT location: lower extremity Affected thrombotic vein of extremity: unspecified vein of extremity Chronicity: unspecified Laterality: unspecified laterality Qualified Code(s): I82.409 - Acute embolism and thrombosis of unspecified deep veins of unspecified lower extremity (3) Failure to thrive syndrome, adult/severe protein calorie malnutrition Code(s): R62.7 - ADULT FAILURE TO THRIVE (4) Lung cancer Code(s): C34.90 - MALIGNANT NEOPLASM OF UNSP PART OF UNSP BRONCHUS OR LUNG Qualifiers: Laterality: right Lung location: lower lobe of lung Qualified Code(s): C34.31 - Malignant neoplasm of lower lobe, right bronchus or lung (5) HTN (hypertension) Code(s): I10 - ESSENTIAL (PRIMARY) HYPERTENSION (6) Anemia Ms Mcdonald is a pleasant 76 year old female who came in from [place] s/ p fall and sustained an acute comminuted fracture of the left greater trochanter of the femur. She was admitted to the hospital and seen by orthopedic surgery. No surgery or intervention was indicated at this time. Her pain was controlled and she was seen by PT. She was held because it appeared she had an acute blood drop but this turned out to be lab error. She is currently safe for discharge back to SNF with close follow up of her INR 31 minutes spent in preparation of this discharge Condition: Stable - Instructions Diet, Activity, Other Instructions: regular diet with mealtime supplements. Up with assistance, further activity per PT at SNF. Referrals: Jackson Bhatti MD [Staff Physician] - OhMichael MD [Staff Physician] - Disposition: ASSISTED FACILITY - Home Medications Comprehensive Discharge Medication List: Ambulatory Orders Atorvastatin Ca [Lipitor] 10 mg PO HS 11/02/16 Dronabinol 2.5 mg PO BID 11/02/16 Furosemide [Lasix] 20 mg PO PRN PRN 11/02/16 Metoprolol Tartrate 12.5 mg PO BID 11/02/16 Mirtazapine 15 mg PO HS 11/02/16 Pantoprazole Sodium 40 mg PO DAILY 11/02/16 Tramadol HCl 50 mg PO TID 11/02/16 Acetaminophen [Tylenol .Regular Strength -] 650 mg PO Q4H PRN #0 tablet Warfarin Na [Coumadin -] 4 mg PO DAILY@1800 #0 tablet 11/07/16 Oxycodone HCl [Roxicodone -] 5 mg PO Q4H PRN #0 tablet MDD 30mg 11/10/16 Warfarin Na [Coumadin -] 4 mg PO DAILY@1800 tablet 11/10/16
[2016-11-30] MEDS ORDERED: WARFARIN NA 5 MG TABLET (UD) PO SCH (18:00)
== END 2016-11-30 16:13 | DRG 535 ==
LOC: JER 18:17 → JERBED 11-27 03:26 → J6S 11-27 05:01
PROVIDERS: ADMIT Internal Medicine; ATTEND Internal Medicine
DX: S72.112A Displaced fracture of greater trochanter of left femur, initial encounter for closed fracture (principal); E43 Unspecified severe protein-calorie malnutrition; C34.31 Malignant neoplasm of lower lobe, right bronchus or lung; Z68.1 Body mass index [BMI] 19.9 or less, adult; R55 Syncope and collapse; E78.5 Hyperlipidemia, unspecified; I10 Essential (primary) hypertension; L89.151 Pressure ulcer of sacral region, stage 1; F03.90 Unspecified dementia, unspecified severity, without behavioral disturbance, psychotic disturbance, mood disturbance, and anxiety; R62.7 Adult failure to thrive; F32.9 Major depressive disorder, single episode, unspecified; D64.9 Anemia, unspecified; J44.9 Chronic obstructive pulmonary disease, unspecified; M54.5 Low back pain; K21.9 Gastro-esophageal reflux disease without esophagitis; K44.9 Diaphragmatic hernia without obstruction or gangrene; W05.0XXA Fall from non-moving wheelchair, initial encounter; Y93.89 Activity, other specified; Y92.128 Other place in nursing home as the place of occurrence of the external cause; Z86.718 Personal history of other venous thrombosis and embolism
CPT/HCPCS: 36415; 71010-TC; 72170-TC; 72192-TC; 80048; 80053; 81003; 83735; 84100; 85025; 85027; 85610; 85730; 86850; 86900; 86901; 87086; 93005; 93010; 97116-GP; 97161-GP; 99283-25

== ENCOUNTER 2017-04-06 12:41 | Inpatient (IN) | payer OTHER ==
[2017-04-06 14:40] LABS: BASO % 0.6 % (0-2.0); EOS % 0.2 % (0-4.5); HEMATOCRIT 26.4 % (32.4-45.2); LYMPH % 3.8 % (8-40); MCH 22.9 pg (25.7-33.7); MCHC 30.4 g/dl (32.0-36.0); MEAN CELL VOLUME 75.1 fl (80-96); MEAN PLT VOLUME 8.5 fl (7.5-11.1); MONO % 8.1 % (3.8-10.2); NEUT % 87.3 % (42.8-82.8); PLATELET COUNT 369 K/MM3 (134-434); RBC 3.51 M/mm3 (3.60-5.2); RDW 17.6 % (11.6-15.6); WHITE BLOOD COUNT 14.3 K/mm3 (4.0-10.0)
--- NOTE | 2017-04-06 14:41 | PDOC ---
History of Present Illness - General Chief Complaint: Shortness of Breath Stated Complaint: SOB Time Seen by Provider: 04/06/17 12:57 History Source: Patient, EMS, Intermediate Records Exam Limitations: No Limitations - History of Present Illness Initial Comments: This is a 76 YOF with h/o dementia, DVT (on warfarin), lung cancer, anemia, COPD on O2 at facility, HTN, hip fxr in 11/2016, syncope, and falls who presents BIBA for increased SOB. Per care facility records, the patient's pulse oxygenation was 93% on 3 LPM which is below her baseline. She was sent to the ED to rule out PE. The patient herself is unable to provide any of her recent medical history or symptoms 2/2 dementia. Past History - Past Medical History Allergies/Adverse Reactions: Allergies Allergy/AdvReac Type Severity Reaction Status Date / Time No Known Allergies Allergy Verified 04/06/17 13:01 Home Medications: Ambulatory Orders Atorvastatin Ca [Lipitor] 10 mg PO HS 11/02/16 Dronabinol 2.5 mg PO BID 11/02/16 Metoprolol Tartrate 12.5 mg PO BID 11/02/16 Mirtazapine 15 mg PO HS 11/02/16 Tramadol HCl 50 mg PO TID 11/02/16 Acetaminophen [Tylenol .Regular Strength -] 650 mg PO Q4H PRN #0 tablet Aa/Hydrolyzed Collagen, Whey [Lps 15-30 Liquid] 30 ml PO TID 04/06/17 Albuterol 2.5/Ipratropium 0.5 [Duoneb -] 1 neb IH QID 04/06/17 Ascorbate Calcium [Vitamin C] 500 mg PO TID 04/06/17 Bacitracin - [Bacitracin Topical Ointment -] 1 applic TP DAILY 04/06/17 Cholecalciferol (Vitamin D3) [Vitamin D3] 1,000 unit PO DAILY 04/06/17 Lactose-Reduced Food [Ensure Plus] 237 ml PO TID 04/06/17 Polyethylene Glycol 3350 [Miralax (For Daily Use) -] 17 gm PO DAILY 04/06/17 Ranitidine HCl 150 mg PO BID 04/06/17 Sennosides [Senna] 8.6 mg PO DAILY 04/06/17 Warfarin Na [Coumadin -] 4.5 mg PO HS 04/06/17 Anemia: Yes Asthma: No Cancer: Yes (lung) Cardiac Disorders: No CVA: No COPD: No CHF: No DVT: Yes (on Coumadin) Dementia: No Diabetes: No GI Disorders: Yes (hernia) Disorders: No HTN: Yes Hypercholesterolemia: No Liver Disease: No Seizures: No Thyroid Disease: No Lung CA: Yes - Surgical History Abdominal Surgery: No Appendectomy: No Cardiac Surgery: No Cholecystectomy: No Lung Surgery: No Neurologic Surgery: No Orthopedic Surgery: No - Suicide/Smoking/Psychosocial Hx Smoking History: Unknown if ever smoked Have you smoked in the past 12 months: No Number of Cigarettes Smoked Daily: 1 If you are a former smoker, when did you quit?: 2 months ago Information on smoking cessation initiated: No 'Breaking Loose' booklet given: 09/04/16 Hx Alcohol Use: No Drug/Substance Use Hx: No Substance Use Type: None Hx Substance Use Treatment: No Review of Systems - Review of Systems Able to Perform ROS?: No (dementia) *Physical Exam - Vital Signs Last Vital Signs Temp Pulse Resp BP Pulse Ox 98 F 18 L 19 120/80 99 04/06/17 12:57 04/06/17 12:57 04/06/17 13:56 04/06/17 12:57 04/06/17 13:57 - Physical Exam General Appearance: Yes: Thin, Other (cachectic appearing, initially sleeping and states in no distress now). No: Apparent Distress HEENT: positive: EOMI, Normal Voice, Hearing Grossly Normal, Other (dry mucous membranes). negative: Scleral Icterus (R), Scleral Icterus (L), Nasal Congestion Neck: positive: Trachea midline, Supple. negative: Tender, Rigid Respiratory/Chest: positive: Lungs Clear, Normal Breath Sounds, Rapid RR ( respiratory rate to about 30 maximum). negative: Crackles, Rhonchi, Stridor, Wheezing Cardiovascular: positive: Regular Rhythm, Regular Rate, Other (distant heart sounds). negative: Edema, JVD, Murmur Gastrointestinal/Abdominal: positive: Normal Bowel Sounds, Flat, Soft. negative : Tender, Organomegaly, Pulsatile Mass, Guarding Musculoskeletal: positive: Normal Inspection. negative: Decreased Range of Motion, Vertebral Tenderness Extremity: positive: Normal Capillary Refill, Normal Inspection, Normal Range of Motion. negative: Tender, Cyanosis Integumentary: positive: Normal Color, Dry, Warm. negative: Erythema, Rash, Bruising Neurologic: positive: menhaden vessel pilot II-XII NML intact (grossly), Alert, Normal Mood/Affect , Normal Response, Motor Strength 5/5, Other (oriented to full name and to situation but not to type of building or hospital name or city) ED Treatment Course - LABORATORY CBC & Chemistry Diagram: 04/06/17 14:30 04/06/17 14:30 - RADIOLOGY Radiology Studies Ordered: Category Date Time Status CHEST X-RAY PORTABLE* [RAD] Stat Radiology 04/06/17 14:18 Ordered Medical Decision Making - Medical Decision Making 76 YOF with h/o DVT (on warfarin), lung cancer, anemia, COPD on O2 at facility, p/w SOB and decreased oxygenation. On exam VS notable for slight hypoxia on supplemental oxygen, cachectic, muffled heart sounds, normal lung sounds, no edema. DDX IBNLT PNA/bronchitis, PE, PTX, pericardial effusion, ACS, etc. Ordered is CBCD, CMP, Mg, Phos, cardiac panel, EKG, CXR. *DC/Admit/Observation/Transfer - Referrals Referrals: Jackson Bhatti MD [Primary Care Provider] - - Patient Instructions - Post Discharge Activity
--- NOTE | 2017-04-06 14:42 | PDOC ---
Attending Attestation - Resident Resident Name: Mary Lou Hyman - ED Attending Attestation I have performed the following: I have examined & evaluated the patient, The case was reviewed & discussed with the resident, I agree w/resident's findings & plan, Exceptions are as noted - HPI HPI: 04/06/17 14:38 76y F hx of copd, hip fx, multiple falls, hx of dvt on warfarin, lung ca, dementia, presents with complaint of sob, was noted to be sating 93 on 3L of NC , nh was concerned about possible PE. history limited due to the pts advanced dementia pt sating 99% on 3L pt was noted to be tachypenic when she was moving around - Physicial Exam PE: 04/13/17 19:45 see above - Medical Decision Making 04/06/17 16:13 Labs reviewed and noted for leukocytosis with a left shift The patient's chest x-ray reveals an enlarging chest mass likely or cancer The patient's INR subtherapeutic will obtain CTA to rule out a pulmonary embolism versus early pneumonia
[2017-04-06 14:46] LABS: VENOUS PC02 48.5 mmHg (38-52); VENOUS PH 7.42 (7.32-7.42); VENOUS PO2 20.4 mmHg (28-48)
[2017-04-06 14:52] LABS: INR 1.73 (0.82-1.09); PROTHROMBIN TIME (PATIENT) 19.6 SEC (9.98-11.88)
[2017-04-06 14:54] LABS: ACTIVATED PTT 28.1 SECONDS (26.9-34.4)
[2017-04-06 15:07] LABS: ALBUMIN 1.8 g/dl (3.4-5.0); ANION GAP 4 (8-16); BILIRUBIN,TOTAL 0.6 mg/dL (0.2-1.0); BLOOD UREA NITROGEN 21 mg/dL (7-18); CALCIUM 7.9 mg/dL (8.5-10.1); CHLORIDE 101 mmol/L (98-107); CO2 31 mmol/L (21-32); CREATININE 0.5 mg/dL (0.55-1.02); GLUCOSE,RANDOM 83 mg/dL (74-106); SGPT/ALT 19 U/L (12-78); SODIUM 136 mmol/L (136-145); TOT PROT 6.4 g/dl (6.4-8.2)
[2017-04-06 15:10] LABS: ALK PHOS 504 U/L (45-117); N-TERMINAL BNP 1885.61 pg/ml (5-450)
[2017-04-06 15:15] LABS: POTASSIUM 5.1 mmol/L (3.5-5.1)
[2017-04-06 15:16] LABS: MAGNESIUM 2.4 mg/dL (1.8-2.4); SGOT/AST 50 U/L (15-37)
--- NOTE | 2017-04-06 20:59 | PDOC ---
*Physical Exam - Vital Signs Last Vital Signs Temp Pulse Resp BP Pulse Ox 98 F 18 L 19 120/80 98 04/06/17 12:57 04/06/17 12:57 04/06/17 13:56 04/06/17 12:57 04/06/17 19:20 - Physical Exam Comments: 04/06/17 22:16 General Appearance: Nourished. No Apparent Distress HEENT: EOMI, MATT. No Pharyngeal Erythema, Tonsillar Exudate, Tonsillar Erythema Neck: No Cervical Lymphadenopathy Respiratory/Chest: Lungs Clear, Normal Breath Sounds. No Crackles, Rales, Rhonchi, Wheezing Cardiovascular: Regular Rhythm, Regular Rate. No Murmur, Gallops, Rubs Gastrointestinal/Abdominal: Normal Bowel Sounds, Soft. No Guarding, Rebound, Tenderness Musculoskeletal: No CVA Tenderness Extremity: Normal Capillary Refill Integumentary: Normal Color, Dry, Warm Neurologic: Fully Oriented, Alert, Normal Mood/Affect, Normal Response, ED Treatment Course - LABORATORY CBC & Chemistry Diagram: 04/06/17 14:30 04/06/17 14:30 - ADDITIONAL ORDERS Additional order review: Laboratory Results 04/06/17 04/06/17 04/06/17 14:31 14:30 14:30 PT with INR INR PTT (Actin FS) VBG pH 7.42 POC VBG pCO2 48.5 POC VBG pO2 20.4 L Mixed VBG HCO3 30.8 H Sodium 136 Potassium 5.1 D Chloride 101 Carbon Dioxide 31 Anion Gap 4 L BUN 21 H D Creatinine 0.5 L Creat Clearance w eGFR > 60 Random Glucose 83 Calcium 7.9 L Phosphorus 3.0 Magnesium 2.4 Total Bilirubin 0.6 D AST 50 H D ALT 19 D Alkaline Phosphatase 504 H D Creatine Kinase 80 Troponin I < 0.02 B-Natriuretic Peptide 1885.61 H Total Protein 6.4 Albumin 1.8 L D Blood Type Cancelled Antibody Screen Cancelled 04/06/17 14:30 PT with INR 19.60 H INR 1.73 H PTT (Actin FS) 28.1 VBG pH POC VBG pCO2 POC VBG pO2 Mixed VBG HCO3 Sodium Potassium Chloride Carbon Dioxide Anion Gap BUN Creatinine Creat Clearance w eGFR Random Glucose Calcium Phosphorus Magnesium Total Bilirubin AST ALT Alkaline Phosphatase Creatine Kinase Troponin I B-Natriuretic Peptide Total Protein Albumin Blood Type Antibody Screen 04/06/17 14:30 RBC 3.51 L MCV 75.1 L MCHC 30.4 L RDW 17.6 H MPV 8.5 D Neutrophils % 87.3 H Lymphocytes % 3.8 L D Monocytes % 8.1 Eosinophils % 0.2 D Basophils % 0.6 Progress Note - Progress Note Progress Note: The patient is a 76 year old female with a history of DVT on coumadin, COPD on home O2, lung cancer who presented from her group home for evaluation of desaturations. Patient's cbc demonstrates a WBC of [address] and chest plain film as well as ct demonstrated interval growth of her known lung mass. Patient is pending a road test to evaluate if she continues to desaturate. Medical Decision Making - Medical Decision Making 04/06/17 22:38 Patient is unable to tolerate movement and continues to desaturate with movement despite her 3L NC. We believe that given her continued desaturations, she requires observation admission for a COPD exacerbation. We discussed the case with the admitting team who accepted the patient for admission. *DC/Admit/Observation/Transfer Diagnosis at time of Disposition: COPD exacerbation Lung cancer Qualifiers: Laterality: unspecified laterality Lung location: unspecified part of lung Qualified Code(s): C34.90 - Malignant neoplasm of unspecified part of unspecified bronchus or lung - Discharge Dispostion Condition at time of disposition: Guarded Admit: Yes - Referrals Referrals: Jackson Bhatti MD [Primary Care Provider] - - Patient Instructions - Post Discharge Activity
[2017-04-06] MEDS ORDERED: ACETAMINOPHEN 325 MG TABLET (FP) PO PRN (23:46)
[2017-04-07] MEDS: ALBUTEROL SO4 2.5/IPRATROPIUM 0.5 INH SOL 3 ML VIAL.NEB. NEB SCH ×5 (00:29→23:11)
[2017-04-07] MEDS ORDERED: ALBUTEROL SO4 2.5/IPRATROPIUM 0.5 INH SOL 3 ML VIAL.NEB. NEB ONE (00:37)
[2017-04-07 05:03] VITALS: BMI 15.6
[2017-04-07] MEDS ORDERED: PATIENT'S OWN MEDICATION (NON-FORMULARY) (Aa/Hydrolyzed Collagen, Whey [Lps 15-30 Liquid] PO SCH (06:00)
[2017-04-07] MEDS ORDERED: PATIENT'S OWN MEDICATION (NON-FORMULARY) (Lactose-Reduced Food [Ensure Plus] 237 ML) PO SCH (06:00)
[2017-04-07] MEDS: traMADol HCL 50 MG TABLET PO SCH ×3 (06:44→22:53)
[2017-04-07] MEDS: ASCORBIC ACID 500 MG TABLET (FP) PO SCH ×3 (06:44→22:54)
[2017-04-07] MEDS: DRONABINOL 2.5 MG CAPSULE PO SCH ×2 (06:44→16:22)
--- NOTE | 2017-04-07 10:16 | CON.PULM ---
Consult Consult Specialty:: PULMONARY Referred by:: MAEVE Reason for Consultation:: DESATURATION - History of Present Illness Chief Complaint: NONE/ - History Source History Provided By: Patient, Medical Record Limitations to Obtaining History: Dementia - Past Medical History Cardio/Vascular: Yes: Deep Vein Thrombosis, HTN Pulmonary: Yes: Cancer (LARGE CELL LUNG CANCER ), COPD. No: O2 Dependent Gastrointestinal: Yes: GERD, Hiatal Hernia (large HH) Hepatobiliary: No: Cirrhosis Renal/: No: Renal Failure Reproductive: Yes: Postmenopausal ...: No Heme/Onc: Yes: Anemia, Hypercoaguable State Infectious Disease: No: AIDS Psych: No: Addictions Musculoskeletal: Yes: Chronic low back pain, Osteoarthritis, Other (KYPHOPLASTY DUE TO COMPRESSION FRACTURES/HIP FRACTURE DUE TO FALL NO REPAIR DEEMED NECESSARY ) - Past Surgical History Past Surgical History: Yes: , Laminectomy - Alcohol/Substance Use Hx Alcohol Use: No History of Substance Use: reports: None - Smoking History Smoking history: Former smoker Have you smoked in the past 12 months: No Aproximately how many cigarettes per day: 1 If you are a former smoker, when did you quit?: 2 months ago - Social History Usual Living Arrangement: [facility] ADL: Family Assistance History of Recent Travel: No Home Medications - Allergies Allergies/Adverse Reactions: Allergies Allergy/AdvReac Type Severity Reaction Status Date / Time No Known Allergies Allergy Verified 04/06/17 13:01 - Home Medications Home Medications: Ambulatory Orders Atorvastatin Ca [Lipitor] 10 mg PO HS 11/02/16 Dronabinol 2.5 mg PO BID 11/02/16 Metoprolol Tartrate 12.5 mg PO BID 11/02/16 Mirtazapine 15 mg PO HS 11/02/16 Tramadol HCl 50 mg PO TID 11/02/16 Acetaminophen [Tylenol .Regular Strength -] 650 mg PO Q4H PRN #0 tablet Aa/Hydrolyzed Collagen, Whey [Lps 15-30 Liquid] 30 ml PO TID 04/06/17 Albuterol 2.5/Ipratropium 0.5 [Duoneb -] 1 neb IH QID 04/06/17 Ascorbate Calcium [Vitamin C] 500 mg PO TID 04/06/17 Bacitracin - [Bacitracin Topical Ointment -] 1 applic TP DAILY 04/06/17 Cholecalciferol (Vitamin D3) [Vitamin D3] 1,000 unit PO DAILY 04/06/17 Lactose-Reduced Food [Ensure Plus] 237 ml PO TID 04/06/17 Polyethylene Glycol 3350 [Miralax (For Daily Use) -] 17 gm PO DAILY 04/06/17 Ranitidine HCl 150 mg PO BID 04/06/17 Sennosides [Senna] 8.6 mg PO DAILY 04/06/17 Warfarin Na [Coumadin -] 4.5 mg PO HS 04/06/17 Family Disease History - Family Disease History Family Disease History: Heart Disease: Mother, Other: Father (cirrhosis) Review of Systems Unable to obtain ROS, reason: POOR INFORMANT Physical Exam Vital Sings: Vital Signs Temperature 98.0 F 04/07/17 06:38 Pulse Rate 88 04/07/17 06:38 Respiratory Rate 20 04/07/17 06:38 Blood Pressure 124/76 04/07/17 06:38 O2 Sat by Pulse Oximetry (%) 97 04/07/17 03:00 Constitutional: Yes: Calm, Pallor, Thin Eyes: Yes: EOM Intact HENT: Yes: Normocephalic Neck: Yes: Trachea Midline Cardiovascular: Yes: Regular Rate and Rhythm, S1, S2 Respiratory: Yes: Diminished Gastrointestinal: Yes: Soft Edema: No Neurological: Yes: Pre-Existing Deficit (DEMENTIA ) Labs: CBC, BMP 04/06/17 14:30 04/06/17 14:30 REST REVIEWED Imaging - Results Chest X-ray: Report Reviewed, Image Reviewed Cat Scan: Report Reviewed, Image Reviewed EKG: Report Reviewed, Image Reviewed Problem List - Problems (1) COPD exacerbation Code(s): J44.1 - CHRONIC OBSTRUCTIVE PULMONARY DISEASE W (ACUTE) EXACERBATION (2) Lung cancer Code(s): C34.90 - MALIGNANT NEOPLASM OF UNSP PART OF UNSP BRONCHUS OR LUNG Qualifiers: Laterality: unspecified laterality Lung location: unspecified part of lung Qualified Code(s): C34.90 - Malignant neoplasm of unspecified part of unspecified bronchus or lung (3) Anemia Code(s): D64.9 - ANEMIA, UNSPECIFIED (4) Aneurysm of left popliteal artery Code(s): I72.4 - ANEURYSM OF ARTERY OF LOWER EXTREMITY (5) Back pain Code(s): M54.9 - DORSALGIA, UNSPECIFIED Assessment/Plan DUE TO ENLARGING LUNG MASSES AND LIVER METS WITH EXTENSIVE EMPHYSEMATOUS CHANGES WOULD SUGGEST PALLIATIVE TREATMENT AT THIS POINT FOR SYMPTOMS RELATED TO HYPOXEMIA/PAIN WOULD CONSULT ONCOLOGY AND PAIN MANAGEMENT(IF NEEDED) END OF LIFE DECISIONS TO BE CLARIFIED ANY ATTEMPTS AT RESUSCITATION WOULD LIKELY BE FUTILE O2 SUPPLEMENTATION TO KEEP SAT >90% BRONCHODILATORS REQUIRED HYDRATION/NUTRITION/PAIN MANAGEMENT Cecilia ESTRADA MD
[2017-04-07] MEDS: RANITIDINE HCL 150 MG TABLET (FP) PO SCH ×2 (10:38→22:53)
[2017-04-07] MEDS: CHOLECALCIFEROL (VITAMIN D3) 1,000 UNIT TABLET (FP) PO SCH (10:38)
[2017-04-07] MEDS: SENNOSIDES 8.6MG TABLET (FP) PO SCH (10:38)
[2017-04-07] MEDS: METOPROLOL TARTRATE 25 MG TABLET (FP) PO SCH ×2 (10:38→22:53)
[2017-04-07] MEDS: POLYETHYLENE GLYCOL 3350 119 GM BTL PO SCH (10:40)
[2017-04-07 10:47] LABS: INR 1.53 (0.82-1.09); PROTHROMBIN TIME (PATIENT) 17.3 SEC (9.98-11.88)
--- NOTE | 2017-04-07 10:56 | EKG ---
Test Reason : Blood Pressure : / mmHG Vent. Rate : 083 BPM Atrial Rate : 096 BPM P-R Int : 000 ms QRS Dur : 076 ms QT Int : 364 ms P-R-T Axes : 099 -23 071 degrees QTc Int : 427 ms SINUS RHYTHM WITH PREMATURE ATRIAL COMPLEXES POOR R WAVE PROGRESSION ABNORMAL ECG WHEN COMPARED WITH ECG OF 26-NOV-2016 22:28, PREMATURE VENTRICULAR COMPLEXES ARE NO LONGER PRESENT PREMATURE ATRIAL COMPLEXES ARE NOW PRESENT Confirmed by BALWINDER SHORE, LIU ([id number]) on 04/07/2017 10:56:24 AM Referred By: Confirmed By:LIU BRITT MD
--- NOTE | 2017-04-07 15:08 | HP ---
Admitting History and Physical - Admission Chief Complaint: low oxygen levels History of Present Illness: 76 yo female, h/o Large Cell Neuroendocrine lung cancer, DVT, h/o arterial thrombosis in leg, COPD (long-time smoker), presents from nursing facility with decreased oxygen saturations. Sitting in bed patient has normal oxygen saturations, but they had been decreasing when she is getting out of bed. Patient currently denies any pain or shortness of breath sitting in bed. History Source: Patient, Medical Record Limitations to Obtaining History: No Limitations - Past Medical History Cardiovascular: Yes: Deep Vein Thrombosis, HTN Pulmonary: Yes: Cancer (LARGE CELL LUNG CANCER ), COPD. No: O2 Dependent Gastrointestinal: Yes: GERD, Hiatal Hernia (large HH) Hepatobiliary: No: Cirrhosis Renal/: No: Renal Failure ...: No Heme/Onc: Yes: Anemia, Hypercoaguable State Infectious Disease: No: AIDS Psych: No: Addictions Musculoskeletal: Yes: Chronic low back pain, Osteoarthritis, Other (KYPHOPLASTY DUE TO COMPRESSION FRACTURES/HIP FRACTURE DUE TO FALL NO REPAIR DEEMED NECESSARY ) - Past Surgical History Past Surgical History: Yes: , Laminectomy - Advance Directives Advance Directives: Yes: Health Care Proxy - Smoking History Smoking history: Former smoker Have you smoked in the past 12 months: No Aproximately how many cigarettes per day: 1 If you are a former smoker, when did you quit?: 2 months ago - Alcohol/Substance Use Hx Alcohol Use: No History of Substance Use: reports: None - Social History ADL: Family Assistance History of Recent Travel: No Home Medications - Allergies Allergies/Adverse Reactions: Allergies Allergy/AdvReac Type Severity Reaction Status Date / Time No Known Allergies Allergy Verified 04/06/17 13:01 - Home Medications Home Medications: Ambulatory Orders Atorvastatin Ca [Lipitor] 10 mg PO HS 11/02/16 Dronabinol 2.5 mg PO BID 11/02/16 Metoprolol Tartrate 12.5 mg PO BID 11/02/16 Mirtazapine 15 mg PO HS 11/02/16 Tramadol HCl 50 mg PO TID 11/02/16 Acetaminophen [Tylenol .Regular Strength -] 650 mg PO Q4H PRN #0 tablet Aa/Hydrolyzed Collagen, Whey [Lps 15-30 Liquid] 30 ml PO TID 04/06/17 Albuterol 2.5/Ipratropium 0.5 [Duoneb -] 1 neb IH QID 04/06/17 Ascorbate Calcium [Vitamin C] 500 mg PO TID 04/06/17 Bacitracin - [Bacitracin Topical Ointment -] 1 applic TP DAILY 04/06/17 Cholecalciferol (Vitamin D3) [Vitamin D3] 1,000 unit PO DAILY 04/06/17 Lactose-Reduced Food [Ensure Plus] 237 ml PO TID 04/06/17 Polyethylene Glycol 3350 [Miralax (For Daily Use) -] 17 gm PO DAILY 04/06/17 Ranitidine HCl 150 mg PO BID 04/06/17 Sennosides [Senna] 8.6 mg PO DAILY 04/06/17 Warfarin Na [Coumadin -] 4.5 mg PO HS 04/06/17 Family Disease History - Family Disease History Family Disease History: Heart Disease: Mother, Other: Father (cirrhosis) Review of Systems - Review of Systems Constitutional: reports: Loss of Appetite, Weakness. denies: Fever Eyes: reports: No Symptoms HENT: denies: Difficult Swallowing Cardiovascular: denies: Chest Pain Gastrointestinal: denies: Abdominal Pain, Diarrhea, Nausea, Vomiting Musculoskeletal: reports: Back Pain Physical Examination Vital Signs: Vital Signs Temperature 97.7 F 04/07/17 10:00 Pulse Rate 88 04/07/17 10:00 Respiratory Rate 20 04/07/17 10:00 Blood Pressure 107/69 04/07/17 10:00 O2 Sat by Pulse Oximetry (%) 97 04/07/17 09:00 Constitutional: Yes: Cachectic Eyes: Yes: Conjunctiva Clear, EOM Intact, PERRL HENT: Yes: Atraumatic, Normocephalic Neck: Yes: Supple, Trachea Midline Cardiovascular: Yes: Regular Rate and Rhythm, S1, S2. No: Murmur Respiratory: Yes: Regular, Diminished Gastrointestinal: Yes: Normal Bowel Sounds, Soft. No: Distention, Tenderness Edema: No Neurological: Yes: Alert Labs: CBC, BMP 04/06/17 14:30 04/06/17 14:30 Imaging - Results Cat Scan: Report Reviewed (CT chest : increased size left lung mass with bronchus obstructon, additional lung lesions seen, 9cm mass seen in liver) Problem List - Problems (1) Hypoxia Assessment/Plan: -cont Oxygen, nebs, pulm consulted Code(s): R09.02 - HYPOXEMIA (2) Mass of right lung Assessment/Plan: prior lung biopsy (by bronchoscopy) revealed large cell neuroendocrine tumor - on current CT scan appears larger, obstructing bronchus, now with satellite lesions and liver lesion, so likely enlarging mass causing more pulmonary symptoms now -given extensive metastasis would benefit from palliative care -called dtr (Ms. Tavares) awaiting call back to discuss Code(s): R91.8 - OTHER NONSPECIFIC ABNORMAL FINDING OF LUNG FIELD (3) DVT (deep venous thrombosis) Assessment/Plan: -on coumadin Code(s): I82.409 - ACUTE EMBOLISM AND THOMBOS UNSP DEEP VN UNSP LOWER EXTREMITY Qualifiers: DVT location: lower extremity Affected thrombotic vein of extremity: unspecified vein of extremity Chronicity: unspecified Laterality: unspecified laterality Qualified Code(s): I82.409 - Acute embolism and thrombosis of unspecified deep veins of unspecified lower extremity
[2017-04-07] MEDS ORDERED: WARFARIN NA 2 MG TABLET (UD) ONE (18:19)
[2017-04-07] MEDS ORDERED: WARFARIN NA 2.5 MG TABLET (FP) ONE (18:19)
[2017-04-07] MEDS: WARFARIN NA 2.5 MG, WARFARIN NA 2 MG PO SCH (18:20)
[2017-04-07] MEDS ORDERED: WARFARIN NA 2 MG TABLET (UD) PO SCH (22:00)
[2017-04-07] MEDS: ATORVASTATIN CA 10 MG TABLET (FP) PO SCH (22:53)
[2017-04-07] MEDS: MIRTAZAPINE 15 MG TABLET (FP) PO SCH (22:53)
[2017-04-08] MEDS: DRONABINOL 2.5 MG CAPSULE PO SCH ×2 (06:11→17:19)
[2017-04-08] MEDS: ASCORBIC ACID 500 MG TABLET (FP) PO SCH ×3 (06:11→21:40)
[2017-04-08] MEDS: traMADol HCL 50 MG TABLET PO SCH ×3 (06:12→21:40)
[2017-04-08] MEDS: ALBUTEROL SO4 2.5/IPRATROPIUM 0.5 INH SOL 3 ML VIAL.NEB. NEB SCH ×3 (06:30→17:17)
[2017-04-08 08:35] LABS: INR 1.7 (0.82-1.09); PROTHROMBIN TIME (PATIENT) 19.2 SEC (9.98-11.88)
[2017-04-08] MEDS ORDERED: PT OWN MED DRAWER 7, Y5N ONE (09:19)
[2017-04-08] MEDS: CHOLECALCIFEROL (VITAMIN D3) 1,000 UNIT TABLET (FP) PO SCH (09:47)
[2017-04-08] MEDS: RANITIDINE HCL 150 MG TABLET (FP) PO SCH ×2 (09:47→21:40)
[2017-04-08] MEDS: SENNOSIDES 8.6MG TABLET (FP) PO SCH (09:47)
[2017-04-08] MEDS: METOPROLOL TARTRATE 25 MG TABLET (FP) PO SCH ×2 (09:48→21:40)
[2017-04-08] MEDS: POLYETHYLENE GLYCOL 3350 119 GM BTL PO SCH (09:50)
[2017-04-08] MEDS: BACITRACIN 15 GM TUBE TOPICAL OINTMENT TP SCH ×2 (09:51→21:39)
--- NOTE | 2017-04-08 11:01 | PN ---
Progress Note (short form) - Note Progress Note: PULMONARY NO OVERALL CHANGE IN EXAM OFFERS NO COMPLAINTS INR 1.7 DUE TO ENLARGING LUNG MASSES AND LIVER METS WITH EXTENSIVE EMPHYSEMATOUS CHANGES WOULD SUGGEST PALLIATIVE TREATMENT AT THIS POINT FOR SYMPTOMS RELATED TO HYPOXEMIA/PAIN WOULD CONSULT ONCOLOGY AND PAIN MANAGEMENT(IF NEEDED) END OF LIFE DECISIONS TO BE CLARIFIED ANY ATTEMPTS AT RESUSCITATION WOULD LIKELY BE FUTILE O2 SUPPLEMENTATION TO KEEP SAT >90% BRONCHODILATORS REQUIRED HYDRATION/NUTRITION Cecilia ESTRADA MD Problem List - Problems (1) COPD exacerbation Code(s): J44.1 - CHRONIC OBSTRUCTIVE PULMONARY DISEASE W (ACUTE) EXACERBATION (2) Lung cancer Code(s): C34.90 - MALIGNANT NEOPLASM OF UNSP PART OF UNSP BRONCHUS OR LUNG Qualifiers: Laterality: unspecified laterality Lung location: unspecified part of lung Qualified Code(s): C34.90 - Malignant neoplasm of unspecified part of unspecified bronchus or lung (3) Anemia Code(s): D64.9 - ANEMIA, UNSPECIFIED (4) Aneurysm of left popliteal artery Code(s): I72.4 - ANEURYSM OF ARTERY OF LOWER EXTREMITY (5) Back pain Code(s): M54.9 - DORSALGIA, UNSPECIFIED
--- NOTE | 2017-04-08 11:50 | PN ---
Progress Note, Physician History of Present Illness: Patient feeling OK currently. breathing feeling OK. Ate some breakfast. Some back pain, but not intolerable currently - Current Medication List Current Medications: Active Medications Acetaminophen (Tylenol -) 650 mg PO Q4H PRN PRN Reason: FEVER OR PAIN Albuterol/Ipratropium (Duoneb -) 1 amp NEB QIDR [facility] Last Admin: 04/08/17 11:00 Dose: Not Given Ascorbic Acid (Vitamin C -) 500 mg PO TID [facility] Last Admin: 04/08/17 06:11 Dose: 500 mg Atorvastatin Calcium (Lipitor -) 10 mg PO HS [facility] Last Admin: 04/07/17 22:53 Dose: 10 mg Bacitracin (Bacitracin -) 1 applic TP DAILY [facility] Last Admin: 04/08/17 09:51 Dose: 1 applic Cholecalciferol (Vitamin D3 -) 1,000 unit PO DAILY [facility] Last Admin: 04/08/17 09:47 Dose: 1,000 unit Dronabinol (Marinol -) 2.5 mg PO BIDAC [facility] Last Admin: 04/08/17 06:11 Dose: 2.5 mg Metoprolol Tartrate (Lopressor -) 12.5 mg PO BID [facility] Last Admin: 04/08/17 09:48 Dose: 12.5 mg Mirtazapine (Remeron -) 15 mg PO HS [facility] Last Admin: 04/07/17 22:53 Dose: 15 mg Polyethylene Glycol (Miralax (For Daily Use) -) 17 gm PO DAILY [facility] Last Admin: 04/08/17 09:50 Dose: 17 gm Ranitidine HCl (Zantac -) 150 mg PO BID [facility] Last Admin: 04/08/17 09:47 Dose: 150 mg Senna (Senna -) 1 tab PO DAILY [facility] Last Admin: 04/08/17 09:47 Dose: 1 tab Tramadol HCl (Ultram -) 50 mg PO TID [facility] Last Admin: 04/08/17 06:12 Dose: 50 mg Warfarin Sodium 2.5 mg/ (Warfarin Sodium 2 mg) 4.5 mg PO DAILY@1800 [facility] Last Admin: 04/07/17 18:20 Dose: 4.5 mg - Objective Vital Signs: Vital Signs Temperature 97.9 F 04/08/17 06:00 Pulse Rate 70 04/08/17 10:58 Respiratory Rate 20 04/08/17 06:00 Blood Pressure 128/81 04/08/17 02:00 O2 Sat by Pulse Oximetry (%) 95 04/08/17 10:58 Constitutional: Yes: No Distress, Calm Cardiovascular: Yes: Regular Rate and Rhythm, S1, S2. No: Murmur Respiratory: Yes: Regular, Diminished (left lung) Gastrointestinal: Yes: Normal Bowel Sounds, Soft. No: Distention, Tenderness Edema: No Labs: CBC, BMP 04/06/17 14:30 04/06/17 14:30 INR, PTT INR 1.70 (0.82-1.09) H 04/08/17 07:17 Problem List - Problems (1) Hypoxia Code(s): R09.02 - HYPOXEMIA (2) Mass of right lung Code(s): R91.8 - OTHER NONSPECIFIC ABNORMAL FINDING OF LUNG FIELD (3) DVT (deep venous thrombosis) Code(s): I82.409 - ACUTE EMBOLISM AND THOMBOS UNSP DEEP VN UNSP LOWER EXTREMITY Qualifiers: DVT location: lower extremity Affected thrombotic vein of extremity: unspecified vein of extremity Chronicity: unspecified Laterality: unspecified laterality Qualified Code(s): I82.409 - Acute embolism and thrombosis of unspecified deep veins of unspecified lower extremity Assessment/Plan Current Active Problems COPD exacerbation (Acute) Hypoxia (Acute) Lung cancer (Acute) DVT Compression fracture of spine -discussed findings of CT scan with patient's daughter and son (Chapito), with increased lung mass, bronchial obstruction, liver mass. Given very poor functional performance status was not previously a candidate for chemotherapy treatment for the tumor, and would not be now, so main goal will be to keep her comfortable. Will start medication for anxiety to take as needed , as son notes that patient frequently becomes very anxious when she feels her breathing off. Otherwise, discussed that best option for patient will likely by Hospice care (can possibly initiate at [facility] after the Holiday) -will consult palliative care here as well
[2017-04-08] MEDS ORDERED: ALPRAZolam 0.25 MG TABLET PO PRN (11:53)
[2017-04-08] MEDS ORDERED: WARFARIN NA 5 MG TABLET (UD) PO ONE (18:00)
[2017-04-08] MEDS: ATORVASTATIN CA 10 MG TABLET (FP) PO SCH (21:40)
[2017-04-08] MEDS: MIRTAZAPINE 15 MG TABLET (FP) PO SCH (21:40)
[2017-04-09] MEDS: ALBUTEROL SO4 2.5/IPRATROPIUM 0.5 INH SOL 3 ML VIAL.NEB. NEB SCH ×4 (00:05→18:07)
[2017-04-09] MEDS: traMADol HCL 50 MG TABLET PO SCH ×3 (06:32→21:44)
[2017-04-09] MEDS: DRONABINOL 2.5 MG CAPSULE PO SCH ×2 (06:32→17:15)
[2017-04-09] MEDS: ASCORBIC ACID 500 MG TABLET (FP) PO SCH ×3 (06:32→21:44)
[2017-04-09 08:07] LABS: INR 2.39 (0.82-1.09)
--- NOTE | 2017-04-09 10:40 | PN ---
Progress Note (short form) - Note Progress Note: PULMONARY NO OVERALL CHANGE IN EXAM VSS/AFEBRILE ANICTERIC SCATTERED RHONCHI S1S2 BS+ NO EDEMA CHART REVIEWED OFFERS NO COMPLAINTS INR 2.39 DUE TO ENLARGING LUNG MASSES AND LIVER METS WITH EXTENSIVE EMPHYSEMATOUS CHANGES WOULD SUGGEST PALLIATIVE TREATMENT AT THIS POINT FOR SYMPTOMS RELATED TO HYPOXEMIA/PAIN PMD HAS SPOKEN TO SON AND DAUGHTER END OF LIFE DECISIONS TO BE CLARIFIED ANY ATTEMPTS AT RESUSCITATION WOULD LIKELY BE FUTILE O2 SUPPLEMENTATION TO KEEP SAT >90% BRONCHODILATORS REQUIRED HYDRATION/NUTRITION PALLIATIVE/HOSPICE CARE TO BE CONSIDERED R SEAN SHORE Problem List - Problems (1) COPD exacerbation Code(s): J44.1 - CHRONIC OBSTRUCTIVE PULMONARY DISEASE W (ACUTE) EXACERBATION (2) Lung cancer Code(s): C34.90 - MALIGNANT NEOPLASM OF UNSP PART OF UNSP BRONCHUS OR LUNG Qualifiers: Laterality: unspecified laterality Lung location: unspecified part of lung Qualified Code(s): C34.90 - Malignant neoplasm of unspecified part of unspecified bronchus or lung (3) Anemia Code(s): D64.9 - ANEMIA, UNSPECIFIED (4) Aneurysm of left popliteal artery Code(s): I72.4 - ANEURYSM OF ARTERY OF LOWER EXTREMITY (5) Back pain Code(s): M54.9 - DORSALGIA, UNSPECIFIED
[2017-04-09] MEDS: METOPROLOL TARTRATE 25 MG TABLET (FP) PO SCH ×2 (10:48→21:44)
[2017-04-09] MEDS: RANITIDINE HCL 150 MG TABLET (FP) PO SCH ×2 (10:48→21:44)
[2017-04-09] MEDS: SENNOSIDES 8.6MG TABLET (FP) PO SCH (10:48)
[2017-04-09] MEDS: CHOLECALCIFEROL (VITAMIN D3) 1,000 UNIT TABLET (FP) PO SCH (10:49)
[2017-04-09] MEDS: BACITRACIN 15 GM TUBE TOPICAL OINTMENT TP SCH (10:49)
[2017-04-09] MEDS: POLYETHYLENE GLYCOL 3350 119 GM BTL PO SCH (10:49)
--- NOTE | 2017-04-09 10:50 | PN ---
Progress Note, Physician History of Present Illness: Patient confused this morning, saying she is going to work soon. Had taken oxygen off overnight. Denies any pain currently. - Current Medication List Current Medications: Active Medications Acetaminophen (Tylenol -) 650 mg PO Q4H PRN PRN Reason: FEVER OR PAIN Albuterol/Ipratropium (Duoneb -) 1 amp NEB QIDR [facility] Last Admin: 04/09/17 05:50 Dose: 1 amp Alprazolam (Xanax -) 0.25 mg PO Q8H PRN PRN Reason: ANXIETY Ascorbic Acid (Vitamin C -) 500 mg PO TID [facility] Last Admin: 04/09/17 06:32 Dose: 500 mg Atorvastatin Calcium (Lipitor -) 10 mg PO HS [facility] Last Admin: 04/08/17 21:40 Dose: 10 mg Bacitracin (Bacitracin -) 1 applic TP DAILY [facility] Last Admin: 04/08/17 21:39 Dose: Not Given Cholecalciferol (Vitamin D3 -) 1,000 unit PO DAILY [facility] Last Admin: 04/08/17 09:47 Dose: 1,000 unit Dronabinol (Marinol -) 2.5 mg PO BIDAC [facility] Last Admin: 04/09/17 06:32 Dose: 2.5 mg Metoprolol Tartrate (Lopressor -) 12.5 mg PO BID [facility] Last Admin: 04/08/17 21:40 Dose: 12.5 mg Mirtazapine (Remeron -) 15 mg PO HS [facility] Last Admin: 04/08/17 21:40 Dose: 15 mg Polyethylene Glycol (Miralax (For Daily Use) -) 17 gm PO DAILY [facility] Last Admin: 04/08/17 09:50 Dose: 17 gm Ranitidine HCl (Zantac -) 150 mg PO BID [facility] Last Admin: 04/08/17 21:40 Dose: 150 mg Senna (Senna -) 1 tab PO DAILY [facility] Last Admin: 04/08/17 09:47 Dose: 1 tab Tramadol HCl (Ultram -) 50 mg PO TID [facility] Last Admin: 04/09/17 06:32 Dose: 50 mg Warfarin Sodium 2.5 mg/ (Warfarin Sodium 2 mg) 4.5 mg PO DAILY@1800 [facility] Last Admin: 04/07/17 18:20 Dose: 4.5 mg - Objective Vital Signs: Vital Signs Temperature 98.2 F 04/09/17 09:50 Pulse Rate 91 H 04/09/17 09:50 Respiratory Rate 19 04/09/17 09:50 Blood Pressure 120/81 04/09/17 09:50 O2 Sat by Pulse Oximetry (%) 92 L 04/08/17 21:00 Constitutional: Yes: No Distress, Calm, Cachectic Neck: Yes: Supple, Trachea Midline Cardiovascular: Yes: Regular Rate and Rhythm, S1, S2. No: Murmur Respiratory: Yes: Regular, Diminished. No: Rales, Rhonchi, Wheezes Gastrointestinal: Yes: Normal Bowel Sounds, Soft. No: Distention, Tenderness Edema: No Neurological: Yes: Confusion Labs: CBC, BMP 04/06/17 14:30 04/06/17 14:30 INR, PTT INR 2.39 (0.82-1.09) H D 04/09/17 06:30 Problem List - Problems (1) Hypoxia Code(s): R09.02 - HYPOXEMIA (2) Mass of right lung Code(s): R91.8 - OTHER NONSPECIFIC ABNORMAL FINDING OF LUNG FIELD (3) DVT (deep venous thrombosis) Code(s): I82.409 - ACUTE EMBOLISM AND THOMBOS UNSP DEEP VN UNSP LOWER EXTREMITY Qualifiers: DVT location: lower extremity Affected thrombotic vein of extremity: unspecified vein of extremity Chronicity: unspecified Laterality: unspecified laterality Qualified Code(s): I82.409 - Acute embolism and thrombosis of unspecified deep veins of unspecified lower extremity Assessment/Plan Current Active Problems COPD exacerbation (Acute) Hypoxia (Acute) Lung cancer (Acute) DVT Compression fracture of spine -continue supportive treatment -would benefit form hospice/ palliative care (can be arranged at [facility]?) -psychiatric social worker supervisor for d/c planning
[2017-04-09] MEDS ORDERED: WARFARIN NA 2 MG TABLET (UD) ONE (18:06)
[2017-04-09] MEDS ORDERED: WARFARIN NA 2.5 MG TABLET (FP) ONE (18:07)
[2017-04-09] MEDS: WARFARIN NA 2.5 MG, WARFARIN NA 2 MG PO SCH (18:10)
[2017-04-09] MEDS: ATORVASTATIN CA 10 MG TABLET (FP) PO SCH (21:44)
[2017-04-09] MEDS: MIRTAZAPINE 15 MG TABLET (FP) PO SCH (21:44)
[2017-04-10] MEDS: ALBUTEROL SO4 2.5/IPRATROPIUM 0.5 INH SOL 3 ML VIAL.NEB. NEB SCH ×4 (00:20→18:03)
[2017-04-10] MEDS: ASCORBIC ACID 500 MG TABLET (FP) PO SCH ×3 (06:13→21:23)
[2017-04-10] MEDS: traMADol HCL 50 MG TABLET PO SCH ×3 (06:13→21:22)
[2017-04-10] MEDS: DRONABINOL 2.5 MG CAPSULE PO SCH ×2 (06:13→16:59)
[2017-04-10 09:34] LABS: INR 3.3 (0.82-1.09); PROTHROMBIN TIME (PATIENT) 37.3 SEC (9.98-11.88)
[2017-04-10] MEDS ORDERED: PT OWN MED DRAWER 7, Y5N ONE (09:41)
[2017-04-10] MEDS: CHOLECALCIFEROL (VITAMIN D3) 1,000 UNIT TABLET (FP) PO SCH (09:43)
[2017-04-10] MEDS: SENNOSIDES 8.6MG TABLET (FP) PO SCH (09:43)
[2017-04-10] MEDS: RANITIDINE HCL 150 MG TABLET (FP) PO SCH ×2 (09:43→21:23)
[2017-04-10] MEDS: METOPROLOL TARTRATE 25 MG TABLET (FP) PO SCH ×2 (09:44→21:24)
[2017-04-10] MEDS: BACITRACIN 15 GM TUBE TOPICAL OINTMENT TP SCH (09:45)
[2017-04-10] MEDS: POLYETHYLENE GLYCOL 3350 119 GM BTL PO SCH (09:45)
--- NOTE | 2017-04-10 12:33 | PN ---
Progress Note, Physician Chief Complaint: Patient denies cp, sob, n/v. - Current Medication List Current Medications: Active Medications Acetaminophen (Tylenol -) 650 mg PO Q4H PRN PRN Reason: FEVER OR PAIN Albuterol/Ipratropium (Duoneb -) 1 amp NEB QIDR [facility] Last Admin: 04/10/17 11:25 Dose: 1 amp Alprazolam (Xanax -) 0.25 mg PO Q8H PRN PRN Reason: ANXIETY Ascorbic Acid (Vitamin C -) 500 mg PO TID [facility] Last Admin: 04/10/17 06:13 Dose: 500 mg Atorvastatin Calcium (Lipitor -) 10 mg PO [facility] Last Admin: 04/09/17 21:44 Dose: 10 mg Bacitracin (Bacitracin -) 1 applic TP DAILY [facility] Last Admin: 04/10/17 09:45 Dose: Not Given Cholecalciferol (Vitamin D3 -) 1,000 unit PO DAILY [facility] Last Admin: 04/10/17 09:43 Dose: 1,000 unit Dronabinol (Marinol -) 2.5 mg PO BIDAC [facility] Last Admin: 04/10/17 06:13 Dose: 2.5 mg Metoprolol Tartrate (Lopressor -) 12.5 mg PO BID [facility] Last Admin: 04/10/17 09:44 Dose: 12.5 mg Mirtazapine (Remeron -) 15 mg PO HS [facility] Last Admin: 04/09/17 21:44 Dose: 15 mg Polyethylene Glycol (Miralax (For Daily Use) -) 17 gm PO DAILY [facility] Last Admin: 04/10/17 09:45 Dose: 17 gm Ranitidine HCl (Zantac -) 150 mg PO BID [facility] Last Admin: 04/10/17 09:43 Dose: 150 mg Senna (Senna -) 1 tab PO DAILY [facility] Last Admin: 04/10/17 09:43 Dose: 1 tab Tramadol HCl (Ultram -) 50 mg PO TID [facility] Last Admin: 04/10/17 06:13 Dose: 50 mg Warfarin Sodium 2.5 mg/ (Warfarin Sodium 2 mg) 4.5 mg PO DAILY@1800 [facility] Last Admin: 04/09/17 18:10 Dose: 4.5 mg - Objective Vital Signs: Vital Signs Temperature 36.8 C 04/10/17 05:33 Pulse Rate 96 H 04/10/17 09:00 Respiratory Rate 20 04/10/17 09:00 Blood Pressure 122/84 04/10/17 09:00 O2 Sat by Pulse Oximetry (%) 94 L 04/10/17 09:00 Constitutional: Yes: No Distress, Calm, Thin Cardiovascular: Yes: Regular Rate and Rhythm. No: Gallop, Murmur, Rub Respiratory: Yes: CTA Bilaterally, On Nasal O2, Tachypnea (slight but appears comfortable). No: Rales, Rhonchi, Wheezes Gastrointestinal: Yes: Normal Bowel Sounds, Soft. No: Distention, Tenderness Extremities: Yes: WNL Edema: No Labs: CBC, BMP 04/06/17 14:30 04/06/17 14:30 INR, PTT INR 3.30 (0.82-1.09) H D 04/10/17 08:11 Problem List - Problems (1) COPD exacerbation Code(s): J44.1 - CHRONIC OBSTRUCTIVE PULMONARY DISEASE W (ACUTE) EXACERBATION (2) Hypoxia Code(s): R09.02 - HYPOXEMIA (3) Lung cancer Code(s): C34.90 - MALIGNANT NEOPLASM OF UNSP PART OF UNSP BRONCHUS OR LUNG Qualifiers: Laterality: unspecified laterality Lung location: unspecified part of lung Qualified Code(s): C34.90 - Malignant neoplasm of unspecified part of unspecified bronchus or lung (4) DVT (deep venous thrombosis) Code(s): I82.409 - ACUTE EMBOLISM AND THOMBOS UNSP DEEP VN UNSP LOWER EXTREMITY Qualifiers: DVT location: lower extremity Affected thrombotic vein of extremity: unspecified vein of extremity Chronicity: unspecified Laterality: unspecified laterality Qualified Code(s): I82.409 - Acute embolism and thrombosis of unspecified deep veins of unspecified lower extremity (5) HTN (hypertension) Code(s): I10 - ESSENTIAL (PRIMARY) HYPERTENSION (6) Malignant malnutrition Code(s): E40 - [place]WASHI[place]OR Assessment/Plan Plan -case d/w daughter who is health care proxy -patient with metastatic malignancy -suspect less than 6 months of life -plan to discharge tomorrow to [facility] comfort measures
--- NOTE | 2017-04-10 12:50 | PN ---
Progress Note (short form) - Note Progress Note: NAD on NC O2. Noted periods of confusion and patient removing O2 and becoming hypoxic. Intake & Output 04/07/17 04/08/17 04/09/17 04/10/17 23:59 23:59 23:59 23:59 Intake Total 550 240 650 Balance 550 240 650 Weight 75 lb Last Vital Signs Temp Pulse Resp BP Pulse Ox 98.3 F 96 H 20 122/84 94 L 04/10/17 05:33 04/10/17 09:00 04/10/17 09:00 04/10/17 09:00 04/10/17 09:00 Active Medications Acetaminophen (Tylenol -) 650 mg PO Q4H PRN PRN Reason: FEVER OR PAIN Albuterol/Ipratropium (Duoneb -) 1 amp NEB QIDR [facility] Last Admin: 04/10/17 11:25 Dose: 1 amp Alprazolam (Xanax -) 0.25 mg PO Q8H PRN PRN Reason: ANXIETY Ascorbic Acid (Vitamin C -) 500 mg PO TID [facility] Last Admin: 04/10/17 06:13 Dose: 500 mg Atorvastatin Calcium (Lipitor -) 10 mg PO HS [facility] Last Admin: 04/09/17 21:44 Dose: 10 mg Bacitracin (Bacitracin -) 1 applic TP DAILY [facility] Last Admin: 04/10/17 09:45 Dose: Not Given Cholecalciferol (Vitamin D3 -) 1,000 unit PO DAILY [facility] Last Admin: 04/10/17 09:43 Dose: 1,000 unit Dronabinol (Marinol -) 2.5 mg PO BIDAC [facility] Last Admin: 04/10/17 06:13 Dose: 2.5 mg Metoprolol Tartrate (Lopressor -) 12.5 mg PO BID [facility] Last Admin: 04/10/17 09:44 Dose: 12.5 mg Mirtazapine (Remeron -) 15 mg PO HS [facility] Last Admin: 04/09/17 21:44 Dose: 15 mg Polyethylene Glycol (Miralax (For Daily Use) -) 17 gm PO DAILY [facility] Last Admin: 04/10/17 09:45 Dose: 17 gm Ranitidine HCl (Zantac -) 150 mg PO BID [facility] Last Admin: 04/10/17 09:43 Dose: 150 mg Senna (Senna -) 1 tab PO DAILY [facility] Last Admin: 04/10/17 09:43 Dose: 1 tab Tramadol HCl (Ultram -) 50 mg PO TID [facility] Last Admin: 04/10/17 06:13 Dose: 50 mg Warfarin Sodium 2.5 mg/ (Warfarin Sodium 2 mg) 4.5 mg PO DAILY@1800 [facility] Last Admin: 04/09/17 18:10 Dose: 4.5 mg Constitutional: Yes: NAD, Cachectic Neck: Yes: Supple, Trachea Midline Cardiovascular: Yes: Regular Rate and Rhythm, S1, S2. No: Murmur Respiratory: Yes: Regular, Diminished. No: Rales, Rhonchi, Wheezes Gastrointestinal: Yes: Normal Bowel Sounds, Soft. No: Distention, Tenderness Edema: No Neurological: Yes: Confusion Labs: Laboratory Results - last 24 hr 04/10/17 08:11 PT with INR 37.30 H INR 3.30 H D Problem List - Problems (1) COPD exacerbation Code(s): J44.1 - CHRONIC OBSTRUCTIVE PULMONARY DISEASE W (ACUTE) EXACERBATION (2) Lung cancer Code(s): C34.90 - MALIGNANT NEOPLASM OF UNSP PART OF UNSP BRONCHUS OR LUNG Qualifiers: Laterality: unspecified laterality Lung location: unspecified part of lung Qualified Code(s): C34.90 - Malignant neoplasm of unspecified part of unspecified bronchus or lung (3) Anemia Code(s): D64.9 - ANEMIA, UNSPECIFIED (4) Aneurysm of left popliteal artery Code(s): I72.4 - ANEURYSM OF ARTERY OF LOWER EXTREMITY (5) Back pain Code(s): M54.9 - DORSALGIA, UNSPECIFIED IMP: DUE TO ENLARGING LUNG MASSES AND LIVER METS WITH EXTENSIVE EMPHYSEMATOUS CHANGES WOULD SUGGEST PALLIATIVE TREATMENT AT THIS POINT END OF LIFE DECISIONS TO BE CLARIFIED ANY ATTEMPTS AT RESUSCITATION WOULD LIKELY BE FUTILE O2 SUPPLEMENTATION TO KEEP SAT 88% to 92% BRONCHODILATORS REQUIRED PALLIATIVE/HOSPICE CARE TO BE CONSIDERED DR MATHIAS
[2017-04-10] MEDS: WARFARIN NA 2.5 MG, WARFARIN NA 2 MG PO SCH (16:59)
[2017-04-10] MEDS: MIRTAZAPINE 15 MG TABLET (FP) PO SCH (21:22)
[2017-04-10] MEDS: ATORVASTATIN CA 10 MG TABLET (FP) PO SCH (21:23)
[2017-04-11] MEDS: ALBUTEROL SO4 2.5/IPRATROPIUM 0.5 INH SOL 3 ML VIAL.NEB. NEB SCH ×5 (00:05→23:22)
[2017-04-11] MEDS: traMADol HCL 50 MG TABLET PO SCH ×3 (06:20→21:59)
[2017-04-11] MEDS: DRONABINOL 2.5 MG CAPSULE PO SCH ×2 (06:21→18:24)
[2017-04-11] MEDS: ASCORBIC ACID 500 MG TABLET (FP) PO SCH ×3 (06:21→21:59)
[2017-04-11] MEDS: CHOLECALCIFEROL (VITAMIN D3) 1,000 UNIT TABLET (FP) PO SCH (10:35)
[2017-04-11] MEDS: SENNOSIDES 8.6MG TABLET (FP) PO SCH (10:35)
[2017-04-11] MEDS: METOPROLOL TARTRATE 25 MG TABLET (FP) PO SCH ×2 (10:35→21:59)
[2017-04-11] MEDS: RANITIDINE HCL 150 MG TABLET (FP) PO SCH ×2 (10:35→21:59)
[2017-04-11] MEDS ORDERED: ONDANSETRON 4 MG/2 ML VIAL IVPUSH ONE (12:05)
--- NOTE | 2017-04-11 12:09 | DS ---
Physical Examination Vital Signs: Vital Signs Temperature 36.6 C 04/11/17 06:00 Pulse Rate 76 04/11/17 11:43 Respiratory Rate 18 04/11/17 06:00 Blood Pressure 133/80 04/11/17 06:00 O2 Sat by Pulse Oximetry (%) 95 04/11/17 11:43 Constitutional: Yes: No Distress, Calm, Thin Cardiovascular: Yes: Regular Rate and Rhythm. No: Gallop, Murmur, Rub Respiratory: Yes: Regular, CTA Bilaterally, On Nasal O2. No: Rales, Rhonchi, Wheezes Gastrointestinal: Yes: Normal Bowel Sounds, Soft. No: Distention, Tenderness Extremities: Yes: WNL Edema: No Labs: CBC, BMP 04/06/17 14:30 04/06/17 14:30 Discharge Summary Reason For Visit: OBSTRUCTIVE CHRONIC BRONCHITIS WITH EXACERBATION Current Active Problems COPD exacerbation (Acute) Hypoxia (Acute) Lung cancer (Acute) Malignant malnutrition (Acute) Hospital Course: (1) COPD exacerbation Code(s): J44.1 - CHRONIC OBSTRUCTIVE PULMONARY DISEASE W (ACUTE) EXACERBATION (2) Hypoxia Code(s): R09.02 - HYPOXEMIA (3) Lung cancer Code(s): C34.90 - MALIGNANT NEOPLASM OF UNSP PART OF UNSP BRONCHUS OR LUNG Qualifiers: Laterality: unspecified laterality Lung location: unspecified part of lung Qualified Code(s): C34.90 - Malignant neoplasm of unspecified part of unspecified bronchus or lung (4) DVT (deep venous thrombosis) Code(s): I82.409 - ACUTE EMBOLISM AND THOMBOS UNSP DEEP VN UNSP LOWER EXTREMITY Qualifiers: DVT location: lower extremity Affected thrombotic vein of extremity: unspecified vein of extremity Chronicity: unspecified Laterality: unspecified laterality Qualified Code(s): I82.409 - Acute embolism and thrombosis of unspecified deep veins of unspecified lower extremity (5) HTN (hypertension) Code(s): I10 - ESSENTIAL (PRIMARY) HYPERTENSION (6) Severe protein calorie malnutrition secondary to malignancy Code(s): E43 Ms Mcdonald is a 76 year old female who came in with hypoxia secondary to growing lung mass that has metastasized. She was admitted to the hospital and given oxygen. The mass is beginning to press on her lung structures causing displacement. She had anxiety and was started on prn xanax. She has nausea that was treated with prn zofran. She is to be continued on her coumadin currently since history of DVT and development of thrombosis can cause discomfort. Case was discussed with her daughter and after case presented, it was decided that she would benefit from comfort measures only back at [facility]. She is currently stable for transfer back to [facility] on comfort measures. 32 minutes spent in preparation of this discharge Condition: Guarded - Instructions Diet, Activity, Other Instructions: regular diet, diet per patient's comfort. Activity also per patient's comfort. Discharge on comfort measures to [facility]. Referrals: Jackson Bhatti MD [Primary Care Provider] - Disposition: [facility] - Home Medications Comprehensive Discharge Medication List: Ambulatory Orders Dronabinol 2.5 mg PO BID 11/02/16 Metoprolol Tartrate 12.5 mg PO BID 11/02/16 Mirtazapine 15 mg PO HS 11/02/16 Tramadol HCl 50 mg PO TID 11/02/16 Acetaminophen [Tylenol .Regular Strength -] 650 mg PO Q4H PRN #0 tablet Aa/Hydrolyzed Collagen, Whey [Lps 15-30 Liquid] 30 ml PO TID 04/06/17 Albuterol 2.5/Ipratropium 0.5 [Duoneb -] 1 neb IH QID 04/06/17 Bacitracin - [Bacitracin Topical Ointment -] 1 applic TP DAILY 04/06/17 Lactose-Reduced Food [Ensure Plus] 237 ml PO TID 04/06/17 Polyethylene Glycol 3350 [Miralax 119 gm Btl -] 17 gm PO DAILY 04/06/17 Ranitidine HCl 150 mg PO BID 04/06/17 Sennosides [Senna] 8.6 mg PO DAILY 04/06/17 Warfarin Na [Coumadin -] 4.5 mg PO HS 04/06/17 Alprazolam [Xanax] 0.25 mg PO Q8H PRN tablet MDD 1mg 04/11/17
[2017-04-11] MEDS: POLYETHYLENE GLYCOL 3350 119 GM BTL PO SCH (14:07)
[2017-04-11] MEDS: BACITRACIN 15 GM TUBE TOPICAL OINTMENT TP SCH (14:07)
[2017-04-11] MEDS ORDERED: WARFARIN NA 2 MG TABLET (UD) ONE (17:02)
[2017-04-11] MEDS ORDERED: WARFARIN NA 2.5 MG TABLET (FP) ONE (17:03)
[2017-04-11 19:33] LABS: INR 2.8 (0.82-1.09); PROTHROMBIN TIME (PATIENT) 31.6 SEC (9.98-11.88)
[2017-04-11] MEDS: WARFARIN NA 2.5 MG, WARFARIN NA 2 MG PO SCH (20:40)
[2017-04-11] MEDS: MIRTAZAPINE 15 MG TABLET (FP) PO SCH (21:59)
[2017-04-11] MEDS: ATORVASTATIN CA 10 MG TABLET (FP) PO SCH (21:59)
[2017-04-12] MEDS: traMADol HCL 50 MG TABLET PO SCH ×3 (06:08→22:12)
[2017-04-12] MEDS: ASCORBIC ACID 500 MG TABLET (FP) PO SCH ×3 (06:09→22:11)
[2017-04-12] MEDS: DRONABINOL 2.5 MG CAPSULE PO SCH ×2 (06:09→17:09)
[2017-04-12] MEDS: ALBUTEROL SO4 2.5/IPRATROPIUM 0.5 INH SOL 3 ML VIAL.NEB. NEB SCH ×3 (06:13→18:07)
[2017-04-12 08:36] LABS: INR 2.94 (0.82-1.09); PROTHROMBIN TIME (PATIENT) 33.2 SEC (9.98-11.88)
[2017-04-12] MEDS: WARFARIN NA 2.5 MG, WARFARIN NA 2 MG PO SCH ×2 (08:41→17:09)
[2017-04-12] MEDS: SENNOSIDES 8.6MG TABLET (FP) PO SCH (09:05)
[2017-04-12] MEDS: RANITIDINE HCL 150 MG TABLET (FP) PO SCH ×2 (09:05→22:11)
[2017-04-12] MEDS: CHOLECALCIFEROL (VITAMIN D3) 1,000 UNIT TABLET (FP) PO SCH (09:05)
[2017-04-12] MEDS: POLYETHYLENE GLYCOL 3350 119 GM BTL PO SCH (09:05)
[2017-04-12] MEDS: BACITRACIN 15 GM TUBE TOPICAL OINTMENT TP SCH (09:05)
[2017-04-12] MEDS: METOPROLOL TARTRATE 25 MG TABLET (FP) PO SCH ×2 (09:05→22:11)
--- NOTE | 2017-04-12 15:54 | PN ---
Progress Note (short form) - Note Progress Note: Patient seen today for Dr[facility] Rodriguez[facility] has enlarging right lung mass with liver nodules and lung nodules suggesting metastatic disease. Also a history of COPD and DVT. On exam: Vital Signs Temp 99.4 F 04/12/17 15:24 Pulse 72 04/12/17 15:24 Resp 18 04/12/17 15:24 BP 123/77 04/12/17 15:24 Pulse Ox 96 04/12/17 09:00 Intake & Output 04/11/17 04/12/17 04/12/17 23:59 11:59 23:59 Intake Total 250 100 200 Balance 250 100 200 Intake: Oral 250 100 200 Other: Voiding Method Incontinent Incontinent Incontinent # Unmeasured Voids Void 2 2 1 Bowel Movement No No Yes pale Decreased breath sounds right side Heart regular Periods of lip pursing followed by more relaxed breathing. No pedal edema Abnormal Lab Results 04/11/17 04/12/17 18:10 07:30 PT with INR 31.60 H 33.20 H INR 2.80 H 2.94 H impression: Lung cancer with metastatic disease DVT COPD Cachexia syndrome Plan: Discharge summary has already been documented by Dr. Rodriguez. Awaiting transfer for comfort.
[2017-04-12] MEDS ORDERED: WARFARIN NA 2 MG TABLET (UD) ONE (17:07)
[2017-04-12] MEDS ORDERED: WARFARIN NA 2.5 MG TABLET (FP) ONE (17:07)
[2017-04-12] MEDS: ATORVASTATIN CA 10 MG TABLET (FP) PO SCH (22:11)
[2017-04-12] MEDS: MIRTAZAPINE 15 MG TABLET (FP) PO SCH (22:12)
[2017-04-13] MEDS: ALBUTEROL SO4 2.5/IPRATROPIUM 0.5 INH SOL 3 ML VIAL.NEB. NEB SCH ×4 (00:35→17:24)
[2017-04-13] MEDS ORDERED: PT OWN MED DRAWER 7, Y5N ONE (06:01)
[2017-04-13] MEDS: traMADol HCL 50 MG TABLET PO SCH ×2 (06:27→14:47)
[2017-04-13] MEDS: ASCORBIC ACID 500 MG TABLET (FP) PO SCH ×2 (06:27→14:47)
[2017-04-13] MEDS: DRONABINOL 2.5 MG CAPSULE PO SCH (06:27)
[2017-04-13] MEDS: POLYETHYLENE GLYCOL 3350 119 GM BTL PO SCH (09:57)
[2017-04-13] MEDS: BACITRACIN 15 GM TUBE TOPICAL OINTMENT TP SCH (09:58)
[2017-04-13] MEDS: RANITIDINE HCL 150 MG TABLET (FP) PO SCH (10:05)
[2017-04-13] MEDS: CHOLECALCIFEROL (VITAMIN D3) 1,000 UNIT TABLET (FP) PO SCH (10:05)
[2017-04-13] MEDS: SENNOSIDES 8.6MG TABLET (FP) PO SCH (10:05)
[2017-04-13] MEDS: METOPROLOL TARTRATE 25 MG TABLET (FP) PO SCH (10:05)
--- NOTE | 2017-04-13 15:19 | PN ---
Progress Note, Physician Chief Complaint: Patient denies cp, sob, n/v. Being fed and patient says she does not want to eat. - Current Medication List Current Medications: Active Medications Acetaminophen (Tylenol -) 650 mg PO Q4H PRN PRN Reason: FEVER OR PAIN Albuterol/Ipratropium (Duoneb -) 1 amp NEB QIDR [facility] Last Admin: 04/13/17 11:27 Dose: 1 amp Alprazolam (Xanax -) 0.25 mg PO Q8H PRN PRN Reason: ANXIETY Ascorbic Acid (Vitamin C -) 500 mg PO TID [facility] Last Admin: 04/13/17 14:47 Dose: 500 mg Atorvastatin Calcium (Lipitor -) 10 mg PO [facility] Last Admin: 04/12/17 22:11 Dose: 10 mg Bacitracin (Bacitracin -) 1 applic TP DAILY [facility] Last Admin: 04/13/17 09:58 Dose: Not Given Cholecalciferol (Vitamin D3 -) 1,000 unit PO DAILY [facility] Last Admin: 04/13/17 10:05 Dose: 1,000 unit Dronabinol (Marinol -) 2.5 mg PO BIDAC [facility] Last Admin: 04/13/17 06:27 Dose: 2.5 mg Metoprolol Tartrate (Lopressor -) 12.5 mg PO BID [facility] Last Admin: 04/13/17 10:05 Dose: 12.5 mg Mirtazapine (Remeron -) 15 mg PO HS [facility] Last Admin: 04/12/17 22:12 Dose: 15 mg Polyethylene Glycol (Miralax (For Daily Use) -) 17 gm PO DAILY [facility] Last Admin: 04/13/17 09:57 Dose: Not Given Ranitidine HCl (Zantac -) 150 mg PO BID [facility] Last Admin: 04/13/17 10:05 Dose: 150 mg Senna (Senna -) 1 tab PO DAILY [facility] Last Admin: 04/13/17 10:05 Dose: 1 tab Tramadol HCl (Ultram -) 50 mg PO TID [facility] Last Admin: 04/13/17 14:47 Dose: 50 mg Warfarin Sodium 2.5 mg/ (Warfarin Sodium 2 mg) 4.5 mg PO DAILY@1800 [facility] Last Admin: 04/12/17 17:09 Dose: 4.5 mg - Objective Vital Signs: Vital Signs Temperature 36.6 C 04/13/17 09:00 Pulse Rate 78 04/13/17 10:24 Respiratory Rate 18 04/13/17 09:00 Blood Pressure 132/82 04/13/17 09:00 O2 Sat by Pulse Oximetry (%) 96 04/13/17 10:24 Constitutional: Yes: No Distress, Calm, Thin Cardiovascular: Yes: Regular Rate and Rhythm. No: Gallop, Murmur, Rub Respiratory: Yes: Regular, CTA Bilaterally. No: Rales, Rhonchi, Wheezes Gastrointestinal: Yes: Normal Bowel Sounds, Soft. No: Distention, Tenderness Extremities: Yes: WNL Edema: No Labs: CBC, BMP 04/06/17 14:30 04/06/17 14:30 INR, PTT INR 2.94 (0.82-1.09) H 04/12/17 07:30 Problem List - Problems (1) COPD exacerbation Code(s): J44.1 - CHRONIC OBSTRUCTIVE PULMONARY DISEASE W (ACUTE) EXACERBATION (2) Hypoxia Code(s): R09.02 - HYPOXEMIA (3) Lung cancer Code(s): C34.90 - MALIGNANT NEOPLASM OF UNSP PART OF UNSP BRONCHUS OR LUNG Qualifiers: Laterality: unspecified laterality Lung location: unspecified part of lung Qualified Code(s): C34.90 - Malignant neoplasm of unspecified part of unspecified bronchus or lung (4) DVT (deep venous thrombosis) Code(s): I82.409 - ACUTE EMBOLISM AND THOMBOS UNSP DEEP VN UNSP LOWER EXTREMITY Qualifiers: DVT location: lower extremity Affected thrombotic vein of extremity: unspecified vein of extremity Chronicity: unspecified Laterality: unspecified laterality Qualified Code(s): I82.409 - Acute embolism and thrombosis of unspecified deep veins of unspecified lower extremity (5) HTN (hypertension) Code(s): I10 - ESSENTIAL (PRIMARY) HYPERTENSION (6) Malignant malnutrition Code(s): E40 - [facility] Assessment/Plan Plan -awaiting insurance approval for SNF placement -continue comfort measures here -informed staff that patient should eat only if she wants to
[2017-04-13 15:59] VITALS: BP 111/64; PULSE 76; TEMP 98.8
[2017-04-13] MEDS ORDERED: WARFARIN NA 2 MG TABLET (UD) ONE (17:50)
[2017-04-13] MEDS ORDERED: WARFARIN NA 2.5 MG TABLET (FP) ONE (17:51)
[2017-04-13] MEDS: WARFARIN NA 2.5 MG, WARFARIN NA 2 MG PO SCH (17:53)
== END 2017-04-13 20:37 | DRG 180 ==
LOC: JER 12:41 → JERBED 21:33 → OBSVTOIN 21:33 → J6S 04-07 02:21
PROVIDERS: ADMIT Specialist; ATTEND Specialist
DX: C34.90 Malignant neoplasm of unspecified part of unspecified bronchus or lung (principal); E43 Unspecified severe protein-calorie malnutrition; R64 Cachexia; Z68.1 Body mass index [BMI] 19.9 or less, adult; D68.69 Other thrombophilia; J44.1 Chronic obstructive pulmonary disease with (acute) exacerbation; C78.7 Secondary malignant neoplasm of liver and intrahepatic bile duct; F03.90 Unspecified dementia, unspecified severity, without behavioral disturbance, psychotic disturbance, mood disturbance, and anxiety; D64.9 Anemia, unspecified; I10 Essential (primary) hypertension; R09.02 Hypoxemia; R06.82 Tachypnea, not elsewhere classified; D72.828 Other elevated white blood cell count; M84.48XS Pathological fracture, other site, sequela; K21.9 Gastro-esophageal reflux disease without esophagitis; K44.9 Diaphragmatic hernia without obstruction or gangrene; M54.5 Low back pain; Z99.81 Dependence on supplemental oxygen; Z86.718 Personal history of other venous thrombosis and embolism; Z79.01 Long term (current) use of anticoagulants; Z85.118 Personal history of other malignant neoplasm of bronchus and lung
CPT/HCPCS: 36415; 71010-TC; 71275-TC; 80053; 82550; 82803; 83735; 83880; 84100; 84484; 85025; 85610; 85730; 93005; 93010; 94640; 99284-25